=== PATIENT | female | born 1960 | race Caucasian/White ===

== ENCOUNTER 2022-12-30 09:14 | Outpatient (OUT) | payer OTHER, SELFPAY ==
--- NOTE | 2022-12-30 | MM_ITS ---
Patient: ELENI WATKINS Exam Date: 12/30/2022 : 1960 Gender:F Ordering : DR Trevor Forrest . Admission #: [id number] Family : Order #: [id number] CLICK HERE TO VIEW EXAM RADIOLOGY REPORT PROCEDURE: MM TOMOSYNTHESIS SCREENING BI COMPARISON: MG MAMM SCREEN 3D MAI CAD, 12/24/2020. MG MAMM SCREEN 3D MAI CAD, 12/27/2021. INDICATIONS: Screening Calculator Name NCI Breast Cancer Risk Assessment Tool 5 Year Breast Cancer Risk 0.80% Lifetime Breast Cancer Risk 3.80% Personal Breast Cancer No Personal Ovarian Cancer No Treatments None Family Cancers None LOCATION: [facility] BREAST COMPOSITION: Heterogeneously dense,which may obscure small masses. FINDINGS: DIAGNOSTIC CATEGORY 1--NEGATIVE. NO CHANGE FROM COMPARISON ASSESSMENT. Scattered benign-appearing nodules are present. Scattered benign-appearing calcifications are present. Scattered benign-appearing lymph nodes are present. RIGHT BREAST: No significant suspicious finding. LEFT BREAST: No significant suspicious finding. RECOMMENDATIONS: ROUTINE MAMMOGRAM AND CLINICAL EVALUATION IN 12 MONTHS. PLEASE NOTE: A NORMAL MAMMOGRAM DOES NOT EXCLUDE THE POSSIBILITY OF BREAST CANCER. A CLINICALLY SUSPICIOUS PALPABLE LUMP SHOULD BE BIOPSIED. Dictated by: Yaw Denton MD on 12/30/2022 at 10:48 Approved by: Yaw Denton MD on 12/30/2022 at 10:50
== END 2022-12-30 09:15 | disposition home or self-care (01) ==
LOC: MAMMO 09:18
PROVIDERS: PCP Family Medicine; Visit Provider Family Medicine
DX: Z12.31 Encounter for screening mammogram for malignant neoplasm of breast (principal)
CPT/HCPCS: 77063; 77067

== ENCOUNTER 2023-07-14 09:50 | Outpatient (OUT) | payer OTHER, SELFPAY ==
--- OUTSIDE RECORDS SUMMARY | 2023-07-14 10:16 | XMS_ITS | CCD ---
Author Organization [facility] Care Team Providers Care Crozer Operator Name Role Phone UNKNOWN, PROVIDER Unavailable Unavailable UNKNOWN, PROVIDER Unavailable Unavailable ALFA MEREDITH Unavailable Unavailable NADERER, TREVOR Unavailable Unavailable NADEREIan, TREVOR Primary Care Physician [phone] RODRIGO, DR TREVOR Valle Consulting Unavailable NADERER, DR TREVOR Valle Attending Unavailable NADERER, DR TREVOR Valle Admitting Unavailable NADERER, DR TREVOR Valle Primary Care Unavailable GARDNER ., DR BIRCH Consulting Unavailable GARDNER ., DR BIRCH Attending Unavailable GARDNER ., DR BIRCH Admitting Unavailable NADERER, DR TREVOR Valle Primary Care Unavailable AICHHOLZ, ABHAY ZHOU Admitting Unavailable AICHHOLZ, ABHAY SHOREA Consulting Unavailable NADERER, DR TREVOR Valle Primary Care Unavailable AICHHOLZ, ABHAY SHOREA Attending Unavailable NADERER, DR TREVOR Valle Attending Unavailable NADERER, DR TREVOR Valle Admitting Unavailable NADERER, DR TREVOR Valle Primary Care Unavailable NADERER, DR TREVOR Valle Consulting Unavailable NADERER, DR TREVOR Valle Attending Unavailable NADERER, DR TREVOR Valle Admitting Unavailable ZIEBER, DR ESAU Sosa Consulting Unavailable NADERER, DR TREVOR Valle Primary Care Unavailable NADERER, DR TREVOR Valle Consulting Unavailable Shiraz GARDNER Attending Unavailable JILLIAN GILLESPIE Attending Unavailable NADERER, TREVOR Referring Unavailable Shiraz GARDNER Attending Unavailable Shiraz GARDNER Attending Unavailable DAUGHERTY, SHARMILA Min Attending Unavailable DAUGHERTY, SHARMILA Min Attending Unavailable Allergies Allergy Classification Reported Allergen(s) Allergy Type Date of Onset Reaction(s) Facility (1 source) No Known Medication Allergies; Translations: [No Known Medication Allergies] Propensity to adverse reactions (disorder) [facility] Repository Medications Current Medications Medication Drug Class(es) Dates Sig (Normalized) Sig (Original) citalopram 40 mg oral tablet (3 sources) Serotonin Reuptake Inhibitor Start: 10-10-2022 take 1 mg by mouth once daily citalopram 40 mg Tab mg tab(s), Oral, Daily, Refills(s) 0 Start Date: 12/20/21 Status: Ordered lisinopril 10 mg oral tablet (3 sources) Angiotensin Converting Enzyme Inhibitor Start: 12-20-2021 take 1 mg by mouth once daily lisinopril 10 mg Tab mg tab(s), Oral, Daily, Refills(s) 0 Start Date: 12/20/21 Status: Ordered metFORMIN hydrochloride 500 mg oral tablet (3 sources) Biguanide Start: 12-20-2021 take 1 mg by mouth once daily metformin 500 mg ER Tab mg tab(s), Oral, Daily, Refills(s) 0 Start Date: 12/20/21 Status: Ordered 24 hr mirabegron 50 mg extended release oral tablet (2 sources) beta3-Adrenergic Agonist Start: 12-20-2021 take 1 tablet by mouth once daily Myrbetriq 50 mg oral tablet, extended release 50 mg = 1 tab(s), Oral, Daily, # 30 tab(s), Refills(s) 11, Pharmacy: [facility] #[id number], 152, cm, 12/20/21 10:43:00 EDT, Height/Length Dosing, 86, kg, 12/20/21 10:43:00 EDT, Weight Dosing Start Date: 12/20/21 Status: Ordered Start: 12-20-2021 take 1 mg by mouth once daily Myrbetriq 25 mg oral tablet, extended release mg tab(s), Oral, Daily, Refills(s) 0 Start Date: 12/20/21 Status: Ordered mirtazapine 45 mg oral tablet (3 sources) Start: 12-20-2021 take 1 mg by mouth once daily at bedtime mirtazapine 45 mg oral tablet mg tab(s), Oral, Once a day (at bedtime), Refills(s) 0 Start Date: 12/20/21 Status: Ordered Multivitamin preparation (3 sources) Start: 12-20-2021 multivitamin Daily, Refill(s) 0 Start Date: 12/20/21 Status: Ordered omeprazole 20 mg delayed release oral capsule (3 sources) Proton Pump Inhibitor Start: 12-20-2021 take 1 mg by mouth once daily omeprazole 20 mg Cap-DR mg cap(s), Oral, Daily, Refills(s) 0 Start Date: 12/20/21 Status: Ordered 24 hr oxybutynin chloride 15 mg extended release oral tablet (1 source) Cholinergic Muscarinic Antagonist Start: 04-04-2022 End: 03-30-2023 take 1 tablet by mouth once daily oxybutynin 15 mg ER Tab 15 mg = 1 tab(s), Oral, Daily, X 30 day(s), # 30 tab(s), Refills(s) 11, Pharmacy: [facility] #[id number], 152, cm, 04/04/22 11:08:00 EST, Height/Length Dosing, 89, kg, 04/04/22 11:08:00 EST, Weight Dosing Start Date: 04/04/22 Stop Date: 03/30/23 Status: Ordered pioglitazone 30 mg oral tablet (3 sources) Peroxisome Proliferator Receptor alpha Agonist, Peroxisome Proliferator Receptor gamma Agonist, Thiazolidinedione Start: 12-20-2021 take 1 mg by mouth once daily pioglitazone 30 mg Tab mg tab(s), Oral, Daily, Refills(s) 0 Start Date: 12/20/21 Status: Ordered potassium chloride 20 meq oral tablet (3 sources) Start: 12-20-2021 Potassium Chloride (Eqv-K-Tab) 20 mEq oral tablet, extended release mEq tab(s), Oral, BID, Refills(s) 0 Start Date: 12/20/21 Status: Ordered Completed/Discontinued Medications Medication Drug Class(es) Dates Sig (Normalized) Sig (Original) ciprofloxacin 500 mg oral tablet (1 source) Quinolone Antimicrobial Start: 04-04-2022 Cipro 500 mg Tab 500 mg = 1 tab(s), Oral, As Directed, Patient to take 1 tab the day before procedure and the 2nd tab the day of procedure once completed, # 2 tab(s), Refills(s) 0, Pharmacy: [facility] #[id number], 152, cm, 04/04/22 11:08:00 EST, Height/Length Do... Start Date: 04/04/22 Status: Ordered Problems Active Problems Problem Classification Problem Date Documented Da te Episodic/Chronic Abdominal hernia (1 source) Incisional hernia with obstruction, without gangrene; Translations: [INCISIONAL HERNIA WITH OBSTRUCTION, WITHOUT GANGRENE] Onset: 07-04-2017 Episodic Diabetes mellitus with complications (5 sources) Type 2 diabetes mellitus with hyperglycemia; Translations: [TYPE 2 DM W/HYPERGLYCEMIA] Onset: 07-16-2021 Chronic Diabetes mellitus without complication (5 sources) Type 2 diabetes mellitus without complications; Translations: [Latent autoimmune diabetes mellitus in adult] Onset: 07-04-2017 12-20-2021 Chronic Essential hypertension (5 sources) Essential (primary) hypertension; Translations: [Hypertensive disorder] Onset: 07-04-2017 12-20-2021 Chronic Genitourinary symptoms and ill-defined conditions (7 sources) Mixed incontinence; Translations: [Incontinence] Onset: 12-20-2021 Chronic Genitourinary symptoms and ill-defined conditions (16 sources) Increased frequency of urination; Translations: [Frequency of micturition] Onset: 12-20-2021 Episodic Mood disorders (3 sources) Depressive disorder 12-20-2021 Chronic Osteoarthritis (3 sources) Arthritis 12-20-2021 Chronic Other aftercare (1 source) 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; Translations: [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 CONSULTANT USE ORAL HYPOGLYCEMIC DX] Onset: 06-16-2022 Episodic Other diseases of bladder and urethra (1 source) Other specified disorders of bladder; Translations: [OTHER SPECIFIED DISORDERS BLADDER] Onset: 06-16-2022 Chronic Other diseases of bladder and urethra (1 source) Detrusor overactivity; Translations: [Overactive bladder] Onset: 08-24-2022 Chronic Other diseases of bladder and urethra (1 source) Overactive bladder 08-24-2022 Chronic Other diseases of bladder and urethra (1 source) Other urethral stricture, female; Translations: [OTHER URETHRAL STRICTURE FEMALE] Onset: 06-16-2022 Episodic Residual codes; unclassified (1 source) Acquired absence of other specified parts of digestive tract; Translations: [ACQ ABSENCE OTH PART DIGESTV TRACT] Onset: 06-16-2022 Episodic Residual codes; unclassified (1 source) Acquired absence of both cervix and uterus; Translations: [ACQUIRED ABSENCE BOTH CERVIX AND UTERUS] Onset: 06-16-2022 Episodic Unclassified (2 sources) Unknown / UNK(Unknown) Onset: 07-04-2017 Unclassified (2 sources) Unspecified intestinal obstruction, unspecified as to partial versus complete obstruction; Translations: [UNSP INTESTNL OBST, UNSP TO PARTIAL VERSUS COMPLETE OBST] Onset: 07-04-2017 Unclassified (2 sources) CONTACT W/AND (SUSP) EXPOS COVID-19; Translations: [CONTACT W/AND (SUSP) EXPOS COVID-19] Onset: 05-19-2022 Viral infection (1 source) COVID-19; Translations: [COVID-19] Onset: 05-19-2022 Past or Other Problems Problem Classification Problem Date Documented Da te Episodic/Chronic Other screening for suspected conditions (not mental disorders or infectious disease) (4 sources) Encounter for screening mammogram for malignant neoplasm of breast; Translations: [ENC SCR MAMMO MALIG NEOPLASM BREAST] Onset: 12-27-2021 Episodic Unclassified (1 source) CONTACT W/AND (SUSP) EXPOS COVID-19; Translations: [CONTACT W/AND (SUSP) EXPOS COVID-19] Onset: 05-18-2022 Results Test Name Value Interpretation Reference Range Facility Patient Education 08-25-19 Patient Education Urology Botulinum Toxin Bladder Injection A botulinum toxin bladder injection is a procedure to treat an overactive bladder. During the procedure, a drug called botulinum toxin is injected into the bladder through a long, thin needle. This drug relaxes the bladder muscles and reduces overactivity. You may need this procedure if your medicines are not working or you cannot take them. The procedure may be repeated as needed. The treatment is done once and it usually lasts for 6 months. Your health care provider will monitor you to see how well you respond. Tell a health care provider about: ? Any allergies you have. ? All medicines you are taking, including vitamins, herbs, eye drops, creams, and xsaf-lhp-xxtdvtt medicines. ? Any problems you or family members have had with anesthetic medicines. ? Any bleeding problems you have. ? Any surgeries you have had. ? Any medical conditions you have. ? Any previous reactions to a botulinum toxin injection. ? Any symptoms of urinary tract infection. These include chills, fever, a burning feeling when passing urine, and needing to pass urine often. ? Whether you are or may be . What are the risks? Generally this is a safe procedure. However, problems may occur, including: ? Not being able to pass urine. If this happens, you may need to have your bladder emptied with a thin tube (urinary catheter). ? Bleeding. ? Urinary tract infection. ? Allergic reaction to the botulinum toxin. ? Pain or burning when passing urine. ? Damage to nearby structures or organs. What happens before the procedure? When to stop eating and drinking Follow instructions from your health care provider about what you may eat and drink before your procedure. These may include: ? 8 hours before the procedure ? Stop eating most foods. Do not eat meat, fried foods, or fatty foods. ? Eat only light foods, such as toast or crackers. ? All liquids are okay except energy drinks and alcohol. ? 6 hours before the procedure ? Stop eating. ? Drink only clear liquids, such as water, clear fruit juice, black coffee, plain tea, and sports drinks. ? Do not drink energy drinks or alcohol. ? 2 hours before the procedure ? Stop drinking all liquids. ? You may be allowed to take medicines with small sips of water. If you do not follow your health care provider's instructions, your procedure may be delayed or canceled. Medicines Ask your health care provider about: ? Changing or stopping your regular medicines. This is especially important if you are taking diabetes medicines or blood thinners. ? Taking medicines such as aspirin and ibuprofen. These medicines can thin your blood. Do not take these medicines unless your health care provider tells you to take them. ? Taking ahlb-lde-bdtarjm medicines, vitamins, herbs, and supplements. General instructions ? Ask your health care provider what steps will be taken to help prevent infection. These steps may include: ? Removing hair at the procedure site. ? Washing skin with a germ-killing soap. ? Taking antibiotic medicine. ? If you will be going home right after the procedure, plan to have a responsible adult: ? Take you home from the hospital or clinic. You will not be allowed to drive. ? Care for you for the time you are told. What happens during the procedure? ? You will be asked to empty your bladder. ? An IV will be inserted into one of your veins. ? You will be given one or more of the following: ? A medicine to help you relax (sedative). ? A medicine to numb the area (local anesthetic). ? A medicine to make you fall asleep (general anesthetic). ? A long, thin scope called a cystoscope will be passed into your bladder through the part of the body that carries urine from your bladder (urethra). ? The cystoscope will be used to fill your bladder with water. ? A long needle will be passed through the cystoscope and into the bladder. ? The botulinum toxin will be injected into your bladder. It may be injected into multiple areas of your bladder. ? The cystoscope will be removed and your bladder will be emptied with a urinary catheter. The procedure may vary among health care providers and hospitals. What can I expect after the procedure? After your procedure, it is common to have: ? Blood-tinged urine. ? Burning or soreness when you pass urine. Follow these instructions at home: Medicines ? Take omul-bwl-ulvbngc and prescription medicines only as told by your health care provider. ? If you were prescribed an antibiotic medicine, take it as told by your health care provider. Do not stop using the antibiotic even if you start to feel better. General instructions ? If you were given a sedative during the procedure, it can affect you for several hours. Do not drive or operate machinery until your health ca (more content not included)... Normal [facility] Urology Office/Clinic Noteon 08-24-2022 Urology Office/Clinic Note Chief Complaint Pt is here to discuss botox denial HPI Staff Tayla is a 61 y.o. female PRW pt here today to discuss Botox denial. Last seen by PRW 04/04/22 due to Frequency, Urgency & Incontinence. Pt was switched from Myrbetriq 50mg to Oxybutynin 15mg ER QD therapy. (Has also tried VESIcare in the past with no improvement). S/P Cysto/UD done 06/13/22. Dysuria: denies Incomplete bladder emptying: denies Hematuria: denies Frequency: yes every half hour Urgency: yes Nocturia: denies Stream: steady stream Leaking: yes Post void dripping: denies Wearing pads/ Depends: yes wears pads Urge incontinence: yes Stress incontinence: yes Incontinence without Sensory Awareness: denies Abdominal pain: denies Flank pain: denies Sexual complaints: _ History of Present Illness staff HPI reviewed and agree. Tests Reviewed: Reviewed op note. Review of Systems PHQ Score Initial Depression Screen Score: 0 no fever, chills, malaise, myalgia. no rash/lesions. no chest pain, palpitations, or SOB. no abdominal pain, nausea, vomiting. no unilateral calf swelling, redness, pain Physical Exam Vitals & Measurements HR: 71(Peripheral) BP: 135/86 HT: 60 in HT: 152 cm WT: 89 kg WT: 195.8 lb BMI: 38.52 General: nontoxic, NAD Mouth: moist mucosa Lungs: normal respiratory effort Cardio: regular rate, good distal perfusion Abdomen: nondistended, no suprapubic distention or tenderness, no CVA tenderness Neurologic: Grossly normal Skin: No rashes or suspicious lesions Assessment/Plan PRW pt. 1. Mixed incontinence (N39.46: Mixed incontinence) Tried Vesicare 10 mg (one month only) - failed due lack of efficacy. Tried Myrbetriq 25 mg (increased dose after one month) - failed due to lack of efficacy. Tried Myrbetriq 50 mg filled 90 day script on 12/20/21 and took till completion - Failed due to lack of efficacy. Tried Oxybutynin 15mg ER from 04/04/22-06/13/22 - was advised to not complete 90 days due to intolerable side effects of dry mouth. Cysto/UD by PRW 06/13/22 - No DANITZA with valsalva. No prolapse. No A.V. Dilated 22-30 Fr. Botox denied 07/01/22 - Botox policy requires that you have tried and failed at least two oral agents for at least 90 days and that your have tried non-pharmacological measures such as bladder training. Pt has Discussed bladder training with pt at length. Gave pt educational resources from [facility] and [facility] for bladder training. Pt will attempt this for 90 days and then contact office w results. If symptoms are satisfactory then will schedule f/u in 6-12 mos. If satisfactory improvement not achieved w bladder training then we will schedule Botox as she will now have met the requirements for insurance. 2. OAB (overactive bladder) (N32.81: Overactive bladder) See #1. 3. Urinary frequency (R35.0: Frequency of micturition) See #1. 4. Urinary urgency (R39.15: Urgency of urination) See #1. Total time spent reviewing previous notes/results/external documents, preparing the chart, conducting the encounter with the patient and family, ordering tests/medications, and documenting the encounter was 30 minutes. Follow-up With When Contact Information JILLIAN GILLESPIE PA-C, URL [address] [place] [address] Additional Instructions: 3 mos after bladder training to discuss botox Patient Education Botulinum Toxin Bladder Injection Documentation recorded by the scribosmin Crow accurately reflects the services(s) I performed and decisions made by me. Authenticated by Jillian Gillespie PA-C on 08/24/2022 14:57:33. I, Tanya Crow, personally scribed for MAURICE Ochoa on 08/24/2022 14:46:28. . Problem List/Past Medical History Ongoing Arthritis Depression Diabetes 1.5, managed as type 2 HTN (hypertension) Mixed incontinence OAB (overactive bladder) Urinary frequency Urinary urgency Historical No qualifying data Procedure/Surgical History Cystoscopy (06/13/2022), Colonoscopy, flexible; diagnostic, including collection of specimen(s) by brushing or washing, when performed (separate procedure) (06/21/2016), Appendectomy, Cholecystectomy, Hernia, Hysterectomy. Medications citalopram 40 mg Tab, Oral, Daily lisinopril 10 mg Tab, Oral, Daily metformin 500 mg ER Tab, Oral, Daily mirtazapine 45 mg oral tablet, Oral, Once a day (at bedtime) multivitamin, Daily omeprazole 20 mg Cap-DR, Oral, Daily pioglitazone 30 mg Tab, Oral, Daily Potassium Chloride (Eqv-K-Tab) 20 mEq oral tablet, extended release, Oral, BID Allergies No Known Medication Allergies Social History Tobacco - Denies Tobacco Use, 12/20/2021 Never (less than 100 in lifetime) Tobacco Use:. Never Smokeless Tobacco Use:., 08/24/2022 Family History High blood pressure: Father. Kidney disease: Father. Lung cancer: Father. Immunizations Vaccine Date Status influenza virus vaccine, inactivated (more content not included)... Normal [facility] Comment on above: Result Comment: Elec tronically Signed By: JILLIAN GILLESPIE PA-C\.br\Date and Time Signed: 08/24/22 14:58 EDT\.br\Electronically Co-Signed By: Tanya Crow.br\Date and Time Co-Signed: 08/24/22 14:46 EDT Provider Letteron 07-07-2022 Provider Letter July 07, 2022 [place] [address] Dear Tayla Rojo , We have been trying to reach you with no success. It is important that you return our call regarding your Botox treatment denial upon receiving this letter. Also, at the time of your call, please provide us with your current updated phone number. Thank you for your prompt attention to this matter. Sincerely, [facility] option #3 Normal [facility] Pre-Certification Formon Pre-Certification Form [id number]. 00CD:127 [facility] Operative Reporton 3 Operative Report [id number] 0CD:127 Normal [facility] Operative Reporton 3 Operative Report [id number] 0CD:127 [facility] Covid-19 PCR (CVDTB)on SARS-CoV-2 (COVID-19) RNA DESEAN+probe Ql (Unsp spec) Detected Abnormal NOT DETECTED [facility] Comment on above: Result Comment: This test is not yet approved or cleared by the [place] FDA. When there are no FDA-approved or cleared tests available, and other criteria are met, FDA can make tests available under an emergency access mechanism called an Emergency Use Authorization (EUA). The EUA for this test is supported by the [place] of Health and Human Service's declaration that circumstances exist to justify the emergency use of in vitro diagnostics for the detection and/or diagnosis of the virus that causes COVID-19. This EUA will remain in effect for the duration of the COVID-19 declaration justifying emergency of IVDs, unless it is terminated or revoked by the FDA (after which the test may no longer be used). Performed By: #### C VDTBH ####[facility] [id number] [place], [place] [address]UeDr. Shyam Farfan INFLUENZA A AND B AGon 05-18 [facility] SEE BELOW Normal [facility] Comment on above: Result Comment: Nega tive for Flu A protein angiten. Infection due to Flu A cannot be ruled out. Flu A angiten in the sample may be below the detection limit of the test. Performed By: #### I NFLUAB #### [facility] [address] [address] [address] [facility] Normal [facility] Comment on above: Result Comment: Nega tive for Flu B protein antigen. Infection due to Flu B cannot be ruled out. Flu B antigen in the sample may be below the detection limit of the test. Performed By: #### I NFLUAB #### [facility] [address] [address] [address] Shyam Farfan INFLUENZA A AG Negative Normal NEGATIVE SEE COMMENT [facility] Comment on above: Performed By: #### I NFLUAB #### [facility] [address] [address] [address] Shyam Farfan INFLUENZA B AG Negative Normal NEGATIVE SEE COMMENT [facility] Comment on above: Performed By: #### I NFLUAB #### [facility] [address] [address] [address] Shyam Farfan Consent for Procedure/Surger yon 04-05-2022 Consent for Procedure/Surgery [id number] 0CD:127 Normal [facility] Ambulatory Visit Summaryon 0 04-04-2022 Ambulatory Visit Summary TAYLA ROJO :1960 Visit Date:04/04/2022 Ambulatory Visit Instructions Your Diagnosis Urinary frequency Urinary urgency Mixed incontinence Tests Performed Urnls Dip Stick Auto w/o Microscopy POC [id number] Your Care Team Attending Physician - NARCISO FERRARI, Shiraz Sosa Primary Care Physician - TREVOR WALLACE MD This Is Your Medications List mirabegron (Myrbetriq 50 mg oral tablet, extended release) Contact prescribing physician if questions or concerns citalopram (citalopram 40 mg Tab) lisinopril (lisinopril 10 mg Tab) metformin (metformin 500 mg ER Tab) mirtazapine (mirtazapine 45 mg oral tablet) multivitamin omeprazole (omeprazole 20 mg Cap-DR) pioglitazone (pioglitazone 30 mg Tab) potassium chloride (Potassium Chloride (Eqv-K-Tab) 20 mEq oral tablet, extended release) Procedures Performed Colonoscopy, flexible; diagnostic, including collection of specimen(s) by brushing or washing, when performed (separate procedure) (06/21/2016), Appendectomy, Cholecystectomy, Hernia, Hysterectomy. Discharge Vitals Heart Rate (Peripheral) 70 Respiratory Rate 16 Blood Pressure 127/82 Height 152 cm Height 60 in Weight 89 kg Weight 195.8 lb BMI 38.52 What to do next You Need to Schedule the Following Appointments Follow Up with NARCISO FERRARI, JOSEFINA Nguyen When: Where: [facility] [address], [place] [address]- Medications What How Much When Instructions Unchanged mirabegron (Myrbetriq 50 mg oral tablet, extended release) 1 Tablets By Mouth Every day Unchanged citalopram (citalopram 40 mg Tab) By Mouth Every day Contact prescribing physician if questions or concerns Unchanged lisinopril (lisinopril 10 mg Tab) By Mouth Every day Contact prescribing physician if questions or concerns Unchanged metformin (metformin 500 mg ER Tab) By Mouth Every day Contact prescribing physician if questions or concerns Unchanged mirtazapine (mirtazapine 45 mg oral tablet) By Mouth Once a day (at bedtime) Contact prescribing physician if questions or concerns Unchanged multivitamin Every day Contact prescribing physician if questions or concerns Unchanged omeprazole (omeprazole 20 mg Cap-DR) By Mouth Every day Contact prescribing physician if questions or concerns Unchanged pioglitazone (pioglitazone 30 mg Tab) By Mouth Every day Contact prescribing physician if questions or concerns Unchanged potassium chloride (Potassium Chloride (Eqv-K-Tab) 20 mEq oral tablet, extended release) By Mouth 2 times a day Contact prescribing physician if questions or concerns Test Results Urnls Dip Stick Auto w/o Microscopy POC 56619 (04/04/2022) Bilirubin Urine Dipstick - Negative Blood Urine Dipstick - Negative Glucose Urine Dipstick - Negative Ketones Urine Dipstick - Negative Leukocytes Urine Dipstick - 1+ Small Nitrite Urine Dipstick - Negative Protein Urine Dipstick - Negative Specific [place] Urine Dipstick - >=1.030 Urine Appearance Urine Dipstick - Clear Urine Color Urine Dipstick - Yellow Urobilinogen Urine Dipstick - Normal 0.2-1 EU/dl pH Urine Dipstick - 5.5 Allergies No Known Medication Allergies Problems Ongoing - Any problem that you are currently receiving treatment for. Arthritis Depression Diabetes 1.5, managed as type 2 HTN (hypertension) Mixed incontinence Urinary frequency Urinary urgency Education Materials Urodynamic Testing What is urodynamic testing? Urodynamic tests are done to determine how well your lower urinary tract is working. The lower urinary tract includes your bladder and the part of your body that drains urine from the bladder (urethra). When your kidneys filter your blood, urine is stored in your bladder until you feel the urge to urinate. Urination requires coordination between the nerves and muscles of your bladder and urethra. When your lower urinary tract is working well, you should be able to: ? Start urinating when your bladder is full. ? Empty your bladder completely. ? Control the flow of your urine. Why do I need urodynamic testing? You may need urodynamic testing to help find the cause of any of these problems: ? Leaking urine (incontinence). ? Problems starting or stopping your urine flow. ? Frequent or painful urination. ? Frequent urinary tract infections. ? Being unable to empty your bladder completely. ? Having strong urges to pass urine (urgency). ? Having a weak flow of urine. How do I prepare for the tests? ? Ask your health care provider about changing or stopping your regular medicines. This is especially important if you are taking diabetes medicines or blood thinners. ? You may be asked to avoid urinating before coming to the test so that you arrive with a full bladder. ? Tell a health care provider about: ? Any allergies you have. ? All medicines you are taking, including vitamins, herbs, eye (more content not included)... Normal [facility] Patient Educationon 04-04-19 Patient Education Urology Urodynamic Testing What is urodynamic testing? Urodynamic tests are done to determine how well your lower urinary tract is working. The lower urinary tract includes your bladder and the part of your body that drains urine from the bladder (urethra). When your kidneys filter your blood, urine is stored in your bladder until you feel the urge to urinate. Urination requires coordination between the nerves and muscles of your bladder and urethra. When your lower urinary tract is working well, you should be able to: ? Start urinating when your bladder is full. ? Empty your bladder completely. ? Control the flow of your urine. Why do I need urodynamic testing? You may need urodynamic testing to help find the cause of any of these problems: ? Leaking urine (incontinence). ? Problems starting or stopping your urine flow. ? Frequent or painful urination. ? Frequent urinary tract infections. ? Being unable to empty your bladder completely. ? Having strong urges to pass urine (urgency). ? Having a weak flow of urine. How do I prepare for the tests? ? Ask your health care provider about changing or stopping your regular medicines. This is especially important if you are taking diabetes medicines or blood thinners. ? You may be asked to avoid urinating before coming to the test so that you arrive with a full bladder. ? Tell a health care provider about: ? Any allergies you have. ? All medicines you are taking, including vitamins, herbs, eye drops, creams, and [id number]-[id number] medicines. ? Whether you are or may be . What are the risks of this testing? Generally, these tests are safe. However, some of the tests have risks, including: ? Discomfort. ? Frequent urge to urinate. ? Bleeding. ? Infection. ? Allergic reactions to medicines or dyes (contrast material). How is urodynamic testing done? You may have various urodynamic tests. The tests may be done separately or may all be done during one testing visit. You may be given an antibiotic medicine before or after testing to help prevent infection. The types of tests that may be done include: Uroflowmetry This test measures how much urine you pass and how long it takes to pass. ? You will urinate into a certain type of toilet or device (flowmeter). ? The device will measure the volume and the time of your urine flow. ? These measurements will be sent to a computer that creates a graph of your urine flow. Postvoid residual measurement This test measures how much urine is left in your bladder after you urinate. ? The test may be done with ultrasound. In this method, sound waves and a computer will be used to create an image of your bladder. ? The test can also be done by inserting a thin, flexible tube (catheter) into your bladder after you urinate. The remaining urine will be removed through the catheter so it can be measured. ? Remaining urine will be measured in milliliters (mL). If you have more than 100 mL left in your bladder after you urinate, your bladder is not emptying as it should. Cystometric testing This test uses a type of bladder catheter that can measure pressure. ? You may be given a medicine to numb the area (local anesthetic). ? The area around the opening of your urethra will be cleaned. ? A urinary catheter will be passed through your urethra into your bladder and used to empty your bladder completely. ? Then a measuring catheter will be placed, and your bladder will be filled with warm, germ-free (sterile) water. ? Pressure measurements will be taken: ? As your bladder fills. ? When you feel the need to urinate. ? As your bladder is emptied. ? You may be asked to cough or bear down to check for leakage. ? In some cases, your bladder may be filled with a material that shows up on X-rays (contrast material) so that X-ray pictures can be taken during the test. Electromyogram This test measures the electrical activity of the nerves and muscles of your bladder and the opening of your urethra. ? Sticky patches (electrodes) will be placed near your rectum and urethra to measure electrical activity. ? The measurements will show how well your nerves are communicating with your muscles. What happens after the testing? ? You should be able to go home right away and do your usual activities. ? You may be told to drink a glass of water every 30 minutes for the first 2 hours after testing. ? Taking a warm bath or using warm, wet cloths (warm compresses) may relieve any discomfort near your urethra. ? Contact your health care provider if you have: ? Pain. ? Blood in your urine. ? Chills. ? Fever. What do the results mean? Talk with your health care provider about what your results mean. Some common causes for abnormal results from urodynamic tests include: ? Enlarged prostate in men. ? Overactive bladder. ? Urinary tract infection. ? Nervous system diseases. (more content not included)... Normal [facility] Urology Office/Clinic Noteon 04-04-2022 Urology Office/Clinic Note Chief Complaint 3 month f/u HPI Staff Pt is here for 3 month f/u. Previous dx of urinary frequency, urinary urgency and mixed incontinence. Pt dose of Myretriq was increased to 50mg at last OV. She states that she did not notice that it was making a difference for her so she stopped taking it when she ran out. She has been out of it for a couple of weeks now. Dysuria: no Incomplete bladder emptying: no Hematuria: no Frequency: pt is voiding every half hour to hour Urgency: sometimes Nocturia: pt states she is not getting up Stream: good stream no straining Leaking: yes Post void dripping: no Wearing pads/ Depends: pads sometimes Urge incontinence: sometimes but states she is able to stop it. Stress incontinence: yes Incontinence without Sensory Awareness: no Abdominal pain: no Flank pain: no Sexual complaints: no History of Present Illness Tests reviewed: reviewed UA. I have reviewed the previous health record information and history for this patient from Dr. Gardner. I have reviewed and verified the staff HPI to be accurate for this encounter. There have been no associated fever, chills, flank pain, or blood in the urine. Denies any urinary infections since last encounter. Review of Systems PHQ Score Initial Depression Screen Score: 0 ROS - Provider Constitutional: denies weight loss, denies hot flashes. Eyes: denies eye problems. Gastrointestinal: denies nausea, denies vomiting. Cardiovascular: denies chest pain or angina. Integumentary: no dryness Musculoskeletal: denies musculoskeletal symptoms. ENMT: denies otolaryngeal symptoms. Respiratory: no shortness of breath. Heme/Lymph: denies easy bleeding tendency, denies easy bruising tendency. Psychiatric: no confusion, no anxiety. Genitourinary: See HPI. Physical Exam Vitals & Measurements HR: 70(Peripheral) RR: 16 BP: 127/82 HT: 60 in HT: 152 cm WT: 89 kg WT: 195.8 lb BMI: 38.52 General Appearance: alert , no acute distress, well nourished, well developed female. Genitourinary: bladder nonpalpable, no flank pain. Assessment/Plan 1. Urinary frequency (R35.0: Frequency of micturition) Myrbetriq was increased to 50mg at prior OV. Pt felt it was not making a difference in her sxs so she stopped taking it a couple weeks ago after she ran out. Pt has tried Vesicare in the past without improvement. Pt has tried other medications but is unaware of the names. Denies any infections since last encounter. Pt does not wake up to void. Pt voids every half hour to hour regardless of fluid intake. Has a good flow. Offered the option for the pt to try a different bladder medication in the meantime before cysto. If cysto is inconclusive and oral medication management remains ineffective, may proceed with Botox as a last resort. Pt does not think she has tried Oxybutynin in the past. Pt to start Oxybutynin 15 mg ER QD. SEs discussed. Rx sent to [facility] (pt confirmed). Must take med for 2 full mos for full effect. Will schedule cysto after at least 2 mos trial of Oxybutynin. The risks and benefits for cystoscopy have been discussed. The risks include bleeding, infection, and irritation of the bladder and urinary channel, among others. The patient, after being informed of procedural details and after questions have been answered, wishes to proceed. Full informed consent has been obtained. Will order Local anesthesia. Prophylactic abx sent to pharmacy. 2. Urinary urgency (R39.15: Urgency of urination) Moderate. Rarely has accidents, happens when she has severe urge. 3. Mixed incontinence (N39.46: Mixed incontinence) Stress > Urge. Uses a pad sometimes. Occasional urge but pt states she is able to stop it. Follow-up With When Contact Information NARCISO FERRARI, Shiraz Sosa, [facility] [address], [place] [address]- Additional Instructions: schedule cysto Patient Education Urodynamic Testing Tanya Matias, personally scribed for Dr. Gardner on 04/04/2022 11:49:16. . Documentation recorded by the scribe, Tanya Crow, accurately reflects the services(s) I performed and decisions made by me. Authenticated by Dr. Gardner on 04/04/2022 11:52:41. Problem List/Past Medical History Ongoing Arthritis Depression Diabetes 1.5, managed as type 2 HTN (hypertension) Mixed incontinence Urinary frequency Urinary urgency Historical No qualifying data Procedure/Surgical History Colonoscopy, flexible; diagnostic, including collection of specimen(s) by brushing or washing, when performed (separate procedure) (06/21/2016), Appendectomy, Cholecystectomy, Hernia, Hysterectomy. Medications citalopram 40 mg Tab, Oral, Daily lisinopril 10 mg Tab, Oral, Daily metformin 500 mg ER Tab, Oral, Daily mirtazapine 45 mg oral tablet, Oral, Once a day (at bedtime) multivitamin, Daily Myrbetriq 50 mg oral tablet, extended release, 50 mg= 1 tab(s), Oral, Daily, (more content not included)... Normal [facility] Comment on above: Result Comment: Elec tronically Signed By: Shiraz GARDNER MD\.br\Date and Time Signed: 04/04/22 11:52 EST\.br\Electronically Co-Signed By: Tanya Crow\.br\Date and Time Co-Signed: 04/04/22 11:49 EST GLYCOHEMOGLOBIN A1Con 2021 ADA RECOMMENDATION SEE BELOW Normal [facility] Comment on above: Result Comment: ADA RECOMMENDED LIMIT 4.0 - 6.0 ADA THERAPEUTIC TARGET < 7.0 ACTION SUGGESTED > 7.0 Performed By: #### A 1C #### [facility] [address] [address] [address] Shyam Farfan Glucose [Mass/Vol] 169 mg/dL Normal [facility] Comment on above: Performed By: #### A 1C #### [facility] [address] [address] [address] Shyam Farfan HbA1c (Bld) [Mass fraction] 7.5 % Critically high 4.5-6.2 [facility] Comment on above: Performed By: #### A 1C #### [facility] [address] [address] [address] Shyam Farfan MG MAMM SCREEN 3D MAI CADon 12-27-2021 MG MAMM SCREEN 3D MAI CAD Patient: TAYLA ROJO Exam Date: 12/27/2021 : 1960 Gender:F Ordering : DR TREVOR WALLACE . Admission #: [id number] Family : Order #: [id number] CLICK HERE TO VIEW EXAM RADIOLOGY REPORT PROCEDURE: MAMMOGRAM SCREENING 3D BILATERAL CAD COMPARISON: MG MAMM SCREEN 3D MAI CAD, 12/24/2020. MG MAMM SCREEN MAI W CAD, 08/29/2019. INDICATIONS: Screening mammography Calculator Name NCI Breast Cancer Risk Assessment Tool 5 Year Breast Cancer Risk 0.80% Lifetime Breast Cancer Risk 3.90% Personal Breast Cancer No Personal Ovarian Cancer No Treatments None Family Cancers None LOCATION: [facility] BREAST COMPOSITION: Heterogeneously dense,which may obscure small masses. FINDINGS: DIAGNOSTIC CATEGORY 2--BENIGN FINDING: RIGHT BREAST: No significant suspicious finding. No significant change has occurred. LEFT BREAST: No significant suspicious finding. Scattered benign-appearing calcifications are present. No significant change has occurred. RECOMMENDATIONS: ROUTINE MAMMOGRAM AND CLINICAL EVALUATION IN 12 MONTHS. PLEASE NOTE: A NORMAL MAMMOGRAM DOES NOT EXCLUDE THE POSSIBILITY OF BREAST CANCER. A CLINICALLY SUSPICIOUS PALPABLE LUMP SHOULD BE BIOPSIED. Dictated by: Esau Tavera M.D. on 12/27/2021 at 12:07 Approved by: Esau Tavera M.D. on 12/27/2021 at 12:09 Normal [facility] Formson 12-21-2021 Forms [id number] 0CD:127 Normal [facility] Physician Referralon 022 Physician Referral [id number]:127 Normal [facility] Ambulatory Visit Summaryon 1 Ambulatory Visit Summary TAYLA ROJO :1960 Visit Date:12/20/2021 Ambulatory Visit Instructions Your Diagnosis Urinary frequency Urinary urgency Mixed incontinence Tests Performed Urnls Dip Stick Auto w/o Microscopy POC 98405 Your Care Team Attending Physician - NARCISO FERRARI, Shiraz Sosa Primary Care Physician - RODRIGO FERRARI, TREVOR Referring Physician - TREVOR WALLACE MD This Is Your Medications List mirabegron (Myrbetriq 50 mg oral tablet, extended release) Contact prescribing physician if questions or concerns citalopram (citalopram 40 mg Tab) lisinopril (lisinopril 10 mg Tab) metformin (metformin 500 mg ER Tab) mirabegron (Myrbetriq 25 mg oral tablet, extended release) mirtazapine (mirtazapine 45 mg oral tablet) multivitamin omeprazole (omeprazole 20 mg Cap-DR) pioglitazone (pioglitazone 30 mg Tab) potassium chloride (Potassium Chloride (Eqv-K-Tab) 20 mEq oral tablet, extended release) Procedures Performed Colonoscopy, flexible; diagnostic, including collection of specimen(s) by brushing or washing, when performed (separate procedure) (06/21/2016), Appendectomy, Cholecystectomy, Hernia, Hysterectomy. Discharge Vitals Heart Rate (Peripheral) 77 Respiratory Rate 16 Blood Pressure 139/78 Height 152 cm Height 60 in Weight 86 kg Weight 189.2 lb BMI 37.22 What to do next Scheduled Follow-Up Appointments Monday 10:45 AM EST With: NARCISO FERRARI, Shiraz Sosa Where: [facility] Patient Educationon 12-21-19 Patient Education Obstetrics and Gynecology Overactive Bladder, Adult Overactive bladder refers to a condition in which a person has a sudden need to pass urine. The person may leak urine if he or she cannot get to the bathroom fast enough (urinary incontinence). A person with this condition may also wake up several times in the night to go to the bathroom. Overactive bladder is associated with poor nerve signals between your bladder and your brain. Your bladder may get the signal to empty before it is full. You may also have very sensitive muscles that make your bladder squeeze too soon. These symptoms might interfere with daily work or social activities. What are the causes? This condition may be associated with or caused by: ? Urinary tract infection. ? Infection of nearby tissues, such as the prostate. ? Prostate enlargement. ? Surgery on the uterus or urethra. ? Bladder stones, inflammation, or tumors. ? Drinking too much caffeine or alcohol. ? Certain medicines, especially medicines that get rid of extra fluid in the body (diuretics). ? Muscle or nerve weakness, especially from: ? A spinal cord injury. ? Stroke. ? Multiple sclerosis. ? Parkinson's disease. ? Diabetes. ? Constipation. What increases the risk? You may be at greater risk for overactive bladder if you: ? Are an older adult. ? Smoke. ? Are going through menopause. ? Have prostate problems. ? Have a neurological disease, such as stroke, dementia, Parkinson's disease, or multiple sclerosis (MS). ? Eat or drink things that irritate the bladder. These include alcohol, spicy food, and caffeine. ? Are overweight or obese. What are the signs or symptoms? Symptoms of this condition include: ? Sudden, strong urge to urinate. ? Leaking urine. ? Urinating 8 or more times a day. ? Waking up to urinate 2 or more times a night. How is this diagnosed? Your health care provider may suspect overactive bladder based on your symptoms. He or she will diagnose this condition by: ? A physical exam and medical history. ? Blood or urine tests. You might need bladder or urine tests to help determine what is causing your overactive bladder. You might also need to see a health care provider who specializes in urinary tract problems (urologist). How is this treated? Treatment for overactive bladder depends on the cause of your condition and whether it is mild or severe. You can also make lifestyle changes at home. Options include: ? Bladder training. This may include: ? Learning to control the urge to urinate by following a schedule that directs you to urinate at regular intervals (timed voiding). ? Doing Kegel exercises to strengthen your pelvic floor muscles, which support your bladder. Toning these muscles can help you control urination, even if your bladder muscles are overactive. ? Special devices. This may include: ? Biofeedback, which uses sensors to help you become aware of your body's signals. ? Electrical stimulation, which uses electrodes placed inside the body (implanted) or outside the body. These electrodes send gentle pulses of electricity to strengthen the nerves or muscles that control the bladder. ? Women may use a plastic device that fits into the vagina and supports the bladder (pessary). ? Medicines. ? Antibiotics to treat bladder infection. ? Antispasmodics to stop the bladder from releasing urine at the wrong time. ? Tricyclic antidepressants to relax bladder muscles. ? Injections of botulinum toxin type A directly into the bladder tissue to relax bladder muscles. ? Lifestyle changes. This may include: ? Weight loss. Talk to your health care provider about weight loss methods that would work best for you. ? Diet changes. This may include reducing how much alcohol and caffeine you consume, or drinking fluids at different times of the day. ? Not smoking. Do not use any products that contain nicotine or tobacco, such as cigarettes and e-cigarettes. If you need help quitting, ask your health care provider. ? Surgery. ? A device may be implanted to help manage the nerve signals that control urination. ? An electrode may be implanted to stimulate electrical signals in the bladder. ? A procedure may be done to change the shape of the bladder. This is done only in very severe cases. Follow these instructions at home: Lifestyle ? Make any diet or lifestyle changes that are recommended by your health care provider. These may include: ? Drinking less fluid or drinking fluids at different times of the day. ? Cutting down on caffeine or alcohol. ? Doing Kegel exercises. ? Losing weight if needed. ? Eating a healthy and balanced diet to prevent constipation. This may include: ? Eating foods that are high in fiber, such as fresh fruits and vegetables, whole grains, and beans. ? Limiting foods that are high in fat and processed sugars, such as fried and sweet foods. General instructions ? Take ove (more content not included)... Normal [facility] Urology Office/Clinic Noteon 12-20-2021 Urology Office/Clinic Note Chief Complaint Referred for OAB HPI Staff Tayla is here today as a new patient referred for OAB. Pt is currently taking Myrbetriq 25mg. Pt did take VESIcare in the past but did not help, pt states they have tried her on other medication but is unaware of the names. PVR was 24ml. Dysuria: _Denies Incomplete bladder emptying: _Denies Hematuria: _Denies Frequency: _every 30 minutes Urgency: _yes Nocturia: _0x Stream: _steady Leaking: _Denies Post void dripping: _sometimes Wearing pads/ Depends: _occ Urge incontinence: _rare Stress incontinence: _yes with a sneeze or cough Incontinence without Sensory Awareness: _Denies Abdominal pain: _Denies Flank pain: _Denies Sexual complaints: _ History of Present Illness I have reviewed and verified the staff HPI to be accurate for this encounter. Review of Systems PHQ Score Initial Depression Screen Score: 0 ROS - Provider Constitutional: denies weight loss, denies hot flashes. Eyes: denies eye problems. Gastrointestinal: denies nausea, denies vomiting. Cardiovascular: denies chest pain or angina. Integumentary: no dryness Musculoskeletal: denies musculoskeletal symptoms. ENMT: denies otolaryngeal symptoms. Respiratory: no shortness of breath. Heme/Lymph: denies easy bleeding tendency, denies easy bruising tendency. Psychiatric: no confusion, no anxiety. Genitourinary: denies vaginal discharge, denies incontinence, denies dysuria, denies hematuria, denies urinary frequency, denies amenorrhea, denies menorrhagia, denies abnormal bleeding, denies pelvic pain, denies genital sores, and denies decreased libido. Physical Exam Vitals & Measurements HR: 77(Peripheral) RR: 16 BP: 139/78 HT: 60 in HT: 152 cm WT: 86 kg WT: 189.2 lb BMI: 37.22 General Appearance: alert , no acute distress, well nourished, well developed female. Head: normocephalic . Eyes: normal orbit and globe. ENMT: normal examination of external ears. Chest: Lungs CTA, respirations non labored . Cardiovascular: regular rate and rhythm. Abdomen: soft, non distended, no tenderness, no mass or organomegaly, no hernia. Genitourinary: bladder nonpalpable, no flank tenderness. Lymph Nodes: unremarkable palpation of the cervical area. Skin: warm, dry, no bruising. Psychiatric: cooperative, affect appropriate for age, normal judgement, euthymic mood. Assessment/Plan 1. Urinary frequency (R35.0: Frequency of micturition) Pt is currently taking Myrbetriq 25mg. Pt did take VESIcare in the past but did not help, pt states they have tried her on other medication but is unaware of the names. Overall pt states that she voids roughly every 30 minutes, does not strain to void, does not wake at night and denies any recent UTIs. Pt states that since she has been on Myrbetriq she has not noticed any changes. Discussed raising pt's Myrbetriq to 50mg qd to see if it helps her sxs. Pt agrees to this plan. Will send script to pt's pharmacy today. Pt will f/u in 3 months. If pt has any concerns she can contact our office. Pt understands and acknowledges. 2. Urinary urgency (R39.15: Urgency of urination) Moderate. 3. Mixed incontinence (N39.46: Mixed incontinence) Stress > Urge. uses a pad sometimes. it is usually only damp. Pt wears pads for protection but not daily. Pt states that she usually does not leak when she has the urge to go to the bathroom, but mostly with cough, laugh, sneeze. Educated pt on the difference between Urge and Stress incontinence and their different managements. Follow-up With When Contact Information NARCISO FERRARI, Shiraz Sosa, [place] In 3 months 03/22/2022 [facility] [address], [place] [address]- [phone] Additional Instructions: Patient Education Overactive Bladder, Adult I, Muna Rush, personally scribed for Dr. Gardner on 12/20/2021 10:58:06. . Documentation recorded by the scribe, Muna Rush, accurately reflects the services(s) I performed and decisions made by me. Problem List/Past Medical History Ongoing Arthritis Depression Diabetes 1.5, managed as type 2 HTN (hypertension) Mixed incontinence Urinary frequency Urinary urgency Historical No qualifying data Procedure/Surgical History Colonoscopy, flexible; diagnostic, including collection of specimen(s) by brushing or washing, when performed (separate procedure) (06/21/2016), Appendectomy, Cholecystectomy, Hernia, Hysterectomy. Medications citalopram 40 mg Tab, Oral, Daily lisinopril 10 mg Tab, Oral, Daily metformin 500 mg ER Tab, Oral, Daily mirtazapine 45 mg oral tablet, Oral, Once a day (at bedtime) multivitamin, Daily Myrbetriq 25 mg oral tablet, extended release, Oral, Daily omeprazole 20 mg Cap-DR, Oral, Daily pioglitazone 30 mg Tab, Oral, Daily Potassium Chloride (Eqv-K-Tab) 20 mEq oral tablet, extended release, Oral, BID Allergies No Known Medication Allergies Social History (more content not included)... Normal [facility] Comment on above: Result Comment: Elec tronically Signed By: Shiraz GARDNER MD\.br\Date and Time Signed: 12/20/21 11:01 EDT\.br\Electronically Co-Signed By: Rife MA, Muna N\.br\Date and Time Co-Signed: 12/20/21 10:58 EDT CBC AUTO DIFFon 07-15-2021 BASO # 0.0 103/ul Normal 0.0-0.1 [facility] Comment on above: Performed By: #### C BC #### [facility] [address] [place] [address] Dr. Shyam Farfan Basophils/100 WBC (Bld) 0.6 % Normal 0.2-2.0 [facility] Comment on above: Performed By: #### C BC #### [facility] [address] [place] [address] Dr. Shyam Farfan EO # 0.1 103/ul Normal 0.0-0.7 [facility] Comment on above: Performed By: #### C BC #### [facility] [address] [place] [address] Dr. Shyam Farfan Eosinophils/100 WBC (Bld) 1.7 % Normal 0.9-7.0 [facility] Comment on above: Performed By: #### C BC #### [facility] [address] [place] [address] Dr. Shyam Farfan Erythrocyte distribution width (RBC) [Ratio] 17.1 % Critically high 11.0-15.0 [facility] Comment on above: Performed By: #### C BC #### [facility] [address] [place] [address] Dr. Shyam Farfan Hematocrit (Bld) [Volume fraction] 44.4 % Normal 36.0-48.0 [facility] Comment on above: Performed By: #### C BC #### [facility] [address] [place] [address] Dr. Shyam Farfan Hemoglobin (Bld) [Mass/Vol] 13.5 g/dL Normal 12.0-16.0 [facility] Comment on above: Performed By: #### C BC #### [facility] [address] [place] [address] Dr. Shyam Farfan IG # 0.03 10e3/ul Normal 0.00-0.03 [facility] Comment on above: Performed By: #### C BC #### [facility] [address] [place] [address] Dr. Shyam Farfan IG % 0.5 % Normal 0.0-0.5 [facility] Comment on above: Performed By: #### C BC #### [facility] [address] [place] [address] Dr. Shyam Farfan LYMPH # 1.5 103/ul Normal 1.2-3.8 [facility] Comment on above: Performed By: #### C BC #### [facility] [address] [place] [address] Dr. Shyam Farfan Lymphocytes/100 WBC (Bld) 23.4 % Normal 20.5-60.0 [facility] Comment on above: Performed By: #### C BC #### [facility] [address] [place] [address] Dr. Shyam Farfan MANUAL DIFF REQ NO Normal [facility] Comment on above: Performed By: #### C BC #### [facility] [address] [place] [address] Dr. Shyam Farfan MCH (RBC) [Entitic mass] 26.5 pg Critically low 26.7-34.0 [facility] Comment on above: Performed By: #### C BC #### [facility] [address] [place] [address] Dr. Shyam Farfan MCHC (RBC) [Mass/Vol] 30.4 g/dL Normal 29.9-35.2 [facility] Comment on above: Performed By: #### C BC #### [facility] [address] [place] [address] Dr. Shyam Farfan MCV (RBC) [Entitic vol] 87.2 fL Normal 81.0-99.0 [facility] Comment on above: Performed By: #### C BC #### [facility] [address] [place] [address] Dr. Shyam Farfan MONO # 0.4 103/ul Normal 0.3-0.8 [facility] Comment on above: Performed By: #### C BC #### [facility] [address] [place] [address] Dr. Shyam Farfan Monocytes/100 WBC (Bld) 6.5 % Normal 1.7-12.0 [facility] Comment on above: Performed By: #### C BC #### [facility] [address] [place] [address] Dr. Shyam Farfan NEUT # 4.4 103/ul Normal 1.4-6.5 [facility] Comment on above: Performed By: #### C BC #### [facility] [address] [place] [address] Dr. Shyam Farfan Neutrophils/100 WBC (Bld) 67.3 % Normal 43.0-75.0 [facility] Comment on above: Performed By: #### C BC #### [facility] [address] [place] [address] Dr. Shyam Farfan Platelet mean volume (Bld) [Entitic vol] 10.1 fL Normal 9.5-13.5 [facility] Comment on above: Performed By: #### C BC #### [facility] [address] [place] [address] Dr. Shyam Farfan PLT 238 103/ul Normal 150-450 [facility] Comment on above: Performed By: #### C BC #### [facility] [address] [place] [address] Dr. Shyam Farfan RBC 5.09 106/ul Normal 4.20-5.40 [facility] Comment on above: Performed By: #### C BC #### [facility] [address] [place] [address] Dr. Shyam Farfan WBC 6.6 103/ul Normal 4.0-11.0 [facility] Comment on above: Performed By: #### C BC #### [facility] [address] [place] [address] Dr. Shyam Farfan GLYCOHEMOGLOBIN A1Con 2021 ADA RECOMMENDATION SEE BELOW Normal [facility] Comment on above: Result Comment: ADA RECOMMENDED LIMIT 4.0 - 6.0 ADA THERAPEUTIC TARGET < 7.0 ACTION SUGGESTED > 7.0 Performed By: #### A 1C #### [facility] [address] [address] [address] Shyam Farfan Glucose [Mass/Vol] 200 mg/dL Normal [facility] Comment on above: Performed By: #### A 1C #### [facility] [address] [address] [address] Shyam Farfan HbA1c (Bld) [Mass fraction] 8.6 % Critically high 4.5-6.2 [facility] Comment on above: Performed By: #### A 1C #### [facility] [address] [place] [address] Dr. Shyam Farfan LIPID PROFILEon 07-15-2021 CHOL-HDL RATIO NORM SEE BELOW Normal [facility] Comment on above: Result Comment: 3.3 - 4.4 LOW RISK 4.4 - 7.1 AVERAGE RISK 7.1 - 11.0 MODERATE RISK >11.0 HIGH RISK Performed By: #### B MP, LIPID, LIVER, TSH #### [facility] [address] [place] [address] Dr. Shyam Farfan Cholesterol [Mass/Vol] 176 mg/dL Normal <=200 [facility] Comment on above: Performed By: #### B MP, LIPID, LIVER, TSH #### [facility] [address] [place] [address] Dr. Shyam Farfan Cholesterol in HDL [Mass/Vol] 53 mg/dL Normal 40-60 [facility] Comment on above: Performed By: #### B MP, LIPID, LIVER, TSH #### [facility] [address] [place] [address] Dr. Shyam Farfan Cholesterol in LDL [Mass/Vol] 100.0 mg/dL Normal [facility] Comment on above: Performed By: #### B MP, LIPID, LIVER, TSH #### [facility] [address] [place] [address] Dr. Shyam Farfan Cholesterol.total/Ch olesterol in HDL [Mass ratio] 3.3 {ratio} Normal [facility] Comment on above: Performed By: #### B MP, LIPID, LIVER, TSH #### [facility] [address] [place] [address] Dr. Shyam Farfan HDL NORMAL > or = 60 mg/dl - LO W CARDIOVASCULAR RISK <40 mg/dl - HIGH CARDIOVASCULAR RISK Normal [facility] Comment on above: Performed By: #### B MP, LIPID, LIVER, TSH #### [facility] [address] [address] [address] Shyam Farfan LDL CALC NORMAL SEE BELOW Normal [facility] Comment on above: Result Comment: <100 mg/dl OPTIMAL 100 - 129 mg/dl NEAR OR ABOVE OPTIMAL 130 - 159 mg/dl BORDERLINE HIGH 160 - 189 mg/dl HIGH >190 mg/dl VERY HIGH Performed By: #### B MP, LIPID, LIVER, TSH #### [facility] [address] [address] [address] Shyam Farfan Triglyceride [Mass/Vol] 115 mg/dL Normal <=150 [facility] Comment on above: Performed By: #### B MP, LIPID, LIVER, TSH #### [facility] [address] [address] [address] Shyam Farfan VLDL CALC 23.0 mg/dL Normal [facility] Comment on above: Performed By: #### B MP, LIPID, LIVER, TSH #### [facility] [address] [address] [address] Shyam Farfan LIVER PROFILEon 07-15-2021 Albumin [Mass/Vol] 3.8 g/dL Normal 3.4-5.0 [facility] Comment on above: Performed By: #### B MP, LIPID, LIVER, TSH #### [facility] [address] [address] [address] Shyam Farfan Albumin/Globulin [Mass ratio] 1.0 {ratio} Normal [facility] Comment on above: Performed By: #### B MP, LIPID, LIVER, TSH #### [facility] [address] [address] [address] Shyam Farfan ALP [Catalytic activity/Vol] 114 U/L Normal 46-116 [facility] Comment on above: Performed By: #### B MP, LIPID, LIVER, TSH #### [facility] [address] [address] [address] Shyam Farfan ALT [Catalytic activity/Vol] 96 U/L Critically high 14-59 [facility] Comment on above: Performed By: #### B MP, LIPID, LIVER, TSH #### [facility] [address] [address] [address] Shyam Farfan AST [Catalytic activity/Vol] 49 U/L Critically high 15-37 [facility] Comment on above: Performed By: #### B MP, LIPID, LIVER, TSH #### [facility] [address] [address] [address] Shyam Farfan BILI, CONJUGATED 0.1 mg/dL Normal 0.0-0.2 [facility] Comment on above: Performed By: #### B MP, LIPID, LIVER, TSH #### [facility] [address] [place] [address] Dr. Shyam Farfan Bilirubin [Mass/Vol] 0.5 mg/dL Normal 0.2-1.0 [facility] Comment on above: Performed By: #### B MP, LIPID, LIVER, TSH #### [facility] [address] [place] [address] Dr. Shyam Farfan Globulin (S) [Mass/Vol] 3.7 g/dL Normal [facility] Comment on above: Performed By: #### B MP, LIPID, LIVER, TSH #### [facility] [address] [address] [address] Shyam Farfan Protein [Mass/Vol] 7.5 g/dL Normal 6.4-8.2 [facility] Comment on above: Performed By: #### B MP, LIPID, LIVER, TSH #### [facility] [address] [place] [address] Dr. Shyam Farfan MICROALBUMIN, RAND URon mALB 2.4 mg/L Normal <=30.0 [facility] Comment on above: Performed By: #### M ALBR #### [facility] [address] [place] [address] Dr. Shyam Farfan PROF CHEM 8 (BAS METB)on Anion gap [Moles/Vol] 6.5 mmol/L Normal [facility] Comment on above: Performed By: #### B MP, LIPID, LIVER, TSH #### [facility] [address] [address] [address] Shyam Farfan Calcium [Mass/Vol] 9.3 mg/dL Normal 8.5-10.1 [facility] Comment on above: Performed By: #### B MP, LIPID, LIVER, TSH #### [facility] [address] [place] [address] Dr. Shyam Farfan Chloride [Moles/Vol] 102 mmol/L Normal 98-107 [facility] Comment on above: Performed By: #### B MP, LIPID, LIVER, TSH #### [facility] [address] [place] [address] Dr. Shyam Farfan CO2 [Moles/Vol] 31.5 mmol/L Normal 21.0-32.0 [facility] Comment on above: Performed By: #### B MP, LIPID, LIVER, TSH #### [facility] [address] [place] [address] Dr. Shyam Farfan Creatinine [Mass/Vol] 0.61 mg/dL Normal 0.55-1.02 [facility] Comment on above: Performed By: #### B MP, LIPID, LIVER, TSH #### [facility] [address] [place] [address] Dr. Shyam Farfan EGFR-AF ENGLISH >60 Normal >=60 [facility] Comment on above: Performed By: #### B MP, LIPID, LIVER, TSH #### [facility] [address] [place] [address] Dr. Shyam Farfan EGFR-NON AF ENGLISH >60 Normal >=60 [facility] Comment on above: Performed By: #### B MP, LIPID, LIVER, TSH #### [facility] [address] [place] [address] Dr. Shyam Farfan Glucose [Mass/Vol] 177 mg/dL Critically high 74-106 [facility] Comment on above: Performed By: #### B MP, LIPID, LIVER, TSH #### [facility] [address] [place] [address] Dr. Shyam Farfan Potassium [Moles/Vol] 4.0 mmol/L Normal 3.5-5.1 [facility] Comment on above: Performed By: #### B MP, LIPID, LIVER, TSH #### [facility] [address] [address] [address] Shyam Farfan Sodium [Moles/Vol] 136 mmol/L Normal 136-145 [facility] Comment on above: Performed By: #### B MP, LIPID, LIVER, TSH #### [facility] [address] [address] [address] Shyam Farfan Urea nitrogen [Mass/Vol] 11.0 mg/dL Normal 7.0-18.0 [facility] Comment on above: Performed By: #### B MP, LIPID, LIVER, TSH #### [facility] [address] [address] [address] Shyam Farfan Urea nitrogen/Creatinine [Mass ratio] 18.0 mg/mg Normal [facility] Comment on above: Performed By: #### B MP, LIPID, LIVER, TSH #### [facility] [address] [address] [address] Shyam Farfan TSHon 07-15-2021 TSH 0.792 uIU/mL Normal 0.358-3.740 [facility] Comment on above: Performed By: #### B MP, LIPID, LIVER, TSH #### [facility] [address] [address] [address] Shyam Farfan TSH RANGE SEE BELOW Normal [facility] Comment on above: Result Comment: <0.3 4 UIU/ml HYPERTHYROID 0.34-5.60 UIU/ml EUTHYROID >5.60 UIU/ml HYPOTHYROID Performed By: #### B MP, LIPID, LIVER, TSH #### [facility] [address] [address] [address] Shyam Farfan Discharge Summaryon 07-13-19 Discharge Summary MR#: [id number] Name[facility] Tayla Rojo Admitted: 07/03/2017 Discharged: 07/08/2017 Date of : 1960 Physician: Chiqui Jules MD DISCHARGE SUMMARYADMISSION DIAGNOSIS: Partial small bowel obstruction with 2 ventralincisional hernias.DISCHARGE DIAGNOSIS: Partial small bowel obstruction with 2 ventralincisional hernias.INTERVENTIONS: None.CONSULTATIONS: None.HOSPITAL COURSE: Ms Farooq is a 56-year-old female with a previous surgicalhistory of hysterectomy, cholecystectomy, and appendectomy as well as 3previous hernia repair surgeries who presented with signs and symptoms of apartial small bowel obstruction. This was related to the lower of her 2ventral hernias. The patient began passing gas very soon after admissionand so was started on a clear liquid diet, which she tolerated. Her dietwas advanced to a soft low residue diet and she was started on stoolsofteners as well. She tolerated this and was ready for discharge.However, she developed recurrent abdominal pain as well as nausea and soher discharge was delayed. She remained in the hospital for an additional2 days. Her abdominal pain did resolve after a small bowel follow-throughwhich was stimulating and cathartic in nature. She had multiple bowelmovements and was passing gas. Her abdominal pain was resolved. Her dietwas advanced to a low residue diet. She was discharged with stoolsofteners in 2 weeks. Low residue diet. Followup as needed in clinic withDr. Garcia.DISCHARGE CONDITION: Good.DISCHARGE DISPOSITION: Home.DISCHARGE MED RECONCILIATION: Continue atenolol, lisinopril, loratadine,metformin, mirtazapine, multivitamin, potassium chloride, sucralfate,docusate and senna.Electronically Signed by:Chiqui Jules MD 07/20/2017 02:07 P Chiqui uJles MD I have reviewed this discharge summary and confirmed the resident'sdocumentatio n. Please note that there may be additional documentation fromme. Date Dict: 07/12/2017/04:38 A/Chey Thao Trans: 07/12/2017 06:47 A/Anthony_JN:[id number]: Trevor Wallace M.D. [address] [place] [address] Normal [facility] BASIC METABOLIC PANELon 04-2 Calcium 8.9 mg/dL Normal 8.6-10.3 [facility] Comment on above: Order Comment: No: D o not add to previous draw Performed By: #### 1 0054 ####[facility] [place] [address], [facility] Chloride 107 mmol/L Normal 98-107 [facility] Comment on above: Order Comment: No: D o not add to previous draw Performed By: #### 1 0054 ####[facility] [facility] [place] [address], [facility] CO2 25 mmol/L Normal 21-31 [facility] Comment on above: Order Comment: No: D o not add to previous draw Performed By: #### 1 0054 ####[facility] [facility] [place] [address], [facility] Creatinine 0.57 mg/dL Low 0.60-1.20 [facility] Comment on above: Order Comment: No: D o not add to previous draw Performed By: #### 1 0054 ####[facility] [facility] [place] [address], [facility] eGFR (black) mL/min/{1.73_m2} Normal >60 [facility] Comment on above: Order Comment: No: D o not add to previous draw Performed By: #### 1 0054 ####[facility] [facility] [place] [address], [facility] eGFR (non-black) mL/min/{1.73_m2} Normal >60 [facility] Comment on above: Order Comment: No: D o not add to previous draw Performed By: #### 1 0054 ####[place] [address] [place] [address], [facility] Glucose mass conc 174 mg/dL High 70-100 [facility] Comment on above: Order Comment: No: D o not add to previous draw Performed By: #### 1 0054 ####[facility] [place] [address], [facility] Potassium molar conc 3.6 mmol/L Normal 3.5-5.1 [facility] Comment on above: Order Comment: No: D o not add to previous draw Performed By: #### 1 0054 ####[facility] Sodium 140 mmol/L Normal 136-145 [facility] Comment on above: Order Comment: No: D o not add to previous draw Performed By: #### 1 0054 ####[facility] [place] [address], [facility] Urea nitrogen 6 mg/dL Low 7-25 [facility] Comment on above: Order Comment: No: D o not add to previous draw Performed By: #### 1 0054 ####[facility] [facility].[address] CBC COMPLETE BLOOD COUNTon 0 - Erythrocyte distribution width Auto Ratio (RBC) 13.7 % Normal 11.5-15.0 [facility] Comment on above: Order Comment: No: D o not add to previous draw Performed By: #### 1 0054 ####[facility] [place] [address], [facility] Erythrocytes (RBC) 4.14 10*6/uL Normal 3.80-5.00 [facility] Comment on above: Order Comment: No: D o not add to previous draw Performed By: #### 1 0054 ####[facility] [place] [address], [facility] Erythrocytes (RBC) 0 % Normal 0-0 [facility] Comment on above: Order Comment: No: D o not add to previous draw Performed By: #### 1 0054 ####[facility] Hematocrit (HCT) 36.0 % Normal 36.0-45.0 [facility] Comment on above: Order Comment: No: D o not add to previous draw Performed By: #### 1 0054 ####[facility] Hemoglobin mass conc (Bld) 12.0 g/dL Normal 12.0-15.0 [facility] Comment on above: Order Comment: No: D o not add to previous draw Performed By: #### 1 0054 ####[address] MCH 29.0 pg Normal 27.0-33.0 [facility] Comment on above: Order Comment: No: D o not add to previous draw Performed By: #### 1 0054 ####[facility] MCHC mass conc (RBC) 33.3 g/dL Normal 32.0-35.0 [facility] Comment on above: Order Comment: No: D o not add to previous draw Performed By: #### 1 0054 ####[facility] [facility].[address] MCV 87.0 fL Normal 82.0-98.0 [facility] Comment on above: Order Comment: No: D o not add to previous draw Performed By: #### 1 0054 ####[facility] [place] [address], [facility] PLAT CNT 230 10*3/uL Normal 150-400 [facility] Comment on above: Order Comment: No: D o not add to previous draw Performed By: #### 1 0054 ####[facility] [address] WBC (Leukocytes) 6.9 10*3/uL Normal 4.0-10.6 [facility] Comment on above: Order Comment: No: D o not add to previous draw Performed By: #### 1 0054 ####[facility] [facility].[address] POC GLUCOSE LABon 07-08-2017 Glucose mass conc 106 mg/dL High 70-100 [facility] Comment on above: Performed By: #### 1 0054 ####[place] [address] [facility].[address] Glucose mass conc 135 mg/dL High 70-100 [facility] Comment on above: Performed By: #### 1 0054 ####[address] Glucose mass conc 122 mg/dL High 70-100 [facility] Comment on above: Performed By: #### 1 0054 ####[place] [address] POTASSIUM BLOODon 07-08-2017 Potassium molar conc 3.3 mmol/L Low 3.5-5.1 [facility] Comment on above: Order Comment: No: D o not add to previous draw Performed By: #### 1 0054 ####[facility] [place] [address] BASIC METABOLIC PANELon 06-12 Calcium 9.3 mg/dL Normal 8.6-10.3 [facility] Comment on above: Order Comment: Yes: Add to Previous draw if able Performed By: #### 5 6101 ####[place] [address], [facility] Chloride 108 mmol/L High 98-107 [facility] Comment on above: Order Comment: Yes: Add to Previous draw if able Performed By: #### 5 6101 ####[facility] [place] [address], [facility] CO2 26 mmol/L Normal 21-31 [facility] Comment on above: Order Comment: Yes: Add to Previous draw if able Performed By: #### 5 6101 ####[facility] [place] [address], [facility] Creatinine 0.54 mg/dL Low 0.60-1.20 [facility] Comment on above: Order Comment: Yes: Add to Previous draw if able Performed By: #### 5 6101 ####[facility] [place] [address], [facility] eGFR (black) mL/min/{1.73_m2} Normal >60 [facility] Comment on above: Order Comment: Yes: Add to Previous draw if able Performed By: #### 5 6101 ####[facility] [place] [address], [facility] eGFR (non-black) mL/min/{1.73_m2} Normal >60 Th e [facility] Comment on above: Order Comment: Yes: Add to Previous draw if able Performed By: #### 5 6101 ####[facility] [place] [address], [facility] Glucose mass conc 133 mg/dL High 70-100 [facility] Comment on above: Order Comment: Yes: Add to Previous draw if able Performed By: #### 5 6101 ####[facility] [place] [address], [facility] Potassium molar conc 2.9 mmol/L Low 3.5-5.1 [facility] Comment on above: Order Comment: Yes: Add to Previous draw if able Performed By: #### 5 6101 ####[facility] Sodium 140 mmol/L Normal 136-145 [facility] Comment on above: Order Comment: Yes: Add to Previous draw if able Performed By: #### 5 6101 ####[facility] [facility] [place] [address], [facility] Urea nitrogen 13 mg/dL Normal 7-25 [facility] Comment on above: Order Comment: Yes: Add to Previous draw if able Performed By: #### 5 6101 ####[facility].[address] CBC COMPLETE BLOOD COUNTon 0 - Erythrocyte distribution width Auto Ratio (RBC) 13.4 % Normal 11.5-15.0 [facility] Comment on above: Order Comment: Yes: Add to Previous draw if able Performed By: #### 5 6101 ####[facility].[address] Erythrocytes (RBC) 4.30 10*6/uL Normal 3.80-5.00 [facility] Comment on above: Order Comment: Yes: Add to Previous draw if able Performed By: #### 5 6101 ####[facility] [facility].[address] Erythrocytes (RBC) 0 % Normal 0-0 [facility] Comment on above: Order Comment: Yes: Add to Previous draw if able Performed By: #### 5 6101 ####[facility] [facility].[address] Hematocrit (HCT) 37.1 % Normal 36.0-45.0 [facility] Comment on above: Order Comment: Yes: Add to Previous draw if able Performed By: #### 5 6101 ####[facility] Hemoglobin mass conc (Bld) 12.4 g/dL Normal 12.0-15.0 [facility] Comment on above: Order Comment: Yes: Add to Previous draw if able Performed By: #### 5 6101 ####[facility] MCH 28.8 pg Normal 27.0-33.0 [facility] Comment on above: Order Comment: Yes: Add to Previous draw if able Performed By: #### 5 6101 ####[facility] MCHC mass conc (RBC) 33.4 g/dL Normal 32.0-35.0 [facility] Comment on above: Order Comment: Yes: Add to Previous draw if able Performed By: #### 5 6101 ####[place] [address] [facility].[address] MCV 86.3 fL Normal 82.0-98.0 [facility] Comment on above: Order Comment: Yes: Add to Previous draw if able Performed By: #### 5 6101 ####[facility] [facility].[address] PLAT CNT 259 10*3/uL Normal 150-400 [facility] Comment on above: Order Comment: Yes: Add to Previous draw if able Performed By: #### 5 6101 ####[facility] [facility].[address] WBC (Leukocytes) 15.3 10*3/uL High 4.0-10.6 [facility] Comment on above: Order Comment: Yes: Add to Previous draw if able Performed By: #### 5 6101 ####[facility] POC GLUCOSE LABon 07-07-2017 Glucose mass conc 133 mg/dL High 70-100 [facility] Comment on above: Performed By: #### 1 0054 ####[facility] [facility] [place] [address], [facility] Glucose mass conc 117 mg/dL High 70-100 [facility] Comment on above: Performed By: #### 5 6101 ####[facility] [facility] [address], [facility] Glucose mass conc 103 mg/dL High 70-100 [facility] Comment on above: Performed By: #### 5 6101 ####[facility] [facility] [address], [facility] Glucose mass conc 195 mg/dL High 70-100 [facility] Comment on above: Performed By: #### 5 6101 ####[facility] [facility] [address], [facility] SMALL BOWELon 07-07-2017 SMALL BOWEL [facility] [address] [place] [id number] ========Patient Name: TAYLA ROJO : 1960ex: FAge: Race: OtherMRN: [id number]. Location: [id number] Status: IVisit #: [id number] Date: 07/07/2017 8:30:00 AMCompleted Date: 07/07/2017 12:31 PMRequesting Provider: CARMELO MCDANIEL Attending Provider: CHIQUI JULES A Report Copy To: Signs & Symptoms: Abdomen Pain GeneralizedHistory: Patient history not availableComments: R/O Obstruction, please put contrast through NGT and use water-soluble contrastExam: SMALL BOWELAccession #: [id number] SMALL BOWEL 07/07/2017 12:57 PM EDT SIGNS AND SYMPTOMS: Abdomen Pain Generalized TECHNOLOGIST COMMENTS: patient states severe cramping vomiting loose stools surgery x2 for hernia last surgery 200ml of Omni 350 QUESTION FOR THE RADIOLOGIST: R/O Obstruction, please put contrast through NGT and use water-soluble contrast CONTRAST: Contrast: OMNIPAQUE 350 (LOCM), 200 milliliter, Nasogastric COMPARISON: none FINDINGS: Grain Cleaner images through the patient's abdomen show gas and fecal material in the colon. The patient's NG was advanced from the esophagus into the stomach and 250 mL's of water-soluble contrast were injected. No abnormality was noted in the stomach.The contrast column transited the small bowel into the ascending colon in one hour and 30 minutes. Small bowel mucosal folds had normal caliber and mucosal folds. IMPRESSION: Unremarkable small bowel follow-through. Electronically signed by:Ethan Nuñez. Transcribed by: [email or web address], User Resident: Electronically Signed by: ETHAN NUÑEZ @ 07/07/2017 01:38 PM Normal [facility] Comment on above: Order Comment: No: D o not add to previous draw POC GLUCOSE LABon 07-06-2017 Glucose mass conc 198 mg/dL High 70-100 [facility] Comment on above: Performed By: #### 5 6101 ####[facility] [facility] [place] [address], [facility] Glucose mass conc 208 mg/dL High 70-100 [facility] Comment on above: Performed By: #### 5 6101 ####[facility] [facility] [place] [address], [facility] Glucose mass conc 152 mg/dL High 70-100 [facility] Comment on above: Performed By: #### 5 6101 ####[facility] [facility] [place] [address], [facility] Glucose mass conc 145 mg/dL High 70-100 [facility] Comment on above: Performed By: #### 5 6101 ####[facility] [place] [address], [facility] Glucose mass conc 141 mg/dL High 70-100 [facility] Comment on above: Performed By: #### 5 6101 ####[facility] [place] [address], [facility] BASIC METABOLIC PANELon -2 Calcium 9.5 mg/dL Normal 8.6-10.3 [facility] Comment on above: Order Comment: No: D o not add to previous draw Performed By: #### 5 0103 ####[facility] [place] [address], [facility] Chloride 106 mmol/L Normal 98-107 [facility] Comment on above: Order Comment: No: D o not add to previous draw Performed By: #### 5 0103 ####[facility] [place] [address], [facility] CO2 27 mmol/L Normal 21-31 [facility] Comment on above: Order Comment: No: D o not add to previous draw Performed By: #### 5 0103 ####[facility] [place] [address], [facility] Creatinine 0.57 mg/dL Low 0.60-1.20 [facility] Comment on above: Order Comment: No: D o not add to previous draw Performed By: #### 5 0103 ####[facility] [place] [address], [facility] eGFR (black) mL/min/{1.73_m2} Normal >60 [facility] Comment on above: Order Comment: No: D o not add to previous draw Performed By: #### 5 0103 ####[facility] eGFR (non-black) mL/min/{1.73_m2} Normal >60 Th e [facility] Comment on above: Order Comment: No: D o not add to previous draw Performed By: #### 5 0103 ####[facility] [place] [address], [facility] Glucose mass conc 119 mg/dL High 70-100 [facility] Comment on above: Order Comment: No: D o not add to previous draw Performed By: #### 5 0103 ####[facility] [place] [address], [facility] Potassium molar conc 3.6 mmol/L Normal 3.5-5.1 [facility] Comment on above: Order Comment: No: D o not add to previous draw Performed By: #### 5 0103 ####[facility] Sodium 138 mmol/L Normal 136-145 [facility] Comment on above: Order Comment: No: D o not add to previous draw Performed By: #### 5 0103 ####[facility] [facility] [place] [address], [facility] Urea nitrogen 8 mg/dL Normal 7-25 [facility] Comment on above: Order Comment: No: D o not add to previous draw Performed By: #### 5 0103 ####[facility] CBC COMPLETE BLOOD COUNTon 0 07-05-2017 Erythrocyte distribution width Auto Ratio (RBC) 13.7 % Normal 11.5-15.0 [facility] Comment on above: Order Comment: No: D o not add to previous draw Performed By: #### 5 3 ####[facility] [place] [address], [facility] Erythrocytes (RBC) 0 % Normal 0-0 [facility] Comment on above: Order Comment: No: D o not add to previous draw Performed By: #### 5 0103 ####[facility] [place] [address], [facility] Erythrocytes (RBC) 4.48 10*6/uL Normal 3.80-5.00 [facility] Comment on above: Order Comment: No: D o not add to previous draw Performed By: #### 5 0103 ####[facility] [place] [address], [facility] Hematocrit (HCT) 38.9 % Normal 36.0-45.0 [facility] Comment on above: Order Comment: No: D o not add to previous draw Performed By: #### 5 0103 ####[facility].[address] Hemoglobin mass conc (Bld) 12.9 g/dL Normal 12.0-15.0 [facility] Comment on above: Order Comment: No: D o not add to previous draw Performed By: #### 5 0103 ####[facility] [place] [address], [facility] MCH 28.8 pg Normal 27.0-33.0 [facility] Comment on above: Order Comment: No: D o not add to previous draw Performed By: #### 5 0103 ####[facility] MCHC mass conc (RBC) 33.2 g/dL Normal 32.0-35.0 [facility] Comment on above: Order Comment: No: D o not add to previous draw Performed By: #### 5 0103 ####[facility] [place] [address], [facility] MCV 86.8 fL Normal 82.0-98.0 [facility] Comment on above: Order Comment: No: D o not add to previous draw Performed By: #### 5 0103 ####[facility] [place] [address], [facility] PLAT CNT 224 10*3/uL Normal 150-400 [facility] Comment on above: Order Comment: No: D o not add to previous draw Performed By: #### 5 0103 ####[facility] [facility] [place] [address], [facility] WBC (Leukocytes) 7.2 10*3/uL Normal 4.0-10.6 [facility] Comment on above: Order Comment: No: D o not add to previous draw Performed By: #### 5 0103 ####[facility] [place] [address], [facility] POC GLUCOSE LABon 07-05-2017 Glucose mass conc 122 mg/dL High 70-100 [facility] Comment on above: Performed By: #### 5 0103 ####[facility] [place] [address], [facility] Glucose mass conc 93 mg/dL Normal 70-100 [facility] Comment on above: Performed By: #### 5 0103 ####[facility] [facility] [place] [address], [facility] Glucose mass conc 116 mg/dL High 70-100 [facility] Comment on above: Performed By: #### 5 0103 ####[facility] [place] [address], [facility] Glucose mass conc 115 mg/dL High 70-100 [facility] Comment on above: Performed By: #### 5 0103 ####[facility] [place] [address], [facility] BASIC METABOLIC PANELon 06-12 Calcium 9.3 mg/dL Normal 8.6-10.3 [facility] Comment on above: Order Comment: No: D o not add to previous draw Performed By: #### 0 0071, [id number] ####[facility] [place] [address], [facility] Chloride 106 mmol/L Normal 98-107 [facility] Comment on above: Order Comment: No: D o not add to previous draw Performed By: #### 0 0071, 86575 ####[facility] [place] [address], [facility] CO2 26 mmol/L Normal 21-31 [facility] Comment on above: Order Comment: No: D o not add to previous draw Performed By: #### 0 0071, [address] ####[place] [address] [facility] [place] [address], [facility] Creatinine 0.53 mg/dL Low 0.60-1.20 [facility] Comment on above: Order Comment: No: D o not add to previous draw Performed By: #### 0 0071, 23078 ####[facility] [facility] [place] [address], [facility] eGFR (black) mL/min/{1.73_m2} Normal >60 [facility] Comment on above: Order Comment: No: D o not add to previous draw Performed By: #### 0 0071, 75765 ####[facility] [facility] [place] [address], [facility] eGFR (non-black) mL/min/{1.73_m2} Normal >60 Th e [facility] Comment on above: Order Comment: No: D o not add to previous draw Performed By: #### 0 0071, 78482 ####[place] [address] [facility] [place] [address], [facility] Glucose mass conc 167 mg/dL High 70-100 [facility] Comment on above: Order Comment: No: D o not add to previous draw Performed By: #### 0 0071, 82258 ####[facility] [place] [address], [facility] Potassium molar conc 3.4 mmol/L Low 3.5-5.1 [facility] Comment on above: Order Comment: No: D o not add to previous draw Performed By: #### 0 0071, 44233 ####[facility] [place] [address], [facility] Sodium 137 mmol/L Normal 136-145 [facility] Comment on above: Order Comment: No: D o not add to previous draw Performed By: #### 0 0071, 20832 ####[facility] [place] [address], [facility] Urea nitrogen 12 mg/dL Normal 7-25 [facility] Comment on above: Order Comment: No: D o not add to previous draw Performed By: #### 0 0071, 99986 ####[facility] [place] [address], [facility] Calcium 9.9 mg/dL Normal 8.6-10.3 [facility] Comment on above: Order Comment: No: D o not add to previous draw Performed By: #### 0 0071 ####[facility] [place] [address], [place] Chloride 103 mmol/L Normal 98-107 [facility] Comment on above: Order Comment: No: D o not add to previous draw Performed By: #### 0 0071 ####[facility] [place] [address], [place] CO2 25 mmol/L Normal 21-31 [facility] Comment on above: Order Comment: No: D o not add to previous draw Performed By: #### 0 0071 ####[facility] [place] [address], [place] Creatinine 0.56 mg/dL Low 0.60-1.20 [facility] Comment on above: Order Comment: No: D o not add to previous draw Performed By: #### 0 0071 ####[facility] [place] [address], [facility] eGFR (black) mL/min/{1.73_m2} Normal >60 [facility] Comment on above: Order Comment: No: D o not add to previous draw Performed By: #### 0 0071 ####[facility] [place] [address], [facility] eGFR (non-black) mL/min/{1.73_m2} Normal >60 Th e [facility] Comment on above: Order Comment: No: D o not add to previous draw Performed By: #### 0 0071 ####[facility] [place] [address], [facility] Glucose mass conc 179 mg/dL High 70-100 [facility] Comment on above: Order Comment: No: D o not add to previous draw Performed By: #### 0 0071 ####[facility] [facility] [place] [address], [facility] Potassium molar conc 3.4 mmol/L Low 3.5-5.1 [facility] Comment on above: Order Comment: No: D o not add to previous draw Performed By: #### 0 0071 ####[facility] [place] [address], [facility] Sodium 136 mmol/L Normal 136-145 [facility] Comment on above: Order Comment: No: D o not add to previous draw Performed By: #### 0 0071 ####[facility] [place] [address], [facility] Urea nitrogen 12 mg/dL Normal 7-25 [facility] Comment on above: Order Comment: No: D o not add to previous draw Performed By: #### 0 0071 ####[facility] CBC COMPLETE BLOOD COUNTon 0 - Erythrocyte distribution width Auto Ratio (RBC) 13.8 % Normal 11.5-15.0 [facility] Comment on above: Order Comment: No: D o not add to previous draw Performed By: #### 5 0608 ####[facility] Erythrocytes (RBC) 0 % Normal 0-0 [facility] Comment on above: Order Comment: No: D o not add to previous draw Performed By: #### 5 0608 ####[facility] Erythrocytes (RBC) 4.58 10*6/uL Normal 3.80-5.00 [facility] Comment on above: Order Comment: No: D o not add to previous draw Performed By: #### 5 0608 ####[facility] [facility].[address] Hematocrit (HCT) 39.7 % Normal 36.0-45.0 [facility] Comment on above: Order Comment: No: D o not add to previous draw Performed By: #### 5 0608 ####[facility] [facility].[address] Hemoglobin mass conc (Bld) 13.1 g/dL Normal 12.0-15.0 [facility] Comment on above: Order Comment: No: D o not add to previous draw Performed By: #### 5 0608 ####[facility] [facility].[address] MCH 28.6 pg Normal 27.0-33.0 [facility] Comment on above: Order Comment: No: D o not add to previous draw Performed By: #### 5 0608 ####[facility] MCHC mass conc (RBC) 33.0 g/dL Normal 32.0-35.0 [facility] Comment on above: Order Comment: No: D o not add to previous draw Performed By: #### 5 0608 ####[facility] MCV 86.7 fL Normal 82.0-98.0 [facility] Comment on above: Order Comment: No: D o not add to previous draw Performed By: #### 5 0608 ####[facility] PLAT CNT 264 10*3/uL Normal 150-400 [facility] Comment on above: Order Comment: No: D o not add to previous draw Performed By: #### 5 0608 ####[facility] WBC (Leukocytes) 11.2 10*3/uL High 4.0-10.6 [facility] Comment on above: Order Comment: No: D o not add to previous draw Performed By: #### 5 0608 ####[address] CBC W/DIFFon 07-04-2017 ABS BASOPHILS 0.0 10*3/uL Normal 0.0-0.2 [facility] Comment on above: Performed By: #### 5 0103 ####[facility] ABS IMM GRANS 0.1 10*3/uL Normal 0.0-0.2 [facility] Comment on above: Performed By: #### 5 0103 ####[address] Basophils Auto #/vol (Bld) 0.3 % Normal 0.0-1.0 [facility] Comment on above: Performed By: #### 5 0103 ####[facility] [place] [address], [facility] Eosinophils 0.0 10*3/uL Normal 0.0-0.5 [facility] Comment on above: Performed By: #### 5 0103 ####[facility] Eosinophils/100 leukocytes 0.2 % Normal 0.0-6.0 [facility] Comment on above: Performed By: #### 5 0103 ####[place] [address] Erythrocyte distribution width Auto Ratio (RBC) 13.8 % Normal 11.5-15.0 [facility] Comment on above: Performed By: #### 5 0103 ####[facility] Erythrocytes (RBC) 0 % Normal 0-0 [facility] Comment on above: Performed By: #### 5 0103 ####[facility] Erythrocytes (RBC) 4.67 10*6/uL Normal 3.80-5.00 [facility] Comment on above: Performed By: #### 5 0103 ####[facility] Hematocrit (HCT) 40.3 % Normal 36.0-45.0 [facility] Comment on above: Performed By: #### 5 0103 ####[facility] [address] Hemoglobin mass conc (Bld) 13.5 g/dL Normal 12.0-15.0 [facility] Comment on above: Performed By: #### 5 0103 ####[facility] [facility].[address] IMMATURE GRANS 0.5 % Normal 0.0-1.0 [facility] Comment on above: Performed By: #### 5 0103 ####[facility] [facility].[address] Lymphocytes 1.6 10*3/uL Normal 1.2-4.0 [facility] Comment on above: Performed By: #### 5 0103 ####[facility] [facility].[address] Lymphocytes/100 leukocytes 10.9 % Low 20.0-45.0 [facility] Comment on above: Performed By: #### 5 0103 ####[facility] [facility].[address] MCH 28.9 pg Normal 27.0-33.0 [facility] Comment on above: Performed By: #### 5 0103 ####[facility] [address] MCHC mass conc (RBC) 33.5 g/dL Normal 32.0-35.0 [facility] Comment on above: Performed By: #### 5 0103 ####[facility] [facility].[address] MCV 86.3 fL Normal 82.0-98.0 [facility] Comment on above: Performed By: #### 5 0103 ####[facility] [facility].[address] Monocytes 0.9 10*3/uL Normal 0.1-1.0 [facility] Comment on above: Performed By: #### 5 0103 ####[facility] [facility].[address] MONOS 6.5 % Normal 5.0-12.0 [facility] Comment on above: Performed By: #### 5 0103 ####[facility] [facility].[address] Neutrophils 11.8 10*3/uL High 1.6-7.6 [facility] Comment on above: Performed By: #### 5 0103 ####[facility] [facility].[address] Neutrophils/100 leukocytes 81.6 % High 40.0-72.0 [facility] Comment on above: Performed By: #### 5 0103 ####[facility] [facility] [place] [address], [facility] PLAT CNT 277 10*3/uL Normal 150-400 [facility] Comment on above: Performed By: #### 5 0103 ####[facility] WBC (Leukocytes) 14.4 10*3/uL High 4.0-10.6 [facility] Comment on above: Performed By: #### 5 0103 ####[facility] History and Physicalon 07-04 History and Physical [id number] Admitted: 07/03/2017 Date of : 1960 Attending Physician: Chiqui Jules MD Room #: 4CD [id number] Discharge Date: HISTORY AND PHYSICALHISTORY OF PRESENT ILLNESS: Ms. Rojo is a 56-year-old female, whopresents with signs of small bowel obstructions starting on July 03 aton. She states she had intense abdominal pain, nausea, and vomiting. Ofnote, she recently received a CT scan for abdominal pain roughly a monthago, which demonstrated 2 ventral hernias. She has a previous surgicalhistory of multiple hernia repairs in the past 2 years. Her 1st being inDecember of 2015 for a periumbilical hernia, which was repaired with mesh.However, she developed a wound infection and this was complicated by anenterocutaneous fistula. This required 2 subsequent surgeries in June as well and this also required a partial colon resection at that timedue to the enterocutaneous fistula. She notes that she does not believethe mesh was removed at that time. Surgeries were performed at [facility] and records are unavailable. On arrival to [facility], patient's painis noted to have greatly improved. She complains of mild tenderness anddistention, however. Otherwise her abdomen is soft. She notes that hervomiting has improved since placement of the NG tube, which she received atan outside hospital before transfer.PAST MEDICAL HISTORY: Significant for diabetes and hypertension as well asobesity.PAST SURGICAL HISTORY: Significant for cholecystectomy, appendectomy,hysterect carmelo, and her 3 previous hernia repair surgeries with partial colonresection.SOCIAL HISTORY: She denies smoking, drinking, or illicit drug use.FAMILY HISTORY: Noncontributory.REVIEW OF SYSTEMS: A 14 point review of systems was performed and negativeexcept for as mentioned above.OBJECTIVE: VITAL SIGNS: Temperature 97.7 degrees, heart rate 79,respiratory rate 18, blood pressure 134/63, oxygen saturation 94% on roomair.GENERAL: The patient is awake, alert, and oriented. She is in no acutedistress. HEENT: The patient's pupils are round and reactive to lightbilaterally. She has no tracheal deviation.CARDIAC: She is in regular rate and rhythm, S1, S2 intact and present.Possible S3 murmur noted.PULMONARY: Clear to auscultation bilaterally.ABDOMEN: Patient's abdomen is soft and moderately distended. She is notedto be obese. She has a thick surgical scar in her midline superior abdomenas well as scars from retention sutures. She notes that her pain islocated around her surgical scar area. Her exam is limited by her obesity.SKIN: Her skin is negative for any rashes, lesions, or abrasions.EXTREMITIES: She has pulses bilaterally +2 in upper and lower extremities.She has no swelling or edema of her lower extremities.NEUROLOGIC AL: She is grossly normal.LAB WORK: From the outside hospital was largely negative for anysignificant findings other than a white count of 12.7. CT from outsidehospital does demonstrate loops of bowel within her periumbilical herniawith signs of obstruction.ASSESSMENT AND PLAN: This is a 56-year-old female with history of multipleabdominal surgeries including hernia repair with partial colon resectiondue to infection and enterocutaneous fistula. She has initially beenworked up for these hernias and was [facility]. However, this was not scheduled until August withpossible surgery for repair in September. She presents with a small bowelobstruction likely secondary to her periumbilical hernia. She had NG tubeplacement at an outside facility. At this time, we will likely managed thepatient conservatively, given her extensive history of her surgeries andthe fact that her overall clinical exam is relatively benign at this time.PLAN:1. The patient will continue to have NG tube on low intermittent suction. She will be kept n.p.o. and receive IV fluids.2. The patient will receive IV morphine for pain and IV Zofran for nausea.3. We will continue with conservative management at this time and discussed possible surgical intervention if the patient's symptoms do not improve.4. We will repeat blood work as well as upload her CT scan from the outside facility for consultation and re-reads.Electronicall y Signed by:Chiqui Jules MD 07/04/2017 08:30 A Chiqui Jules MD I was not present but assume all responsibility for the exam. NOTBILLABLEDate Dict: 07/04/2017/12:24 A/Chey Navarrete Trans: 07/04/2017 05:33 A/mmoDN_JN:[id number] Normal [facility] LACTATE BLOODon 07-04-2017 Lactate 0.6 mmol/L Normal .5-2.2 [facility] Comment on above: Order Comment: No: D o not add to previous draw Performed By: #### 1 0054 ####[facility], [place] [address] MAGNESIUM BLOODon 07-04-2017 Magnesium 2.1 mg/dL Normal 1.9-2.7 [facility] Comment on above: Order Comment: No: D o not add to previous draw Performed By: #### 0 0071, [id number] ####[facility] OUTSIDE CONSULT GIGUon 07-04 OUTS[facility] GIGU [facility] [address] [place] [address] ========Patient Name: TAYLA ROJO : 1960ex: FAge: Race: OtherMRN: [id number]. Location: [id number] Status: IVisit #: [id number] Date: 07/04/2017 7:10:00 AMCompleted Date: 07/04/2017 07:20 AMRequesting Provider: NADER SALCEDO Attending Provider: CHIQUI JULES Report Copy To: TREVOR WALLACE Signs & Symptoms: outside consultHistory: CT abd/pelvis [facility] 07/03/[address] Nader EllisiComments: Exam: OUTSIDE CONSULT GIGUAccession #: [id number] OUTSIDE CONSULT GIG 07/04/2017 7:20 AM EDT OUTSIDE STUDY: CT TECHNIQUE: Outside CT images of the abdomen and pelvis obtained from [facility] dated July 03, 2017.. Image review with formal consultation was requested by . Comparison May 30, 2017 FINDINGS : The lung bases appear unremarkable. The right hemidiaphragm appears elevated.The liver, spleen, adrenals and pancreas appear unremarkable.The gallbladder has been resected.The kidneys concentrate contrast satisfactorily with an apparent cyst present on the left.There is a complex midline anterior abdominal wall hernia. The upper portion of the hernia contains the anterior wall of the stomach and a portion of the mid transverse colon containing an anastomosis as well as a loop of small bowel.The second more inferior portion of the hernia contains small bowel. The diameter of the colon exiting the hernia appears significantly distended compared to the small bowel proximally.The colon appears relatively decompressed.No free intraperitoneal air or free fluid is identified.The bladder appears unremarkable and the uterus is absent.The aorta and retroperitoneum appear unremarkable.The study viewed at bone window shows what appears to be a hemangioma in the body of L3. Disc space degeneration is noted at L4-5 and L5 1. IMPRESSION: * Complex midline anterior abdominal wall hernia containing stomach, transverse colon and small bowel superiorly with what appears to be obstructed small bowel in the more inferior portion.* Status post cholecystectomy and hysterectomy.* Lesion in the body of L3 consistent with hemangioma. Please note: Our interpretation of studies performed at an outside institution is limited by factors, which may include the absence of technical specifics of the image, undisclosed clinical information and the unavailability of the original interpretation. Specialist at the institution that performed the study may have access to information not available to us that could make a difference in this interpretation. Electronically signed by:Ethan Nuñez. Transcribed by: [email or web address], User Resident: Electronically Signed by: ETHAN NUÑEZ @ 07/04/2017 10:22 AM Normal [facility] POC GLUCOSE LABon 07-04-2017 Glucose mass conc 123 mg/dL High 70-100 [facility] Comment on above: Performed By: #### 5 0103 ####[facility] [facility] [place] [address], [facility] Glucose mass conc 134 mg/dL High 70-100 [facility] Comment on above: Performed By: #### 5 0103 ####[facility] [facility].[address] Glucose mass conc 193 mg/dL High 70-100 [facility] Comment on above: Order Comment: NOTE: Result Checked Performed By: #### 8 5499 ####[facility] [facility] [place] [address], [facility] Glucose mass conc 147 mg/dL High 70-100 [facility] Comment on above: Performed By: #### 8 5499 ####[facility] [facility].[address] PROTHROMBIN TIMEon 8 INR Coag RelTime (PPP) 1.20 {INR} High 0.91-1.16 [facility] Comment on above: Order Comment: Yes: Add to Previous draw if able Result Comment: ACCC P RECOMMENDED INR FOR WARFARIN THERAPY CONDITION INRPROPHYLAXIS OF VENOUS THROMBOSIS 2-3(HIGH-RISK SURGERY)TREATMENT OF VENOUS THROMBOSIS 2-3TREATMENT OF PULMONARY EMBOLISM 2-3PREVENTION OF SYSTEMIC EMBOLISM: 2-3 ACUTE MYOCARDIAL INFARCTION TISSUE HEART VALVES VALVULAR HEART DISEASE ATRIAL FIBRILLATION RECURRENT SYSTEMIC EMBOLISMMECHANICAL HEART VALVE 2.5-3.5 FROM: ORAL ANTICOAGULANTS. MECHANISM OF ACTION, CLINICALEFFECTIVENESS, AND OPTIMAL THERAPEUTIC RANGE. [id number];108:[id number]-246S. Performed By: #### 5 6101 ####[facility] Prothrombin time (PT) Coag time (PPP) 15.3 s High 12.3-14.8 [facility] Comment on above: Order Comment: Yes: Add to Previous draw if able Result Comment: ALL RESULTS MUST BE INTERPRETED WITH RESPECT TO BLOOD DRAWING ARTIFACTOR DILUTION ERROR OF ANTICOAGULANT AT THE TIME OF SAMPLING. Performed By: #### 5 6101 ####[facility] [facility] [address], [facility] TYPE AND SCREENon 07-04-2017 ABO INTERPRETATION O Normal [facility] Comment on above: Performed By: #### 6 2586 ####[facility] [facility] [place] [place] [address], [facility] ANTIBODY SCREEN Negative Normal [facility] Comment on above: Performed By: #### 6 2586 ####[facility] [facility] [place] [address], [facility] RH INTERPRETATION Positive Normal [facility] Comment on above: Performed By: #### 6 2586 ####[facility] [facility] [place] [address], [facility] Vital Signs Date Time Vital Sign Value Performing Clinician Reagan samano 08-24-2022 14:25-0400 Blood Pressure Location JILLIAN GILLESPIE [facility] 08-24-2022 14:25-0400 Diastolic blood pressure 86 mm[Hg] JILLIAN GILLESPIE [facility] 08-24-2022 14:25-0400 Heart rate 71 /min JILLIAN GILLESPIE [facility] 08-24-2022 14:25-0400 Systolic blood pressure 135 mm[Hg] JILLIAN GILLESPIE [facility] 04-04-2022 10:39-0500 Blood Pressure Location Shiraz GARDNER [facility] 04-04-2022 10:39-0500 Diastolic blood pressure 82 mm[Hg] Shiraz GARDNER [facility] 04-04-2022 10:39-0500 Heart rate 70 /min Shiraz GARDNER [facility] 04-04-2022 10:39-0500 Respiratory rate 16 /min Shiraz GARDNER [facility] 04-04-2022 10:39-0500 Systolic blood pressure 127 mm[Hg] Shiraz GARDNER [facility] 12-20-2021 10:26-0400 Blood Pressure Location Shiraz GARDNER [facility] 12-20-2021 10:26-0400 Diastolic blood pressure 78 mm[Hg] Shiraz GARDNER [facility] 12-20-2021 10:26-0400 Heart rate 77 /min Shiraz GARDNRE [facility] 12-20-2021 10:26-0400 Respiratory rate 16 /min Shiraz GARDNER [facility] 12-20-2021 10:26-0400 Systolic blood pressure 139 mm[Hg] Shiraz GARDNER [facility] Encounters Encounter Date Encounter Type Care Provider Facility Start: 07-04-2023 End: 07-04-2023 ambulatory SHARMILA DAUGHERTY Not Available Start: 02-28-2023 End: 02-28-2023 ambulatory SHARMILA DAUGHERTY Not Available Start: 08-24-2022 End: 08-25-2022 ambulatory JILLIAN GILLESPIE Facility:[facility] Start: 08-24-2022 End: 08-24-2022 Patient encounter procedure JILLIAN GILLESPIE [facility] Start: 06-13-2022 End: 06-13-[address] SHIRAZ GARDNER . Facility:[facility] Start: 05-18-2022 End: 05-18-2022 ambulatory ABHAY MAHARAJ Facility:[facility] Start: 05-16-2022 ambulatory Shiraz GARDNER Facili ty:[id number] Start: 04-04-2022 End: 04-05-2022 ambulatory Shiraz GARDNER Facility:[facility] Start: 04-04-2022 End: 04-04-2022 Patient encounter procedure Shiraz GARDNER [facility] Start: 01-26-2022 End: 01-27-[address] TREVOR WALLACE Facility:[facility] Start: 12-27-2021 End: 12-28-[address] TREVOR WALLACE Facility:[facility] Start: 12-20-2021 End: 12-21-2021 ambulatory TRVEOR WALLACE Facility:[facility] Start: 12-20-2021 End: 12-20-2021 Patient encounter procedure Shiraz GARDNER [facility] Start: 11-29-2021 ambulatory Shiraz GARDNER Facility :[facility] Start: 07-16-2021 Encounter for genera l adult medical examination without abnormal findings DR TREVOR WALLACE [facility] Start: 07-15-2021 End: 07-16-[address] TREVOR WALLACE Facility:[facility] Start: 07-15-2021 End: 07-16-2021 Encounter for general adult medical examination without abnormal findings DR TREVOR WALLACE Facility:[facility] Start: 07-04-2017 End: 07-08-2017 Evaluation and management of inpatient PROVIDER UNKNOWN Facility:[facility] Procedures Date Procedure Procedure Detail Performing Clinician Start: 06-13-2022 Cystoscopy JILLIAN OLIVARES Start: 06-21-2016 Colonoscopy flx dx w /collj spec when pfrmd Shiraz GARDNER Appendectomy Shirazpetrona GARDNER Cholecystectomy Shiraz SUE Hernia of abdominal cavity (disorder) Shirazpetrona GARDNER Hysterectomy Shirazpetrona GARDNER Immunizations Immunization Date Immunization Notes Care Provider [facility] 12-29-2021 influenza virus vaccine, unspecified formulation JILLIAN VERNA [facility] 12-29-2021 SARS-CoV-2 (COVID-19 ) mRNA-1273 vaccine JILLIANNANCI GILLESPIE [facility] 03-08-2021 SARS-CoV-2 (COVID-19 ) mRNA-1273 vaccine Shirazpetrona GARDNER [facility] 07-03-2020 SARS-CoV-2 (COVID-19 ) mRNA-1273 vaccine Shiraz GARDNER [facility] 06-05-2020 SARS-CoV-2 (COVID-19 ) mRNA-1273 vaccine Shirazpetrona GARDNER [facility] 12-17-2019 influenza virus vaccine, unspecified formulation Shirazpetrona GARDNER [facility] 12-20-2018 influenza virus vaccine, unspecified formulation Shirazpetrona GARDNER [facility] 01-12-2017 influenza virus vaccine, unspecified formulation Shiraz NARCISO [facility] Payers Date Payer Category Payer Unknown [id number] 1960 Unknown [id number] 2.16.84 [id number] 1960 Unknown [id number] 2.16.84 [id number] 1960 Unknown [id number] 2.16.84 [id number] 1960 Unknown [id number] 2.16.84 [id number] 1960 Unknown [id number] 2.16.84 [id number] 1960 Unknown [id number] 2.16.8 [id number] 1960 Unknown [id number] 2.16.8 [id number] 1960 Unknown [id number] 2.16.8 [id number] 1960 Unknown [id number] 2.16.84 [id number] 1960 Unknown [id number] 2.16.840 .[id number] 1960 Unknown [id number] 1960 Unknown [id number] Social History Date Type Detail Facility Tobacco smoking status No Smokin g Status Entered [facility] Sex Assigned At Female [facility] Start: 08-24-2022 Tobacco smoking status Never s moked tobacco (finding) [facility] Tobacco smoking status Never [facility] Functional Status Date Assessment Result Facility 08-24-2022 Functional Status N/A [facility] 04-04-2022 Functional Status N/A [facility] 12-20-2021 Functional Status N/A [facility] Hospital Discharge instructions 08-24-2022 Note Date & Type Note Facility 08-24-2022 Hospital Discharg e instructions Patient Education 08/24/2022 14:46:15 Botulinum Toxin Bladder Injection Botulinum Toxin Bladder Injection A botulinum toxin bladder injection is a procedure to treat an overactive bladder. During the procedure, a drug called botulinum toxin is injected into the bladder through a long, thin needle. This drug relaxes the bladder muscles and reduces overactivity. You may need this procedure if your medicines are not working or you cannot take them. The procedure may be repeated as needed. The treatment is done once and it usually lasts for 6 months. Your health care provider will monitor you to see how well you respond. Tell a health care provider about: Any allergies you have. All medicines you are taking, including vitamins, herbs, eye drops, creams, and ogmb-bzg-dlqmxgq medicines. Any problems you or family members have had with anesthetic medicines. Any bleeding problems you have. Any surgeries you have had. Any medical conditions you have. Any previous reactions to a botulinum toxin injection. Any symptoms of urinary tract infection. These include chills, fever, a burning feeling when passing urine, and needing to pass urine often. Whether you are or may be . What are the risks? Generally this is a safe procedure. However, problems may occur, including: Not being able to pass urine. If this happens, you may need to have your bladder emptied with a thin tube (urinary catheter). Bleeding. Urinary tract infection. Allergic reaction to the botulinum toxin. Pain or burning when passing urine. Damage to nearby structures or organs. What happens before the procedure? When to stop eating and drinking Follow instructions from your health care provider about what you may eat and drink before your procedure. These may include: 8 hours before the procedure ?Stop eating most foods. Do not eat meat, fried foods, or fatty foods. ?Eat only light foods, such as toast or crackers. ?All liquids are okay except energy drinks and alcohol. 6 hours before the procedure ?Stop eating. ?Drink only clear liquids, such as water, clear fruit juice, black coffee, plain tea, and sports drinks. ?Do not drink energy drinks or alcohol. 2 hours before the procedure ?Stop drinking all liquids. ?You may be allowed to take medicines with small sips of water. If you do not follow your health care provider's instructions, your procedure may be delayed or canceled. Medicines Ask your health care provider about: Changing or stopping your regular medicines. This is especially important if you are taking diabetes medicines or blood thinners. Taking medicines such as aspirin and ibuprofen. These medicines can thin your blood. Do not take these medicines unless your health care provider tells you to take them. Taking ijga-utf-ktfjgie medicines, vitamins, herbs, and supplements. General instructions Ask your health care provider what steps will be taken to help prevent infection. These steps may include: ?Removing hair at the procedure site. ?Washing skin with a germ-killing soap. ?Taking antibiotic medicine. If you will be going home right after the procedure, plan to have a responsible adult: ?Take you home from the hospital or clinic. You will not be allowed to drive. ?Care for you for the time you are told. What happens during the procedure? You will be asked to empty your bladder. An IV will be inserted into one of your veins. You will be given one or more of the following: ?A medicine to help you relax (sedative). ?A medicine to numb the area (local anesthetic). ?A medicine to make you fall asleep (general anesthetic). A long, thin scope called a cystoscope will be passed into your bladder through the part of the body that carries urine from your bladder (urethra). The cystoscope will be used to fill your bladder with water. A long needle will be passed through the cystoscope and into the bladder. The botulinum toxin will be injected into your bladder. It may be injected into multiple areas of your bladder. The cystoscope will be removed and your bladder will be emptied with a urinary catheter. The procedure may vary among health care providers and hospitals. What can I expect after the procedure? After your procedure, it is common to have: Blood-tinged urine. Burning or soreness when you pass urine. Follow these instructions at home: Medicines Take bukp-scl-savpweq and prescription medicines only as told by your health care provider. If you were prescribed an antibiotic medicine, take it as told by your health care provider. Do not stop using the antibiotic even if you start to feel better. General instructions If you were given a sedative during the procedure, it can affect you for several hours. Do not drive or operate machinery until your health care provider says that it is safe. Drink enough fluid to keep your urine pale yellow. Return to your normal activities as told by your health care provider. Ask your health care provider what activities are safe for you. Keep all follow-up visits. Contact a health care provider if you have: A fever or chills. Blood-tinged urine for more than one day after your procedure. Worsening pain or burning when you pass urine. Pain or burning when passing urine for more than two days after your procedure. Trouble emptying your bladder. Get help right away if you: Have bright red blood in your urine. Are unable to pass urine. Summary A botulinum toxin bladder injection is a procedure to treat an overactive bladder. This is generally a safe procedure. However, problems may occur, including not being able to pass urine, bleeding, infection, pain, and an allergic reaction to the botulinum toxin. You will be told when to stop eating and drinking, and what medicines to change or stop. Follow instructions carefully. After the procedure, it is common to have blood in your urine and to have soreness or burning when passing urine. Contact a health care provider if you have a fever, blood in your urine for more than a few days, or trouble passing urine. Get help right away if you have bright red blood in your urine, or if you are unable to pass urine. This information is not intended to replace advice given to you by your health care provider. Make sure you discuss any questions you have with your health care provider. Document Revised: 09/03/2021 Document Reviewed: 09/03/2021 [email or web address] Patient Education 2022 [email or web address]. Follow Up Care 07/13/2022 09:23:16 With:JILLIAN GILLESPIE PA-C, URL Address: [address] [place] [address] When: Unknown [facility] Discharge instructions 04-04-2022 Note Date & Type Note Facility 04-04-2022 Hospital Discharg e instructions Patient Education 04/04/2022 08:23:00 Urodynamic Testing Urodynamic Testing What is urodynamic testing? Urodynamic tests are done to determine how well your lower urinary tract is working. The lower urinary tract includes your bladder and the part of your body that drains urine from the bladder (urethra). When your kidneys filter your blood, urine is stored in your bladder until you feel the urge to urinate. Urination requires coordination between the nerves and muscles of your bladder and urethra. When your lower urinary tract is working well, you should be able to: Start urinating when your bladder is full. Empty your bladder completely. Control the flow of your urine. Why do I need urodynamic testing? You may need urodynamic testing to help find the cause of any of these problems: Leaking urine (incontinence). Problems starting or stopping your urine flow. Frequent or painful urination. Frequent urinary tract infections. Being unable to empty your bladder completely. Having strong urges to pass urine (urgency). Having a weak flow of urine. How do I prepare for the tests? Ask your health care provider about changing or stopping your regular medicines. This is especially important if you are taking diabetes medicines or blood thinners. You may be asked to avoid urinating before coming to the test so that you arrive with a full bladder. Tell a health care provider about: ?Any allergies you have. ?All medicines you are taking, including vitamins, herbs, eye drops, creams, and cqwa-put-clwujym medicines. ?Whether you are or may be . What are the risks of this testing? Generally, these tests are safe. However, some of the tests have risks, including: Discomfort. Frequent urge to urinate. Bleeding. Infection. Allergic reactions to medicines or dyes (contrast material). How is urodynamic testing done? You may have various urodynamic tests. The tests may be done separately or may all be done during one testing visit. You may be given an antibiotic medicine before or after testing to help prevent infection. The types of tests that may be done include: Uroflowmetry This test measures how much urine you pass and how long it takes to pass. You will urinate into a certain type of toilet or device (flowmeter). The device will measure the volume and the time of your urine flow. These measurements will be sent to a computer that creates a graph of your urine flow. Postvoid residual measurement This test measures how much urine is left in your bladder after you urinate. The test may be done with ultrasound. In this method, sound waves and a computer will be used to create an image of your bladder. The test can also be done by inserting a thin, flexible tube (catheter) into your bladder after you urinate. The remaining urine will be removed through the catheter so it can be measured. Remaining urine will be measured in milliliters (mL). If you have more than 100 mL left in your bladder after you urinate, your bladder is not emptying as it should. Cystometric testing This test uses a type of bladder catheter that can measure pressure. You may be given a medicine to numb the area (local anesthetic). The area around the opening of your urethra will be cleaned. A urinary catheter will be passed through your urethra into your bladder and used to empty your bladder completely. Then a measuring catheter will be placed, and your bladder will be filled with warm, germ-free (sterile) water. Pressure measurements will be taken: ?As your bladder fills. ?When you feel the need to urinate. ?As your bladder is emptied. You may be asked to cough or bear down to check for leakage. In some cases, your bladder may be filled with a material that shows up on X-rays (contrast material) so that X-ray pictures can be taken during the test. Electromyogram This test measures the electrical activity of the nerves and muscles of your bladder and the opening of your urethra. Sticky patches (electrodes) will be placed near your rectum and urethra to measure electrical activity. The measurements will show how well your nerves are communicating with your muscles. What happens after the testing? You should be able to go home right away and do your usual activities. You may be told to drink a glass of water every 30 minutes for the first 2 hours after testing. Taking a warm bath or using warm, wet cloths (warm compresses) may relieve any discomfort near your urethra. Contact your health care provider if you have: ?Pain. ?Blood in your urine. ?Chills. ?Fever. What do the results mean? Talk with your health care provider about what your results mean. Some common causes for abnormal results from urodynamic tests include: Enlarged prostate in men. Overactive bladder. Urinary tract infection. Nervous system diseases. Spinal cord damage. Questions to ask your health care provider Ask your health care provider, or the department that is doing the test: When will my results be ready? How will I get my results? What are my treatment options? What other tests do I need? What are my next steps? Summary Urodynamic tests are done to determine how well your lower urinary tract is working. The lower urinary tract includes your bladder and urethra. You may need urodynamic testing to help find the cause of various problems with urination, such as leaking urine (incontinence) or problems starting or stopping your urine flow. You may have various urodynamic tests. The tests may be done separately or may all be done during one testing visit. Talk with your health care provider about what your results mean. Contact your health care provider if you have pain, chills, a fever, or blood in your urine. This information is not intended to replace advice given to you by your health care provider. Make sure you discuss any questions you have with your health care provider. Document Released: 12/25/2007 Document Revised: 06/18/2019 Document Reviewed: 01/01/2018 [email or web address] Patient Education 2019 [email or web address]. Follow Up Care 12/20/2021 11:03:34 With:NARCISO FERRARI, Shiraz Sosa, URL Address: [facility] [address] , [place] [address]- When: Unknown [facility] Discharge instructions 12-20-2021 Note Date & Type Note Facility 12-20-2021 Hospital Discharg e instructions Patient Education 12/20/2021 10:46:48 Overactive Bladder, Adult Overactive Bladder, Adult Overactive bladder refers to a condition in which a person has a sudden need to pass urine. The person may leak urine if he or she cannot get to the bathroom fast enough (urinary incontinence). A person with this condition may also wake up several times in the night to go to the bathroom. Overactive bladder is associated with poor nerve signals between your bladder and your brain. Your bladder may get the signal to empty before it is full. You may also have very sensitive muscles that make your bladder squeeze too soon. These symptoms might interfere with daily work or social activities. What are the causes? This condition may be associated with or caused by: Urinary tract infection. Infection of nearby tissues, such as the prostate. Prostate enlargement. Surgery on the uterus or urethra. Bladder stones, inflammation, or tumors. Drinking too much caffeine or alcohol. Certain medicines, especially medicines that get rid of extra fluid in the body (diuretics). Muscle or nerve weakness, especially from: ?A spinal cord injury. ?Stroke. ?Multiple sclerosis. ?Parkinson's disease. Diabetes. Constipation. What increases the risk? You may be at greater risk for overactive bladder if you: Are an older adult. Smoke. Are going through menopause. Have prostate problems. Have a neurological disease, such as stroke, dementia, Parkinson's disease, or multiple sclerosis (MS). Eat or drink things that irritate the bladder. These include alcohol, spicy food, and caffeine. Are overweight or obese. What are the signs or symptoms? Symptoms of this condition include: Sudden, strong urge to urinate. Leaking urine. Urinating 8 or more times a day. Waking up to urinate 2 or more times a night. How is this diagnosed? Your health care provider may suspect overactive bladder based on your symptoms. He or she will diagnose this condition by: A physical exam and medical history. Blood or urine tests. You might need bladder or urine tests to help determine what is causing your overactive bladder. You might also need to see a health care provider who specializes in urinary tract problems (urologist). How is this treated? Treatment for overactive bladder depends on the cause of your condition and whether it is mild or severe. You can also make lifestyle changes at home. Options include: Bladder training. This may include: ?Learning to control the urge to urinate by following a schedule that directs you to urinate at regular intervals (timed voiding). ?Doing Kegel exercises to strengthen your pelvic floor muscles, which support your bladder. Toning these muscles can help you control urination, even if your bladder muscles are overactive. Special devices. This may include: ?Biofeedback, which uses sensors to help you become aware of your body's signals. ?Electrical stimulation, which uses electrodes placed inside the body (implanted) or outside the body. These electrodes send gentle pulses of electricity to strengthen the nerves or muscles that control the bladder. ?Women may use a plastic device that fits into the vagina and supports the bladder (pessary). Medicines. ?Antibiotics to treat bladder infection. ?Antispasmodics to stop the bladder from releasing urine at the wrong time. ?Tricyclic antidepressants to relax bladder muscles. ?Injections of botulinum toxin type A directly into the bladder tissue to relax bladder muscles. Lifestyle changes. This may include: ?Weight loss. Talk to your health care provider about weight loss methods that would work best for you. ?Diet changes. This may include reducing how much alcohol and caffeine you consume, or drinking fluids at different times of the day. ?Not smoking. Do not use any products that contain nicotine or tobacco, such as cigarettes and e-cigarettes. If you need help quitting, ask your health care provider. Surgery. ?A device may be implanted to help manage the nerve signals that control urination. ?An electrode may be implanted to stimulate electrical signals in the bladder. ?A procedure may be done to change the shape of the bladder. This is done only in very severe cases. Follow these instructions at home: Lifestyle Make any diet or lifestyle changes that are recommended by your health care provider. These may include: ?Drinking less fluid or drinking fluids at different times of the day. ?Cutting down on caffeine or alcohol. ?Doing Kegel exercises. ?Losing weight if needed. ?Eating a healthy and balanced diet to prevent constipation. This may include: ?Eating foods that are high in fiber, such as fresh fruits and vegetables, whole grains, and beans. ?Limiting foods that are high in fat and processed sugars, such as fried and sweet foods. General instructions Take xwcj-ayb-stzavvk and prescription medicines only as told by your health care provider. If you were prescribed an antibiotic medicine, take it as told by your health care provider. Do not stop taking the antibiotic even if you start to feel better. Use any implants or pessary as told by your health care provider. If needed, wear pads to absorb urine leakage. Keep a journal or log to track how much and when you drink and when you feel the need to urinate. This will help your health care provider monitor your condition. Keep all follow-up visits as told by your health care provider. This is important. Contact a health care provider if: You have a fever. Your symptoms do not get better with treatment. Your pain and discomfort get worse. You have more frequent urges to urinate. Get help right away if: You are not able to control your bladder. Summary Overactive bladder refers to a condition in which a person has a sudden need to pass urine. Several conditions may lead to an overactive bladder. Treatment for overactive bladder depends on the cause and severity of your condition. Follow your health care provider's instructions about lifestyle changes, doing Kegel exercises, keeping a journal, and taking medicines. This information is not intended to replace advice given to you by your health care provider. Make sure you discuss any questions you have with your health care provider. Document Released: 12/24/2009 Document Revised: 06/20/2019 Document Reviewed: 03/15/2018 [email or web address] Patient Education 2020 [employer]. Follow Up Care 11/29/2021 15:38:28 With:NARCISO FERRARI, Shiraz Sosa, URL Address: [facility] [address], [place] [id number] When:03/22/2022 [facility] Evaluation + Plan note Note Date & Type Note Facility Evaluation + Plan note Future Appointments Appointment Date:04/04/2022 10:45:00 AM Scheduled Provider:Shiraz GARDNER MD Location:[facility] Appointment Type:URO Office Visit [facility] Hospital course Narrative Note Date & Type Note Facility Hospital course Narrative No data available for this section [facility] Progress note Note Date & Type Note Facility Progress note No data available for this section [facility] Summary Purpose Family History No Family History Records FoundNo Family History Records FoundNo Family History Records FoundNo Family History Records Found Advance Directives No Advanced Directives Records FoundNo Advanced Directives Records FoundNo Advanced Directives Records FoundNo Advanced Directives Records Found Additional Source Comments INFORMATION SOURCE (unrecogn ized section and content) DATE CREATED AUTHOR 09/14/2017 [facility] DATE CREATED AUTHOR AUTHOR'S ORGANIZ ATION 06/18/2022 [facility] DATE CREATED AUTHOR AUTHOR'S ORGANIZ ATION 08/25/2022 [facility] DATE CREATED AUTHOR AUTHOR'S ORGANIZ ATION 07/05/2023 [facility] EPIC Patient Care team informatio n (unrecognized section and content) Personnel Name: TREVOR WALLACE MD Address: Address: [address] [place], [place] [address] [address] Personnel Name: TREVOR WALLACE MD Address: Address: [address] [place], [place] [address] Personnel Name: TREVOR WALLACE MD Address: Address: [address] [place] [address] FOR RECORDS PERTAINING TO PATIENTS WHO ARE OR HAVE BEEN ENROLLED IN A CHEMICAL DEPENDENCY/SUBSTANCEABUSE PROGRAM, SOME INFORMATION MAY BE OMITTED. This clinical summary was aggregated from multiple sources. Caution should be exercised in using it in the provision of clinical care. This summary normalizes information from multiple sources, and as a consequence, information in this document may materially change the coding, format and clinical context of patient data. In addition, data may be omitted in some cases. CLINICAL DECISIONS SHOULD BE BASED ON THE PRIMARY CLINICAL RECORDS. [facility] [employer] [facility]. provides no warranty or guarantee of the accuracy or completeness of information in this document.
[2023-07-14 10:42] LABS: Estimated Average Glucose 163 mg/dL; Glycohemoglobin A1C 7.3 % (4.5-6.2)
[2023-07-14 10:43] LABS: Basophils Absolute Auto 0.1 10^3/uL (0.0-0.1); Basophils Percent Auto 0.9 % (0.2-2.0); Eosinophils Absolute Auto 0.1 10^3/uL (0.0-0.7); Eosinophils Percent Auto 2.5 % (0.9-7.0); Hemoglobin 11.6 g/dL (12.0-16.0); Immature Granulocytes Abs Auto 0.03 10^3/uL (0.00-0.03); Immature Granulocytes Pct Auto 0.5 % (0.0-0.5); Lymphocytes Absolute Auto 1.5 10^3/uL (1.2-3.8); Lymphocytes Percent Auto 27.9 % (20.5-60.0); Mean Corpuscular HGB Conc 30.5 g/dL (29.9-35.2); Mean Corpuscular Hemoglobin 28.2 pg (26.7-34.0); Mean Corpuscular Volume 92.5 fL (81.0-99.0); Mean Platelet Volume 10.2 fL (9.5-13.5); Monocytes Absolute Auto 0.4 10^3/uL (0.3-0.8); Monocytes Percent Auto 7.2 % (1.7-12.0); Neutrophils Absolute Auto 3.4 10^3/uL (1.4-6.5); Platelet Count 259 10^3/uL (150-450); Red Blood Count 4.11 10^6/uL (4.20-5.40); Red Cell Distribution Width 14.3 % (11.0-15.0); White Blood Count 5.5 10^3/uL (4.0-11.0)
[2023-07-14 10:46] LABS: Microalbumin Urine Random 2.6 mg/dL (<=30.0)
[2023-07-14 10:49] LABS: Alanine Aminotransferase 30 U/L (14-59); Albumin Globulin Ratio 0.9; Albumin Level 3.4 g/dL (3.4-5.0); Alkaline Phosphatase 95 U/L (46-116); Anion Gap 11.6; Aspartate Amino Transferase 21 U/L (15-37); Bilirubin Direct 0.1 mg/dL (0.0-0.2); Bilirubin Total 0.3 mg/dL (0.2-1.0); Carbon Dioxide 29.9 mmol/L (21.0-32.0); Chloride 105 mmol/L (98-107); Chol HDL Ratio 3.3; Cholesterol 197 mg/dL (<=200); Estimated GFR (African America >60 (>=60); Estimated GFR (Non-African Ame >60 (>=60); Globulin 3.9 g/dL; Glucose 133 mg/dL (74-106); HDL Cholesterol 60 mg/dL (40-60); LDL Cholesterol Calculated 123.4 mg/dL; Potassium 4.5 mmol/L (3.5-5.1); Sodium 142 mmol/L (136-145); Thyroid Stimulating Hormone 1.043 uIU/mL (0.358-3.740); Total Protein 7.3 g/dL (6.4-8.2); Triglycerides 68 mg/dL (<=150); VLDL CHOLESTEROL 13.6 mg/dL
== END 2023-07-14 09:51 | disposition home or self-care (01) ==
LOC: LAB 09:51
PROVIDERS: PCP Family Medicine; Visit Provider Family Medicine
DX: Z00.00 Encounter for general adult medical examination without abnormal findings (principal); E11.65 Type 2 diabetes mellitus with hyperglycemia
CPT/HCPCS: 36415; 80048; 80061; 80076; 82043; 83036; 84443; 85025

== ENCOUNTER 2024-02-14 12:55 | Outpatient (OUT) | payer OTHER, SELFPAY ==
--- NOTE | 2024-02-14 12:57 | MM_ITS ---
Patient Name: ELENI WATKINS MR#: [id number] : 1960 Exam Date: 02/14/2024 Ordering Doctor: DR Trevor Forrest . RADIOLOGY REPORT PROCEDURE: MM TOMOSYNTHESIS SCREENING BI COMPARISON: MG MAMM SCREEN 3D MAI CAD, 12/27/2021. MM TOMOSYNTHESIS SCREENING BI, 12/30/2022. INDICATIONS: Screening Calculator Name NCI Breast Cancer Risk Assessment Tool 5 Year Breast Cancer Risk 0.90% Lifetime Breast Cancer Risk 3.70% Personal Breast Cancer No Personal Ovarian Cancer No Treatments None Family Cancers None LOCATION: [facility] BREAST COMPOSITION: The breasts are heterogeneously dense,which may obscure small masses. FINDINGS: DIAGNOSTIC CATEGORY 1--NEGATIVE. NO CHANGE FROM COMPARISON ASSESSMENT. Scattered benign-appearing calcifications are present. Scattered benign-appearing lymph nodes are present. RIGHT BREAST: No significant suspicious finding. LEFT BREAST: No significant suspicious finding. RECOMMENDATIONS: ROUTINE MAMMOGRAM AND CLINICAL EVALUATION IN 12 MONTHS. PLEASE NOTE: A NORMAL MAMMOGRAM DOES NOT EXCLUDE THE POSSIBILITY OF BREAST CANCER. A CLINICALLY SUSPICIOUS PALPABLE LUMP SHOULD BE BIOPSIED. Dictated by: Yaw Denton MD on 02/14/2024 at 14:05 Approved by: Yaw Denton MD on 02/14/2024 at 14:06
== END 2024-02-14 12:56 | disposition home or self-care (01) ==
LOC: MAMMO 12:55
PROVIDERS: PCP Family Medicine; Visit Provider Family Medicine
DX: Z12.31 Encounter for screening mammogram for malignant neoplasm of breast (principal)
CPT/HCPCS: 77063; 77067

== ENCOUNTER 2024-04-13 10:22 | Inpatient (IN) | payer BC, SELFPAY ==
[2024-04-13] VITALS (35 sets, daily range): BP systolic 126–170; BP diastolic 66–88; PULSE 68–104; TEMP 36.7–36.8; O2SAT 68–96; BMI 33.6; BMI 38.2
--- OUTSIDE RECORDS SUMMARY | 2024-04-13 10:28 | XMS_ITS | CCD ---
Author Organization [facility] Care Team Providers Care [employer] Power [employer] Engineer Name Role Phone UNKNOWN, PROVIDER Unavailable Unavailable UNKNOWN, PROVIDER Unavailable Unavailable ALFA MEREDITH Unavailable Unavailable NADERER, TREVOR Unavailable Unavailable NADEREIan, TREVOR Primary Care Physician RODRIGO, DR TREVOR Valle Consulting Unavailable NADEREIan, DR TREVOR Valle Attending Unavailable NADERER, DR TREVOR Valle Admitting Unavailable NADERER, DR TREVOR Valle Primary Care Unavailable GARDNER ., DR BIRCH Consulting Unavailable GARDNER ., DR BIRCH Attending Unavailable GARDNER ., DR BIRCH Admitting Unavailable NADERER, DR TREVOR Valle Primary Care Unavailable AICHHOLZ, ABHAY ZHOU Admitting Unavailable AICHHOLZ, ABHAY SHOREA Consulting Unavailable NADERER, DR TREVOR Valle Primary Care Unavailable AICHHOLZ, ABHAY ABELARDO Attending Unavailable NADERER, DR TREVOR Valle Attending [...] GARDNER Attending Unavailable JILLIAN GILLESPIE Attending Unavailable NADERERTREVOR Referring Unavailable Shiraz GARDNER Attending Unavailable Shiraz GARDNER Attending Unavailable Naderer Trevor FERRARI Primary Care Provider MELISA CLARKE Attending Unavailable SHARMILA DAUGHERTY Attending Unavailable NADERER, TREVOR Attending Unavailable KEVIN CRUZ Attending Unavailable SHARMILA DAUGHERTY Attending Unavailable NADEREIan, TREVOR Attending Unavailable SHARMILA DAUGHERTY Attending Unavailable Allergies Allergy Classification Reported Allergen(s) Allergy Type Date of Onset Reaction(s) Facility (1 source) No Known Medication Allergies; Translations: [No Known Medication Allergies] Propensity to adverse reactions (disorder) [facility] Repository Medications Current Medications Medication Drug Class(es) Dates Sig (Normalized) Sig (Original) [id number] 200 actuat albuterol 0.09 mg/actuat metered dose inhaler (5 sources) beta2-Adrenergic Agonist Start: 01-15-2024 End: 01-14-2025 take 2 puff(s) by inhalation every four hours for wheezing albuterol HFA 90 mcg/act inhaler Indications: SOB (shortness of breath) Inhale 2 puffs every 4 (four) hours if needed for wheezing 18 g 2 01/15/2024 01/14/2025 Active citalopram 40 mg oral tablet (12 sources) Serotonin Reuptake Inhibitor Start: 03-04-2024 End: 03-04-2025 take 1 tablet by mouth once daily citalopram (CeleXA) 40 MG tablet Indications: Major depressive disorder, recurrent episode, mild (HCC) (CMS/HCC) Take 1 tablet (40 mg) by mouth Daily 90 tablet 3 03/04/2024 03/04/2025 Active Start: 11-20-2023 End: 01-15-2024 take 1 tablet by mouth once daily citalopram (CeleXA) 40 MG tablet Indications: Major depressive disorder, recurrent episode, mild (HCC) (CMS/HCC) Take 1 tablet (40 mg) by mouth Daily 01/15/2024 Active Start: 12-20-2021 take 1 mg by mouth once daily citalopram 40 mg Tab mg tab(s), Oral, Daily, Refills(s) 0 Start Date: 12/20/21 Status: Ordered lisinopril 10 mg oral tablet (12 sources) Angiotensin Converting Enzyme Inhibitor Start: 11-20-2023 take 1 tablet by mouth once daily lisinopril 10 MG tablet Indications: Essential hypertension, benign (CMS/HCC) TAKE 1 TABLET BY MOUTH DAILY 192 tablet 2 11/20/2023 Active Start: 05-15-2023 take 1 tablet by ailyn th once daily lisinopril 10 MG tablet Indications: Essential hypertension, benign (CMS/HCC) TAKE 1 TABLET BY MOUTH DAILY 192 tablet 05/15/2023 Active Start: 12-20-2021 take 1 mg by mouth once daily lisinopril 10 mg Tab mg tab(s), Oral, Daily, Refills(s) 0 Start Date: 12/20/21 Status: Ordered meloxicam 15 mg oral tablet (8 sources) Nonsteroidal Anti-inflammatory Drug Start: 12-12-2023 End: 01-15-2024 take 1 tablet by mouth once daily meloxicam (Mobic) 15 MG tablet Indications: Primary osteoarthritis of both knees Take 1 tablet (15 mg) by mouth Daily 90 tablet 3 01/15/2024 Active 24 hr metFORMIN hydrochloride 500 mg extended release oral tablet (12 sources) Biguanide Start: 05-15-2023 take 1 tablet by mouth once daily metFORMIN XR (Glucophage-XR) 500 MG 24 hr tablet Indications: Type 2 diabetes mellitus with hyperglycemia, without long-term current use of insulin (CMS/HCC) TAKE 1 TABLET BY MOUTH DAILY 372 tablet 05/15/2023 Active Start: 12-20-2021 take 1 mg by mouth once daily metformin 500 mg ER Tab mg tab(s), Oral, Daily, Refills(s) 0 Start Date: 12/20/21 Status: Ordered 24 hr metoprolol succinate 25 mg extended release oral tablet (9 sources) beta-Adrenergic Beryl Start: 11-20-2023 take 1 tablet by mouth once daily metoprolol succinate XL (Toprol-XL) 25 MG 24 hr tablet Indications: Essential hypertension, benign (CMS/HCC) TAKE 1 TABLET BY MOUTH DAILY 192 tablet 2 11/20/2023 Active Start: 05-15-2023 take 1 tablet by ailyn th once daily metoprolol succinate XL (Toprol-XL) 25 MG 24 hr tablet Indications: Essential hypertension, benign (CMS/HCC) TAKE 1 TABLET BY MOUTH DAILY 192 tablet 05/15/2023 Active 24 hr mirabegron 50 mg extended release oral tablet (2 sources) beta3-Adrenergic Agonist Start: 12-20-2021 take 1 tablet by mouth once daily Myrbetriq 50 mg oral tablet, extended release 50 mg = 1 tab(s), Oral, Daily, # 30 tab(s), Refills(s) 11, Pharmacy: [id number], 152, cm, 12/20/21 10:43:00 EDT, Height/Length Dosing, 86, kg, 12/20/21 10:43:00 EDT, Weight Dosing Start Date: 12/20/21 Status: Ordered Start: 12-20-2021 take 1 mg by mouth once daily Myrbetriq 25 mg oral tablet, extended release mg tab(s), Oral, Daily, Refills(s) 0 Start Date: 12/20/21 Status: Ordered mirtazapine 45 mg oral tablet (12 sources) Start: 11-20-2023 take 1 tablet by mouth at bedtime mirtazapine (Remeron) 45 MG tablet Indications: Major depressive disorder, recurrent, mild (HCC) (CMS/HCC) TAKE 1 TABLET BY MOUTH AT BEDTIME 360 tablet 3 11/20/2023 Active Start: 12-20-2021 take 1 mg by mouth o nce daily at bedtime mirtazapine 45 mg oral tablet mg tab(s), Oral, Once a day (at bedtime), Refills(s) 0 Start Date: 12/20/21 Status: Ordered Multiple Vitamin (multivitamin) tablet (9 sources) take 1 tablet by mouth in the morning Multiple Vitamin (multivitamin) tablet Take 1 tablet by mouth in the morning. Active Multivitamin preparation (3 sources) Start: 12-21-19 multivitamin Daily, Refill(s) 0 Start Date: 12/20/21 Status: Ordered nystatin 100 unt/mg topical powder (5 sources) Polyene Antifungal Start: 01-15-20 nystatin (Mycostatin) 523040 UNIT/GM powder Indications: Skin candidiasis Apply topically 2 (two) times a day 60 g 3 01/15/2024 Active omeprazole 20 mg delayed release oral capsule (12 sources) Proton Pump Inhibitor Start: 12-21-19 take 1 mg by mouth once daily omeprazole 20 mg Cap-DR mg cap(s), Oral, Daily, Refills(s) 0 Start Date: 12/20/21 Status: Ordered take 1 tablet by mouth before me altime omeprazole OTC (PriLOSEC OTC) 20 MG EC tablet Take 20 mg by mouth in the morning. Take before meals. Do not crush, chew, or split. . Active 24 hr oxybutynin chloride 15 mg extended release oral tablet (1 source) Cholinergic Muscarinic Antagonist Start: 04-04-2022 End: 03-30-2023 take 1 tablet by mouth once daily oxybutynin 15 mg ER Tab 15 mg = 1 tab(s), Oral, Daily, X 30 day(s), # 30 tab(s), Refills(s) 11, Pharmacy: [facility] #[id number], 152, cm, 04/04/22 11:08:00 EST, Height/Length Dosing, 89, kg, 04/04/22 11:08:00 EST, Weight Dosing Start Date: 04/04/22 Stop Date: 03/30/23 Status: Ordered pioglitazone 30 mg oral tablet (10 sources) Peroxisome Proliferator Receptor alpha Agonist, Peroxisome Proliferator Receptor gamma Agonist, Thiazolidinedione Start: 11-20-2023 take 1 tablet by mouth once daily pioglitazone (Actos) 30 MG tablet Indications: Type 2 diabetes mellitus with hyperglycemia, without long-term current use of insulin ([facility]) TAKE 1 TABLET BY MOUTH DAILY 100 tablet 2 11/20/2023 Active Start: 12-20-2021 take 1 mg by mouth once daily pioglitazone 30 mg Tab mg tab(s), Oral, Daily, Refills(s) 0 Start Date: 12/20/21 Status: Ordered microencapsulated potassium chloride 20 meq extended release oral tablet (13 sources) Start: 02-12-2024 End: 02-12-2024 take 1 tablet by mouth once daily potassium chloride CR (Klor-Con M20) 20 MEQ ER tablet Indications: Hypokalemia Take 1 tablet (20 mEq) by mouth Daily Do not crush or chew. 90 tablet 3 02/12/2024 Active Start: 12-20-2021 Potassium Chlo ride (Eqv-K-Tab) 20 mEq oral tablet, extended release mEq tab(s), Oral, BID, Refills(s) 0 Start Date: 12/20/21 Status: Ordered potassium chlori de CR (Klor-Con M20) 20 MEQ ER tablet Take 20 mEq by mouth in the morning. Do not crush or chew. . Active Completed/Discontinued Medications Medication Drug Class(es) Dates Sig (Normalized) Sig (Original) ciprofloxacin 500 mg oral tablet (1 source) Quinolone Antimicrobial Start: 04-04-2022 Cipro 500 mg Tab 500 mg = 1 tab(s), Oral, As Directed, Patient to take 1 tab the day before procedure and the 2nd tab the day of procedure once completed, # 2 tab(s), Refills(s) 0, Pharmacy: [email or web address] #[id number], 152, cm, 04/04/22 11:08:00 EST, Height/Length Do... Start Date: 04/04/22 Status: Ordered Problems Active Problems Problem Classification Problem Date Documented Date Episodic/Chronic Abdominal hernia (1 source) Incisional hernia with obstruction, without gangrene; Translations: [INCISIONAL HERNIA WITH OBSTRUCTION, WITHOUT GANGRENE] Onset: 07-04-2017 Episodic Anxiety disorders (11 sources) Generalized anxiety disorder; Translations: [Generalized anxiety disorder] Onset: 07-14-2023 07-14-2023 Chronic Deficiency and other anemia (9 sources) Iron deficiency anemia due to blood loss; Translations: [Iron deficiency anemia secondary to blood loss (chronic)] Onset: 07-14-2023 07-14-2023 Chronic Diabetes mellitus with complications (20 sources) Type 2 diabetes mellitus with hyperglycemia; Translations: [Hyperglycemia due to type 2 diabetes mellitus] Onset: 07-16-2021 Chronic Diabetes mellitus without complication (7 sources) Type 2 diabetes mellitus without complications; Translations: [Latent autoimmune diabetes mellitus in adult] Onset: 07-04-2017 12-20-2021 Chronic Esophageal disorders (11 sources) Gastroesophageal reflux disease; Translations: [Gastro-esophageal reflux disease without esophagitis] Onset: 07-14-2023 07-14-2023 Chronic Essential hypertension (16 sources) Essential (primary) hypertension; Translations: [Hypertensive disorder] Onset: 07-04-2017 12-20-2021 Chronic Fluid and electrolyte disorders (1 source) Hypokalemia; Translations: [Hypokalemia] 02-12-2024 Episodic Genitourinary symptoms and ill-defined conditions (7 sources) Mixed incontinence; Translations: [Incontinence] Onset: 12-20-2021 Chronic Genitourinary symptoms and ill-defined conditions (16 sources) Increased frequency of urination; Translations: [Frequency of micturition] Onset: 12-20-2021 Episodic Mood disorders (14 sources) Depressive disorder; Translations: [Recurrent major depressive episodes, mild ] Onset: 07-14-2023 12-20-2021 Chronic Mycoses (4 sources) Candidiasis of skin; Translations: [Candidiasis of skin and nail] 01-15-2024 Episodic Osteoarthritis (14 sources) Arthritis; Translations: [Primary gonarthrosis, bilateral] Onset: 07-14-2023 12-20-2021 Chronic Other aftercare (1 source) 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 drugs; Translations: [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 [employer]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 USE ORAL HYPOGLYCEMIC DX] Onset: 06-16-2022 Episodic Other connective tissue disease (2 sources) Pain of toes of bilateral feet; Translations: [Pain in right toe(s)] 11-07-2023 Episodic Other diseases of bladder and urethra (1 source) Other specified disorders of bladder; Translations: [OTHER SPECIFIED DISORDERS BLADDER] Onset: 06-16-2022 Chronic Other diseases of bladder and urethra (1 source) Detrusor overactivity; Translations: [Overactive bladder] Onset: 08-24-2022 Chronic Other diseases of bladder and urethra (10 sources) Overactive bladder; Translations: [Overactive bladder] Onset: 07-14-2023 08-24-2022 Chronic Other diseases of bladder and urethra (1 source) Other urethral stricture, female; Translations: [OTHER URETHRAL STRICTURE FEMALE] Onset: 06-16-2022 Episodic Other liver diseases (9 sources) Fatty (change of) liver, not elsewhere classified; Translations: [Other chronic nonalcoholic liver disease] Onset: 07-14-2023 07-14-2023 Chronic Other lower respiratory disease (2 sources) Dyspnea; Translations: [Shortness of breath] 01-15-2024 Episodic Other non-traumatic joint disorders (1 source) Pain of joint of right foot; Translations: [Pain in right ankle and joints of right foot] 12-12-2023 Episodic Other nutritional; endocrine; and metabolic disorders (7 sources) Severe obesity; Translations: [Class 2 severe obesity due to excess calories with serious comorbidity and body mass index (BMI) of 37.0 to 37.9 in adult ([facility])] Onset: 01-15-2024 01-15-2024 Chronic Other screening for suspected conditions (not mental disorders or infectious disease) (6 sources) Encounter for screening mammogram for malignant neoplasm of breast; Translations: [Patient encounter status] Onset: 12-27-2021 Episodic Other upper respiratory disease (9 sources) Allergic rhinitis due to pollen; Translations: [Allergic rhinitis due to pollen] Onset: 07-14-2023 07-14-2023 Chronic Residual codes; unclassified (9 sources) Obstructive sleep apnea syndrome; Translations: [Obstructive sleep apnea (adult) (pediatric)] Onset: 07-14-2023 07-14-2023 Chronic Residual codes; unclassified (1 source) Acquired absence [...] Classification Problem Date Documented Da te Episodic/Chronic Unclassified (1 source) CONTACT W/AND (SUSP) EXPOS [...] including vitamins, herbs, eye drops, creams, and ozqo-wyz-watljaa medicines. ? Any problems you or family [...] tells you to take them. ? Taking mtzc-pet-udqiusd medicines, vitamins, herbs, and supplements. General instructions [...] these instructions at home: Medicines ? Take nzmb-sgo-jgddegg and prescription medicines only as told by [...] health ca (more content not included)... Normal [facility] Urology Office/Clinic Noteon 08-24-2022 Urology Office/Clinic Note [...] at length. Gave pt educational resources from [facility] and [facility] for bladder training. Pt will attempt this [...] 30 minutes. Follow-up With When Contact Information VERNA HARO, JILLIAN Rene, URL [address] [place] [address] Additional Instructions: 3 mos after bladder training [...] Vaccine Date Status influenza virus vaccine, inactivated 12/29/ (more content not included)... [facility] Comment on above: Result Comment: Elec tronically Signed By: JILLIAN GILLESPIE PA-C\.br\Date and Time Signed: 08/24/22 14:58 EDT\.br\Electronically Co-Signed By: Tanya Crow\.br\Date and Time Co-Signed: 08/24/22 14:46 EDT Provider Letteron 07-07-2022 Provider Letter July 07, 2022 [place] [address] Dear Tayla Rojo , We have been trying to reach you with no success. It is important that you return our call regarding your Botox treatment denial upon receiving this letter. Also, at the time of your call, please provide us with your current updated phone number. Thank you for your prompt attention to this matter. Sincerely, [facility]3 [facility] Pre-Certification Formon Pre-Certification Form [id number]. 00CD:127 [facility] Operative Reporton 3 Operative Report [id number] 0CD:127 [facility] Operative Reporton 3 Operative Report [id number] 0CD:127 [facility] SARS-CoV-2 (COVID-19) RNA DESEAN+probe Ql (Unsp spec) Detected Abnormal NOT DETECTED [facility] Comment on above: Result Comment: This test is not yet approved or cleared by the [place] FDA. When there are no FDA-approved or cleared tests available, and other criteria are met, FDA can make tests available under an emergency access mechanism called an Emergency Use Authorization (EUA). The EUA for this test is supported by the [place] [employer] of Health and Human Service's declaration that [...] longer be used). Performed By: #### C VDTB ####[facility] [address] [address]Dr. Shyam Farfan INFLUENZA A AND B [facility] Normal [facility] Comment on above: Result Comment: Nega tive for Flu A protein angiten. Infection due to Flu A cannot be ruled out. Flu A angiten in the sample may be below the detection limit of the test. Performed By: #### I NFLUAB #### [facility] [address] [place] [address] Dr. Shyam Far[facility] Normal [facility] Comment on above: Result Comment: Nega tive for Flu B protein antigen. Infection due to Flu B cannot be ruled out. Flu B antigen in the sample may be below the detection limit of the test. Performed By: #### I NFLUAB #### [facility] [address] [place] [address] Dr. Shyam Farfan INFLUENZA A AG Negative Normal NEGATIVE SEE COMMENT [facility] Comment on above: Performed By: #### I NFLUAB #### [facility] [address] [place] [address] Dr. Shyam Farfan INFLUENZA B AG Negative Normal NEGATIVE SEE COMMENT [facility] Comment on above: Performed By: #### I NFLUAB #### [facility] [address] [place] [address] Dr. Shyam Farfan Consent for Procedure/Surger yon 04-05-2022 Consent for Procedure/Surgery [id number] 0CD:127 Normal [facility] Ambulatory Visit Summaryon 0 04-04-2022 Ambulatory Visit Summary TAYLA ROJO :1960 Visit Date:04/04/2022 Ambulatory Visit Instructions Your Diagnosis Urinary frequency Urinary urgency Mixed incontinence Tests Performed Urnls Dip Stick Auto w/o Microscopy POC 01566 Your Care Team Attending Physician - NARCISO [...] Following Appointments Follow Up with NARCISO FERRARI, Shiraz Sosa, JOSEFINA When: Where: [facility] [address], [place] [address]- Medications What How Much When Instructions Unchanged [...] Urnls Dip Stick Auto w/o Microscopy POC 05305 (04/04/2022) Bilirubin Urine Dipstick - Negative Blood Urine Dipstick - Negative Glucose Urine Dipstick - Negative Ketones Urine Dipstick - Negative Leukocytes Urine Dipstick - 1+ Small Nitrite Urine Dipstick - Negative Protein Urine Dipstick - Negative Specific [place] Urine Dipstick - >=1.030 Urine Appearance Urine [...] herbs, eye (more content not included)... Normal [facility] Patient Educationon 04-04-19 Patient Education Urology Urodynamic [...] including vitamins, herbs, eye drops, creams, and nnmq-tjr-qmwkluz medicines. ? Whether you are or may [...] system diseases. (more content not included)... Normal [facility] Urology Office/Clinic Noteon 04-04-2022 Urology Office/Clinic [...] URL [facility] [address], [place] [address]- Additional Instructions: schedule cysto Patient Education Urodynamic Testing I, Tanya Crow, personally scribed for Dr. Gardner on 04/04/2022 [...] Oral, Daily, (more content not included)... [facility] Comment on above: Result Comment: Elec tronically Signed By: Shiraz GARDNER MD\.br\Date and Time Signed: 04/04/22 11:52 EST\.br\Electronically Co-Signed By: Tanya Crow\.br\Date and Time Co-Signed: 04/04/22 11:49 EST GLYCOHEMOGLOBIN A1Con 2021 ADA RECOMMENDATION SEE BELOW Normal [facility] Comment on above: Result Comment: ADA RECOMMENDED LIMIT 4.0 - 6.0 ADA THERAPEUTIC TARGET < 7.0 ACTION SUGGESTED > 7.0 Performed By: #### A 1C #### [facility] [address] [address] [address] Shyam Farfan Glucose [Mass/Vol] 169 mg/dL Normal [facility] Comment on above: Performed By: #### A 1C #### [facility] [address] [address] [address] Shyam Farfan HbA1c (Bld) [Mass fraction] 7.5 % Critically high 4.5-6.2 [facility] Comment on above: Performed By: #### A 1C #### [facility] [address] [address] [address] Shyam Farfan MG MAMM SCREEN 3D MAI CADon 12-27-2021 MG MAMM SCREEN 3D MAI CAD Patient: TAYLA ROJO Exam Date: 12/27/2021 : 1960 Gender:F Ordering : DR TREVOR WALLACE . Admission #: [id number] Family : Order #: [id number] CLICK HERE TO VIEW EXAM RADIOLOGY REPORT [...] No Treatments None Family Cancers None LOCATION: [facility] BREAST COMPOSITION: Heterogeneously dense,which may [...] Tavera M.D. on 12/27/2021 at 12:09 Normal [facility] Formson 12-21-2021 Forms [id number]:127 Normal [facility] Physician Referralon 022 Physician Referral [id number]. [id number]:127 Normal [facility] Ambulatory Visit Summaryon 1 Ambulatory Visit Summary TAYLA ROJO :1960 Visit Date:12/20/2021 Ambulatory Visit Instructions Your Diagnosis Urinary frequency Urinary urgency Mixed incontinence Tests Performed Urnls Dip Stick Auto w/o Microscopy POC 62103 Your Care Team Attending Physician - NARCISO FERRARI, Shiraz Sosa Primary Care Physician - TREVOR WALLACE MD Referring Physician - TREVOR WALLACE MD This [...] FERRARI, Shiraz Sosa Where: [facility] Patient Educationon 12-21-19 Patient Education Obstetrics and [...] Take ove (more content not included)... Normal [facility] Urology Office/Clinic Noteon 12-20-2021 Urology Office/Clinic Note [...] Follow-up With When Contact Information NARCISO FERRARI, JOSEFINA Nguyen In 3 months 03/22/2022 [facility] [address], [place] [address]- [phone] Additional Instructions: Patient Education Overactive Bladder, Adult [...] Social History (more content not included)... Normal [facility] Comment on above: Result Comment: Elec tronically Signed By: Shiraz GARDNER MD\.br\Date and Time Signed: 12/20/21 11:01 EDT\.br\Electronically Co-Signed By: Muna Rush MA\.br\Date and Time Co-Signed: 12/20/21 10:58 EDT CBC AUTO DIFFon 07-15-2021 BASO # 0.0 103/ul Normal 0.0-0.1 [facility] Comment on above: Performed By: #### C BC #### [facility] [address] [place] [address] Dr. Shyam Farfan Basophils/100 WBC (Bld) 0.6 % Normal 0.2-2.0 [facility] Comment on above: Performed By: #### C BC #### [facility] [address] [place] [address] Dr. Shyam Farfan EO # 0.1 103/ul Normal 0.0-0.7 [facility] Comment on above: Performed By: #### C BC #### [facility] [address] [place] [address] Dr. Shyam Farfan Eosinophils/100 WBC (Bld) 1.7 % Normal 0.9-7.0 [facility] Comment on above: Performed By: #### C BC #### [facility] [address] [place] [address] Dr. Shyam Farfan Erythrocyte distribution width (RBC) [Ratio] 17.1 % Critically high 11.0-15.0 [facility] Comment on above: Performed By: #### C BC #### [facility] [address] [place] [address] Dr. Shyam Farfan Hematocrit (Bld) [Volume fraction] 44.4 % Normal 36.0-48.0 [facility] Comment on above: Performed By: #### C BC #### [facility] [address] [place] [address] Dr. Shyam Farfan Hemoglobin (Bld) [Mass/Vol] 13.5 g/dL Normal 12.0-16.0 [facility] Comment on above: Performed By: #### C BC #### [facility] [address] [place] [address] Dr. Shyam Farfan IG # 0.03 10e3/ul Normal 0.00-0.03 [facility] Comment on above: Performed By: #### C BC #### [facility] [address] [place] [address] Dr. Shyam Farfan IG % 0.5 % Normal 0.0-0.5 [facility] [facility] Comment on above: Performed By: #### C BC #### [facility] [address] [place] [address] Dr. Shyam Farfan LYMPH # 1.5 103/ul Normal 1.2-3.8 [facility] Comment on above: Performed By: #### C BC #### [facility] [address] [place] [address] Dr. Shyam Farfan Lymphocytes/100 WBC (Bld) 23.4 % Normal 20.5-60.0 [facility] Comment on above: Performed By: #### C BC #### [facility] [address] [place] [address] Dr. Shyam Farfan MANUAL DIFF REQ NO Normal [facility] Comment on above: Performed By: #### C BC #### [facility] [address] [place] [address] Dr. Shyam Farfan MCH (RBC) [Entitic mass] 26.5 pg Critically low 26.7-34.0 [facility] Comment on above: Performed By: #### C BC #### [facility] [address] [place] [address] Dr. Shyam Farfan MCHC (RBC) [Mass/Vol] 30.4 g/dL Normal 29.9-35.2 [facility] Comment on above: Performed By: #### C BC #### [facility] [address] [place] [address] Dr. Shyam Farfan MCV (RBC) [Entitic vol] 87.2 fL Normal 81.0-99.0 [facility] Comment on above: Performed By: #### C BC #### [facility] [address] [place] [address] Dr. Shyam Farfan MONO # 0.4 103/ul Normal 0.3-0.8 [facility] Comment on above: Performed By: #### C BC #### [facility] [address] [place] [address] Dr. Shyam Farfan Monocytes/100 WBC (Bld) 6.5 % Normal 1.7-12.0 [facility] Comment on above: Performed By: #### C BC #### [facility] [address] [place] [address] Dr. Shyam Farfan NEUT # 4.4 103/ul Normal 1.4-6.5 [facility] Comment on above: Performed By: #### C BC #### [facility] [address] [place] [address] Dr. Shyam Farfan Neutrophils/100 WBC (Bld) 67.3 % Normal 43.0-75.0 [facility] Comment on above: Performed By: #### C BC #### [facility] [address] [place] [address] Dr. Shyam Farfan Platelet mean volume (Bld) [Entitic vol] 10.1 fL Normal 9.5-13.5 [facility] Comment on above: Performed By: #### C BC #### [facility] [address] [place] [address] Dr. Shyam Farfan PLT 238 103/ul Normal 150-450 [facility] Comment on above: Performed By: #### C BC #### [facility] [address] [place] [address] Dr. Shyam Farfan RBC 5.09 106/ul Normal 4.20-5.40 [facility] Comment on above: Performed By: #### C BC #### [facility] [address] [place] [address] Dr. Shyam Farfan WBC 6.6 103/ul Normal 4.0-11.0 [facility] Comment on above: Performed By: #### C BC #### [facility] [address] [address] [address] Shyam Farfan GLYCOHEMOGLOBIN A1Con 2021 ADA RECOMMENDATION SEE BELOW Normal [facility] Comment on above: Result Comment: ADA RECOMMENDED LIMIT 4.0 - 6.0 ADA THERAPEUTIC TARGET < 7.0 ACTION SUGGESTED > 7.0 Performed By: #### A 1C #### [facility] [address] [address] [address] Shyam Farfan Glucose [Mass/Vol] 200 mg/dL Normal [facility] Comment on above: Performed By: #### A 1C #### [facility] [address] [address] [address] Shyam Farfan HbA1c (Bld) [Mass fraction] 8.6 % Critically high 4.5-6.2 [facility] Comment on above: Performed By: #### A 1C #### [facility] [address] [address] [address] Shyam Farfan LIPID PROFILEon 07-15-2021 CHOL-HDL RATIO NORM SEE BELOW Normal [facility] Comment on above: Result Comment: 3.3 - 4.4 LOW RISK 4.4 - 7.1 AVERAGE RISK 7.1 - 11.0 MODERATE RISK >11.0 HIGH RISK Performed By: #### B MP, LIPID, LIVER, TSH #### [facility] [address] [address] [address] Shyam Farfan Cholesterol [Mass/Vol] 176 mg/dL Normal <=200 [facility] Comment on above: Performed By: #### B MP, LIPID, LIVER, TSH #### [facility] [address] [address] [address] Shyam Farfan Cholesterol in HDL [Mass/Vol] 53 mg/dL Normal 40-60 [facility] Comment on above: Performed By: #### B MP, LIPID, LIVER, TSH #### [facility] [address] [address] [address] Shyam Farfan Cholesterol in LDL [Mass/Vol] 100.0 mg/dL Normal [facility] Comment on above: Performed By: #### B MP, LIPID, LIVER, TSH #### [facility] [address] [address] [address] Shyam Farfan Cholesterol.total/Ch olesterol in HDL [Mass ratio] 3.3 {ratio} Normal [facility] Comment on above: Performed By: #### B MP, LIPID, LIVER, TSH #### [facility] [address] [address] [address] Shyam Farfan HDL NORMAL > or = 60 mg/dl - LO W CARDIOVASCULAR RISK <40 mg/dl - HIGH CARDIOVASCULAR RISK Normal [facility] Comment on above: Performed By: #### B MP, LIPID, LIVER, TSH #### [facility] [address] [address] [address] Shyam Farfan LDL CALC NORMAL SEE BELOW Normal [facility] Comment on above: Result Comment: <100 mg/dl OPTIMAL 100 - 129 mg/dl NEAR OR ABOVE OPTIMAL 130 - 159 mg/dl BORDERLINE HIGH 160 - 189 mg/dl HIGH >190 mg/dl VERY HIGH Performed By: #### B MP, LIPID, LIVER, TSH #### [facility] [address] [address] [address] Shyam Farfan Triglyceride [Mass/Vol] 115 mg/dL Normal <=150 [facility] Comment on above: Performed By: #### B MP, LIPID, LIVER, TSH #### [facility] [address] [address] [address] Shyam Farfan VLDL CALC 23.0 mg/dL Normal [facility] Comment on above: Performed By: #### B MP, LIPID, LIVER, TSH #### [facility] [address] [address] [address] Shyam Farfan LIVER PROFILEon 07-15-2021 Albumin [Mass/Vol] 3.8 g/dL Normal 3.4-5.0 [facility] Comment on above: Performed By: #### B MP, LIPID, LIVER, TSH #### [facility] [address] [address] [address] Shyam Farfan Albumin/Globulin [Mass ratio] 1.0 {ratio} Normal [facility] Comment on above: Performed By: #### B MP, LIPID, LIVER, TSH #### [facility] [address] [address] [address] Shyam Farfan ALP [Catalytic activity/Vol] 114 U/L Normal 46-116 [facility] Comment on above: Performed By: #### B MP, LIPID, LIVER, TSH #### [facility] [address] [address] [address] Shyam Farfan ALT [Catalytic activity/Vol] 96 U/L Critically high 14-59 [facility] Comment on above: Performed By: #### B MP, LIPID, LIVER, TSH #### [facility] [address] [address] [address] Shyam Farfan AST [Catalytic activity/Vol] 49 U/L Critically high 15-37 [facility] Comment on above: Performed By: #### B MP, LIPID, LIVER, TSH #### [facility] [address] [place] [address] Dr. Shyam Farfan BILI, CONJUGATED 0.1 mg/dL Normal 0.0-0.2 [facility] Comment on above: Performed By: #### B MP, LIPID, LIVER, TSH #### [facility] [address] [place] [address] Dr. Shyam Farfan Bilirubin [Mass/Vol] 0.5 mg/dL Normal 0.2-1.0 [facility] Comment on above: Performed By: #### B MP, LIPID, LIVER, TSH #### [facility] [address] [place] [address] Dr. Shyam Farfan Globulin (S) [Mass/Vol] 3.7 g/dL Normal [facility] Comment on above: Performed By: #### B MP, LIPID, LIVER, TSH #### [facility] [address] [place] [address] Dr. Shyam Farfan Protein [Mass/Vol] 7.5 g/dL Normal 6.4-8.2 [facility] Comment on above: Performed By: #### B MP, LIPID, LIVER, TSH #### [facility] [address] [address] [address] Shyam Farfan MICROALBUMIN, RAND URon 05-0 mALB 2.4 mg/L Normal <=30.0 [facility] Comment on above: Performed By: #### M ALBR #### [facility] [address] [place] [address] Dr. Shyam Farfan PROF CHEM 8 (BAS METB)on Anion gap [Moles/Vol] 6.5 mmol/L Normal [facility] Comment on above: Performed By: #### B MP, LIPID, LIVER, TSH #### [facility] [address] [place] [address] Dr. Shyam Farfan Calcium [Mass/Vol] 9.3 mg/dL Normal 8.5-10.1 [facility] Comment on above: Performed By: #### B MP, LIPID, LIVER, TSH #### [facility] [address] [place] [address] Dr. Shyam Farfan Chloride [Moles/Vol] 102 mmol/L Normal 98-107 [facility] Comment on above: Performed By: #### B MP, LIPID, LIVER, TSH #### [facility] [address] [place] [address] Dr. Shyam Farfan CO2 [Moles/Vol] 31.5 mmol/L Normal 21.0-32.0 [facility] Comment on above: Performed By: #### B MP, LIPID, LIVER, TSH #### [facility] [address] [place] [address] Dr. Shyam Farfan Creatinine [Mass/Vol] 0.61 mg/dL Normal 0.55-1.02 [facility] Comment on above: Performed By: #### B MP, LIPID, LIVER, TSH #### [facility] [address] [place] [address] Dr. Shyam Farfan EGFR-AF SAMOAN >60 Normal >=60 [facility] Comment on above: Performed By: #### B MP, LIPID, LIVER, TSH #### [facility] [address] [place] [address] Dr. Shyam Farfan EGFR-NON AF SAMOAN >60 Normal >=60 [facility] Comment on above: Performed By: #### B MP, LIPID, LIVER, TSH #### [facility] [address] [place] [address] Dr. Shyam Farfan Glucose [Mass/Vol] 177 mg/dL Critically high 74-106 [facility] Comment on above: Performed By: #### B MP, LIPID, LIVER, TSH #### [facility] [address] [place] [address] Dr. Shyam Farfan Potassium [Moles/Vol] 4.0 mmol/L Normal 3.5-5.1 [facility] Comment on above: Performed By: #### B MP, LIPID, LIVER, TSH #### [facility] [address] [place] [address] Dr. Shyam Farfan Sodium [Moles/Vol] 136 mmol/L Normal 136-145 [facility] Comment on above: Performed By: #### B MP, LIPID, LIVER, TSH #### [facility] [address] [place] [address] Dr. Shyam Farfan Urea nitrogen [Mass/Vol] 11.0 mg/dL Normal 7.0-18.0 [facility] Comment on above: Performed By: #### B MP, LIPID, LIVER, TSH #### [facility] [address] [place] [address] Dr. Shyam Farfan Urea nitrogen/Creatinine [Mass ratio] 18.0 mg/mg Normal [facility] Comment on above: Performed By: #### B MP, LIPID, LIVER, TSH #### [facility] [address] [place] [address] Dr. Shyam Farfan TSHon 07-15-2021 TSH 0.792 uIU/mL Normal 0.358-3.740 [facility] Comment on above: Performed By: #### B MP, LIPID, LIVER, TSH #### [facility] [address] [place] [address] Dr. Shyam Farfan TSH RANGE SEE BELOW Normal [facility] Comment on above: Result Comment: <0.3 4 UIU/ml HYPERTHYROID 0.34-5.60 UIU/ml EUTHYROID >5.60 UIU/ml HYPOTHYROID Performed By: #### B MP, LIPID, LIVER, TSH #### [facility] [address] [address] [address] Shyam Farfan Discharge Summaryon 07-13-19 Discharge Summary [id number] Admitted: [...] by:Chiqui Jules MD 07/20/2017 02:07 P Chiqui Jules MD I have reviewed this discharge summary and confirmed the resident'sdocumentatio n. Please note that there may be additional documentation fromme. Date Dict: 07/12/2017/04:38 A/MALU Thaoate Trans: 07/12/2017 06:47 [id number]: Trevor Wallace M.D. [address] [facility] [address] Normal [facility] BASIC METABOLIC PANELon 04-2 Calcium 8.9 mg/dL Normal 8.6-10.3 [facility] Comment on above: Order Comment: No: D o not add to previous draw Performed By: #### 1 0054 ####[facility] [facility] [address], [facility] Chloride 107 mmol/L Normal 98-107 [facility] Comment on above: Order Comment: No: D o not add to previous draw Performed By: #### 1 0054 ####[facility] [place] [address], [facility] CO2 25 mmol/L Normal 21-31 [facility] Comment on above: Order Comment: No: D o not add to previous draw Performed By: #### 1 0054 ####[facility] [facility] [address], [facility] Creatinine 0.57 mg/dL Low 0.60-1.20 [facility] Comment on above: Order Comment: No: D o not add to previous draw Performed By: #### 1 0054 ####[facility] [place] [address], [facility] eGFR (black) mL/min/{1.73_m2} Normal >60 [facility] Comment on above: Order Comment: No: D o not add to previous draw Performed By: #### 1 0054 ####[facility] [place] [address], [facility] eGFR (non-black) mL/min/{1.73_m2} Normal >60 [facility] Comment on above: Order Comment: No: D o not add to previous draw Performed By: #### 1 0054 ####[facility] [place] [address], [facility] Glucose mass conc 174 mg/dL High 70-100 [facility] Comment on above: Order Comment: No: D o not add to previous draw Performed By: #### 1 0054 ####[facility] [place] [address], [facility] Potassium molar conc 3.6 mmol/L Normal 3.5-5.1 [facility] Comment on above: Order Comment: No: D o not add to previous draw Performed By: #### 1 0054 ####[facility] [place] [address], [facility] Sodium 140 mmol/L Normal 136-145 [facility] Comment on above: Order Comment: No: D o not add to previous draw Performed By: #### 1 0054 ####[facility] [place] [address], [facility] Urea nitrogen 6 mg/dL Low 7-25 [facility] Comment on above: Order Comment: No: D o not add to previous draw Performed By: #### 1 0054 ####[facility] [place] [address], [facility] CBC COMPLETE BLOOD COUNTon 0 - Erythrocyte distribution width Auto Ratio (RBC) 13.7 % Normal 11.5-15.0 [facility] Comment on above: Order Comment: No: D o not add to previous draw Performed By: #### 1 0054 ####[facility] [place] [address], [place] Erythrocytes (RBC) 4.14 10*6/uL Normal 3.80-5.00 [facility] Comment on above: Order Comment: No: D o not add to previous draw Performed By: #### 1 0054 ####[facility] [place] [address], [facility] Erythrocytes (RBC) 0 % Normal 0-0 [facility] Comment on above: Order Comment: No: D o not add to previous draw Performed By: #### 1 0054 ####[facility] Hematocrit (HCT) 36.0 % Normal 36.0-45.0 [facility] Comment on above: Order Comment: No: D o not add to previous draw Performed By: #### 1 0054 ####[facility] Hemoglobin mass conc (Bld) 12.0 g/dL Normal 12.0-15.0 [facility] Comment on above: Order Comment: No: D o not add to previous draw Performed By: #### 1 0054 ####[facility] [facility].[address] MCH 29.0 pg Normal 27.0-33.0 [facility] Comment on above: Order Comment: No: D o not add to previous draw Performed By: #### 1 0054 ####[facility] [facility] [address], [facility] MCHC mass conc (RBC) 33.3 g/dL Normal 32.0-35.0 [facility] Comment on above: Order Comment: No: D o not add to previous draw Performed By: #### 1 0054 ####[facility] [place] [address], [facility] MCV 87.0 fL Normal 82.0-98.0 [facility] Comment on above: Order Comment: No: D o not add to previous draw Performed By: #### 1 0054 ####[facility] [facility] [address], [facility] PLAT CNT 230 10*3/uL Normal 150-400 The [facility] Comment on above: Order Comment: No: D o not add to previous draw Performed By: #### 1 0054 ####[facility] [facility] [address], [facility] WBC (Leukocytes) 6.9 10*3/uL Normal 4.0-10.6 [facility] Comment on above: Order Comment: No: D o not add to previous draw Performed By: #### 1 0054 ####[facility] [facility] [place] [address], [facility] POC GLUCOSE LABon 07-08-2017 Glucose mass conc 106 mg/dL High 70-100 [facility] Comment on above: Performed By: #### 1 0054 ####[facility] [facility] [address], [facility] Glucose mass conc 135 mg/dL High 70-100 [facility] Comment on above: Performed By: #### 1 0054 ####[facility] [facility] [address], [facility] Glucose mass conc 122 mg/dL High 70-100 [facility] Comment on above: Performed By: #### 1 0054 ####[facility] [place] [address], [facility] POTASSIUM BLOODon 07-08-2017 Potassium molar conc 3.3 mmol/L Low 3.5-5.1 [facility] Comment on above: Order Comment: No: D o not add to previous draw Performed By: #### 1 0054 ####[facility] [place] [address], [facility] BASIC METABOLIC PANELon 06-12 Calcium 9.3 mg/dL Normal 8.6-10.3 [facility] Comment on above: Order Comment: Yes: Add to Previous draw if able Performed By: #### 5 6101 ####[facility] [id number], [facility] Chloride 108 mmol/L High 98-107 [facility] Comment on above: Order Comment: Yes: Add to Previous draw if able Performed By: #### 5 6101 ####[facility] [place] [address], [place] CO2 26 mmol/L Normal 21-31 [facility] Comment on above: Order Comment: Yes: Add to Previous draw if able Performed By: #### 5 6101 ####[facility] [place] [address], [facility] Creatinine 0.54 mg/dL Low 0.60-1.20 [facility] Comment on above: Order Comment: Yes: Add to Previous draw if able Performed By: #### 5 6101 ####[facility] [place] [address], [facility] eGFR (black) mL/min/{1.73_m2} Normal >60 [facility] Comment on above: Order Comment: Yes: Add to Previous draw if able Performed By: #### 5 6101 ####[facility] [place] [address], [facility] eGFR (non-black) mL/min/{1.73_m2} Normal >60 [facility] Comment on above: Order Comment: Yes: Add to Previous draw if able Performed By: #### 5 6101 ####[facility] [place] [address], [place] Glucose mass conc 133 mg/dL High 70-100 [facility] Comment on above: Order Comment: Yes: Add to Previous draw if able Performed By: #### 5 6101 ####[facility] Potassium molar conc 2.9 mmol/L Low 3.5-5.1 [facility] Comment on above: Order Comment: Yes: Add to Previous draw if able Performed By: #### 5 6101 ####[facility] [place] [address], [facility] Sodium 140 mmol/L Normal 136-145 [facility] Comment on above: Order Comment: Yes: Add to Previous draw if able Performed By: #### 5 6101 ####[facility] Urea nitrogen 13 mg/dL Normal 7-25 [facility] Comment on above: Order Comment: Yes: Add to Previous draw if able Performed By: #### 5 6101 ####[facility] CBC COMPLETE BLOOD COUNTon 0 - Erythrocyte distribution width Auto Ratio (RBC) 13.4 % Normal 11.5-15.0 [facility] Comment on above: Order Comment: Yes: Add to Previous draw if able Performed By: #### 5 6101 ####[facility] Erythrocytes (RBC) 4.30 10*6/uL Normal 3.80-5.00 [facility] Comment on above: Order Comment: Yes: Add to Previous draw if able Performed By: #### 5 6101 ####[facility] Erythrocytes (RBC) 0 % Normal 0-0 [facility] Comment on above: Order Comment: Yes: Add to Previous draw if able Performed By: #### 5 6101 ####[facility] Hematocrit (HCT) 37.1 % Normal 36.0-45.0 [facility] Comment on above: Order Comment: Yes: Add to Previous draw if able Performed By: #### 5 6101 ####[facility] [place] [address], [facility] Hemoglobin mass conc (Bld) 12.4 g/dL Normal 12.0-15.0 [facility] Comment on above: Order Comment: Yes: Add to Previous draw if able Performed By: #### 5 6101 ####[facility] MCH 28.8 pg Normal 27.0-33.0 [facility] Comment on above: Order Comment: Yes: Add to Previous draw if able Performed By: #### 5 6101 ####[facility] MCHC mass conc (RBC) 33.4 g/dL Normal 32.0-35.0 [facility] Comment on above: Order Comment: Yes: Add to Previous draw if able Performed By: #### 5 6101 ####[facility] [facility] [address], [facility] MCV 86.3 fL Normal 82.0-98.0 [facility] Comment on above: Order Comment: Yes: Add to Previous draw if able Performed By: #### 5 6101 ####[facility] [place] [address], [facility] PLAT CNT 259 10*3/uL Normal 150-400 The [facility] Comment on above: Order Comment: Yes: Add to Previous draw if able Performed By: #### 5 6101 ####[facility] [place] [address], [facility] WBC (Leukocytes) 15.3 10*3/uL High 4.0-10.6 [facility] Comment on above: Order Comment: Yes: Add to Previous draw if able Performed By: #### 5 6101 ####[place] [address], [facility] POC GLUCOSE LABon 07-07-2017 Glucose mass conc 133 mg/dL High 70-100 [facility] Comment on above: Performed By: #### 1 0054 ####[place] [address], [facility] Glucose mass conc 117 mg/dL High 70-100 [facility] Comment on above: Performed By: #### 5 6101 ####[place] [address], [facility] Glucose mass conc 103 mg/dL High 70-100 [facility] Comment on above: Performed By: #### 5 6101 ####[place] [address], [facility] Glucose mass conc 195 mg/dL High 70-100 [facility] Comment on above: Performed By: #### 5 6101 ####[address] SMALL BOWELon 07-07-2017 SMALL BOWEL [facility] [address] [place] [id number] ========Patient Name: TAYLA ROJO : 1960ex: FAge: Race: OtherMRN: [id number]. Location: [id number] Status: IVisit #: [id number] Date: 07/07/2017 8:30:00 AMCompleted Date: 07/07/2017 12:31 PMRequesting Provider: CARMELO MCDANIEL Attending Provider: CHIQUI JULES Report Copy To: Signs & Symptoms: Abdomen Pain GeneralizedHistory: Patient history not availableComments: R/O Obstruction, please put contrast through NGT and use water-soluble contrastExam: SMALL BOWELAccession #: [id number] SMALL BOWEL 07/07/2017 12:57 PM EDT SIGNS AND SYMPTOMS: Abdomen Pain Generalized TECHNOLOGIST COMMENTS: patient states severe cramping vomiting loose stools surgery x2 for hernia last surgery 200ml of Omni 350 QUESTION FOR THE RADIOLOGIST: R/O Obstruction, please put contrast through NGT and use water-soluble contrast CONTRAST: Contrast: OMNIPAQUE 350 (LOCM), 200 milliliter, Nasogastric COMPARISON: none FINDINGS: [employer] images through the patient's abdomen show gas [...] follow-through. Electronically signed by:Ethan Nuñez. Transcribed by: [email or web address], User Resident: Electronically Signed by: ETHAN NUÑEZ @ 07/07/2017 01:38 PM Normal [facility] Comment on above: Order Comment: No: D o not add to previous draw POC GLUCOSE LABon 07-06-2017 Glucose mass conc 198 mg/dL High 70-100 [facility] Comment on above: Performed By: #### 5 6101 ####[place] [address] [address] [place] [address], [facility] Glucose mass conc 208 mg/dL High 70-100 [facility] Comment on above: Performed By: #### 5 6101 ####[facility] [place] [address], [facility] Glucose mass conc 152 mg/dL High 70-100 [facility] Comment on above: Performed By: #### 5 6101 ####[facility] [place] [address], [facility] Glucose mass conc 145 mg/dL High 70-100 [facility] Comment on above: Performed By: #### 5 6101 ####[facility] [place] [address], [facility] Glucose mass conc 141 mg/dL High 70-100 [facility] Comment on above: Performed By: #### 5 6101 ####[facility] [place] [address], [facility] BASIC METABOLIC PANELon 04-2 Calcium 9.5 mg/dL Normal 8.6-10.3 [facility] Comment on above: Order Comment: No: D o not add to previous draw Performed By: #### 5 0103 ####[facility] [place] [address], [facility] Chloride 106 mmol/L Normal 98-107 [facility] Comment on above: Order Comment: No: D o not add to previous draw Performed By: #### 5 0103 ####[facility] [place] [address], [facility] CO2 27 mmol/L Normal 21-31 [facility] Comment on above: Order Comment: No: D o not add to previous draw Performed By: #### 5 0103 ####[facility] [place] [address], [facility] Creatinine 0.57 mg/dL Low 0.60-1.20 [facility] Comment on above: Order Comment: No: D o not add to previous draw Performed By: #### 5 0103 ####[facility] [place] [address], [facility] eGFR (black) mL/min/{1.73_m2} Normal >60 [facility] Comment on above: Order Comment: No: D o not add to previous draw Performed By: #### 5 3 ####[facility] [place] [address], [facility] eGFR (non-black) mL/min/{1.73_m2} Normal >60 [facility] Comment on above: Order Comment: No: D o not add to previous draw Performed By: #### 5 3 ####[facility] [place] [address], [facility] Glucose mass conc 119 mg/dL High 70-100 [facility] Comment on above: Order Comment: No: D o not add to previous draw Performed By: #### 5 3 ####[facility] [place] [address], [facility] Potassium molar conc 3.6 mmol/L Normal 3.5-5.1 [facility] Comment on above: Order Comment: No: D o not add to previous draw Performed By: #### 5 3 ####[facility] [place] [address], [facility] Sodium 138 mmol/L Normal 136-145 [facility] Comment on above: Order Comment: No: D o not add to previous draw Performed By: #### 5 3 ####[facility] [place] [address], [facility] Urea nitrogen 8 mg/dL Normal 7-25 [facility] Comment on above: Order Comment: No: D o not add to previous draw Performed By: #### 5 3 ####[facility] CBC COMPLETE BLOOD COUNTon 0 07-05-2017 Erythrocyte distribution width Auto Ratio (RBC) 13.7 % Normal 11.5-15.0 [facility] Comment on above: Order Comment: No: D o not add to previous draw Performed By: #### 5 0103 ####[facility] Erythrocytes (RBC) 0 % Normal 0-0 [facility] Comment on above: Order Comment: No: D o not add to previous draw Performed By: #### 5 0103 ####[facility] Erythrocytes (RBC) 4.48 10*6/uL Normal 3.80-5.00 [facility] Comment on above: Order Comment: No: D o not add to previous draw Performed By: #### 5 0103 ####[facility] Hematocrit (HCT) 38.9 % Normal 36.0-45.0 [facility] Comment on above: Order Comment: No: D o not add to previous draw Performed By: #### 5 0103 ####[facility] Hemoglobin mass conc (Bld) 12.9 g/dL Normal 12.0-15.0 [facility] Comment on above: Order Comment: No: D o not add to previous draw Performed By: #### 5 0103 ####[facility] MCH 28.8 pg Normal 27.0-33.0 [facility] Comment on above: Order Comment: No: D o not add to previous draw Performed By: #### 5 0103 ####[facility] MCHC mass conc (RBC) 33.2 g/dL Normal 32.0-35.0 [facility] Comment on above: Order Comment: No: D o not add to previous draw Performed By: #### 5 0103 ####[facility] [place] [address], [facility] MCV 86.8 fL Normal 82.0-98.0 [facility] Comment on above: Order Comment: No: D o not add to previous draw Performed By: #### 5 0103 ####[facility] [place] [address], [facility] PLAT CNT 224 10*3/uL Normal 150-400 The [facility] Comment on above: Order Comment: No: D o not add to previous draw Performed By: #### 5 0103 ####[facility] [facility] [place] [address], [facility] WBC (Leukocytes) 7.2 10*3/uL Normal 4.0-10.6 [facility] Comment on above: Order Comment: No: D o not add to previous draw Performed By: #### 5 3 ####[facility] [facility].[address] POC GLUCOSE LABon 07-05-2017 Glucose mass conc 122 mg/dL High 70-100 [facility] Comment on above: Performed By: #### 5 3 ####[facility] [facility] [address], [facility] Glucose mass conc 93 mg/dL Normal 70-100 [facility] Comment on above: Performed By: #### 5 3 ####[facility] [facility] [address], [facility] Glucose mass conc 116 mg/dL High 70-100 [facility] Comment on above: Performed By: #### 5 3 ####[facility] [place] [address], [facility] Glucose mass conc 115 mg/dL High 70-100 [facility] Comment on above: Performed By: #### 5 0103 ####[facility] [place] [address], [facility] BASIC METABOLIC PANELon 04-2 Calcium 9.3 mg/dL Normal 8.6-10.3 [facility] Comment on above: Order Comment: No: D o not add to previous draw Performed By: #### 0 0071, 09451 ####[facility] [place] [address], [facility] Chloride 106 mmol/L Normal 98-107 [facility] Comment on above: Order Comment: No: D o not add to previous draw Performed By: #### 0 0071, [id number] ####[facility] [place] [address], [facility] CO2 26 mmol/L Normal 21-31 [facility] Comment on above: Order Comment: No: D o not add to previous draw Performed By: #### 0 0071, 77065 ####[facility] [place] [address], [facility] Creatinine 0.53 mg/dL Low 0.60-1.20 [facility] Comment on above: Order Comment: No: D o not add to previous draw Performed By: #### 0 0071, 80476 ####[facility] [place] [address], [facility] eGFR (black) mL/min/{1.73_m2} Normal >60 [facility] Comment on above: Order Comment: No: D o not add to previous draw Performed By: #### 0 0071, 88635 ####[facility] [place] [address], [facility] eGFR (non-black) mL/min/{1.73_m2} Normal >60 e [facility] Comment on above: Order Comment: No: D o not add to previous draw Performed By: #### 0 0071, 04257 ####[facility] [place] [address], [facility] Glucose mass conc 167 mg/dL High 70-100 [facility] Comment on above: Order Comment: No: D o not add to previous draw Performed By: #### 0 0071, 89738 ####[facility] [place] [address], [facility] Potassium molar conc 3.4 mmol/L Low 3.5-5.1 [facility] Comment on above: Order Comment: No: D o not add to previous draw Performed By: #### 0 0071, 16450 ####[facility] [facility] Sodium 137 mmol/L Normal 136-145 [facility] Comment on above: Order Comment: No: D o not add to previous draw Performed By: #### 0 0071, 31971 ####[facility] [place] [address], [facility] Urea nitrogen 12 mg/dL Normal 7-25 [facility] Comment on above: Order Comment: No: D o not add to previous draw Performed By: #### 0 0071, 75032 ####[facility] [place] [address], [facility] Calcium 9.9 mg/dL Normal 8.6-10.3 [facility] Comment on above: Order Comment: No: D o not add to previous draw Performed By: #### 0 0071 ####[facility] [place] [address], [facility] Chloride 103 mmol/L Normal 98-107 [facility] Comment on above: Order Comment: No: D o not add to previous draw Performed By: #### 0 0071 ####[facility] [place] [address], [facility] CO2 25 mmol/L Normal 21-31 [facility] Comment on above: Order Comment: No: D o not add to previous draw Performed By: #### 0 0071 ####[facility] [place] [address], [facility] Creatinine 0.56 mg/dL Low 0.60-1.20 [facility] Comment on above: Order Comment: No: D o not add to previous draw Performed By: #### 0 0071 ####[facility] [place] [address], [facility] eGFR (black) mL/min/{1.73_m2} Normal >60 [facility] Comment on above: Order Comment: No: D o not add to previous draw Performed By: #### 0 0071 ####[facility] [place] [address], [facility] eGFR (non-black) mL/min/{1.73_m2} Normal >60 Th [facility] Comment on above: Order Comment: No: D o not add to previous draw Performed By: #### 0 0071 ####[facility] [place] [address], [facility] Glucose mass conc 179 mg/dL High 70-100 [facility] Comment on above: Order Comment: No: D o not add to previous draw Performed By: #### 0 0071 ####[facility] [place] [address], [facility] Potassium molar conc 3.4 mmol/L Low 3.5-5.1 [facility] Comment on above: Order Comment: No: D o not add to previous draw Performed By: #### 0 0071 ####[facility] [place] [address], [facility] Sodium 136 mmol/L Normal 136-145 [facility] Comment on above: Order Comment: No: D o not add to previous draw Performed By: #### 0 0071 ####[facility] Urea nitrogen 12 mg/dL Normal 7-[address] [facility] Comment on above: Order Comment: No: D o not add to previous draw Performed By: #### 0 0071 ####[facility] CBC COMPLETE BLOOD COUNTon 0 - Erythrocyte distribution width Auto Ratio (RBC) 13.8 % Normal 11.5-15.0 [facility] Comment on above: Order Comment: No: D o not add to previous draw Performed By: #### 5 0608 ####[facility] Erythrocytes (RBC) 0 % Normal 0-0 [facility] Comment on above: Order Comment: No: D o not add to previous draw Performed By: #### 5 0608 ####[place] [address] Erythrocytes (RBC) 4.58 10*6/uL Normal 3.80-5.00 [facility] Comment on above: Order Comment: No: D o not add to previous draw Performed By: #### 5 0608 ####[facility] Hematocrit (HCT) 39.7 % Normal 36.0-45.0 [facility] Comment on above: Order Comment: No: D o not add to previous draw Performed By: #### 5 0608 ####[place] [address] Hemoglobin mass conc (Bld) 13.1 g/dL Normal 12.0-15.0 [facility] Comment on above: Order Comment: No: D o not add to previous draw Performed By: #### 5 0608 ####[facility] MCH 28.6 pg Normal 27.0-33.0 [facility] Comment on above: Order Comment: No: D o not add to previous draw Performed By: #### 5 0608 ####[facility] [facility].[address] MCHC mass conc (RBC) 33.0 g/dL Normal 32.0-35.0 [facility] Comment on above: Order Comment: No: D o not add to previous draw Performed By: #### 5 0608 ####[address] MCV 86.7 fL Normal 82.0-98.0 [facility] Comment on above: Order Comment: No: D o not add to previous draw Performed By: #### 5 0608 ####[facility] [facility].[address] PLAT CNT 264 10*3/uL Normal 150-400 The [facility] Comment on above: Order Comment: No: D o not add to previous draw Performed By: #### 5 0608 ####[address] WBC (Leukocytes) 11.2 10*3/uL High 4.0-10.6 [facility] Comment on above: Order Comment: No: D o not add to previous draw Performed By: #### 5 0608 ####[facility] [place] [address].[address] CBC W/DIFFon 07-04-2017 ABS BASOPHILS 0.0 10*3/uL Normal 0.0-0.2 The [facility] Comment on above: Performed By: #### 5 0103 ####[facility] [facility].[address] ABS IMM GRANS 0.1 10*3/uL Normal 0.0-0.2 The [facility] Comment on above: Performed By: #### 5 0103 ####[facility] [facility] [address], [facility] Basophils Auto #/vol (Bld) 0.3 % Normal 0.0-1.0 [facility] Comment on above: Performed By: #### 5 0103 ####[facility] [place] [address], [facility] Eosinophils 0.0 10*3/uL Normal 0.0-0.5 [facility] Comment on above: Performed By: #### 5 0103 ####[place] [address] Eosinophils/100 leukocytes 0.2 % Normal 0.0-6.0 [facility] Comment on above: Performed By: #### 5 0103 ####[facility] Erythrocyte distribution width Auto Ratio (RBC) 13.8 % Normal 11.5-15.0 [facility] Comment on above: Performed By: #### 5 0103 ####[facility] Erythrocytes (RBC) 0 % Normal 0-0 [facility] Comment on above: Performed By: #### 5 0103 ####[facility] Erythrocytes (RBC) 4.67 10*6/uL Normal 3.80-5.00 [facility] Comment on above: Performed By: #### 5 0103 ####[facility] Hematocrit (HCT) 40.3 % Normal 36.0-45.0 The [facility] Comment on above: Performed By: #### 5 0103 ####[facility] [facility].[address] Hemoglobin mass conc (Bld) 13.5 g/dL Normal 12.0-15.0 [facility] Comment on above: Performed By: #### 5 0103 ####[facility] [facility].[address] IMMATURE GRANS 0.5 % Normal 0.0-1.0 The [facility] Comment on above: Performed By: #### 5 0103 ####[place] [address] Lymphocytes 1.6 10*3/uL Normal 1.2-4.0 [facility] Comment on above: Performed By: #### 5 0103 ####[facility] Lymphocytes/100 leukocytes 10.9 % Low 20.0-45.0 [facility] Comment on above: Performed By: #### 5 0103 ####[place] [address] MCH 28.9 pg Normal 27.0-33.0 [facility] Comment on above: Performed By: #### 5 0103 ####[facility] [facility].[address] MCHC mass conc (RBC) 33.5 g/dL Normal 32.0-35.0 [facility] Comment on above: Performed By: #### 5 3 ####[facility] MCV 86.3 fL Normal 82.0-98.0 [facility] Comment on above: Performed By: #### 5 0103 ####[facility] [place] [address], [facility] Monocytes 0.9 10*3/uL Normal 0.1-1.0 [facility] Comment on above: Performed By: #### 5 0103 ####[facility] [place] [address], [facility] MONOS 6.5 % Normal 5.0-12.0 [facility] Comment on above: Performed By: #### 5 0103 ####[facility] [place] [address], [facility] Neutrophils 11.8 10*3/uL High 1.6-7.6 The [facility] Comment on above: Performed By: #### 5 0103 ####[facility] [facility].[address] Neutrophils/100 leukocytes 81.6 % High 40.0-72.0 [facility] Comment on above: Performed By: #### 5 0103 ####[facility] [place] [address], [facility] PLAT CNT 277 10*3/uL Normal 150-400 The [facility] Comment on above: Performed By: #### 5 0103 ####[facility] [facility].[address] WBC (Leukocytes) 14.4 10*3/uL High 4.0-10.6 [facility] Comment on above: Performed By: #### 5 0103 ####[facility] [facility].[address] History and Physicalon 07-04 History and Physical [id number]la [facility] Admitted: 07/03/2017 Date of : 1960 Attending Physician: Chiqui Jules MD Room #: [id number] Discharge Date: HISTORY AND PHYSICALHISTORY OF PRESENT ILLNESS: Ms. Rojo is a 56-year-old female, whopresents with signs of small bowel obstructions starting on July 03 at. She states she had intense abdominal pain, [...] at that time. Surgeries were performed at [facility] and records are unavailable. On arrival to [facility], patient's painis noted to have greatly improved. [...] was planning on [facility]. However, this was not scheduled until August [...] Dict: 07/04/2017/12:24 A/Chey Navarrete Trans: 07/04/2017 05:33 [id number] Normal [facility] LACTATE BLOODon 07-04-2017 Lactate 0.6 mmol/L Normal .5-2.2 [facility] Comment on above: Order Comment: No: D o not add to previous draw Performed By: #### 1 0054 ####[facility] MAGNESIUM BLOODon 07-04-2017 Magnesium 2.1 mg/dL Normal 1.9-2.7 [facility] Comment on above: Order Comment: No: D o not add to previous draw Performed By: #### 0 0071, [address]131 ####[address] OUTSIDE CONSULT GIGUon 07-04 OUT[facility] GIGU [facility] Ositxwqcf[address] [place], [place] [address] ========Patient Name: TAYLA ROJO : 1960ex: FAge: Race: OtherMRN: [id number]. Location: [id number] Status: IVisit #: [id number] Date: 07/04/2017 7:10:00 AMCompleted Date: 07/04/2017 07:20 AMRequesting Provider: NADER SALCEDO Attending Provider: CHIQUI JULES Report Copy To: TREVOR WALLACE Signs & Symptoms: outside consultHistory: CT abd/pelvis [facility] 07/03/[address] Nader EllisiComments: Exam: OUTSIDE CONSULT GIGUAccession #: [id number] OUTSIDE CONSULT GIGU 07/04/2017 7:20 AM EDT OUTSIDE STUDY: CT TECHNIQUE: Outside CT images of the abdomen and pelvis obtained from [facility] dated July 03, 2017.. Image review with [...] interpretation. Electronically signed by:Ethan Nuñez. Transcribed by: [email or web address], User Resident: Electronically Signed by: ETHAN NUÑEZ @ 07/04/2017 10:22 AM Normal [facility] POC GLUCOSE LABon 07-04-2017 Glucose mass conc 123 mg/dL High 70-100 [facility] Comment on above: Performed By: #### 5 0103 ####[facility] Glucose mass conc 134 mg/dL High 70-100 [facility] Comment on above: Performed By: #### 5 0103 ####[facility] Glucose mass conc 193 mg/dL High 70-100 [facility] Comment on above: Order Comment: NOTE: Result Checked Performed By: #### 8 5499 ####[facility] [place] [address], [facility] Glucose mass conc 147 mg/dL High 70-100 [facility] Comment on above: Performed By: #### 8 5499 ####[facility] PROTHROMBIN TIMEon 8 INR Coag RelTime (PPP) 1.20 {INR} High 0.91-1.16 [facility] Comment on above: Order Comment: Yes: [...] OF ACTION, CLINICALEFFECTIVENESS, AND OPTIMAL THERAPEUTIC RANGE. [id number]. Performed By: #### 5 6101 ####[facility] [facility].[address] Prothrombin time (PT) Coag time (PPP) 15.3 s High 12.3-14.8 The [facility] Comment on above: Order Comment: Yes: Add to Previous draw if able Result Comment: ALL RESULTS MUST BE INTERPRETED WITH RESPECT TO BLOOD DRAWING ARTIFACTOR DILUTION ERROR OF ANTICOAGULANT AT THE TIME OF SAMPLING. Performed By: #### 5 6101 ####[facility] [facility].[address] TYPE AND SCREENon 07-04-2017 ABO INTERPRETATION O Normal [facility] Comment on above: Performed By: #### 6 2586 ####[facility] [facility].[address] ANTIBODY SCREEN Negative Normal The [facility] Comment on above: Performed By: #### [id number] ####[facility].[address] RH INTERPRETATION Positive Normal [facility] Comment on above: Performed By: #### [id number] ####[facility].[address] Vital Signs Date Time Vital Sign Value Performing Clinician Facility 03-21-2024 10:49-0500 Body height 152.4 cm Sharmila Daugherty DPM Work Phone: [facility] 03-21-2024 10:49-0500 Body mass index (BMI) [Ratio] 37.5 kg/m2 Sharmila HERNANDEZM Work Phone: [facility] 03-21-2024 10:49-0500 Body weight 87.09 kg Sharmila HERNANDEZM Work Phone: [facility] 01-15-2024 09:16-0500 Body height 152.4 cm Trevor Wallace MD Work Phone: [facility] 01-15-2024 09:16-0500 Body mass index (BMI) [Ratio] 37.5 kg/m2 Trevor Wallace MD Work Phone: [facility] 01-15-2024 09:16-0500 Body temperature 97.5 [degF] Trevor Wallace MD Work Phone: [facility] 01-15-2024 09:16-0500 Body weight 87.09 kg Trevor Wallace MD Work Phone: [facility] 01-15-2024 09:16-0500 Diastolic blood pressure 74 mm[Hg] Trevor Wallace MD Work Phone: [facility] 01-15-2024 09:16-0500 Heart rate 87 /min Trevor Wallace MD Work Phone: [facility] 01-15-2024 09:16-0500 Respiratory rate 20 /min Trevor Wallace MD Work Phone: [facility] 01-15-2024 09:16-0500 SaO2% (BldA) [Mass fraction] 97 % Trevor Wallace MD Work Phone: [facility] 01-15-2024 09:16-0500 Systolic blood pressure 130 mm[Hg] Trevor Wallace MD Work Phone: [facility] 11-07-2023 10:38-0400 Body height 152.4 cm Sharmila HENRANDEZM Work Phone: [facility] 11-07-2023 10:38-0400 Body mass index (BMI) [Ratio] 36.33 kg/m2 Sharmila Daugherty DPM Work Phone: [facility] 11-07-2023 10:38-0400 Body weight 84.37 kg Sharmila Daugherty DPM Work Phone: [facility] 08-24-2022 14:25-0400 Blood Pressure Location JILLIAN GILLESPIE [facility] 08-24-2022 14:25-0400 Diastolic blood pressure 86 mm[Hg] JILLIAN GILLESPIE [facility] 08-24-2022 14:25-0400 Heart rate 71 /min JILLIAN GILLESPIE [facility] 08-24-2022 14:25-0400 Systolic blood pressure 135 mm[Hg] JILLIAN GILLESPIE [facility] 04-04-2022 10:39-0500 Blood Pressure Location Shiraz GARDNER [facility] 04-04-2022 10:39-0500 Diastolic blood pressure 82 mm[Hg] Shiraz GARDNER [facility] 04-04-2022 10:39-0500 Heart rate 70 /min Shiraz GARDNER [facility] 04-04-2022 10:39-0500 Respiratory rate 16 /min Shiraz GARDNER [facility] 04-04-2022 10:39-0500 Systolic blood pressure 127 mm[Hg] Shiraz GARDNER [facility] 12-20-2021 10:26-0400 Blood Pressure Location Shiraz GARDNER [facility] 12-20-2021 10:26-0400 Diastolic blood pressure 78 mm[Hg] Shiraz GARDNER [facility] 12-20-2021 10:26-0400 Heart rate 77 /min Shiraz NARCISO [facility] 12-20-2021 10:26-0400 Respiratory rate 16 /min Shiraz NARCISO [facility] 12-20-2021 10:26-0400 Systolic blood pressure 139 mm[Hg] Shirazpetrona GARDNER [facility] Encounters Encounter Date Encounter Type Care Provider Facility Start: 04-09-2024 End: 04-09-2024 ambulatory MELISA CLARKE Not Available Start: 03-21-2024 End: 03-21-2024 Bamboo flowsheet Sharmila Daugherty DPM Work Phone: [facility] Start: 03-21-2024 End: 03-21-2024 Bamboo flowsheet Sharmila Daugherty DPM Work Phone: [facility] Start: 03-21-2024 End: 03-21-2024 Patient encounter procedure Sharmila Daugherty DPM Work Phone: [facility] Comment on above: Diabetes mellitus wi thout complication (CMS/HCC) (Primary Dx); Onychomycosis; Pain in toes of both feet Start: 03-21-2024 End: 03-21-2024 ambulatory SHARMILA DAUGHERTY Not Available Start: 02-12-2024 End: 02-12-2024 Refill Trevor Wallace MD Work Phone: [facility] Comment on above: Hypokalemia (Primary Dx) Start: 01-15-2024 End: 01-15-2024 Bamboo flowsheet Trevor Wallace MD Work Phone: [facility] Start: 01-15-2024 End: 01-15-2024 Bamboo flowsheet Trevor Wallace MD Work Phone: [facility] Start: 01-15-2024 End: 01-15-2024 ambulatory TREVOR WALLACE Not Available Start: 01-15-2024 End: 01-15-2024 Office outpatient visit 25 minutes Trevor Wallace MD Work Phone: [facility] Comment on above: Type 2 diabetes mechelle itus with hyperglycemia, without long-term current use of insulin (CMS/HCC) (Primary Dx); Essential hypertension, benign (CMS/HCC); Major depressive disorder, recurrent episode, mild (HCC) ([facility]); Generalized anxiety disorder (CMS/HCC); Gastroesophageal reflux disease without esophagitis; Primary osteoarthritis of both knees; Breast cancer screening by mammogram; Class 2 severe obesity due to excess calories with serious comorbidity and body mass index (BMI) of 37.0 to 37.9 in adult ([facility]); SOB (shortness of breath); Skin candidiasis Start: 12-11-2023 End: 12-12-2023 Telephone encounter Sharmila Daugherty DPM Work Phone: [facility] Comment on above: Advice Only (Rx Refi ll Request) Start: 11-07-2023 End: 11-07-2023 Bamboo flowsheet Sharmila Daugherty DPM Work Phone: [facility] Start: 11-07-2023 End: 11-07-2023 Bamboo flowsheet Sharmila Daugherty DPM Work Phone: [facility] Start: 11-07-2023 End: 11-07-2023 Patient encounter procedure Sharmila Daugherty DPM Work Phone: [facility] Comment on above: Diabetes mellitus wi thout complication ([facility]) (Primary Dx); Onychomycosis; Pain in toes of both feet Start: 11-07-2023 End: 11-07-2023 ambulatory SHARMILA DAUGHERTY Not Available Start: 08-01-2023 End: 08-01-2023 ambulatory KEVIN CRUZ Not Available Start: 07-14-2023 Patient encounter procedure Sharmila Daugherty DPM Work Phone: [facility] Start: 07-14-2023 End: 07-14-2023 ambulatory TREVOR WALLACE Not Available Start: 07-04-2023 End: 07-04-2023 ambulatory SHARMILA Min DAUGHERTY Not Available Start: 08-24-2022 End: 08-25-2022 ambulatory JILLIAN GILLESPIE Facility:[facility] Start: 08-24-2022 End: 08-24-2022 Patient encounter procedure JILLIAN GILLESPIE [facility] Start: 06-13-2022 End: 06-13-[address] SHIRAZ GARDNER . Facility:[facility] Start: 05-18-2022 End: 05-18-2022 ambulatory ABHAY ABELARDO CAROL ANN Facility:[facility] Start: 05-16-2022 ambulatory Shiraz GARDNER [facility] ty:CD:[id number] Start: 04-04-2022 End: 04-05-2022 ambulatory Shiraz GARDNER Facility:[facility] Start: 04-04-2022 End: 04-04-2022 Patient encounter procedure Shiraz GARDNER [facility] Start: 01-26-2022 End: 01-27-[address] TREVOR WALLACE Facility:[facility] Start: 12-27-2021 End: 12-28-[address] TREVOR WALLACE Facility: Start: 12-20-2021 End: 12-21-2021 ambulatory TREVOR WALLACE Facility:[facility] Start: 12-20-2021 End: 12-20-2021 Patient encounter procedure Shiraz GARDNER [facility] Start: 11-29-2021 ambulatory Shiraz GARDNER Facility :[facility] Start: 07-16-2021 Encounter for genera l adult medical examination without abnormal findings DR TREVOR WALLACE [facility] Start: 07-15-2021 End: 07-16-[address] TREVOR WALLACE Facility:[facility] Start: 07-15-2021 End: 07-16-2021 Encounter for general adult medical examination without abnormal findings DR TREVOR WALLACE Facility: Start: 07-04-2017 End: 07-08-2017 Evaluation and management of inpatient PROVIDER UNKNOWN Facility:[facility] Procedures Date Procedure Procedure Detail Performing Clinician Start: 02-14-2024 Mammography Sharmila Rocky redmondke DPM Work Phone: Start: 12-30-2022 Mammography Sharmila Cl arke DPM Work Phone: Start: 06-13-2022 Cystoscopy JILLIAN Alvares ELISE Start: 06-21-2016 Colonoscopy flx dx w /collj spec when pfrmd Shiraz GARDNER Start: 06-21-2016 Colonoscopy Sharmila Hidalgo arke DPM Work Phone: Appendectomy Shirazpetrona GARDNER Cholecystectomy Shiraz SUE Hernia of abdominal cavity (disorder) Shiraz GARDNER Hysterectomy Shiraz GARDNER Plan of Treatment Date Care Activity Detail Author Start: 06-21-2026 Screening for malign ant neoplasm of colon [facility] Start: 02-19-2026 Glaucoma screening Diabetes: R etinopathy Screening [facility] Start: 06-26-2025 Glaucoma screening Diabetes: R etinopathy Screening [facility] Start: 02-13-2025 Screening for malign ant neoplasm of breast Mammogram [facility] Start: 07-23-2024 End: 07-23-2024 Patient encounter procedure 07/23/2024 10:00 AM EDT Procedure Visit [facility] [address] [place] [address] Sharmila Daugherty DPElena [address] [place], [place] [phone] [facility] Start: 07-15-2024 End: 07-15-2024 Patient encounter procedure 07/15/2024 9:15 AM EDT [facility] [address] [place] [address] Trevor Wallace MD [address] [place] [phone] [facility] Start: 07-13-2024 Urine screening for protein Diabetes: Urine Protein Screening [facility] Start: 03-21-2024 End: 03-21-2024 Patient encounter procedure [facility] Comment on above: Arrived Start: 01-15-2024 End: 01-14-2025 Hemoglobin A1c/Hemoglobin.total in Blood Hemoglobin A1c Lab Routine Type 2 diabetes mellitus with hyperglycemia, without long-term current use of insulin ([facility]) Expected: 01/15/2024 (Approximate), Expires: 01/14/2025 [facility] Work Phone: Comment on above: Expected: 01/15/2024 (Approximate), Expires: 01/14/2025 Start: 01-15-2024 End: 03-16-2025 MG Breast - bilateral Screening Bilateral screening mammogram Imaging Routine Breast cancer screening by mammogram Expected: 01/15/2024, Expires: 03/16/2025 [facility] Comment on above: Expected: 01/15/2024 , Expires: 03/16/2025 Start: 01-15-2024 End: 01-15-2024 Patient encounter procedure 01/15/2024 9:00 AM EST Office Visit [facility] [address] [place] [address] Trevor Wallace MD [address] [place] [phone] [facility] Start: 01-14-2024 Hemoglobin A1c measurement Diabetes: Hemoglobin A1C [facility] Start: 12-31-2023 Screening for malign ant neoplasm of breast Mammogram [facility] Start: 11-12-2023 Influenza vaccination Influenza Vacc ine (#1) [facility] Start: 11-07-2023 End: 11-07-2023 Patient encounter procedure 11/07/2023 10:45 AM EDT Procedure Visit [facility] [address] [place] [phone] Sharmila Daugherty DPM [address] [place] [address] Arrived [facility] Comment on above: Arrived Start: 06-11-2019 Hemoglobin A1c measurement Diabetes: Hemoglobin A1C [facility] Start: 09-20-1989 Screening for malign ant neoplasm of cervix [facility] Start: 09-20-1980 Screening for malign ant neoplasm of cervix Pap Smear [facility] Start: 09-20-1978 Urine screening for protein Diabetes: Urine Protein Screening [facility] Start: 1960 Screening for malign ant neoplasm of colon [facility] Immunizations Immunization Date Immunization Notes Care Provider [facility] 01-10-2024 influenza virus vaccine, unspecified formulation Trevor Wallace MD Work Phone: [facility] 12-10-2022 influenza virus vaccine, unspecified formulation Sharmila Daugherty DPM Work Phone: [facility] 12-29-2021 influenza virus vaccine, unspecified formulation JILLIAN GILLESPIE [facility] 12-29-2021 influenza, injectabl e, quadrivalent, preservative free Sharmila Daugherty DPM Work Phone: [facility] 12-29-2021 SARS-CoV-2 (COVID-19 ) [id number] vaccine JILLIAN GILLESPIE [facility] 03-08-2021 SARS-CoV-2 (COVID-19 ) mRNA-1273 vaccine Shiraz GARDNER [facility] 07-03-2020 SARS-CoV-2 (COVID-19 ) mRNA-1273 vaccine Shiraz GARDNER [facility] 06-05-2020 SARS-CoV-2 (COVID-19 ) [id number] vaccine Shiraz GARDNER [facility] 12-17-2019 influenza virus vaccine, unspecified formulation Shiraz GARDNER [facility] 12-17-2019 Influenza, injectabl e, Madin Galt Canine Kidney, preservative free, quadrivalent Sharmila Daugherty DPM Work Phone: [facility] 12-20-2018 influenza virus vaccine, unspecified formulation Shiraz GARDNER [facility] 12-20-2018 influenza, injectabl e, quadrivalent, preservative free Sharmila Daugherty DPM Work Phone: [facility] 01-12-2017 influenza virus vaccine, unspecified formulation Shiraz GARDNER [facility] 01-12-2017 influenza, injectabl e, quadrivalent, preservative free Sharmila Daugherty DPM Work Phone: [facility] Payers Date Payer Category Payer [facility] er [id number] 2024 Unknown [id number] 2022 Private Health Insurance NICOLE ARECHIGA [id number] 2022 Unknown KRISTEN DUMONT [employer] [id number] 2022-Present [phone] [address] [place] [address] [id number] [id number] 2022 Unknown [id number] 2022 Unknown [id number] 1959 Unknown [id number] 2.16.840.1.672165.3.579. 2.593 1959 Unknown [id number] 2.16.840.1.854416.3.579. 2.593 1959 Unknown [id number] 2.16.840.1.956259.3.579. 2.593 1959 Unknown [id number] 2.16.840.1.426568.3.579. 2.593 1959 Unknown [id number] 2.16.840.1.105115.3.579. 2.593 1959 Unknown [id number] 2.16.840.1.766475.3.579. 2.727 1959 Unknown [id number] 2.16.840.1.468221.3.579. 2.727 1959 Unknown [id number] 2.16.840.1.264064.3.579. 2.727 1959 Unknown [id number] 2.16.840.1.744449.3.579. 2.9 1959 Unknown [id number] 2.16.840.1.173212.3.579. 2.1258 1959 Unknown [id number] 2.16.840.1.915610.3.579. 2.1258 1959 Unknown [id number] 2.16.840.1.002097.3.579. 2.1258 1959 Unknown [id number] 2.16.840.1.155018.3.579. 2.1258 1959 Unknown [id number] 2.16.840.1.765722.3.579. 2.1258 1959 Unknown [id number] 2.16.840.1.497907.3.579. 2.9 1959 Unknown [id number] 1959 Unknown [id number] Social History Date Type Detail Facility Tobacco smoking status [facility] Start: 11-07-2023 End: 01-15-2024 Sex Assigned At Female [facility] Start: 08-24-2022 End: 10-23-2022 Tobacco smoking status Never smoked tobacco (finding) [facility] Tobacco smoking status Never [facility] Start: 11-07-2023 End: 03-21-2024 Alcoholic beverage intake Ex-drinker (finding) [facility] Start: 11-07-2023 End: 01-15-2024 History of Social function [facility] Start: 1960 Sex assigned at Not on file [facility] Medical Equipment Procedure Code Equipment Code Equipment Origin al Text Equipment Identifier Dates USE DIRECTED to test BLOOD SUGAR THREE TIMES DAILY [id number] Start: 04-10-2023 Functional Status Date Assessment Result Facility 08-24-2022 Functional Status N/A [facility] 04-04-2022 Functional Status N/A [facility] 12-20-2021 Functional Status N/A [facility] Clinical Notes 12-20-2021 to 03-21-2024 Sharmila Daugherty, NASIMA - 03/21/2024 11:00 AM Brent Wallace MD - 01/15/2024 10:01 AM Brent Wallace MD - 01/15/2024 10:00 AM Brent Wallace MD - 01/15/2024 10:00 AM EST Note Date & Type Note Facility 03-21-2024 History of Present illness Narrative Images from the original note were not included. Subjective Patient ID: Tayla Rojo is a 63 y.o. female who presents for Nail care (Tayla Rojo is a 63 y.o. female who presents for Nail Care. BS [address] Wallace 01/15/2024. SS 7.). HPI Patient presents complaining of fungal nails. She is requesting nail debridement today. She states the nails are incurvated, thick, difficult to trim. They are painful for her. Review of Systems Medications Current Outpatient Medications: albuterol HFA 90 mcg/act inhaler, Inhale 2 puffs every 4 (four) hours if needed for wheezing, Disp: 18 g, Rfl: 2 citalopram (CeleXA) 40 MG tablet, Take 1 tablet (40 mg) by mouth Daily, Disp: 90 tablet, Rfl: 3 Lancets (OneTouch Delica Plus [id number]) [facility], USE DIRECTED to test BLOOD SUGAR THREE TIMES DAILY, Disp: 90 each, Rfl: 3 lisinopril 10 MG tablet, TAKE 1 TABLET BY MOUTH DAILY, Disp: 192 tablet, Rfl: 2 meloxicam (Mobic) 15 MG tablet, Take 1 tablet (15 mg) by mouth Daily, Disp: 90 tablet, Rfl: 3 metFORMIN XR (Glucophage-XR) 500 MG 24 hr tablet, TAKE 1 TABLET BY MOUTH DAILY, Disp: 372 tablet, Rfl: 0 metoprolol succinate XL (Toprol-XL) 25 MG 24 hr tablet, TAKE 1 TABLET BY MOUTH DAILY, Disp: 192 tablet, Rfl: 2 mirtazapine (Remeron) 45 MG tablet, TAKE 1 TABLET BY MOUTH AT BEDTIME, Disp: 360 tablet, Rfl: 3 Multiple Vitamin (multivitamin) tablet, Take 1 tablet by mouth in the morning., Disp: , Rfl: nystatin (Mycostatin) 089547 UNIT/GM powder, Apply topically 2 (two) times a day, Disp: 60 g, Rfl: 3 omeprazole OTC (PriLOSEC OTC) 20 MG EC tablet, Take 20 mg by mouth in the morning. Take before meals. Do not crush, chew, or split. ., Disp: , Rfl: pioglitazone (Actos) 30 MG tablet, TAKE 1 TABLET BY MOUTH DAILY, Disp: 100 tablet, Rfl: 2 potassium chloride CR (Klor-Con M20) 20 MEQ ER tablet, Take 1 tablet (20 mEq) by mouth Daily Do not crush or chew., Disp: 90 tablet, Rfl: 3 Allergies Patient has no known allergies. Past Surgical History Past Surgical History: Procedure Laterality Date APPENDECTOMY ARTHROPLASTY Left 08/04/2021 [facility] [place] - Dr. Panchal BUNIONECTOMY Left SECTION, LOW TRANSVERSE GALL BLADDER HERNIA REPAIR 09/2017 x4 HYSTERECTOMY TUBAL LIGATION Family History Family History Problem Relation Name Age of Onset Diabetes Mother Diabetes Father Lung cancer Father Cancer Father Diabetes Sister Heart disease Sister Bipolar disorder Sister Hypertension Brother Objective Physical Exam Cardiovascular: Comments: Pedal pulses: DP 2/4 bilateral, PT 1/4 bilateral. Skin temp is warm to warm. Varicosities: absent Hair growth: present Pulmonary: Effort: Pulmonary effort is normal. Musculoskeletal: General: No tenderness. Right lower leg: No edema. Left lower leg: No edema. Comments: JOINT RANGE OF MOTION: ankle joint and subtalar joint ROM are normal and pain free. DEFORMITIES: Hallux abductovalgus, right, mild with dorsal lateral osseous prominence at 1st met head. Mild arthritis R 1st MTPJ. Pes planus foot type. PAIN: b/l hallux nails. Pain at the 2nd tarsometatarsal joint and medial and lateral bases of the 2nd metatarsal has resolved MUSCLE STRENGTH 5/5 for dorsiflexion, plantarflexion, inversion, eversion. Feet: Comments: Date of last diabetic foot exam: 07/04/2023 Skin: General: Skin is warm. Capillary Refill: Capillary refill takes 2 to 3 seconds. Findings: No bruising or erythema. Comments: SKIN FINDINGS: Plantar aspect of proximal phalanx R 3rd digit, possible small ganglionic cyst present, not grossly visible, but palpable. Some tenderness with palpation. No erythema, no ecchymosis. webspaces are clean and dry. HYPERKERATOSIS:plantar medial hallux IPJ b/l. NAIL PATHOLOGY:R hallux nail centrally is yellow and white, 4mm thick, fungal. Nail 2 and 5 R are yellow and orange, crumbly fungal debris, 4mm thick. Nail 1 and 2 L with central orange and yellow mycotic streaking, 3mm thick. Nail 5L is 3mm thick, discolored, brittle, fungal. ULCER: no sign of ulceration or open wound . Neurological: Mental Status: She is alert and oriented to person, place, and time. Comments: Light touch sensation intact VIBRATORY:diminished at IPJ, intact at MTPJ. SEMMES-ALBA 5.07 MONOFILAMENTintact at 10/10 sites. Psychiatric: Mood and Affect: Mood normal. Behavior: Behavior normal. [id number] Assessment/Plan ICD-10-CM 1. Diabetes mellitus without complication ([facility]) E11.9 2. Onychomycosis B35.1 3. Pain in toes of both feet M79.674 M79.675 Patient requests debriding of toenails. As per request all 10 nails are debrided. There reduced in thickness and in length. Margins curetted of debris. Feet inspected. Hygiene discussed. Patient relates significant relief of discomfort. Invited to call if questions or problems arise This note was created with the assistance of a speech recognition program. While intending to generate a timely document that accurately reflects the content of the visit, no guarantee can be provided that every grammatical or spelling mistake has been or will be identified or corrected. Thank you for your understanding. Sharmila Daugherty DPM documented in this encounter [facility] 01-15-2024 History of Present illness Narrative Associated Problem(s): Class 2 severe obesity due to excess calories with serious comorbidity and body mass index (BMI) of 37.0 to 37.9 in adult ([facility]) Weight loss indicated Associated Problem(s): Type 2 diabetes mellitus with hyperglycemia, without long-term current use of insulin (CMS/HCC) Reports BS stable and due for A1C. Stick to ADA diet and limit carbs. Associated Problem(s): Primary osteoarthritis of both knees Pain stable and use mobic PRN. Increase activity and walk regularly. Associated Problem(s): Major depressive disorder, recurrent episode, mild (HCC) (CMS/HCC) Symptoms controlled with medication and continue. Associated Problem(s): Generalized anxiety disorder (CMS/HCC) Symptoms controlled with medication and continue. Associated Problem(s): Gastroesophageal reflux disease Symptoms controlled with omeprazole and continue. Associated Problem(s): Essential hypertension, benign ([facility]) BP controlled and monitor PRN. Images from the original note were not included. Subjective Patient ID: Tayla Rojo is a 63 y.o. female who presents for Follow-up (6 m). Follow up DM, HTN, depression, anxiety, and GERD. Patient stable today. Reports BS controlled 137-223 but average around 170. Tries to eat well and stick to ADA diet. Denies signs of elevated BS such as polyuria, polyphagia or polydipsia. Checking BP PRN and typically controlled. BP normal today. Taking medication daily and tolerating without side effects. Mood controlled with medication. Not down or sad and feels happier. Interacting well with others. Anxiety stable. Not as stressed out or overwhelmed. Not as nervous or worry as much. Not as benson or irritable. GERD controlled with omeprazole. Denies epigastric pain or burning and not waking up with symptoms. Review of Systems Respiratory: Negative for cough, shortness of breath and wheezing. Cardiovascular: Negative for chest pain and palpitations. Gastrointestinal: Negative for abdominal pain, diarrhea, nausea and vomiting. Genitourinary: Negative for dysuria. Objective Physical Exam Constitutional: General: She is not in acute distress. Appearance: Normal appearance. HENT: Head: Normocephalic. Right Ear: Tympanic membrane normal. Left Ear: Tympanic membrane normal. Eyes: Extraocular Movements: Extraocular movements intact. Pupils: Pupils are equal, round, and reactive to light. Cardiovascular: Rate and Rhythm: Normal rate and regular rhythm. Heart sounds: No murmur heard. No friction rub. No gallop. Pulmonary: Effort: Pulmonary effort is normal. Breath sounds: Normal breath sounds. No wheezing, rhonchi or rales. Abdominal: General: Bowel sounds are normal. There is no distension. Palpations: Abdomen is soft. Tenderness: There is no abdominal tenderness. There is no guarding or rebound. Musculoskeletal: Cervical back: Neck supple. Right lower leg: No edema. Left lower leg: No edema. Neurological: Mental Status: She is alert. Assessment/Plan Problem List Items Addressed This Visit Type 2 diabetes mellitus with hyperglycemia, without long-term current use of insulin (CMS/HCC) - Primary Reports BS stable and due for A1C. Stick to ADA diet and limit carbs. Relevant Orders Hemoglobin A1c Essential hypertension, benign (CMS/HCC) BP controlled and monitor PRN. Generalized anxiety disorder (CMS/HCC) Symptoms controlled with medication and continue. Gastroesophageal reflux disease Symptoms controlled with omeprazole and continue. Major depressive disorder, recurrent episode, mild (HCC) (CMS/HCC) Symptoms controlled with medication and continue. Relevant Medications citalopram (CeleXA) 40 MG tablet Primary osteoarthritis of both knees Pain stable and use mobic PRN. Increase activity and walk regularly. Relevant Medications meloxicam (Mobic) 15 MG tablet Class 2 severe obesity due to excess calories with serious comorbidity and body mass index (BMI) of 37.0 to 37.9 in adult ([facility]) Weight loss indicated Other Visit Diagnoses Breast cancer screening by mammogram Relevant Orders Bilateral screening mammogram documented in this encounter [facility] 12-12-2023 Telephone encounter Note I called in Meloxicam to [facility] in [place]. [facility] 12-12-2023 Miscellaneous Notes I called in Meloxicam to [facility] in [place]. Patient called as she needs a refill of the anti-inflammatory that JWC prescribed, however should couldn't remember the name of the medication or when it was last prescribed. Are you able to help find this information for the patient documented in this encounter [facility] 12-11-2023 Telephone encounter Note Patient called as she needs a refill of the anti-inflammatory that JWC prescribed, however should couldn't remember the name of the medication or when it was last prescribed. Are you able to help find this information for the patient [facility] 11-07-2023 History of Present illness Narrative Images from the original note were not included. Subjective Patient ID: Tayla Rojo is a 63 y.o. female who presents for Nail care (Tayla Rojo is a 63 y.o. female who presents for Nail Care. BS [address] Wallace 08/24/2022-Next 07/14/2023/SS 7./ /). HPI Established patient returns requesting nail. She states nails are elongated. She had to trim the nails between her appointments as the nails became too long Review of Systems Medications Current Outpatient Medications: Lancets (OneTouch Delica Plus [id number]) [facility] [place] DIRECTED to test BLOOD SUGAR THREE TIMES DAILY, Disp: 90 each, Rfl: 3 lisinopril 10 MG tablet, TAKE 1 TABLET BY MOUTH DAILY, Disp: 192 tablet, Rfl: 0 metFORMIN XR (Glucophage-XR) 500 MG 24 hr tablet, TAKE 1 TABLET BY MOUTH DAILY, Disp: 372 tablet, Rfl: 0 metoprolol succinate XL (Toprol-XL) 25 MG 24 hr tablet, TAKE 1 TABLET BY MOUTH DAILY, Disp: 192 tablet, Rfl: 0 mirtazapine (Remeron) 45 MG tablet, Take 45 mg by mouth at bedtime., Disp: , Rfl: Multiple Vitamin (multivitamin) tablet, Take 1 tablet by mouth in the morning., Disp: , Rfl: omeprazole OTC (PriLOSEC OTC) 20 MG EC tablet, Take 20 mg by mouth in the morning. Take before meals. Do not crush, chew, or split. ., Disp: , Rfl: potassium chloride CR (Klor-Con M20) 20 MEQ ER tablet, Take 20 mEq by mouth in the morning. Do not crush or chew. ., Disp: , Rfl: Allergies Patient has no known allergies. Past Surgical History Past Surgical History: Procedure Laterality Date APPENDECTOMY ARTHROPLASTY Left 08/04/2021 [facility] [place] Dr. Panchal BUNIONECTOMY Left SECTION, LOW TRANSVERSE GALL BLADDER HERNIA REPAIR 09/2017 x4 HYSTERECTOMY TUBAL LIGATION Family History Family History Problem Relation Name Age of Onset Diabetes Mother Diabetes Father Lung cancer Father Cancer Father Diabetes Sister Heart disease Sister Bipolar disorder Sister Hypertension Brother Objective Physical Exam Cardiovascular: Comments: Pedal pulses: DP 2/4 bilateral, PT 1/4 bilateral. Skin temp is warm to warm. Varicosities: absent Hair growth: present Pulmonary: Effort: Pulmonary effort is normal. Musculoskeletal: General: No tenderness. Right lower leg: No edema. Left lower leg: No edema. Comments: JOINT RANGE OF MOTION: ankle joint and subtalar joint ROM are normal and pain free. DEFORMITIES: Hallux abductovalgus, right, mild with dorsal lateral osseous prominence at 1st met head. Mild arthritis R 1st MTPJ. Pes planus foot type. PAIN: b/l hallux nails. There is some pain With palpation of the 2nd tarsometatarsal joint and medial and lateral bases of the 2nd metatarsal MUSCLE STRENGTH 5/5 for dorsiflexion, plantarflexion, inversion, eversion. Feet: Comments: Date of last diabetic foot exam: 07/04/2023 Skin: General: Skin is warm. Capillary Refill: Capillary refill takes 2 to 3 seconds. Findings: No bruising or erythema. Comments: SKIN FINDINGS: Plantar aspect of proximal phalanx R 3rd digit, possible small ganglionic cyst present, not grossly visible, but palpable. Some tenderness with palpation. No erythema, no ecchymosis. webspaces are clean and dry. HYPERKERATOSIS:plantar medial hallux IPJ b/l. NAIL PATHOLOGY:R hallux nail centrally is yellow and white, 4mm thick, fungal. Nail 2 and 5 R are yellow and orange, crumbly fungal debris, 4mm thick. Nail 1 and 2 L with central orange and yellow mycotic streaking, 3mm thick. Nail 5L is 3mm thick, discolored, brittle, fungal. ULCER: no sign of ulceration or open wound . Neurological: Mental Status: She is alert and oriented to person, place, and time. Comments: Light touch sensation intact VIBRATORY:diminished at IPJ, intact at MTPJ. SEMMES-ALBA 5.07 MONOFILAMENTintact at 10/10 sites. Psychiatric: Mood and Affect: Mood normal. Behavior: Behavior normal. [id number] Assessment/Plan ICD-10-CM 1. Diabetes mellitus without complication (CMS/HCC) E11.9 2. Onychomycosis B35.1 3. Pain in toes of both feet M79.674 M79.675 All 10 nails debrided, reduced in thickness and in length. Instrumentation: large and small nipper, curette, and power bur. With this treatment, relief obtained. Feet inspected, hygiene discussed, shoe gear also inspected. This note was created with the assistance of a speech recognition program. While intending to generate a timely document that accurately reflects the content of the visit, no guarantee can be provided that every grammatical or spelling mistake has been or will be identified or corrected. Thank you for your understanding. Sharmila Daugherty DPM documented in this encounter [facility] 08-24-2022 Hospital Discharge instructions Patient Education 08/24/2022 14:46:15 Botulinum Toxin [...] including vitamins, herbs, eye drops, creams, and rwzv-dgp-pljtqqd medicines. Any problems you or family members [...] provider tells you to take them. Taking zxlk-nhc-nlquxil medicines, vitamins, herbs, and supplements. General instructions [...] Follow these instructions at home: Medicines Take nrkn-mnv-dyyspkt and prescription medicines only as told by [...] provider. Document Revised: 09/03/2021 Document Reviewed: 09/03/2021 [employer] Patient Education 2022 BRIKA. Follow Up Care 07/13/2022 09:23:16 With:JILLIAN GILLESPIE PA-C, URL Address: [address] [place] [address] When: Unknown [facility] Hospital Discharge instructions Patient Education 04/04/2022 08:23:00 Urodynamic Testing [...] including vitamins, herbs, eye drops, creams, and krmv-rex-avqrrpd medicines. ?Whether you are or may be [...] 12/25/2007 Document Revised: 06/18/2019 Document Reviewed: 01/01/2018 [employer] Patient Education 2020 BRIKA. Follow Up Care 12/20/2021 11:03:34 With:NARCISO FERRARI, Shiraz Sosa, URL Address: [facility] [address] [place] [address]- When: Unknown [facility] 12-20-2021 Hospital Discharge instructions Patient Education 12/20/2021 10:46:48 Overactive Bladder, [...] fried and sweet foods. General instructions Take xuoa-wmt-fbyqoko and prescription medicines only as told by [...] 12/24/2009 Document Revised: 06/20/2019 Document Reviewed: 03/15/2018 [employer] Patient Education 2019 BRIKA. Follow Up Care 11/29/2021 15:38:28 With:NARCISO FERRARI, Shiraz Sosa, URL Address: [facility] [address] [place] [id number]- [id number] When:03/22/2022 [facility] Evaluation + Plan note Future Appointments Appointment Date:04/04/2022 10:45:00 AM Scheduled Provider:Shiraz GARDNER MD Location:[facility] Appointment Type:URO Office Visit [facility] Evaluation note Diagnosis Pain in joint of right foot- Primary [facility] Diagnosis Annual physical exam- Primary Routine general medical examination at a health care facility Type 2 diabetes mellitus with hyperglycemia, without long-term current use of insulin ([facility]) Essential hypertension, benign (CMS/HCC) Essential hypertension, benign Pain in joint of right foot Capsulitis of right foot Type 2 diabetes mellitus with polyneuropathy (CMS/HCC) Type II or unspecified type diabetes mellitus with neurological manifestations, not stated as uncontrolled Type 2 diabetes mellitus with hyperglycemia, without long-term current use of insulin (CMS/HCC)- Primary Essential hypertension, benign (CMS/HCC) Essential hypertension, benign Major depressive disorder, recurrent episode, mild (HCC) (CMS/HCC) Major depressive disorder, recurrent episode, mild Generalized anxiety disorder (CMS/HCC) Generalized anxiety disorder Gastroesophageal reflux disease without esophagitis Esophageal reflux Primary osteoarthritis of both knees Breast cancer screening by mammogram Class 2 severe obesity due to excess calories with serious comorbidity and body mass index (BMI) of 37.0 to 37.9 in adult (CMS/HCC) SOB (shortness of breath) Shortness of breath Skin candidiasis Candidiasis of skin and nails [facility] Diagnosis Annual physical exam- Primary Routine general medical examination at a health care facility Type 2 diabetes mellitus with hyperglycemia, without long-term current use of insulin (CMS/HCC) Essential hypertension, benign (CMS/HCC) Essential hypertension, benign Pain in joint of right foot Capsulitis of right foot Type 2 diabetes mellitus with polyneuropathy (CMS/HCC) Type II or unspecified type diabetes mellitus with neurological manifestations, not stated as uncontrolled Type 2 diabetes mellitus with hyperglycemia, without long-term current use of insulin (CMS/HCC)- Primary Essential hypertension, benign (CMS/HCC) Essential hypertension, benign Major depressive disorder, recurrent episode, mild (HCC) (CMS/HCC) Major depressive disorder, recurrent episode, mild Generalized anxiety disorder (CMS/HCC) Generalized anxiety disorder Gastroesophageal reflux disease without esophagitis Esophageal reflux Primary osteoarthritis of both knees Breast cancer screening by mammogram Class 2 severe obesity due to excess calories with serious comorbidity and body mass index (BMI) of 37.0 to 37.9 in adult (CMS/HCC) SOB (shortness of breath) Shortness of breath Skin candidiasis Candidiasis of skin and nails Hypokalemia- Primary Hypopotassemia documented in this encounter [facility]* Diagnosis Diabetes mellitus without complication (CMS/HCC)- Primary Type II or unspecified type diabetes mellitus without mention of complication, not stated as uncontrolled Onychomycosis Dermatophytosis of nail Pain in toes of both feet documented in this encounter [facility]* Diagnosis Annual physical exam- Primary Routine general medical examination at a health care facility Type 2 diabetes mellitus with hyperglycemia, without long-term current use of insulin (CMS/HCC) Essential hypertension, benign (CMS/HCC) Essential hypertension, benign Pain in joint of right foot Capsulitis of right foot Type 2 diabetes mellitus with polyneuropathy (CMS/HCC) Type II or unspecified type diabetes mellitus with neurological manifestations, not stated as uncontrolled Type 2 diabetes mellitus with hyperglycemia, without long-term current use of insulin (CMS/HCC)- Primary Essential hypertension, benign (CMS/HCC) Essential hypertension, benign Major depressive disorder, recurrent episode, mild (HCC) (CMS/HCC) Major depressive disorder, recurrent episode, mild Generalized anxiety disorder (CMS/HCC) Generalized anxiety disorder Gastroesophageal reflux disease without esophagitis Esophageal reflux Primary osteoarthritis of both knees Breast cancer screening by mammogram Class 2 severe obesity due to excess calories with serious comorbidity and body mass index (BMI) of 37.0 to 37.9 in adult (CMS/HCC) SOB (shortness of breath) Shortness of breath Skin candidiasis Candidiasis of skin and nails Diabetes mellitus without complication (CMS/HCC)- Primary Type II or unspecified type diabetes mellitus without mention of complication, not stated as uncontrolled Onychomycosis Dermatophytosis of nail Pain in toes of both feet [facility] Narrative No data available for this section [facility] progress note No data available for this section [facility] Summary Purpose Family History No Family History Records FoundNo Family History Records FoundNo Family History Records FoundNo Family History Records Found Advance Directives No Advanced Directives Records FoundNo Advanced Directives Records FoundNo Advanced Directives Records FoundNo Advanced Directives Records Found Additional Source Comments INFORMATION SOURCE (unrecogn ized section and content) DATE CREATED AUTHOR 09/14/2017 [facility] DATE CREATED AUTHOR AUTHOR'S ORGANIZ ATION 06/18/2022 [facility] DATE CREATED AUTHOR AUTHOR'S ORGANIZ ATION 08/25/2022 [facility] DATE CREATED AUTHOR AUTHOR'S ORGANIZ ATION 04/10/2024 [facility] EPIC Patient Care team informatio n (unrecognized section and content) [employer] Engineer Relationship Specialty Start Date End Date Trevor Wallace MD [address] [place] [phone] PCP - General Cardiology 07/22/22 [employer] Engineer Relationship Specialty Start Date End Date Trevor Wallace MD [address] [place] [address] PCP - General Cardiology 07/22/22 [employer] Engineer Relationship Specialty Start Date End Date Trevor Wallace MD [address] [place] [address] PCP - General Cardiology 07/22/22 [employer] Engineer Relationship Specialty Start Date End Date Trevor Wallace MD [address] [place] [phone] PCP - General Cardiology 07/22/22 [employer] Engineer Relationship Specialty Start Date End Date Trevor Wallace MD [address] [place] [phone] PCP - General Cardiology 07/22/22 [employer] Engineer Relationship Specialty Start Date End Date Trevor Wallace MD [address] [place] [phone] PCP - General Cardiology 07/22/22 [employer] Engineer Relationship Specialty Start Date End Date Trevor Wallace MD [address] [place] [phone] PCP - General Cardiology 07/22/22 [employer] Engineer Relationship Specialty Start Date End Date Trevor Wallace MD [address] [place] [phone] PCP - General Cardiology 07/22/22 Reason for Visit (unrecogniz ed section and content) Reason Onset Date Comments Advice Only 12/11/2023 Rx Refill Reques t Reason Comments Follow-up 6 m Reason Onset Date Comments Med Refill 02/12/2024 Reason Comments Nail care Tayla Rojo is a 63 y.o. female who presents for Nail Care. BS [address] Wallace 08/24/2022-Next 07/14/2023/SS 7. Reason Comments Nail care Tayla Rojo is a 63 y.o. female who presents for Nail Care. BS [address] Wallace 01/15/2024. SS 7. FOR RECORDS PERTAINING TO PATIENTS WHO ARE [...] BE BASED ON THE PRIMARY CLINICAL RECORDS. [facility]. provides no warranty or guarantee of the accuracy or completeness of information in this document.
--- NOTE | 2024-04-13 10:35 | ED_ITS ---
HPI HPI - General Adult General Chief complaint: Shortness of Breath/Dyspnea Stated complaint: Shortness of Breath Time Seen by Provider: 04/13/24 10:35 Source: patient Mode of arrival: walk-in Limitations: no limitations History of Present Illness HPI narrative: The patient is coming to us with almost 6 days history of cough and shortness of breath that has been getting worse, she denies any chest pain she denies any nausea vomiting or any other concerns, she also denies any decrease in p.o. intake. The patient has not been feeling better since she was started on azithromycin and prednisone by urgent care visit few days ago, patient denies any history of any smoking or asthma although it was noted that she used inhaler in her medication list The patient presenting to us she is a barely speaking in full sentences upon arrival after walking to the room the patient pulse ox was 68% at room air The patient has been having cough that is productive of yellow sputum Related Data Home Medications ?Medication ?Instructions ?Recorded ?Confirmed azithromycin 250 mg tablet 250 mg PO Q12H 04/13/24 04/13/24 benzonatate 100 mg capsule 100 mg PO Q6H 04/13/24 04/13/24 citalopram 40 mg tablet 40 mg PO DAILY 04/13/24 04/13/24 lisinopril 10 mg tablet 10 mg PO DAILY 04/13/24 04/13/24 meloxicam 15 mg tablet 15 mg PO DAILY 04/13/24 04/13/24 metformin 500 mg tablet,extended 500 mg PO DAILY 04/13/24 04/13/24 release 24 hr metoprolol succinate 25 mg 25 mg PO DAILY 04/13/24 04/13/24 tablet,extended release 24 hr mirtazapine 45 mg tablet 45 mg PO DAILY 04/13/24 04/13/24 pioglitazone 30 mg tablet 30 mg PO DAILY 04/13/24 04/13/24 potassium chloride 20 mEq 20 meq PO DAILY 04/13/24 04/13/24 tablet,extended release Allergies Allergy/AdvReac Type Severity Reaction Status Date / Time No Known Drug Allergies Allergy Verified 04/13/24 10:34 Opioid HPI Opioid Management Most Recent Opioid Data: No Data to Display Review of Systems ROS Status of ROS 10 or more systems reviewed and unremark able except as noted in history and below PFSH PFSH Social History Little interest or pleasure in doing things: not at all Feeling down, depressed, or hopeless: not at all Exam Narrative Exam Narrative: Nurses notes and vital signs reviewed and patient is not hypoxic. General: Well-appearing and in no apparent distress. Skin: Warm, dry, no pallor noted. No rash. Head: Normocephalic, atraumatic. Neck: Supple, non-tender. Eye: Pupils are equal, round and EOMI. No scleral icterus. Ears, Nose, Mouth, and Throat: TM are clear, no nasal mucosal hypertrophy. Oral mucosa is moist, no posterior oropharynx erythema, uvula is mid-line Cardiovascular: Regular Rate and Rhythm without murmur, gallop or rub. Respiratory: The patient presented to us with respiratory distress she is leaning forward and speak in one-word sentences initially, the patient also had audible rhonchi in both lung shah, Back: No midline thoracic or lumbar vertebral tenderness. No CVA tenderness Musculoskeletal: normal ROM, no calf or popliteal tenderness, no lower extremity edema/swelling GI: Abdomen is soft, non-distended. Normal bowel sounds. No masses appreciated. No tenderness to palpation. No rebound, guarding, or rigidity noted. Neurological: A&O x4. No cranial nerve dysfunction observed. No truncal ataxia. Moves all extremities. Sensation intact. Psychiatric: Cooperative and interactive. Normal mood and affect. Constitutional Vital Signs, click to edit/add: Last Vital Signs Temp 98.0 F 04/13/24 10:30 Pulse 97 H 04/13/24 11:10 Resp 23 H 04/13/24 11:10 BP 155/71 H 04/13/24 11:01 Pulse Ox 89 L 04/13/24 11:10 O2 Del Method Room Air 04/13/24 11:01 Course Vital Signs Vital signs: Vital Signs Pulse Oximetry 81 L 04/13/24 10:29 Temperature 98.0 F 04/13/24 10:30 Pulse Rate 97 H 04/13/24 11:10 Respiratory Rate 23 H 04/13/24 11:10 Blood Pressure 155/71 H 04/13/24 11:01 Pulse Oximetry 89 L 04/13/24 11:10 Oxygen Delivery Method Room Air 04/13/24 11:01 Medical Decision Making MDM Narrative Medical decision making narrative: Upon arrival it was noted that the patient EKG showing sinus rhythm with a heart rate of [address] elevation or depression CBC and chemistry showed no acute pathology with the D-dimer was elevated Troponin was negative CT angio of the chest showed that the patient have multifocal pneumonia The patient was started on levofloxacin IV She also was provided with a breathing treatment and Solu-Medrol The patient is becoming hypoxemic and the minimal exertion, but on 2 L nasal cannula she is saturating 92% COVID and flu test are negative Patient case was discussed with and he agreed to admit the patient for further evaluation Lab Data Labs: Lab Results 04/13/24 Range/Units 10:35 WBC 6.7 (4.0-11.0) 10^3/uL RBC 4.62 (4.20-5.40) 10^6/uL Hgb 14.2 (12.0-16.0) g/dL Hct 43.4 (36.0-48.0) % MCV 93.9 (81.0-99.0) fL MCH 30.7 (26.7-34.0) pg MCHC 32.7 (29.9-35.2) g/dL RDW 13.3 (11.0-15.0) % Plt Count 167 (150-450) 10^3/uL MPV 10.1 (9.5-13.5) fL Neut % (Auto) 87.7 H (43.0-75.0) % Lymph % (Auto) 7.2 L (20.5-60.0) % Freestone % (Auto) 3.6 (1.7-12.0) % Eos % (Auto) 0.0 L (0.9-7.0) % Baso % (Auto) 0.3 (0.2-2.0) % Neut # (Auto) 5.8 (1.4-6.5) 10^3/uL Lymph # (Auto) 0.5 L (1.2-3.8) 10^3/uL Freestone # (Auto) 0.2 L (0.3-0.8) 10^3/uL Eos # (Auto) 0.0 (0.0-0.7) 10^3/uL Baso # (Auto) 0.0 (0.0-0.1) 10^3/uL Abs Immat Gran (auto) 0.08 H (0.00-0.03) 10^3/uL Imm/Tot Granulo (auto) 1.2 H (0.0-0.5) % PT 10.9 (9.0-11.6) sec INR 1.03 D-Dimer 0.86 H* (<=0.59) mg/L FEU Sodium 139 (136-145) mmol/L Potassium 4.5 (3.5-5.1) mmol/L Chloride 101 (98-107) mmol/L Carbon Dioxide 28.6 (21.0-32.0) mmol/L Anion Gap 13.9 BUN 15.0 (7.0-18.0) mg/dL Creatinine 0.71 (0.55-1.02) mg/dL Est GFR ( Amer) >60 (>=60 mL/min/1.73m^2) Est GFR (Non-Af Amer) >60 (>=60 mL/min/1.73m^2) BUN/Creatinine Ratio 21.1 Glucose 244 H (74-106) mg/dL Lactate 1.6 (0.4-2.0) mmol/L Calcium 9.6 (8.5-10.1) mg/dL Magnesium 1.7 L (1.8-2.4) mg/dL Total Bilirubin 0.4 (0.2-1.0) mg/dL AST 21 (15-37) U/L ALT 32 (14-59) U/L Alkaline Phosphatase 81 (46-116) U/L Troponin I High Sens 11.6 (4.0-51.3) pg/mL NT-Pro-B Natriuret Pep 307.0 (<=900.0) pg/mL Total Protein 7.3 (6.4-8.2) g/dL Albumin 3.5 (3.4-5.0) g/dL Globulin 3.8 g/dL Albumin/Globulin Ratio 0.9 Influenza Type A Ag Negative Influenza Type B Ag Negative RSV Antigen Not detected (NOT DETECTE) SARS-CoV-2 Ag (CV2AG) Negative (NEGATIVE) Discharge Plan Discharge Chief Complaint: Shortness of Breath/Dyspnea Clinical Impression: Pneumonia, Hypoxemia Prescriptions / Home Meds: No Action azithromycin 250 mg tablet 250 mg PO Q12H benzonatate 100 mg capsule 100 mg PO Q6H citalopram 40 mg tablet 40 mg PO DAILY lisinopril 10 mg tablet 10 mg PO DAILY meloxicam 15 mg tablet 15 mg PO DAILY metformin 500 mg tablet extended release 24 hr 500 mg PO DAILY metoprolol succinate 25 mg tablet extended release 24 hr 25 mg PO DAILY pioglitazone 30 mg tablet 30 mg PO DAILY potassium chloride 20 mEq tablet extended release 20 meq PO DAILY mirtazapine 45 mg tablet 45 mg PO DAILY Print Language: Tristanian Referrals: Trevor Forrest MD [Primary Care Provider] - 1 week
--- NOTE | 2024-04-13 10:35 | ECG_ITS ---
[facility] Test Date: 2024-04-13 Pat Name: ELENI WATKINS Department: Room: - Gender: Female Zone Manager: : 1960 Requested By: KAM WALLACE Order Number: [id number] Reading MD: LESLY BLUNT Measurements Intervals [place] Rate: 94 P: 40 W[place]: 158 QRS: 52 QRSD: 76 T: 34 QT: 306 QTc: 358 Interpretive Statements 1100 Sinus rhythm 8102 Low QRS voltage in chest leads 8305 Short QTc interval 9150 abnormal ECG No previous ECG available for comparison Electronically Signed On 04-14-2024 7:37:57 EST by LESLY BLUNT
--- NOTE | 2024-04-13 10:36 | XR_ITS ---
[facility] [place] [id number] Patient Name: ELENI WATKINS MRN: [id number] date: 1960 Sex: F Assigned Patient Location: ED.MAIN Current Patient Location: ER Accession/Order Number: [id number] Exam Date: 04/13/2024 11:25 Report Date: 04/13/2024 14:21 At the request of: PAULA SOL Procedure: XR chest 1V EXAM: XR chest 1V HISTORY: sob COMPARISON: None. TECHNIQUE: Chest X-ray AP, 1 view FINDINGS: Support devices: None. Lungs/pleura: No effusion, or pneumothorax. Left upper lobe and bilateral lower lobes airspace opacities, representing multifocal pneumonia. Heart and mediastinum: Normal contours. Bones: No acute abnormality identified. XR/XR chest 1V Impression: Left upper lobe and bilateral lower lobes airspace opacities, representing multifocal pneumonia. Electronically authenticated by: SLAVA REAL Date: 04/13/2024 14:21
[2024-04-13] MEDS: IPRATROPIUM/ALBUTEROL SULFATE 3 ML AMPUL.NEB IH ×3 (10:52→23:16)
[2024-04-13 10:55] LABS: Basophils Percent Auto 0.3 % (0.2-2.0); Hematocrit 43.4 % (36.0-48.0); Hemoglobin 14.2 g/dL (12.0-16.0); Immature Granulocytes Abs Auto 0.08 10^3/uL (0.00-0.03); Immature Granulocytes Pct Auto 1.2 % (0.0-0.5); Lymphocytes Absolute Auto 0.5 10^3/uL (1.2-3.8); Lymphocytes Percent Auto 7.2 % (20.5-60.0); Mean Corpuscular HGB Conc 32.7 g/dL (29.9-35.2); Mean Corpuscular Hemoglobin 30.7 pg (26.7-34.0); Mean Corpuscular Volume 93.9 fL (81.0-99.0); Mean Platelet Volume 10.1 fL (9.5-13.5); Monocytes Absolute Auto 0.2 10^3/uL (0.3-0.8); Monocytes Percent Auto 3.6 % (1.7-12.0); Neutrophils Absolute Auto 5.8 10^3/uL (1.4-6.5); Neutrophils Percent Auto 87.7 % (43.0-75.0); Platelet Count 167 10^3/uL (150-450); Red Blood Count 4.62 10^6/uL (4.20-5.40); Red Cell Distribution Width 13.3 % (11.0-15.0); White Blood Count 6.7 10^3/uL (4.0-11.0)
[2024-04-13] MEDS: METHYLPREDNISOLONE SOD SUCC PF 40 MG/ML VIAL 60 MG IVP (10:56)
--- NOTE | 2024-04-13 11:02 | PC.NURSE ---
pt sent from urgent care for low SPO2. pt 68% on RN on arrival. pt placed on 2L of O2 pt up to 91%. Dr. Inman notified
[2024-04-13 11:08] LABS: Influenza Virus A Antigen Negative; Influenza Virus B Antigen Negative; Internal Control Within Normal Limits; Respiratory Syncytial Virus Not Detected (NOT DETECTE); SARS-CoV-2 Ag NEGATIVE (NEGATIVE)
--- NOTE | 2024-04-13 11:13 | RESP.RT ---
done per nursing
[2024-04-13 11:15] LABS: Alanine Aminotransferase 32 U/L (14-59); Albumin Globulin Ratio 0.9; Albumin Level 3.5 g/dL (3.4-5.0); Alkaline Phosphatase 81 U/L (46-116); Anion Gap 13.9; Aspartate Amino Transferase 21 U/L (15-37); BUN Creatinine Ratio 21.1; Bilirubin Total 0.4 mg/dL (0.2-1.0); Calcium 9.6 mg/dL (8.5-10.1); Carbon Dioxide 28.6 mmol/L (21.0-32.0); Chloride 101 mmol/L (98-107); Estimated GFR (African America >60 (>=60 mL/min/1.73m^2); Estimated GFR (Non-African Ame >60 (>=60 mL/min/1.73m^2); Globulin 3.8 g/dL; Glucose 244 mg/dL (74-106); Potassium 4.5 mmol/L (3.5-5.1); Sodium 139 mmol/L (136-145); Total Protein 7.3 g/dL (6.4-8.2)
[2024-04-13 11:17] LABS: Lactate/Lactic Acid 1.6 mmol/L (0.4-2.0)
[2024-04-13 11:18] LABS: INR 1.03; Prothrombin Time 10.9 sec (9.0-11.6)
[2024-04-13 11:26] LABS: Magnesium 1.7 mg/dL (1.8-2.4); Troponin I High Sensitivity 11.6 pg/mL (4.0-51.3)
[2024-04-13 11:46] LABS: D Dimer 0.86 mg/L FEU (<=0.59)
--- NOTE | 2024-04-13 11:47 | CT_ITS ---
[address] [address] Patient Name: ELENI WATKINS MRN: [id number] date: 1960 Sex: F Assigned Patient Location: ER Current Patient Location: ED.[facility] Accession/Order Number: [id number] Exam Date: 04/13/2024 12:05 Report Date: 04/13/2024 14:20 At the request of: PAULA SOL Procedure: CT angio chest EXAM: CT angio chest HISTORY: shortness of breath elevated dimer hypoxemia COMPARISON: None. TECHNIQUE: CT chest with intravenous contrast was performed with timing for the evaluation for pulmonary arteries. Multiplanar reformats were performed. MIP (maximum intensity projection) images or 3D post processing was performed. Dose reduction techniques were achieved by using automated exposure control and/or adjustment of mA and/or kV according to patient size and/or use of iterative reconstruction technique. FINDINGS: Lungs: No pneumothorax or effusion.left greater than right lungs patchy consolidations and nodular opacities, representing multifocal pneumonia. Airways: Normal. Mediastinum: No adenopathy. Aorta: No aneurysm. Cardiac: Normal size. No pericardial effusion. Pulmonary vasculature: Diagnostic opacification of pulmonary arteries without evidence of pulmonary embolus. Normal morphology. Bones: No acute bony abnormality. Axilla: No adenopathy. Thyroid gland: No abnormality demonstrated on provided imaging. Soft tissues: Unremarkable. Upper abdomen: Unremarkable. Additional findings: None. CT/CT angio chest IMPRESSION: No evidence of pulmonary embolus. Left greater than right lungs patchy consolidations and nodular opacities, representing multifocal pneumonia. Electronically authenticated by: SLAVA REAL Date: 04/13/2024 14:20
[2024-04-13] MEDS: MAGNESIUM SULFATE IN WATER 2 GM/50 ML PREMIX IV (12:16)
[2024-04-13] MEDS: LEVOFLOXACIN IN DEXTROSE 5 % 750 MG/150 ML PREMIX 100 MG IV (12:51)
--- OUTSIDE RECORDS SUMMARY | 2024-04-13 15:17 | XMS_ITS | CCD ---
Author Organization [facility] Care Team Providers Care Clinical Specialist Name Role Phone UNKNOWN, PROVIDER Unavailable Unavailable [...] Medication Allergies] Propensity to adverse reactions (disorder) [facility] Repository Medications Current Medications Medication Drug Class(es) Dates Sig (Normalized) Sig (Original) [id number] 200 actuat albuterol 0.09 mg/actuat metered dose [...] Daily, # 30 tab(s), Refills(s) 11, Pharmacy: [facility] #[id number], 152, cm, 12/20/21 10:43:00 EDT, Height/Length Dosing, [...] sources) Polyene Antifungal Start: 01-15-20 nystatin (Mycostatin) [id number] UNIT/GM powder Indications: Skin candidiasis Apply topically [...] day(s), # 30 tab(s), Refills(s) 11, Pharmacy: [facility] #[id number], 152, cm, 04/04/22 11:08:00 EST, Height/Length Dosing, [...] hyperglycemia, without long-term current use of insulin ([facility]) TAKE 1 TABLET BY MOUTH DAILY 100 [...] completed, # 2 tab(s), Refills(s) 0, Pharmacy: [facility] #[id number], 152, cm, 04/04/22 11:08:00 EST, Height/Length Do... 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 ? Any problems you or family [...] tells you to take them. ? Taking pfqh-bwa-khrgufe medicines, vitamins, herbs, and supplements. General instructions [...] these instructions at home: Medicines ? Take qanv-frj-xyvdnpm and prescription medicines only as told by [...] health ca (more content not included)... Normal [facility] Urology Office/Clinic Noteon 08-24-2022 Urology Office/Clinic [...] at length. Gave pt educational resources from [facility] and [facility] for bladder training. Pt will attempt this [...] Contact Information VERNA HARO, JILLIAN Rene, URL [address] [place] [address] Additional Instructions: 3 mos after bladder training [...] vaccine, inactivated 12/29/ (more content not included)... [facility] Comment on above: Result Comment: Elec tronically Signed By: JILLIAN GILLESPIE PA-C\.br\Date and Time Signed: 08/24/22 14:58 EDT\.br\Electronically Co-Signed By: Tanya Crow\.br\Date and Time Co-Signed: 08/24/22 14:46 EDT Provider Letteron 07-07-2022 Provider Letter July 07, 2022 [place] [address] Dear Tayla Rojo , We have been trying to reach you with no success. It is important that you return our call regarding your Botox treatment denial upon receiving this letter. Also, at the time of your call, please provide us with your current updated phone number. Thank you for your prompt attention to this matter. Sincerely, [facility] #3 [facility] Pre-Certification Formon Pre-Certification Form [id number]#1. 00CD:127 [facility] Operative Reporton 3 Operative Report [id number] 0CD:127 [facility] Operative Reporton 3 Operative Report [id number]#1.0 0CD:127 [facility]on SARS-CoV-2 (COVID-19) RNA DESEAN+probe Ql (Unsp spec) [...] for this test is supported by the Senior Director Of [employer] of Health and Human Service's declaration that [...] be used). Performed By: #### C VDTB ####[facility] [id number] [address]Dr. Shyam Farfan INFLUENZA A AND B [facility] 05-[address] [facility] SEE BELOW Normal [facility] Comment on above: Result Comment: Nega tive for Flu A protein angiten. Infection due to Flu A cannot be ruled out. Flu A angiten in the sample may be below the detection limit of the test. Performed By: #### I NFLUAB #### [facility] [address] [place] [address] Dr. Shy[facility] Normal [facility] Comment on above: Result Comment: Nega tive for Flu B protein antigen. Infection due to Flu B cannot be ruled out. Flu B antigen in the sample may be below the detection limit of the test. Performed By: #### I NFLUAB #### [facility] [address] [place] [address] Dr. Shyam Farfan INFLUENZA A AG Negative Normal NEGATIVE SEE COMMENT [facility] Comment on above: Performed By: #### I NFLUAB #### [facility] [address] [place] [address] Dr. Shyam Farfan INFLUENZA B AG Negative Normal NEGATIVE SEE COMMENT [facility] Comment on above: Performed By: #### I NFLUAB #### [facility] [address] [place] [address] Dr. Shyam Farfan Consent for Procedure/Surger yon 04-05-2022 Consent for Procedure/Surgery [id number] 0CD:[address] [facility] Ambulatory Visit Summaryon 0 04-04-2022 Ambulatory Visit Summary TAYLA ROJO :1960 Visit Date:04/04/2022 Ambulatory Visit Instructions Your Diagnosis Urinary frequency Urinary urgency Mixed incontinence Tests Performed Urnls Dip Stick Auto w/o Microscopy POC 93328 Your Care Team Attending Physician - NARCISO [...] [facility] [address], [place] [address]- Medications What How Much When Instructions Unchanged [...] Urnls Dip Stick Auto w/o Microscopy POC 55116 (04/04/2022) Bilirubin Urine Dipstick - Negative Blood Urine Dipstick - Negative Glucose Urine Dipstick - Negative Ketones Urine Dipstick - Negative Leukocytes Urine Dipstick - 1+ Small Nitrite Urine Dipstick - Negative Protein Urine Dipstick - Negative Specific Troy Urine Dipstick - >=1.030 Urine Appearance Urine [...] herbs, eye (more content not included)... Normal [facility] Patient Educationon 04-04-19 Patient Education Urology [...] including vitamins, herbs, eye drops, creams, and wzbt-cqk-xbdadmv medicines. ? Whether you are or may [...] system diseases. (more content not included)... Normal [facility] Urology Office/Clinic Noteon 04-04-2022 Urology Office/Clinic [...] [facility] [address], [place] [address]- Additional Instructions: schedule cysto Patient Education Urodynamic [...] Oral, Daily, (more content not included)... Normal [facility] Comment on above: Result Comment: Elec tronically Signed By: Shiraz GARDNER MD\.br\Date and Time Signed: 04/04/22 11:52 EST\.br\Electronically Co-Signed By: Tanya Crow\.br\Date and Time Co-Signed: 04/04/22 11:49 EST GLYCOHEMOGLOBIN A1Con 2021 ADA RECOMMENDATION SEE BELOW Normal [facility] Comment on above: Result Comment: ADA RECOMMENDED LIMIT 4.0 - 6.0 ADA THERAPEUTIC TARGET < 7.0 ACTION SUGGESTED > 7.0 Performed By: #### A 1C #### [facility] [address] [address] [address] Shyam Farfan Glucose [Mass/Vol] 169 mg/dL Normal [facility] Comment on above: Performed By: #### A 1C #### [facility] [address] [address] [address] Shyam Farfan HbA1c (Bld) [Mass fraction] 7.5 % Critically high 4.5-6.2 [facility] Comment on above: Performed By: #### A 1C #### [facility] [address] [address] [address] Shyam Farfan MG MAMM SCREEN 3D MAI CADon 12-27-2021 MG MAMM SCREEN 3D MAI CAD Patient: TAYLA ROJO Exam Date: 12/27/2021 : 1960 Gender:F Ordering : DR TREVOR WALLACE . Admission #: [id number] Family : Order #: [id number] CLICK HERE TO VIEW EXAM RADIOLOGY REPORT [...] Treatments None Family Cancers None LOCATION: [facility] BREAST COMPOSITION: Heterogeneously dense,which may obscure small [...] Tavera M.D. on 12/27/2021 at 12:09 Normal [facility] Formson 12-21-2021 Forms [id number] 0CD:[address] [facility] Physician Referralon 022 Physician Referral [id number]. 00CD:[address] [facility] Ambulatory Visit Summaryon 1 Ambulatory Visit Summary TAYLA ROJO :1960 Visit Date:12/20/2021 Ambulatory Visit Instructions Your Diagnosis Urinary frequency Urinary urgency Mixed incontinence Tests Performed Urnls Dip Stick Auto w/o Microscopy POC 21668 Your Care Team Attending Physician - NARCISO FERRARI, Shiraz Sosa Primary Care Physician - TREVOR WALLACE MD Referring Physician - RTEVOR WALLACE MD This Is Your Medications List [...] FERRARI, Shiraz Sosa Where: [facility] Patient Educationon 12-21-19 Patient Education Obstetrics and [...] Take ove (more content not included)... Normal [facility] Urology Office/Clinic Noteon 12-20-2021 Urology Office/Clinic [...] FERRARI, JOSEFINA Nguyen In 3 months 03/22/2022 [facility] [address], [place] [address] [phone] Additional Instructions: Patient Education Overactive Bladder, Adult [...] Social History (more content not included)... Normal [facility] Comment on above: Result Comment: Elec tronically Signed By: Shiraz GARDNER MD\.br\Date and Time Signed: 12/20/21 11:01 EDT\.br\Electronically Co-Signed By: Muna Rush MA\.br\Date and Time Co-Signed: 12/20/21 10:58 EDT CBC AUTO DIFFon 07-15-2021 BASO # 0.0 103/ul Normal 0.0-0.1 [facility] Comment on above: Performed By: #### C BC #### [facility] [address] [place] [address] Dr. Shyam Farfan Basophils/100 WBC (Bld) 0.6 % Normal 0.2-2.0 [facility] Comment on above: Performed By: #### C BC #### [facility] [address] [place] [address] Dr. Shyam Farfan EO # 0.1 103/ul Normal 0.0-0.7 [facility] Comment on above: Performed By: #### C BC #### [facility] [address] [place] [address] Dr. Shyam Farfan Eosinophils/100 WBC (Bld) 1.7 % Normal 0.9-7.0 [facility] Comment on above: Performed By: #### C BC #### [facility] [address] [place] [address] Dr. Shyam Farfan Erythrocyte distribution width (RBC) [Ratio] 17.1 % Critically high 11.0-15.0 [facility] Comment on above: Performed By: #### C BC #### [facility] [address] [place] [address] Dr. Shyam Farfan Hematocrit (Bld) [Volume fraction] 44.4 % Normal 36.0-48.0 [facility] Comment on above: Performed By: #### C BC #### [facility] [address] [place] [address] Dr. Shyam Farfan Hemoglobin (Bld) [Mass/Vol] 13.5 g/dL Normal 12.0-16.0 [facility] Comment on above: Performed By: #### C BC #### [facility] [address] [place] [address] Dr. Shyam Farfan IG # 0.03 10e3/ul Normal 0.00-0.03 [facility] Comment on above: Performed By: #### C BC #### [facility] [address] [place] [address] Dr. Shyam Farfan IG % 0.5 % Normal 0.0-0.5 [facility] Comment on above: Performed By: #### C BC #### [facility] [address] [place] [address] Dr. Shyam Farfan LYMPH # 1.5 103/ul Normal 1.2-3.8 [facility] Comment on above: Performed By: #### C BC #### [facility] [address] [place] [address] Dr. Shyam Farfan Lymphocytes/100 WBC (Bld) 23.4 % Normal 20.5-60.0 [facility] Comment on above: Performed By: #### C BC #### [facility] [address] [place] [address] Dr. Shyam Farfan MANUAL DIFF REQ NO Normal [facility] Comment on above: Performed By: #### C BC #### [facility] [address] [place] [address] Dr. Shyam Farfan MCH (RBC) [Entitic mass] 26.5 pg Critically low 26.7-34.0 [facility] Comment on above: Performed By: #### C BC #### [facility] [address] [place] [address] Dr. Shyam Farfan MCHC (RBC) [Mass/Vol] 30.4 g/dL Normal 29.9-35.2 [facility] Comment on above: Performed By: #### C BC #### [facility] [address] [place] [address] Dr. Shyam Farfan MCV (RBC) [Entitic vol] 87.2 fL Normal 81.0-99.0 [facility] Comment on above: Performed By: #### C BC #### [facility] [address] [place] [address] Dr. Shyam Farfan MONO # 0.4 103/ul Normal 0.3-0.8 [facility] Comment on above: Performed By: #### C BC #### [facility] [address] [place] [address] Dr. Shyam Farfan Monocytes/100 WBC (Bld) 6.5 % Normal 1.7-12.0 [facility] Comment on above: Performed By: #### C BC #### [facility] [address] [place] [address] Dr. Shyam Farfan NEUT # 4.4 103/ul Normal 1.4-6.5 [facility] Comment on above: Performed By: #### C BC #### [facility] [address] [place] [address] Dr. Shyam Farfan Neutrophils/100 WBC (Bld) 67.3 % Normal 43.0-75.0 [facility] Comment on above: Performed By: #### C BC #### [facility] [address] [place] [address] Dr. Shyam Farfan Platelet mean volume (Bld) [Entitic vol] 10.1 fL Normal 9.5-13.5 [facility] Comment on above: Performed By: #### C BC #### [facility] [address] [place] [address] Dr. Shyam Farfan PLT 238 103/ul Normal 150-450 [facility] Comment on above: Performed By: #### C BC #### [facility] [address] [place] [address] Dr. Shyam Farfan RBC 5.09 106/ul Normal 4.20-5.40 [facility] Comment on above: Performed By: #### C BC #### [facility] [address] [place] [address] Dr. Shyam Farfan WBC 6.6 103/ul Normal 4.0-11.0 [facility] Comment on above: Performed By: #### C BC #### [facility] [address] [address] [address] Shyam Farfan GLYCOHEMOGLOBIN A1Con 2021 ADA RECOMMENDATION SEE BELOW Normal [facility] Comment on above: Result Comment: ADA RECOMMENDED LIMIT 4.0 - 6.0 ADA THERAPEUTIC TARGET < 7.0 ACTION SUGGESTED > 7.0 Performed By: #### A 1C #### [facility] [address] [address] [address] Shyam Farfan Glucose [Mass/Vol] 200 mg/dL Normal [facility] Comment on above: Performed By: #### A 1C #### [facility] [address] [address] [address] Shyam Farfan HbA1c (Bld) [Mass fraction] 8.6 % Critically high 4.5-6.2 [facility] Comment on above: Performed By: #### A 1C #### [facility] [address] [address] [address] Shyam Farfan LIPID PROFILEon 07-15-2021 CHOL-HDL RATIO NORM SEE BELOW Normal [facility] Comment on above: Result Comment: 3.3 - 4.4 LOW RISK 4.4 - 7.1 AVERAGE RISK 7.1 - 11.0 MODERATE RISK >11.0 HIGH RISK Performed By: #### B MP, LIPID, LIVER, TSH #### [facility] [address] [address] [address] Shyam Farfan Cholesterol [Mass/Vol] 176 mg/dL Normal <=200 [facility] Comment on above: Performed By: #### B MP, LIPID, LIVER, TSH #### [facility] [address] [address] [address] Shyam Farfan Cholesterol in HDL [Mass/Vol] 53 mg/dL Normal 40-60 [facility] Comment on above: Performed By: #### B MP, LIPID, LIVER, TSH #### [facility] [address] [address] [address] Shyam Farfan Cholesterol in LDL [Mass/Vol] 100.0 mg/dL Normal [facility] Comment on above: Performed By: #### B MP, LIPID, LIVER, TSH #### [facility] [address] [address] [address] Shyam Farfan Cholesterol.total/Ch olesterol in HDL [Mass ratio] 3.3 {ratio} Normal [facility] Comment on above: Performed By: #### B MP, LIPID, LIVER, TSH #### [facility] [address] [address] [address] Shyam Farfan HDL NORMAL > or = 60 mg/dl - LO W CARDIOVASCULAR RISK <40 mg/dl - HIGH CARDIOVASCULAR RISK Normal [facility] Comment on above: Performed By: #### B MP, LIPID, LIVER, TSH #### [facility] [address] [address] [address] Shyam Farfan LDL CALC NORMAL SEE BELOW Normal [facility] Comment on above: Result Comment: <100 mg/dl OPTIMAL 100 - 129 mg/dl NEAR OR ABOVE OPTIMAL 130 - 159 mg/dl BORDERLINE HIGH 160 - 189 mg/dl HIGH >190 mg/dl VERY HIGH Performed By: #### B MP, LIPID, LIVER, TSH #### [facility] [address] [address] [address] Shyam Farfan Triglyceride [Mass/Vol] 115 mg/dL Normal <=150 [facility] Comment on above: Performed By: #### B MP, LIPID, LIVER, TSH #### [facility] [address] [address] [address] Shyam Farfan VLDL CALC 23.0 mg/dL Normal [facility] Comment on above: Performed By: #### B MP, LIPID, LIVER, TSH #### [facility] [address] [address] [address] Shyam Farfan LIVER PROFILEon 07-15-2021 Albumin [Mass/Vol] 3.8 g/dL Normal 3.4-5.0 [facility] Comment on above: Performed By: #### B MP, LIPID, LIVER, TSH #### [facility] [address] [address] [address] Shyam Farfan Albumin/Globulin [Mass ratio] 1.0 {ratio} Normal [facility] Comment on above: Performed By: #### B MP, LIPID, LIVER, TSH #### [facility] [address] [address] [address] Shyam Farfan ALP [Catalytic activity/Vol] 114 U/L Normal 46-116 [facility] Comment on above: Performed By: #### B MP, LIPID, LIVER, TSH #### [facility] [address] [address] [address] Shyam Farfan ALT [Catalytic activity/Vol] 96 U/L Critically high 14-59 [facility] Comment on above: Performed By: #### B MP, LIPID, LIVER, TSH #### [facility] [address] [address] [address] Shyam Farfan AST [Catalytic activity/Vol] 49 U/L Critically high 15-37 [facility] Comment on above: Performed By: #### B MP, LIPID, LIVER, TSH #### [facility] [address] [place] [address] Dr. Shyam Farfan BILI, CONJUGATED 0.1 mg/dL Normal 0.0-0.2 [facility] Comment on above: Performed By: #### B MP, LIPID, LIVER, TSH #### [facility] [address] [place] [address] Dr. Shyam Farfan Bilirubin [Mass/Vol] 0.5 mg/dL Normal 0.2-1.0 [facility] Comment on above: Performed By: #### B MP, LIPID, LIVER, TSH #### [facility] [address] [place] [address] Dr. Shyam Farfan Globulin (S) [Mass/Vol] 3.7 g/dL Normal [facility] Comment on above: Performed By: #### B MP, LIPID, LIVER, TSH #### [facility] [address] [place] [address] Dr. Shyam Farfan Protein [Mass/Vol] 7.5 g/dL Normal 6.4-8.2 [facility] Comment on above: Performed By: #### B MP, LIPID, LIVER, TSH #### [facility] [address] [address] [address] Shyam Farfan MICROALBUMIN, RAND URon 05-0 mALB 2.4 mg/L Normal <=30.0 [facility] Comment on above: Performed By: #### M ALBR #### [facility] [address] [place] [address] Dr. Shyam Farfan PROF CHEM 8 (BAS METB)on Anion gap [Moles/Vol] 6.5 mmol/L Normal [facility] Comment on above: Performed By: #### B MP, LIPID, LIVER, TSH #### [facility] [address] [place] [address] Dr. Shyam Farfan Calcium [Mass/Vol] 9.3 mg/dL Normal 8.5-10.1 [facility] Comment on above: Performed By: #### B MP, LIPID, LIVER, TSH #### [facility] [address] [place] [address] Dr. Shyam Farfan Chloride [Moles/Vol] 102 mmol/L Normal 98-107 [facility] Comment on above: Performed By: #### B MP, LIPID, LIVER, TSH #### [facility] [address] [place] [address] Dr. Shyam Farfan CO2 [Moles/Vol] 31.5 mmol/L Normal 21.0-32.0 [facility] Comment on above: Performed By: #### B MP, LIPID, LIVER, TSH #### [facility] [address] [place] [address] Dr. Shyam Farfan Creatinine [Mass/Vol] 0.61 mg/dL Normal 0.55-1.02 [facility] Comment on above: Performed By: #### B MP, LIPID, LIVER, TSH #### [facility] [address] [place] [address] Dr. Shyam Farfan EGFR-AF IRISH >60 Normal >=60 [facility] Comment on above: Performed By: #### B MP, LIPID, LIVER, TSH #### [facility] [address] [place] [address] Dr. Shyam Farfan EGFR-NON AF IRISH >60 Normal >=60 [facility] Comment on above: Performed By: #### B MP, LIPID, LIVER, TSH #### [facility] [address] [place] [address] Dr. Shyam Farfan Glucose [Mass/Vol] 177 mg/dL Critically high 74-106 [facility] Comment on above: Performed By: #### B MP, LIPID, LIVER, TSH #### [facility] [address] [place] [address] Dr. Shyam Farfan Potassium [Moles/Vol] 4.0 mmol/L Normal 3.5-5.1 [facility] Comment on above: Performed By: #### B MP, LIPID, LIVER, TSH #### [facility] [address] [place] [address] Dr. Shyam Farfan Sodium [Moles/Vol] 136 mmol/L Normal 136-145 [facility] Comment on above: Performed By: #### B MP, LIPID, LIVER, TSH #### [facility] [address] [place] [address] Dr. Shyam Farfan Urea nitrogen [Mass/Vol] 11.0 mg/dL Normal 7.0-18.0 [facility] Comment on above: Performed By: #### B MP, LIPID, LIVER, TSH #### [facility] [address] [place] [address] Dr. Shyam Farfan Urea nitrogen/Creatinine [Mass ratio] 18.0 mg/mg Normal [facility] Comment on above: Performed By: #### B MP, LIPID, LIVER, TSH #### [facility] [address] [place] [address] Dr. Shyam Farfan TSHon 07-15-2021 TSH 0.792 uIU/mL Normal 0.358-3.740 [facility] Comment on above: Performed By: #### B MP, LIPID, LIVER, TSH #### [facility] [address] [place] [address] Dr. Shyam Farfan TSH RANGE SEE BELOW Normal [facility] Comment on above: Result Comment: <0.3 4 UIU/ml HYPERTHYROID 0.34-5.60 UIU/ml EUTHYROID >5.60 UIU/ml HYPOTHYROID Performed By: #### B MP, LIPID, LIVER, TSH #### [facility] [address] [address] [address] Shyam Farfan Discharge Summaryon 07-13-19 Discharge Summary MR[id number] Admitted: 07/03/2017 [...] Dict: 07/12/2017/04:38 A/MALU Thao[employer] Trans: 07/12/2017 06:47 A/[id number] 282cc: Trevor Wallace M.D. [address] [facility] [address] Normal The [facility] BASIC METABOLIC PANELon 04-2 Calcium 8.9 mg/dL Normal 8.6-10.3 The [facility] Comment on above: Order Comment: No: D o not add to previous draw Performed By: #### 1 0054 ####[facility] [facility] [place] [address], [facility] Chloride 107 mmol/L Normal 98-107 The [facility] Comment on above: Order Comment: No: D o not add to previous draw Performed By: #### 1 0054 ####[facility] [place] [address], [facility] CO2 25 mmol/L Normal 21-31 The [facility] Comment on above: Order Comment: No: D o not add to previous draw Performed By: #### 1 0054 ####[facility] [facility] [place] [address], [facility] Creatinine 0.57 mg/dL Low 0.60-1.20 The [facility] Comment on above: Order Comment: No: D o not add to previous draw Performed By: #### 1 0054 ####[facility] [place] [address], [facility] eGFR (black) mL/min/{1.73_m2} Normal >60 The [facility] Comment on above: Order Comment: No: D o not add to previous draw Performed By: #### 1 0054 ####[facility] [place] [address], [facility] eGFR (non-black) mL/min/{1.73_m2} Normal >60 Th e [facility] Comment on above: Order Comment: No: D o not add to previous draw Performed By: #### 1 0054 ####[facility] [place] [address], [facility] Glucose mass conc 174 mg/dL High 70-100 The [facility] Comment on above: Order Comment: No: D o not add to previous draw Performed By: #### 1 0054 ####[facility] [place] [address], [facility] Potassium molar conc 3.6 mmol/L Normal 3.5-5.1 The [facility] Comment on above: Order Comment: No: D o not add to previous draw Performed By: #### 1 0054 ####[facility] [place] [address], [facility] Sodium 140 mmol/L Normal 136-145 The [facility] Comment on above: Order Comment: No: D o not add to previous draw Performed By: #### 1 0054 ####[facility] [place] [address], [facility] Urea nitrogen 6 mg/dL Low 7-[address] [facility] Comment on above: Order Comment: No: D o not add to previous draw Performed By: #### 1 0054 ####[facility] [place] [address], [facility] CBC COMPLETE BLOOD COUNTon 0 - Erythrocyte distribution width Auto Ratio (RBC) 13.7 % Normal 11.5-15.0 [facility] Comment on above: Order Comment: No: D o not add to previous draw Performed By: #### 1 0054 ####[facility] [place] [address], [place] Erythrocytes (RBC) 4.14 10*6/uL Normal 3.80-5.00 [facility] Comment on above: Order Comment: No: D o not add to previous draw Performed By: #### 1 0054 ####[facility] [place] [address], [facility] Erythrocytes (RBC) 0 % Normal 0-0 [facility] Comment on above: Order Comment: No: D o not add to previous draw Performed By: #### 1 0054 ####[facility] Hematocrit (HCT) 36.0 % Normal 36.0-45.0 [facility] Comment on above: Order Comment: No: D o not add to previous draw Performed By: #### 1 0054 ####[facility] Hemoglobin mass conc (Bld) 12.0 g/dL Normal 12.0-15.0 [facility] Comment on above: Order Comment: No: D o not add to previous draw Performed By: #### 1 0054 ####[facility] [facility].[address] MCH 29.0 pg Normal 27.0-33.0 [facility] Comment on above: Order Comment: No: D o not add to previous draw Performed By: #### 1 0054 ####[facility] [facility] [place] [address], [facility] MCHC mass conc (RBC) 33.3 g/dL Normal 32.0-35.0 [facility] Comment on above: Order Comment: No: D o not add to previous draw Performed By: #### 1 0054 ####[facility] [place] [address], [facility] MCV 87.0 fL Normal 82.0-98.0 [facility] Comment on above: Order Comment: No: D o not add to previous draw Performed By: #### 1 0054 ####[facility] [facility] [place] [address], [facility] PLAT CNT 230 10*3/uL Normal 150-400 The [facility] Comment on above: Order Comment: No: D o not add to previous draw Performed By: #### 1 0054 ####[facility] [facility] [place] [address], [facility] WBC (Leukocytes) 6.9 10*3/uL Normal 4.0-10.6 The [facility] Comment on above: Order Comment: No: D o not add to previous draw Performed By: #### 1 0054 ####[facility] [facility] [place] [address], [facility] POC GLUCOSE LABon 07-08-2017 Glucose mass conc 106 mg/dL High 70-100 The [facility] Comment on above: Performed By: #### 1 0054 ####[facility] [facility] [place] [address], [facility] Glucose mass conc 135 mg/dL High 70-100 The [facility] Comment on above: Performed By: #### 1 0054 ####[facility] [facility] [place] [address], [facility] Glucose mass conc 122 mg/dL High 70-100 The [facility] Comment on above: Performed By: #### 1 0054 ####[facility] [place] [address], [facility] POTASSIUM BLOODon 07-08-2017 Potassium molar conc 3.3 mmol/L Low 3.5-5.1 The [facility] Comment on above: Order Comment: No: D o not add to previous draw Performed By: #### 1 0054 ####[facility] [place] [address], [facility] BASIC METABOLIC PANELon 06-12 Calcium 9.3 mg/dL Normal 8.6-10.3 The [facility] Comment on above: Order Comment: Yes: Add to Previous draw if able Performed By: #### 5 6101 ####[facility] [id number], [facility] Chloride 108 mmol/L High 98-107 The [facility] Comment on above: Order Comment: Yes: Add to Previous draw if able Performed By: #### 5 6101 ####[facility] [place] [address], [place] CO2 26 mmol/L Normal 21-31 The [facility] Comment on above: Order Comment: Yes: Add to Previous draw if able Performed By: #### 5 6101 ####[facility] [place] [address], [facility] Creatinine 0.54 mg/dL Low 0.60-1.20 The [facility] Comment on above: Order Comment: Yes: Add to Previous draw if able Performed By: #### 5 6101 ####[facility] [place] [address], [facility] eGFR (black) mL/min/{1.73_m2} Normal >60 The [facility] Comment on above: Order Comment: Yes: Add to Previous draw if able Performed By: #### 5 6101 ####[facility] [place] [address], [facility] eGFR (non-black) mL/min/{1.73_m2} Normal >60 Th e [facility] Comment on above: Order Comment: Yes: Add to Previous draw if able Performed By: #### 5 6101 ####[facility] [place] [address], [place] Glucose mass conc 133 mg/dL High 70-100 The [facility] Comment on above: Order Comment: Yes: Add to Previous draw if able Performed By: #### 5 6101 ####[facility] Potassium molar conc 2.9 mmol/L Low 3.5-5.1 [facility] Comment on above: Order Comment: Yes: Add to Previous draw if able Performed By: #### 5 6101 ####[facility] [place] [address], [facility] Sodium 140 mmol/L Normal 136-145 The [facility] Comment on above: Order Comment: Yes: Add to Previous draw if able Performed By: #### 5 6101 ####[facility] Urea nitrogen 13 mg/dL Normal 7-[address] [facility] Comment on above: Order Comment: Yes: Add to Previous draw if able Performed By: #### 5 6101 ####[facility] CBC COMPLETE BLOOD COUNTon 0 - Erythrocyte distribution width Auto Ratio (RBC) 13.4 % Normal 11.5-15.0 [facility] Comment on above: Order Comment: Yes: Add to Previous draw if able Performed By: #### 5 6101 ####[facility] Erythrocytes (RBC) 4.30 10*6/uL Normal 3.80-5.00 The [facility] Comment on above: Order Comment: Yes: Add to Previous draw if able Performed By: #### 5 6101 ####[facility] Erythrocytes (RBC) 0 % Normal 0-0 [facility] Comment on above: Order Comment: Yes: Add to Previous draw if able Performed By: #### 5 6101 ####[facility] Hematocrit (HCT) 37.1 % Normal 36.0-45.0 The [facility] Comment on above: Order Comment: Yes: Add to Previous draw if able Performed By: #### 5 6101 ####[facility] [place] [address], [facility] Hemoglobin mass conc (Bld) 12.4 g/dL Normal 12.0-15.0 The [facility] Comment on above: Order Comment: Yes: Add to Previous draw if able Performed By: #### 5 6101 ####[facility] MCH 28.8 pg Normal 27.0-33.0 [facility] Comment on above: Order Comment: Yes: Add to Previous draw if able Performed By: #### 5 6101 ####[facility] MCHC mass conc (RBC) 33.4 g/dL Normal 32.0-35.0 [facility] Comment on above: Order Comment: Yes: Add to Previous draw if able Performed By: #### 5 6101 ####[facility] [facility] [place] [address], [facility] MCV 86.3 fL Normal 82.0-98.0 [facility] Comment on above: Order Comment: Yes: Add to Previous draw if able Performed By: #### 5 6101 ####[facility] [place] [address], [facility] PLAT CNT 259 10*3/uL Normal 150-400 The [facility] Comment on above: Order Comment: Yes: Add to Previous draw if able Performed By: #### 5 6101 ####[facility] [place] [address], [facility] WBC (Leukocytes) 15.3 10*3/uL High 4.0-10.6 The [facility] Comment on above: Order Comment: Yes: Add to Previous draw if able Performed By: #### 5 6101 ####[place] [address], [facility] POC GLUCOSE LABon 07-07-2017 Glucose mass conc 133 mg/dL High 70-100 The [facility] Comment on above: Performed By: #### 1 0054 ####[place] [address], [facility] Glucose mass conc 117 mg/dL High 70-100 The [facility] Comment on above: Performed By: #### 5 6101 ####[place] [address], [facility] Glucose mass conc 103 mg/dL High 70-100 The [facility] Comment on above: Performed By: #### 5 6101 ####[place] [address], [facility] Glucose mass conc 195 mg/dL High 70-100 The [facility] Comment on above: Performed By: #### 5 6101 ####[address] SMALL BOWELon 07-07-2017 SMALL BOWEL [facility]mn[facility]itz[facility] [place] [id number] ========Patient Name: TAYLA ROJO : 1960ex: FAge: Race: OtherMRN: [id number]. Location: [id number] Status: IVisit #: [id number] Date: 07/07/2017 8:30:00 AMCompleted Date: 07/07/2017 12:31 PMRequesting Provider: CARMELO MCDANIEL Attending Provider: CHIQUI JULES Report Copy To: Signs & Symptoms: Abdomen Pain GeneralizedHistory: Patient history not availableComments: R/O Obstruction, please put contrast through NGT and use water-soluble contrastExam: SMALL BOWELAccession #: [id number] SMALL BOWEL 07/07/2017 12:57 PM EDT SIGNS AND SYMPTOMS: Abdomen Pain Generalized TECHNOLOGIST COMMENTS: patient states severe cramping vomiting loose stools surgery x2 for hernia last surgery 200ml of Omni 350 QUESTION FOR THE RADIOLOGIST: R/O Obstruction, please put contrast through NGT and use water-soluble contrast CONTRAST: Contrast: OMNIPAQUE 350 (LOCM), 200 milliliter, Nasogastric COMPARISON: none FINDINGS: Mental Hygienist images through the patient's abdomen show gas [...] follow-through. Electronically signed by:Ethan Nuñez. Transcribed by: [email or web address], User Resident: Electronically Signed by: ETHAN NUÑEZ @ 07/07/2017 01:38 PM Normal The [facility] Comment on above: Order Comment: No: D o not add to previous draw POC GLUCOSE LABon 07-06-2017 Glucose mass conc 198 mg/dL High 70-100 The [facility] Comment on above: Performed By: #### 5 6101 ####[place] [address] [place] [address], [facility] Glucose mass conc 208 mg/dL High 70-100 The [facility] Comment on above: Performed By: #### 5 6101 ####[facility] [place] [address], [facility] Glucose mass conc 152 mg/dL High 70-100 The [facility] Comment on above: Performed By: #### 5 6101 ####[facility] [place] [address], [facility] Glucose mass conc 145 mg/dL High 70-100 The [facility] Comment on above: Performed By: #### 5 6101 ####[facility] [place] [address], [facility] Glucose mass conc 141 mg/dL High 70-100 The [facility] Comment on above: Performed By: #### 5 6101 ####[facility] [place] [address], [facility] BASIC METABOLIC PANELon 04-2 Calcium 9.5 mg/dL Normal 8.6-10.3 The [facility] Comment on above: Order Comment: No: D o not add to previous draw Performed By: #### 5 0103 ####[facility] [facility] [address], [facility] Chloride 106 mmol/L Normal 98-107 The [facility] Comment on above: Order Comment: No: D o not add to previous draw Performed By: #### 5 0103 ####[facility] [place] [address], [facility] CO2 27 mmol/L Normal 21-31 The [facility] Comment on above: Order Comment: No: D o not add to previous draw Performed By: #### 5 0103 ####[facility] [place] [address], [facility] Creatinine 0.57 mg/dL Low 0.60-1.20 The [facility] Comment on above: Order Comment: No: D o not add to previous draw Performed By: #### 5 0103 ####[facility] [place] [address], [facility] eGFR (black) mL/min/{1.73_m2} Normal >60 The [facility] Comment on above: Order Comment: No: D o not add to previous draw Performed By: #### 5 3 ####[facility] [place] [address], [facility] eGFR (non-black) mL/min/{1.73_m2} Normal >60 Th e [facility] Comment on above: Order Comment: No: D o not add to previous draw Performed By: #### 5 3 ####[facility] [place] [address], [facility] Glucose mass conc 119 mg/dL High 70-100 [facility] Comment on above: Order Comment: No: D o not add to previous draw Performed By: #### 5 3 ####[facility] [place] [address], [facility] Potassium molar conc 3.6 mmol/L Normal 3.5-5.1 [facility] Comment on above: Order Comment: No: D o not add to previous draw Performed By: #### 5 3 ####[facility] [place] [address], [facility] Sodium 138 mmol/L Normal 136-145 The [facility] Comment on above: Order Comment: No: D o not add to previous draw Performed By: #### 5 3 ####[facility] [place] [address], [facility] Urea nitrogen 8 mg/dL Normal 7-[address] [facility] Comment on above: Order Comment: No: D o not add to previous draw Performed By: #### 5 3 ####[facility] CBC COMPLETE BLOOD COUNTon 0 07-05-2017 Erythrocyte distribution width Auto Ratio (RBC) 13.7 % Normal 11.5-15.0 [facility] Comment on above: Order Comment: No: D o not add to previous draw Performed By: #### 5 0103 ####[facility] Erythrocytes (RBC) 0 % Normal 0-0 The [facility] Comment on above: Order Comment: No: D o not add to previous draw Performed By: #### 5 0103 ####[facility] Erythrocytes (RBC) 4.48 10*6/uL Normal 3.80-5.00 The [facility] Comment on above: Order Comment: No: D o not add to previous draw Performed By: #### 5 0103 ####[facility] Hematocrit (HCT) 38.9 % Normal 36.0-45.0 [facility] Comment on above: Order Comment: No: D o not add to previous draw Performed By: #### 5 0103 ####[facility] Hemoglobin mass conc (Bld) 12.9 g/dL Normal 12.0-15.0 The [facility] Comment on above: Order Comment: No: D o not add to previous draw Performed By: #### 5 0103 ####[facility] MCH 28.8 pg Normal 27.0-33.0 The [facility] Comment on above: Order Comment: No: D o not add to previous draw Performed By: #### 5 0103 ####[facility] MCHC mass conc (RBC) 33.2 g/dL Normal 32.0-35.0 The [facility] Comment on above: Order Comment: No: D o not add to previous draw Performed By: #### 5 0103 ####[facility] [facility] [place] [address], [facility] MCV 86.8 fL Normal 82.0-98.0 The [facility] Comment on above: Order Comment: No: D o not add to previous draw Performed By: #### 5 0103 ####[facility] [facility] [place] [address], [facility] PLAT CNT 224 10*3/uL Normal 150-400 The [facility] Comment on above: Order Comment: No: D o not add to previous draw Performed By: #### 5 0103 ####[facility] [facility] [place] [address], [facility] WBC (Leukocytes) 7.2 10*3/uL Normal 4.0-10.6 The [facility] Comment on above: Order Comment: No: D o not add to previous draw Performed By: #### 5 3 ####[facility] [facility].[address] POC GLUCOSE LABon 07-05-2017 Glucose mass conc 122 mg/dL High 70-100 The [facility] Comment on above: Performed By: #### 5 3 ####[facility] [facility] [place] [address], [facility] Glucose mass conc 93 mg/dL Normal 70-100 The [facility] Comment on above: Performed By: #### 5 3 ####[facility] [facility] [place] [address], [facility] Glucose mass conc 116 mg/dL High 70-100 The [facility] Comment on above: Performed By: #### 5 3 ####[facility] [facility] [place] [address], [facility] Glucose mass conc 115 mg/dL High 70-100 The [facility] Comment on above: Performed By: #### 5 0103 ####[facility] [place] [address], [facility] BASIC METABOLIC PANELon 04-2 Calcium 9.3 mg/dL Normal 8.6-10.3 The [facility] Comment on above: Order Comment: No: D o not add to previous draw Performed By: #### 0 0071, [id number] ####[facility] [place] [address], [facility] Chloride 106 mmol/L Normal 98-107 The [facility] Comment on above: Order Comment: No: D o not add to previous draw Performed By: #### 0 0071, [id number] ####[facility] [place] [address], [facility] CO2 26 mmol/L Normal 21-31 The [facility] Comment on above: Order Comment: No: D o not add to previous draw Performed By: #### 0 0071, [id number] ####[facility] [place] [address], [facility] Creatinine 0.53 mg/dL Low 0.60-1.20 The [facility] Comment on above: Order Comment: No: D o not add to previous draw Performed By: #### 0 0071, [id number] ####[facility] [place] [address], [facility] eGFR (black) mL/min/{1.73_m2} Normal >60 The [facility] Comment on above: Order Comment: No: D o not add to previous draw Performed By: #### 0 0071, [id number] ####[facility] [place] [address], [facility] eGFR (non-black) mL/min/{1.73_m2} Normal >60 e [facility] Comment on above: Order Comment: No: D o not add to previous draw Performed By: #### 0 0071, [id number] ####[facility] [place] [address], [facility] Glucose mass conc 167 mg/dL High 70-100 [facility] Comment on above: Order Comment: No: D o not add to previous draw Performed By: #### 0 0071, [id number] ####[facility] [place] [address], [facility] Potassium molar conc 3.4 mmol/L Low 3.5-5.1 The [facility] Comment on above: Order Comment: No: D o not add to previous draw Performed By: #### 0 0071, [id number] ####[facility] [facility] Sodium 137 mmol/L Normal 136-145 The [facility] Comment on above: Order Comment: No: D o not add to previous draw Performed By: #### 0 0071, [id number] ####[facility] [facility] [place] [address], [facility] Urea nitrogen 12 mg/dL Normal 7-[address] [facility] Comment on above: Order Comment: No: D o not add to previous draw Performed By: #### 0 0071, [id number] ####[facility] [facility] [place] [address], [facility] Calcium 9.9 mg/dL Normal 8.6-10.3 The [facility] Comment on above: Order Comment: No: D o not add to previous draw Performed By: #### 0 0071 ####[facility] [facility] [address], [facility] Chloride 103 mmol/L Normal 98-107 The [facility] Comment on above: Order Comment: No: D o not add to previous draw Performed By: #### 0 0071 ####[facility] [place] [address], [facility] CO2 25 mmol/L Normal 21-31 The [facility] Comment on above: Order Comment: No: D o not add to previous draw Performed By: #### 0 0071 ####[facility] [place] [address], [facility] Creatinine 0.56 mg/dL Low 0.60-1.20 The [facility] Comment on above: Order Comment: No: D o not add to previous draw Performed By: #### 0 0071 ####[facility] [place] [address], [facility] eGFR (black) mL/min/{1.73_m2} Normal >60 The [facility] Comment on above: Order Comment: No: D o not add to previous draw Performed By: #### 0 0071 ####[facility] [address], [facility] eGFR (non-black) mL/min/{1.73_m2} Normal >60 Th e [facility] Comment on above: Order Comment: No: D o not add to previous draw Performed By: #### 0 0071 ####[facility] [address], [facility] Glucose mass conc 179 mg/dL High 70-100 The [facility] Comment on above: Order Comment: No: D o not add to previous draw Performed By: #### 0 0071 ####[facility] [address], [facility] Potassium molar conc 3.4 mmol/L Low 3.5-5.1 The [facility] Comment on above: Order Comment: No: D o not add to previous draw Performed By: #### 0 0071 ####[facility] [place] [address], [facility] Sodium 136 mmol/L Normal 136-145 The [facility] Comment on above: Order Comment: No: D o not add to previous draw Performed By: #### 0 0071 ####[facility] Urea nitrogen 12 mg/dL Normal 7-25 [facility] Comment on above: Order Comment: No: D o not add to previous draw Performed By: #### 0 0071 ####[facility] CBC COMPLETE BLOOD COUNTon 0 - Erythrocyte distribution width Auto Ratio (RBC) 13.8 % Normal 11.5-15.0 The [facility] Comment on above: Order Comment: No: D o not add to previous draw Performed By: #### 5 0608 ####[facility] Erythrocytes (RBC) 0 % Normal 0-0 [facility] Comment on above: Order Comment: No: D o not add to previous draw Performed By: #### 5 0608 ####[place] [address] [address] Erythrocytes (RBC) 4.58 10*6/uL Normal 3.80-5.00 The [facility] Comment on above: Order Comment: No: D o not add to previous draw Performed By: #### 5 0608 ####[facility] Hematocrit (HCT) 39.7 % Normal 36.0-45.0 [facility] Comment on above: Order Comment: No: D o not add to previous draw Performed By: #### 5 0608 ####[place] [address] Hemoglobin mass conc (Bld) 13.1 g/dL Normal 12.0-15.0 The [facility] Comment on above: Order Comment: No: D o not add to previous draw Performed By: #### 5 0608 ####[facility] MCH 28.6 pg Normal 27.0-33.0 The [facility] Comment on above: Order Comment: No: D o not add to previous draw Performed By: #### 5 0608 ####[facility] [facility].[address] MCHC mass conc (RBC) 33.0 g/dL Normal 32.0-35.0 The [facility] Comment on above: Order Comment: No: D o not add to previous draw Performed By: #### 5 0608 ####[address] MCV 86.7 fL Normal 82.0-98.0 The [facility] Comment on above: Order Comment: No: D o not add to previous draw Performed By: #### 5 0608 ####[facility] [facility].[address] PLAT CNT 264 10*3/uL Normal 150-400 The [facility] Comment on above: Order Comment: No: D o not add to previous draw Performed By: #### 5 0608 ####[address] WBC (Leukocytes) 11.2 10*3/uL High 4.0-10.6 [facility] Comment on above: Order Comment: No: D o not add to previous draw Performed By: #### 5 0608 ####[facility] [place] [address].[address] CBC W/DIFFon 07-04-2017 ABS BASOPHILS 0.0 10*3/uL Normal 0.0-0.2 The [facility] Comment on above: Performed By: #### 5 0103 ####[facility] [facility].[address] ABS IMM GRANS 0.1 10*3/uL Normal 0.0-0.2 The [facility] Comment on above: Performed By: #### 5 0103 ####[facility] [facility] [place] [address], [facility] Basophils Auto #/vol (Bld) 0.3 % Normal 0.0-1.0 [facility] Comment on above: Performed By: #### 5 0103 ####[facility] [place] [address], [facility] Eosinophils 0.0 10*3/uL Normal 0.0-0.5 The [facility] Comment on above: Performed By: #### 5 0103 ####[place] [address] Eosinophils/100 leukocytes 0.2 % Normal 0.0-6.0 [facility] Comment on above: Performed By: #### 5 0103 ####[facility] Erythrocyte distribution width Auto Ratio (RBC) 13.8 % Normal 11.5-15.0 [facility] Comment on above: Performed By: #### 5 0103 ####[facility] Erythrocytes (RBC) 0 % Normal 0-0 [facility] Comment on above: Performed By: #### 5 0103 ####[facility] Erythrocytes (RBC) 4.67 10*6/uL Normal 3.80-5.00 The [facility] Comment on above: Performed By: #### 5 0103 ####[facility] Hematocrit (HCT) 40.3 % Normal 36.0-45.0 The [facility] Comment on above: Performed By: #### 5 0103 ####[facility] [facility].[address] Hemoglobin mass conc (Bld) 13.5 g/dL Normal 12.0-15.0 The [facility] Comment on above: Performed By: #### 5 0103 ####[facility] [facility].[address] IMMATURE GRANS 0.5 % Normal 0.0-1.0 The [facility] Comment on above: Performed By: #### 5 0103 ####[place] [address] Lymphocytes 1.6 10*3/uL Normal 1.2-4.0 The [facility] Comment on above: Performed By: #### 5 0103 ####[facility] Lymphocytes/100 leukocytes 10.9 % Low 20.0-45.0 The [facility] Comment on above: Performed By: #### 5 0103 ####[place] [address] MCH 28.9 pg Normal 27.0-33.0 The [facility] Comment on above: Performed By: #### 5 0103 ####[facility] [facility].[address] MCHC mass conc (RBC) 33.5 g/dL Normal 32.0-35.0 The [facility] Comment on above: Performed By: #### 5 3 ####[facility] MCV 86.3 fL Normal 82.0-98.0 The [facility] Comment on above: Performed By: #### 5 0103 ####[facility] [place] [address], [facility] Monocytes 0.9 10*3/uL Normal 0.1-1.0 [facility] Comment on above: Performed By: #### 5 0103 ####[facility] [place] [address], [facility] MONOS 6.5 % Normal 5.0-12.0 [facility] Comment on above: Performed By: #### 5 0103 ####[facility] [place] [address], [facility] Neutrophils 11.8 10*3/uL High 1.6-7.[address] [facility] Comment on above: Performed By: #### 5 0103 ####[facility] [facility] Neutrophils/100 leukocytes 81.6 % High 40.0-72.0 [facility] Comment on above: Performed By: #### 5 0103 ####[facility] [facility] [place] [address], [facility] PLAT CNT 277 10*3/uL Normal 150-400 The [facility] Comment on above: Performed By: #### 5 0103 ####[facility] [facility] WBC (Leukocytes) 14.4 10*3/uL High 4.0-10.6 [facility] Comment on above: Performed By: #### 5 0103 ####[facility] [facility].[address] History and Physicalon 07-04 History and Physical [id number] Admitted: 07/03/2017 Date of : 1960 Attending Physician: Chiqui Jules MD Room #: [id number] Discharge Date: HISTORY AND PHYSICALHISTORY OF PRESENT [...] at that time. Surgeries were performed at [facility] and records are unavailable. On arrival to [facility], patient's painis noted to have greatly improved. [...] [facility]. However, this was not scheduled until August [...] Dict: 07/04/2017/12:24 A/Chey Navarrete Trans: 07/04/2017 05:33 A/[id number] Normal The [facility] LACTATE BLOODon 07-04-2017 Lactate 0.6 mmol/L Normal .5-2.2 The [facility] Comment on above: Order Comment: No: D o not add to previous draw Performed By: #### 1 0054 ####[facility] MAGNESIUM BLOODon 07-04-2017 Magnesium 2.1 mg/dL Normal 1.9-2.7 The [facility] Comment on above: Order Comment: No: D o not add to previous draw Performed By: #### 0 0071, [id number] ####[address] OUTSIDE CONSULT GIGUon 07-04 [facility] GIGU [facility] [address] [place], [place] [address] ========Patient Name: TAYLA ROJO : 1960ex: FAge: Race: OtherMRN: [id number]. Location: [id number] Status: IVisit #: [id number] Date: 07/04/2017 7:10:00 AMCompleted Date: 07/04/2017 07:20 AMRequesting Provider: NADER SALCEDO Attending Provider: CHIQUI JULES Report Copy To: TREVOR WALLACE Signs & Symptoms: outside consultHistory: CT abd/pelvis [facility] 07/03/[address] Nader EllisiComments: Exam: OUTSIDE CONSULT GIGUAccession #: [id number] OUTSIDE CONSULT GIGU 07/04/2017 7:20 AM EDT [...] interpretation. Electronically signed by:Ethan Nuñez. Transcribed by: [email or web address], User Resident: Electronically Signed by: ETHAN NUÑEZ @ 07/04/2017 10:22 AM Normal The [facility] POC GLUCOSE LABon 07-04-2017 Glucose mass conc 123 mg/dL High 70-100 The [facility] Comment on above: Performed By: #### 5 0103 ####[facility] Glucose mass conc 134 mg/dL High 70-100 [facility] Comment on above: Performed By: #### 5 0103 ####[facility] Glucose mass conc 193 mg/dL High 70-100 [facility] Comment on above: Order Comment: NOTE: Result Checked Performed By: #### 8 5499 ####[facility] [place] [address], [facility] Glucose mass conc 147 mg/dL High 70-100 The [facility] Comment on above: Performed By: #### 8 5499 ####[facility] PROTHROMBIN TIMEon 8 INR Coag RelTime (PPP) 1.20 {INR} High 0.91-1.16 The [facility] Comment on above: Order Comment: Yes: Add [...] OF ACTION, CLINICALEFFECTIVENESS, AND OPTIMAL THERAPEUTIC RANGE. [id number]. Performed By: #### 5 6101 ####[facility] [facility].[address] Prothrombin time (PT) Coag time (PPP) 15.3 s High 12.3-14.[address] [facility] Comment on above: Order Comment: Yes: Add to Previous draw if able Result Comment: ALL RESULTS MUST BE INTERPRETED WITH RESPECT TO BLOOD DRAWING ARTIFACTOR DILUTION ERROR OF ANTICOAGULANT AT THE TIME OF SAMPLING. Performed By: #### 5 6101 ####[facility]3000 [facility].[address] TYPE AND SCREENon 07-04-2017 ABO INTERPRETATION O Normal The [facility] Comment on above: Performed By: #### 6 2586 ####[facility] [facility].[address] ANTIBODY SCREEN Negative Normal The [facility] Comment on above: Performed By: #### 6 2586 ####[facility] [facility].[address] RH INTERPRETATION Positive Normal The [facility] Comment on above: Performed By: #### 6 2586 ####[facility]3000 [facility].[address] Vital Signs Date Time Vital Sign Value Performing Clinician Facility 03-21-2024 10:49-0500 Body height 152.4 cm Sharmila Daugherty DPM Work Phone: [facility] 03-21-2024 10:49-0500 Body mass index (BMI) [Ratio] 37.5 kg/m2 Sharmila HERNANDEZM Work Phone: [facility] 03-21-2024 10:49-0500 Body weight 87.09 kg Sharmila HERNANDEZM Work Phone: [facility] 01-15-2024 09:16-0500 Body height 152.4 cm Trevor Wallace MD Work Phone: [facility] 01-15-2024 09:16-0500 Body mass index (BMI) [Ratio] 37.5 kg/m2 Trevor Wallace MD Work Phone: [facility] 01-15-2024 09:16-0500 Body temperature 97.5 [degF] Trevor Wallace MD Work Phone: [facility] 01-15-2024 09:16-0500 Body weight 87.09 kg Trevor Wallace MD Work Phone: [facility] 01-15-2024 09:16-0500 Diastolic blood pressure 74 mm[Hg] Trevor Wallace MD Work Phone: [facility] 01-15-2024 09:16-0500 Heart rate 87 /min Trevor Wallace MD Work Phone: [facility] 01-15-2024 09:16-0500 Respiratory rate 20 /min Trevor Wallace MD Work Phone: [facility] 01-15-2024 09:16-0500 SaO2% (BldA) [Mass fraction] 97 % Trevor Wallace MD Work Phone: [facility] 01-15-2024 09:16-0500 Systolic blood pressure 130 mm[Hg] Trevor Wallace MD Work Phone: [facility] 11-07-2023 10:38-0400 Body height 152.4 cm Sharmila HERNANDEZM Work Phone: [facility] 11-07-2023 10:38-0400 Body mass index (BMI) [Ratio] 36.33 kg/m2 Sharmila Daugherty DPM Work Phone: [facility] 11-07-2023 10:38-0400 Body weight 84.37 kg Sharmila Daugherty DPM Work Phone: [facility] 08-24-2022 14:25-0400 Blood Pressure Location JILLIAN GILLESPIE [facility] 08-24-2022 14:25-0400 Diastolic blood pressure 86 mm[Hg] JILLIAN GILLESPIE [facility] 08-24-2022 14:25-0400 Heart rate 71 /min JILLIAN GILLESPIE [facility] 08-24-2022 14:25-0400 Systolic blood pressure 135 mm[Hg] JILLIAN GILLESPIE [facility] 04-04-2022 10:39-0500 Blood Pressure Location Shiraz GARDNER [facility] 04-04-2022 10:39-0500 Diastolic blood pressure 82 mm[Hg] Shiraz GARDNER [facility] 04-04-2022 10:39-0500 Heart rate 70 /min Shiraz GARDNER [facility] 04-04-2022 10:39-0500 Respiratory rate 16 /min Shiraz GARDNER [facility] 04-04-2022 10:39-0500 Systolic blood pressure 127 mm[Hg] Shiraz GARDNER [facility] 12-20-2021 10:26-0400 Blood Pressure Location Shiraz GARDNER [facility] 12-20-2021 10:26-0400 Diastolic blood pressure 78 mm[Hg] Shiraz GARDNER [facility] 12-20-2021 10:26-0400 Heart rate 77 /min Shiraz NARCISO [facility] 12-20-2021 10:26-0400 Respiratory rate 16 /min Shiraz NARCISO [facility] 12-20-2021 10:26-0400 Systolic blood pressure 139 mm[Hg] Shirazpetrona GARDNER [facility] Encounters Encounter Date Encounter Type Care Provider Facility Start: 04-09-2024 End: 04-09-2024 ambulatory MELISA CLARKE Not Available Start: 03-21-2024 End: 03-21-2024 Bamboo flowsheet Sharmila Daugherty DPM Work Phone: [facility] Start: 03-21-2024 End: 03-21-2024 Bamboo flowsheet Sharmila Daugherty DPM Work Phone: [facility] Start: 03-21-2024 End: 03-21-2024 Patient encounter procedure Sharmila Daugherty DPM Work Phone: [facility] Comment on above: Diabetes mellitus [...] 25 minutes Trevor Wallace MD Work Phone: [facility] Comment on above: Type 2 diabetes mechelle itus with hyperglycemia, without long-term current use of insulin (CMS/HCC) (Primary Dx); Essential hypertension, benign (CMS/HCC); Major depressive disorder, recurrent episode, mild (HCC) ([facility]); Generalized anxiety disorder (CMS/HCC); Gastroesophageal reflux disease without esophagitis; Primary osteoarthritis of both knees; Breast cancer screening by mammogram; Class 2 severe obesity due to excess calories with serious comorbidity and body mass index (BMI) of 37.0 to 37.9 in adult ([facility]); SOB (shortness of breath); Skin candidiasis Start: 12-11-2023 End: 12-12-2023 Telephone encounter Sharmila Daugherty DPM Work Phone: [facility] Comment on above: Advice Only (Rx Refi ll Request) Start: 11-07-2023 End: 11-07-2023 Bamboo flowsheet Sharmila Daugherty DPM Work Phone: [facility] Start: 11-07-2023 End: 11-07-2023 Bamboo flowsheet Sharmila Daugherty DPM Work Phone: [facility] Start: 11-07-2023 End: 11-07-2023 Patient encounter procedure Sharmila Daugherty DPM Work Phone: [facility] Comment on above: Diabetes mellitus wi thout complication ([facility]) (Primary Dx); Onychomycosis; Pain in toes of both feet Start: 11-07-2023 End: 11-07-2023 ambulatory SHARMILA DAUGHERTY Not Available Start: 08-01-2023 End: 08-01-2023 ambulatory KEVIN CRUZ Not Available Start: 07-14-2023 Patient encounter procedure Sharmila Daugherty DPM Work Phone: [facility] Start: 07-14-2023 End: 07-14-2023 ambulatory TREVOR WALLACE Not Available Start: 07-04-2023 End: 07-04-2023 ambulatory SHARMILA Min DAUGHERTY Not Available Start: 08-24-2022 End: 08-25-2022 ambulatory JILLIAN GILLESPIE Facility:[facility] Start: 08-24-2022 End: 08-24-2022 Patient encounter procedure JILLIAN GILLESPIE [facility] Start: 06-13-2022 End: 06-13-[address] SHIRAZ GARDNER . Facility:[facility] Start: 05-18-2022 End: 05-18-2022 ambulatory ABHAY ABELARDO CAROL ANN Facility:[facility] Start: 05-16-2022 ambulatory Shiraz GARDNER [facility] ty:[id number] Start: 04-04-2022 End: 04-05-2022 ambulatory Shiraz GARDNER Facility:[facility] Start: 04-04-2022 End: 04-04-2022 Patient encounter procedure Shiraz GARDNER [facility] Start: 01-26-2022 End: 01-27-[address] TREVOR WALLACE Facility:[facility] Start: 12-27-2021 End: 12-28-[address] TREVOR WALLACE Facility: Start: 12-20-2021 End: 12-21-2021 ambulatory TREVOR WALLACE Facility:[facility] Start: 12-20-2021 End: 12-20-2021 Patient encounter procedure Shiraz GARDNER [facility] Start: 11-29-2021 ambulatory Shiraz GARDNER Facility :[facility] Start: 07-16-2021 Encounter for genera l adult medical examination without abnormal findings DR TREVOR WALLACE [facility] Start: 07-15-2021 End: 07-16-[address] TREVOR WALLACE Facility:[facility] Start: 07-15-2021 End: 07-16-2021 Encounter for general adult medical examination without abnormal findings DR TREVOR WALLACE Facility: Start: 07-04-2017 End: 07-08-2017 Evaluation and management of inpatient PROVIDER UNKNOWN Facility:[facility] Procedures Date Procedure Procedure Detail Performing Clinician [...] Screening for malign ant neoplasm of colon [facility] Start: 02-19-2026 Glaucoma screening Diabetes: R etinopathy Screening [facility] Start: 06-26-2025 Glaucoma screening Diabetes: R etinopathy Screening [facility] Start: 02-13-2025 Screening for malign ant neoplasm of breast Mammogram [facility] Start: 07-23-2024 End: 07-23-2024 Patient encounter procedure 07/23/2024 10:00 AM EDT Procedure Visit [facility] [address] [place] [address] Sharmila Daugherty DPElena [address] [place], [place] [id number] [facility] Start: 07-15-2024 End: 07-15-2024 Patient encounter procedure 07/15/2024 9:15 AM EDT [facility] [address] [place] [address] Trevor Wallace MD [address] [place] [phone] [facility] Start: 07-13-2024 Urine screening for protein Diabetes: Urine Protein Screening [facility] Start: 03-21-2024 End: 03-21-2024 Patient encounter procedure [facility] Comment on above: Arrived Start: 01-15-2024 End: 01-14-2025 Hemoglobin A1c/Hemoglobin.total in Blood Hemoglobin A1c Lab Routine Type 2 diabetes mellitus with hyperglycemia, without long-term current use of insulin ([facility]) Expected: 01/15/2024 (Approximate), Expires: 01/14/[address] [facility] Work Phone: Comment on above: Expected: 01/15/2024 (Approximate), Expires: 01/14/2025 Start: 01-15-2024 End: 03-16-2025 MG Breast - bilateral Screening Bilateral screening mammogram Imaging Routine Breast cancer screening by mammogram Expected: 01/15/2024, Expires: 03/16/[address] [facility] Comment on above: Expected: 01/15/2024 , Expires: 03/16/2025 Start: 01-15-2024 End: 01-15-2024 Patient encounter procedure 01/15/2024 9:00 AM EST Office Visit [facility] [address] [place] [address] Trevor Wallace MD [address] [place] [phone] [facility] Start: 01-14-2024 Hemoglobin A1c measurement Diabetes: Hemoglobin A1C [facility] Start: 12-31-2023 Screening for malign ant neoplasm of breast Mammogram [facility] Start: 11-12-2023 Influenza vaccination Influenza Vacc ine (#1) [facility] Start: 11-07-2023 End: 11-07-2023 Patient encounter procedure 11/07/2023 10:45 AM EDT Procedure Visit [facility] [address] [facility] [place] [phone] Sharmila Daugherty DPM [address] [place] [address] Arrived [facility] Comment on above: Arrived Start: 06-11-2019 Hemoglobin A1c measurement Diabetes: Hemoglobin A1C [facility] Start: 09-20-1989 Screening for malign ant neoplasm of cervix [facility] Start: 09-20-1980 Screening for malign ant neoplasm of cervix Pap Smear [facility] Start: 09-20-1978 Urine screening for protein Diabetes: Urine Protein Screening [facility] Start: 1960 Screening for malign ant neoplasm of colon [facility] Immunizations Immunization Date Immunization Notes Care Provider [facility] 01-10-2024 influenza virus vaccine, unspecified formulation Trevor Wallace MD Work Phone: [facility] 12-10-2022 influenza virus vaccine, unspecified formulation Sharmila Daugherty DPM Work Phone: [facility] 12-29-2021 influenza virus vaccine, unspecified formulation JILLIAN GILLESPIE [facility] 12-29-2021 influenza, injectabl e, quadrivalent, preservative free Sharmila Daugherty DPM Work Phone: [facility] 12-29-2021 SARS-CoV-2 (COVID-19 ) mRNA-1273 vaccine JILLIAN GILLESPIE [facility] 03-08-2021 SARS-CoV-2 (COVID-19 ) mRNA-1273 vaccine Shiraz GARDNER [facility] 07-03-2020 SARS-CoV-2 (COVID-19 ) mRNA-1273 vaccine Shiraz GARDNER [facility] 06-05-2020 SARS-CoV-2 (COVID-19 ) [id number] vaccine Shiraz GARDNER [facility] 12-17-2019 influenza virus vaccine, unspecified formulation Shiraz GARDNER [facility] 12-17-2019 Influenza, injectabl e, [place] Canine Kidney, preservative free, quadrivalent Sharmila Daugherty DPM Work Phone: [facility] 12-20-2018 influenza virus vaccine, unspecified formulation Shiraz GARDNER [facility] 12-20-2018 influenza, injectabl e, quadrivalent, preservative free Sharmila Daugherty DPM Work Phone: [facility] 01-12-2017 influenza virus vaccine, unspecified formulation Shiraz GARDNER [facility] 01-12-2017 influenza, injectabl e, quadrivalent, preservative free Sharmila Daugherty DPM Work Phone: [facility] Payers Date Payer Category Payer [facility] er [id number] 2024 Unknown [id number] 2022 Private Health Insurance NICOLE ARECHIGA [id number] 2022 Unknown KRISTEN DUMONT Your Image by [employer] [id number] 2022-Present [phone] [address] [place] [address] [id number] 2022 Unknown [id number] 2022 Unknown [id number] 1960 Unknown [id number] 2.16.840.1.528083.3.579. 2.593 1959 Unknown [id number] 2.16.840.1.251393.3.579. 2.593 1959 Unknown [id number] 2.16.840.1.600613.3.579. 2.593 1959 Unknown [id number] 2.16.840.1.680386.3.579. 2.593 1959 Unknown [id number] 2.16.840.1.686509.3.579. 2.593 1959 Unknown [id number] 2.16.840.1.092214.3.579. 2.727 1959 Unknown [id number] 2.16.840.1.574773.3.579. 2.727 1959 Unknown [id number] 2.16.840.1.097817.3.579. 2.727 1959 Unknown [id number] 2.16.840.1.783313.3.579. 2.9 1959 Unknown [id number] 2.16.840.1.022026.3.579. 2.1258 1959 Unknown [id number] 2.16.840.1.940472.3.579. 2.1258 1959 Unknown [id number] 2.16.840.1.370755.3.579. 2.1258 1959 Unknown [id number] 2.16.840.1.094244.3.579. 2.1258 1959 Unknown [id number] 2.16.840.1.053073.3.579. 2.1258 1959 Unknown [id number] 2.16.840.1.113168.3.579. 2.9 1959 Unknown [id number] 1960 Unknown [id number] Social History Date Type Detail Facility Tobacco smoking status [facility] Start: 11-07-2023 End: 01-15-2024 Sex Assigned At Female [facility] Start: 08-24-2022 End: 10-23-2022 Tobacco smoking status Never smoked tobacco (finding) [facility] Tobacco smoking status Never [facility] Start: 11-07-2023 End: 03-21-2024 Alcoholic beverage intake Ex-drinker (finding) [facility] Start: 11-07-2023 End: 01-15-2024 History of Social function [facility] Start: 1960 Sex assigned at Not on file [facility] Medical Equipment Procedure Code Equipment Code Equipment Origin al Text Equipment Identifier Dates USE DIRECTED to test BLOOD SUGAR THREE TIMES DAILY [id number] Start: 04-10-2023 Functional Status Date Assessment Result Facility 08-24-2022 Functional Status N/A [facility] 04-04-2022 Functional Status N/A [facility] 12-20-2021 Functional Status N/A [facility] Clinical Notes 12-20-2021 to 03-21-2024 Sharmila Daugherty, [...] tablet, Rfl: 3 Lancets (OneTouch Delica Plus [id number]) [facility] [place], USE DIRECTED to test BLOOD SUGAR THREE [...] the morning., Disp: , Rfl: nystatin (Mycostatin) [id number] UNIT/GM powder, Apply topically 2 (two) times [...] Procedure Laterality Date APPENDECTOMY ARTHROPLASTY [place]/04[place]20[place] [facility] [place] Dr. Panchal BUNIONECTOMY Left SECTION, [...] and Affect: Mood normal. Behavior: Behavior normal. [id number] Assessment/Plan ICD-10-CM 1. Diabetes mellitus without complication ([facility]) E11.9 2. Onychomycosis B35.1 3. Pain in [...] Sharmila Daugherty DPM documented in this encounter [facility] 01-15-2024 History of Present illness Narrative Associated Problem(s): Class 2 severe obesity due to excess calories with serious comorbidity and body mass index (BMI) of 37.0 to 37.9 in adult ([facility]) Weight loss indicated Associated Problem(s): Type 2 [...] and continue. Associated Problem(s): Essential hypertension, benign ([facility]/HCC) BP controlled and monitor PRN. Images from [...] (BMI) of 37.0 to 37.9 in adult ([facility]) Weight loss indicated Other Visit Diagnoses Breast cancer screening by mammogram Relevant Orders Bilateral screening mammogram documented in this encounter [facility] 12-12-2023 Telephone encounter Note I called in Meloxicam to [facility] in [place]. [facility] 12-12-2023 Miscellaneous Notes I called in Meloxicam to [facility] in [place]. Patient called as she needs a refill of the anti-inflammatory that JWC prescribed, however should couldn't remember the name of the medication or when it was last prescribed. Are you able to help find this information for the patient documented in this encounter [facility] 12-11-2023 Telephone encounter Note Patient called as she needs a refill of the anti-inflammatory that JWC prescribed, however should couldn't remember the name of the medication or when it was last prescribed. Are you able to help find this information for the patient [facility] 11-07-2023 History of Present illness Narrative Images [...] Current Outpatient Medications: Lancets (OneTouch Delica Plus [id number]) [facility] [place], USE DIRECTED to test BLOOD SUGAR THREE [...] Procedure Laterality Date APPENDECTOMY ARTHROPLASTY Left [place]/04/20[place] [facility] [place] Dr. Panchal BUNIONECTOMY Left SECTION, [...] and Affect: Mood normal. Behavior: Behavior normal. [id number] Assessment/Plan ICD-10-CM 1. Diabetes mellitus without complication [...] Sharmila Daugherty DPM documented in this encounter [facility] 08-24-2022 Hospital Discharge instructions Patient Education 08/24/2022 [...] including vitamins, herbs, eye drops, creams, and hays-rbh-zcopnsq medicines. Any problems you or family members [...] provider tells you to take them. Taking xjuj-iji-tzbwmvt medicines, vitamins, herbs, and supplements. General instructions [...] Follow these instructions at home: Medicines Take vlvs-oxx-hllwkby and prescription medicines only as told by [...] provider. Document Revised: 09/03/2021 Document Reviewed: 09/03/2021 [employer] Patient Education 2022 [facility]. Follow Up Care 07/13/2022 09:23:16 With:JILLIAN GILLESPIE PA-C, URL Address: [address] [place] [address] When: Unknown [facility] Hospital Discharge instructions Patient Education 04/04/2022 [...] including vitamins, herbs, eye drops, creams, and pyyn-ujt-cveoutd medicines. ?Whether you are or may be [...] 12/25/2007 Document Revised: 06/18/2019 Document Reviewed: 01/01/2018 [employer] Patient Education 2020 [employer]. Follow Up Care 12/20/2021 11:03:34 With:NARCISO FERRARI, Shiraz Sosa, URL Address: [facility] [address] [place] [address]- When: Unknown [facility] 12-20-2021 Hospital Discharge instructions Patient Education 12/20/2021 [...] fried and sweet foods. General instructions Take namn-pzp-ghsbxor and prescription medicines only as told by [...] 12/24/2009 Document Revised: 06/20/2019 Document Reviewed: 03/15/2018 [employer] Patient Education 2019 [employer]. Follow Up Care 11/29/2021 15:38:28 With:NARCISO FERRARI, Shiraz Sosa, URL Address: [facility] [address] [place] [address]- [phone] When:03/22/2022 [facility] Evaluation + Plan note Future Appointments Appointment Date:04/04/2022 10:45:00 AM Scheduled Provider:Shiraz GARDNER MD Location:[facility] Appointment Type:URO Office Visit [facility] Evaluation note Diagnosis Pain in joint of right foot- Primary documented in this encounter [facility]* Diagnosis Annual physical exam- Primary Routine general medical examination at a health care facility Type 2 diabetes mellitus with hyperglycemia, without long-term current use of insulin (CMS/[facility]) Essential hypertension, benign (CMS/HCC) Essential hypertension, benign [...] Hypokalemia- Primary Hypopotassemia documented in this encounter [facility]* Diagnosis Diabetes mellitus without complication (CMS/HCC)- Primary Type II or unspecified type diabetes mellitus without mention of complication, not stated as uncontrolled Onychomycosis Dermatophytosis of nail Pain in toes of both feet documented in this encounter [facility] note* Diagnosis Annual physical exam- Primary [...] available for this section [facility] progress note No data available for this section [facility] Summary Purpose Family History No Family History Records FoundNo Family History Records FoundNo Family History Records FoundNo Family History Records Found Advance Directives No Advanced Directives Records FoundNo Advanced Directives Records FoundNo Advanced Directives Records FoundNo Advanced Directives Records Found Additional Source Comments INFORMATION SOURCE (unrecogn ized section and content) DATE CREATED AUTHOR 09/14/2017 [facility] DATE CREATED AUTHOR AUTHOR'S ORGANIZ ATION 06/18/2022 [facility] DATE CREATED AUTHOR AUTHOR'S ORGANIZ ATION 08/25/2022 [facility] DATE CREATED AUTHOR AUTHOR'S ORGANIZ ATION 04/10/2024 [facility] EPIC Patient Care team informatio n (unrecognized section and content) Clinical Specialist Relationship Specialty Start Date End Date Trevor Wallace MD [address] [place] [phone] PCP - General Cardiology 07/22/22 Clinical Specialist Relationship Specialty Start Date End Date Trevor Wallace MD [address] [place] [address] PCP - General Cardiology 07/22/22 Clinical Specialist Relationship Specialty Start Date End Date Trevor Wallace MD [address] [place] [address] PCP - General Cardiology 07/22/22 Clinical Specialist Relationship Specialty Start Date End Date Trevor Wallace MD [address] [place] [phone] PCP - General Cardiology 07/22/22 Clinical Specialist Relationship Specialty Start Date End Date Trevor Wallace MD [address] [place] [address] PCP - General Cardiology 07/22/22 Clinical Specialist Relationship Specialty Start Date End Date rTevor Wallace MD [address] [place] [address] PCP - General Cardiology 07/22/22 Clinical Specialist Relationship Specialty Start Date End Date Trevor Wallace MD [address] [place] [address] PCP - General Cardiology 07/22/22 Clinical Specialist Relationship Specialty Start Date End Date Trevor Wallace MD [address] [place] [address] PCP - General Cardiology 07/22/22 Reason for [...] BE BASED ON THE PRIMARY CLINICAL RECORDS. [facility]. provides no warranty or guarantee of the accuracy or completeness of information in this document.
[2024-04-13 15:50] LABS: Glucometer 256 mg/dL (74-106)
[2024-04-13] MEDS: CEFTRIAXONE 1,000 MG in 0.9 % SODIUM CHLORIDE 50 ML 100 MG IV (16:41)
[2024-04-13] MEDS: METHYLPREDNISOLONE SOD SUCC PF 125 MG/2 ML VIAL 60 MG IVP ×2 (16:41→23:21)
[2024-04-13] MEDS: ACETAMINOPHEN 500 MG TABLET 1000 MG PO (16:41)
[2024-04-13] MEDS: BENZONATATE 100 MG CAPSULE PO ×2 (16:41→21:18)
[2024-04-13] MEDS: INSULIN ASPART 300 UNIT/3 ML PEN SUBQ ×2 (16:42→21:19)
[2024-04-13] MEDS: ENOXAPARIN SODIUM 40 MG/0.4 ML SYRINGE SUBQ (16:45)
[2024-04-13 19:22] LABS: Glucometer 272 mg/dL (74-106)
[2024-04-13] MEDS: MIRTAZAPINE 15 MG TABLET 45 MG PO (21:18)
[2024-04-14] VITALS (13 sets, daily range): BP systolic 127–163; BP diastolic 72–81; PULSE 68–89; TEMP 36.3–36.8; O2SAT 90–94
[2024-04-14] MEDS: IPRATROPIUM/ALBUTEROL SULFATE 3 ML AMPUL.NEB IH ×6 (03:51→23:35)
[2024-04-14] MEDS: METHYLPREDNISOLONE SOD SUCC PF 125 MG/2 ML VIAL 60 MG IVP ×4 (05:42→22:25)
[2024-04-14] MEDS: BENZONATATE 100 MG CAPSULE PO ×4 (05:42→22:25)
[2024-04-14 06:21] LABS: Hematocrit 45.3 % (36.0-48.0); Hemoglobin 14.2 g/dL (12.0-16.0); Mean Corpuscular HGB Conc 31.3 g/dL (29.9-35.2); Mean Corpuscular Hemoglobin 30.5 pg (26.7-34.0); Mean Corpuscular Volume 97.2 fL (81.0-99.0); Mean Platelet Volume 10.4 fL (9.5-13.5); Platelet Count 178 10^3/uL (150-450); Red Blood Count 4.66 10^6/uL (4.20-5.40); Red Cell Distribution Width 13.2 % (11.0-15.0); White Blood Count 6.9 10^3/uL (4.0-11.0)
[2024-04-14 06:37] LABS: Band Neutrophils Absolute 0.1 10^3/uL (0.0-0.3); Lymphocytes Absolute Manual 0.48 10^3/uL (1.20-3.80); Monocytes Absolute Manual 0.13 10^3/uL (0.30-0.80); Segmented Neut Absolute Manual 6.21 10^3/uL (1.4-6.5)
[2024-04-14 06:38] LABS: Anion Gap 9.6; BUN Creatinine Ratio 21.2; Calcium 10.2 mg/dL (8.5-10.1); Chloride 101 mmol/L (98-107); Estimated GFR (African America >60 (>=60 mL/min/1.73m^2); Estimated GFR (Non-African Ame >60 (>=60 mL/min/1.73m^2); Glucose 251 mg/dL (74-106); Potassium 4.6 mmol/L (3.5-5.1); Sodium 141 mmol/L (136-145)
[2024-04-14] MEDS: CITALOPRAM HYDROBROMIDE 20 MG TABLET 40 MG PO (08:54)
[2024-04-14] MEDS: MELOXICAM 7.5 MG TABLET 15 MG PO (08:54)
[2024-04-14] MEDS: METOPROLOL SUCCINATE 25 MG TAB.ER.24H PO (08:54)
[2024-04-14] MEDS: LISINOPRIL 10 MG TABLET PO (08:54)
[2024-04-14] MEDS: POTASSIUM CHLORIDE 10 MEQ ER TABLET 20 MEQ PO (08:54)
[2024-04-14] MEDS: PIOGLITAZONE 15 MG TABLET 30 MG PO (08:54)
[2024-04-14] MEDS: INSULIN ASPART 300 UNIT/3 ML PEN SUBQ ×4 (08:54→22:25)
[2024-04-14] MEDS: ACETAMINOPHEN 500 MG TABLET 1000 MG PO (08:54)
--- NOTE | 2024-04-14 11:13 | PM.HP ---
HPI H&P: HPI History of Present Illness Chief complaint: Shortness of Breath HYPOXEMIA PNEUMONIA Narrative: 63 y/o female to ER with cough and SOB for several days. Frequent cough and sputum. SOB with mild exertion. To urgent care 04/09 and given zithromax and prednisone. Symptoms continued to worsen. Increased SOB and fatigue with minimal exertion. [place] like not able to catch breath. Returned to urgent care but SpO2 in mid 80s on room air and directed to ER. SpO2 68% on room air on arrival and patient with increased work of breathing. Placed on oxygen and improved. Chest x-ray showed pneumonia. CTA negative for PE but again showed infiltrates. RSV, Influenza, and covid negative. Admitted for treatment. Started levaquin and rocephin for pneumonia. Decreased BS and wheezing and started solu-medrol and duoneb. Not much improvement overnight. Continues to have wheezing throught and remains on oxygen. Afebrile. Opioid HPI Opioid Management Most Recent Pain and Opioid Data: Last Pain Scale 8 04/14/24 08:54 04/14/24 Last Pain Assessment 04/14/24 10:29 Last MAR Pain Assessment 04/14/24 09:34 Last ORT Total Score 1 04/13/24 15:20 04/13/24 Last ORT Risk Category Low Risk 04/13/24 15:20 04/13/24 Review of Systems ROS Constitutional Reports: fatigue; Denies: fever or chills Cardiovascular Denies: chest pain, palpitations or edema Respiratory Reports: shortness of breath, cough and wheezing Gastrointestinal Denies: abdominal pain, nausea, vomiting or diarrhea Genitourinary Denies: painful urination PFSH PFSH Medical History (Updated 04/14/24 @ 11:18 by Trevor Forrest MD) Hypoxemia ?R09.02 - Hypoxemia (ICD-10) Surgical History (Updated 04/13/24 @ 14:32 by Gina Reilly) H/O hernia repair ?Z98.890 - Other specified postprocedural states (ICD-10) ?Z87.19 - Personal history of other diseases of the digestive system (ICD-10) Family History (Updated 04/13/24 @ 16:06 by Yocasta Vargas) Sister Family history of diabetes mellitus Family history of hypertension Father Family history of diabetes mellitus Family history of cancer Mother Family history of diabetes mellitus Family history of hypertension Social History (Updated 04/13/24 @ 16:07 by Yocasta Vargas) Within the past year, how often did you have a drink containing alcohol: never Within the past year, how often did you have six or more drinks on one occasion: never Score interpretation: A score less than 3 is consistent with normal alcohol consumption. 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 Known occupational exposures/hazards: No Highest level of school completed/degree received: high school graduate Do you want help with school or training: No Are you now , , , , never or living with a partner: In a typical week, how many times do you talk on the telephone with family, friends, or neighbors: 3 or more times per week How often do you get together with friends or relatives: 3 or more times per week How often do you attend religion or moravian services: 4 or more times per year Do you belong to any clubs or organizations such as religion groups unions, [employer] or athletic groups, or school groups: no Total score: 3 Score interpretation: A score of greater than or equal to 2 indicates the lowest level of social isolation. Little interest or pleasure in doing things: not at all Feeling down, depressed, or hopeless: not at all Feel stressed/tense/nervous/anxious/difficulty sleeping: not at all Due to disability, difficulty making decisions: No Do you think of yourself as: straight/heterosexual Gender Identity: female Meds Home Medications and Allergies Home Medications ?Medication ?Instructions ?Recorded ?Confirmed ?Type azithromycin 250 mg tablet 250 mg PO Q12H 04/13/24 04/13/24 History benzonatate 100 mg capsule 100 mg PO Q6H 04/13/24 04/13/24 History citalopram 40 mg tablet 40 mg PO DAILY 04/13/24 04/13/24 History lisinopril 10 mg tablet 10 mg PO DAILY 04/13/24 04/13/24 History meloxicam 15 mg tablet 15 mg PO DAILY 04/13/24 04/13/24 History metformin 500 mg tablet,extended 500 mg PO DAILY 04/13/24 04/13/24 History release 24 hr metoprolol succinate 25 mg 25 mg PO DAILY 04/13/24 04/13/24 History tablet,extended release 24 hr mirtazapine 45 mg tablet 45 mg PO DAILY 04/13/24 04/13/24 History pioglitazone 30 mg tablet 30 mg PO DAILY 04/13/24 04/13/24 History potassium chloride 20 mEq 20 meq PO DAILY 04/13/24 04/13/24 History tablet,extended release Allergies Allergy/AdvReac Type Severity Reaction Status Date / Time No Known Drug Allergies Allergy Verified 04/13/24 10:34 Exam Constitutional Vital Signs, click to edit/add: Last Vital Signs Temp 97.8 F 04/14/24 10:31 Pulse 85 04/14/24 10:31 Resp 18 04/14/24 10:31 BP 128/73 04/14/24 10:31 Pulse Ox 91 L 04/14/24 10:31 O2 Del Method Nasal Cannula 04/14/24 10:31 O2 Flow Rate 3 04/14/24 10:31 Documenting provider has reviewed patient's vital signs: yes Common normals: no apparent distress, oriented x3 and alert HENMT Common normals: normocephalic Eye Common normals: PERRL and EOMs intact bilaterally Respiratory Auscultation: wheezes expiratory wheezes and scattered wheezes Cardio Common normals: regular rate, regular rhythm, no gallops, no murmurs and no rub GI Common normals: Normal to inspection, nondistended, normoactive bowel sounds present and non-tender Extremity Common normals: no pedal edema Results Labs Labs: Short CBC 04/14/24 Range/Units 05:58 WBC 6.9 (4.0-11.0) 10^3/uL Hgb 14.2 (12.0-16.0) g/dL Hct 45.3 (36.0-48.0) % Plt Count 178 (150-450) 10^3/uL BMP 04/13/24 04/14/24 10:35 05:58 Sodium 139 141 Potassium 4.5 4.6 Chloride 101 101 Carbon Dioxide 28.6 35.0 H BUN 15.0 18.0 Creatinine 0.71 0.85 Glucose 244 H 251 H Calcium 9.6 10.2 H Liver Function 04/13/24 Range/Units 10:35 Total Bilirubin 0.4 (0.2-1.0) mg/dL AST 21 (15-37) U/L ALT 32 (14-59) U/L Alkaline Phosphatase 81 (46-116) U/L Albumin 3.5 (3.4-5.0) g/dL Imaging CT scan - chest: Attestation: I have reviewed the pertinent imaging results. Assessment and Plan Assessment and Plan (1) Pneumonia: Qualifiers: Pneumonia type: due to unspecified organism Laterality: bilateral Lung location: unspecified part of lung Qualified Code(s): J18.9 - Pneumonia, unspecified organism (2) Acute hypoxic respiratory failure: (3) Diabetes: Qualifiers: Diabetes mellitus type: type 2 Diabetes mellitus inspector technician insulin use: without shelter use Diabetes mellitus complication status: with hyperglycemia Qualified Code(s): E11.65 - Type 2 diabetes mellitus with hyperglycemia (4) Hypertension: Qualifiers: Hypertension type: primary hypertension Qualified Code(s): I10 - Essential (primary) hypertension (5) Obesity, class 2: Plan Continued SOB and wheezing. Continue antibiotics, steroids, and breathing treatments. Wean Oxygen as tolerated. Resumed home medication and monitor BS while on steroids. Increase ambulation. Plan for at least a 2 midnight stay for inpatient medically necessary services.
[2024-04-14 11:34] LABS: Glucometer 377 mg/dL (74-106)
[2024-04-14 15:48] LABS: Glucometer 377 mg/dL (74-106)
[2024-04-14] MEDS: ENOXAPARIN SODIUM 40 MG/0.4 ML SYRINGE SUBQ (16:27)
[2024-04-14] MEDS: CEFTRIAXONE 1,000 MG in 0.9 % SODIUM CHLORIDE 50 ML 100 MG IV (16:27)
[2024-04-14 20:25] LABS: Glucometer 268 mg/dL (74-106)
[2024-04-14] MEDS: MIRTAZAPINE 15 MG TABLET 45 MG PO (22:25)
[2024-04-15] VITALS (13 sets, daily range): BP systolic 135–151; BP diastolic 71–77; PULSE 66–104; TEMP 36.3–36.6; O2SAT 89–92
[2024-04-15] MEDS: IPRATROPIUM/ALBUTEROL SULFATE 3 ML AMPUL.NEB IH ×6 (04:00→23:22)
[2024-04-15] MEDS: BENZONATATE 100 MG CAPSULE PO ×4 (04:13→21:46)
[2024-04-15] MEDS: METHYLPREDNISOLONE SOD SUCC PF 125 MG/2 ML VIAL 60 MG IVP ×4 (04:13→22:08)
[2024-04-15] MEDS: ACETAMINOPHEN 500 MG TABLET 1000 MG PO ×2 (04:19→19:57)
--- NOTE | 2024-04-15 05:00 | XR_ITS ---
The [address] [address] Patient Name: ELENI WATKINS MRN: [id number] date: 1960 Sex: F Assigned Patient Location: [place] Current Patient Location: [place] Accession/Order Number: [id number] Exam Date: 04/15/2024 06:00 Report Date: 04/15/2024 08:30 At the request of: KAM WALLACE Procedure: XR chest 2V EXAMINATION: XR chest 2V HISTORY: Pneumonia COMPARISON: XR chest 04/13/2024 FINDINGS: LUNGS: Elevated right hemidiaphragm with mild medial basilar opacities and new mild lateral basilar opacities. Persistent dense infiltrates within left upper and lower lung regions. VASCULATURE: No increased pulmonary vasculature. PLEURA: No pneumothorax, effusion, or pleural thickening. CARDIAC: No cardiomegaly or cardiac silhouette abnormality. MEDIASTINUM: No visible mass or adenopathy. BONES: No fracture or visible bone lesion. OTHER: Negative. XR/XR chest 2V IMPRESSION: 1. Bilateral pneumonia; mild to moderate on the right but increased compared to prior study. Marked on left and grossly stable. Electronically authenticated by: FRANCINE JACKSON Date: 04/15/2024 08:30
[2024-04-15 05:07] LABS: Basophils Percent Auto 0.1 % (0.2-2.0); Hematocrit 41.7 % (36.0-48.0); Hemoglobin 13.5 g/dL (12.0-16.0); Immature Granulocytes Abs Auto 0.06 10^3/uL (0.00-0.03); Immature Granulocytes Pct Auto 0.8 % (0.0-0.5); Lymphocytes Absolute Auto 0.6 10^3/uL (1.2-3.8); Lymphocytes Percent Auto 7.1 % (20.5-60.0); Mean Corpuscular HGB Conc 32.4 g/dL (29.9-35.2); Mean Corpuscular Hemoglobin 30.7 pg (26.7-34.0); Mean Corpuscular Volume 94.8 fL (81.0-99.0); Mean Platelet Volume 10.2 fL (9.5-13.5); Monocytes Absolute Auto 0.2 10^3/uL (0.3-0.8); Monocytes Percent Auto 2.5 % (1.7-12.0); Neutrophils Absolute Auto 6.9 10^3/uL (1.4-6.5); Neutrophils Percent Auto 89.5 % (43.0-75.0); Platelet Count 179 10^3/uL (150-450); Red Cell Distribution Width 13.2 % (11.0-15.0); White Blood Count 7.7 10^3/uL (4.0-11.0)
[2024-04-15 05:19] LABS: Anion Gap 10.6; BUN Creatinine Ratio 30.6; Calcium 10.2 mg/dL (8.5-10.1); Carbon Dioxide 31.2 mmol/L (21.0-32.0); Chloride 100 mmol/L (98-107); Estimated GFR (African America >60 (>=60 mL/min/1.73m^2); Estimated GFR (Non-African Ame >60 (>=60 mL/min/1.73m^2); Glucose 251 mg/dL (74-106); Potassium 4.8 mmol/L (3.5-5.1); Sodium 137 mmol/L (136-145)
[2024-04-15] MEDS: INSULIN ASPART 300 UNIT/3 ML PEN SUBQ ×4 (08:46→21:46)
[2024-04-15] MEDS: METOPROLOL SUCCINATE 25 MG TAB.ER.24H PO (08:47)
[2024-04-15] MEDS: CITALOPRAM HYDROBROMIDE 20 MG TABLET 40 MG PO (08:47)
[2024-04-15] MEDS: MELOXICAM 7.5 MG TABLET 15 MG PO (08:47)
[2024-04-15] MEDS: POTASSIUM CHLORIDE 10 MEQ ER TABLET 20 MEQ PO (08:48)
[2024-04-15] MEDS: LISINOPRIL 10 MG TABLET PO (08:48)
[2024-04-15] MEDS: PIOGLITAZONE 15 MG TABLET 30 MG PO (08:48)
--- NOTE | 2024-04-15 09:07 | P.PN_ITS ---
Progress Note: Subjective Subjective Interval history: Patient is walking back from the restroom is still is very short of breath, is able to recover while resting. She is still requiring 3L NC oxygen. She does not use oxygen at home. She has used an inhaler, albuterol in the past for possibly some asthma symptoms but has never been diagnosed with any lung or heart issues. She feels she is improving but slowly. She denies fevers or chills. No n/v/d. Exam Narrative Exam Narrative: General: Patient is alert, and oriented to person, place and time with normal affect, proper hygiene, conversational dyspnea Skin: no visible rashes, or ulcers Head: atraumatic, acephalic Eyes: PERRLA, no nystagmus present, conjunctiva clear, no scleral icterus Ears: normal gross auditory acuity Neck: no masses palpated, normal thyroid, no JVD or audible carotid bruits Heart: Normal rate and rhythm, no murmurs/rubs/gallops Lungs: audible wheezes, no crackles Abdomen: Normal audible bowel sounds, no distension, No palpable masses, no organomegaly, no rebound/guarding/ or rigidity Musculoskeletal: swelling bilateral lower extremities Neuro: CN II-X grossly intact Constitutional Vital Signs, click to edit/add: Last Vital Signs Temp 97.7 F 04/15/24 06:24 Pulse 80 04/15/24 07:32 Resp 18 04/15/24 06:24 BP 139/76 04/15/24 06:24 Pulse Ox 91 L 04/15/24 07:32 O2 Del Method Nasal Cannula 04/15/24 07:32 O2 Flow Rate 3 04/15/24 07:32 Progress Note: Objective Labs Labs: Short CBC 04/15/24 Range/Units 04:51 WBC 7.7 (4.0-11.0) 10^3/uL Hgb 13.5 (12.0-16.0) g/dL Hct 41.7 (36.0-48.0) % Plt Count 179 (150-450) 10^3/uL BMP 04/15/24 04:51 Sodium 137 Potassium 4.8 Chloride 100 Carbon Dioxide 31.2 BUN 22.0 H Creatinine 0.72 Glucose 251 H Calcium 10.2 H Progress Note: A&P Assessment and Plan (1) Pneumonia: Assessment and Plan: Chest X-ray showed bilateral pneumonia right > left. Viral testing was negative. continue rocephin and levaquin, Solumedrol 60mg IV. I will add pulmicort inh BID today. Continue opep, duonebs. Qualifiers: Laterality: bilateral Lung location: unspecified part of lung Pneumonia type: due to unspecified organism Qualified Code(s): J18.9 - Pneumonia, unspecified organism (2) Acute hypoxic respiratory failure: Assessment and Plan: secondary to #1, still requiring 3L NC to maintain sats >90% (3) Diabetes: Assessment and Plan: Continue SSI as needed. Monitor closely while on steroids Qualifiers: Diabetes mellitus complication status: with hyperglycemia Diabetes mellitus penitentiary insulin use: without penitentiary use Diabetes mellitus type: type 2 Qualified Code(s): E11.65 - Type 2 diabetes mellitus with hyperglycemia (4) Hypertension: Assessment and Plan: continue metoprolol, lisinopril Qualifiers: Hypertension type: primary hypertension Qualified Code(s): I10 - Essential (primary) hypertension (5) Obesity, class 2: Assessment and Plan: would benefit from weight loss reduction. Plan Patient is a full code Continue Lovenox for DVT prophylaxis Patient will require 2-3 more days of hospital necessary care to treat her Pneumonia.
[2024-04-15 11:11] LABS: Glucometer 361 mg/dL (74-106)
--- NOTE | 2024-04-15 11:55 | CM.NOTE ---
Rounds made with Dr. Barnes, pt up ad sy in room. Pt continues to require oxygen @3L NC. RN will wean as tolerated.
[2024-04-15] MEDS: LEVOFLOXACIN IN DEXTROSE 5 % 750 MG/150 ML PREMIX 100 MG IV (12:07)
[2024-04-15] MEDS: 0.9 % SODIUM CHLORIDE 250 ML 10 ML IV (12:11)
[2024-04-15] MEDS: CEFTRIAXONE 1,000 MG in 0.9 % SODIUM CHLORIDE 50 ML 100 MG IV (14:05)
[2024-04-15] MEDS: ENOXAPARIN SODIUM 40 MG/0.4 ML SYRINGE SUBQ (16:09)
[2024-04-15 16:10] LABS: Glucometer 236 mg/dL (74-106)
[2024-04-15 21:10] LABS: Glucometer 346 mg/dL (74-106)
[2024-04-15] MEDS: MIRTAZAPINE 15 MG TABLET 45 MG PO (21:46)
[2024-04-15] MEDS: BUDESONIDE 0.5 MG/2 ML AMPULE NEB IH (23:22)
[2024-04-16] VITALS (12 sets, daily range): BP systolic 121–151; BP diastolic 71–77; PULSE 71–93; TEMP 36.3–36.8; O2SAT 79–93
[2024-04-16] MEDS: IPRATROPIUM/ALBUTEROL SULFATE 3 ML AMPUL.NEB IH ×6 (03:38→23:18)
[2024-04-16] MEDS: METHYLPREDNISOLONE SOD SUCC PF 125 MG/2 ML VIAL 60 MG IVP ×4 (04:01→23:20)
[2024-04-16] MEDS: BENZONATATE 100 MG CAPSULE PO ×4 (04:01→21:10)
[2024-04-16 05:55] LABS: Hematocrit 41.2 % (36.0-48.0); Hemoglobin 13.1 g/dL (12.0-16.0); Mean Corpuscular HGB Conc 31.8 g/dL (29.9-35.2); Mean Corpuscular Volume 94.5 fL (81.0-99.0); Mean Platelet Volume 10.5 fL (9.5-13.5); Platelet Count 199 10^3/uL (150-450); Red Blood Count 4.36 10^6/uL (4.20-5.40); Red Cell Distribution Width 13.2 % (11.0-15.0); White Blood Count 7.7 10^3/uL (4.0-11.0)
[2024-04-16 06:11] LABS: Anion Gap 10.8; BUN Creatinine Ratio 39.3; Carbon Dioxide 31.8 mmol/L (21.0-32.0); Chloride 100 mmol/L (98-107); Estimated GFR (African America >60 (>=60 mL/min/1.73m^2); Estimated GFR (Non-African Ame >60 (>=60 mL/min/1.73m^2); Glucose 302 mg/dL (74-106); Potassium 4.6 mmol/L (3.5-5.1); Sodium 138 mmol/L (136-145)
[2024-04-16 06:12] LABS: Atypical Lymphocytes Abs Man 0.15; Lymphocytes Absolute Manual 0.23 10^3/uL (1.20-3.80); Segmented Neut Absolute Manual 7.31 10^3/uL (1.4-6.5)
[2024-04-16] MEDS: INSULIN ASPART 300 UNIT/3 ML PEN SUBQ ×4 (08:42→21:12)
[2024-04-16] MEDS: PIOGLITAZONE 15 MG TABLET 30 MG PO (08:43)
[2024-04-16] MEDS: ACETAMINOPHEN 500 MG TABLET 1000 MG PO (08:43)
[2024-04-16] MEDS: LISINOPRIL 10 MG TABLET PO (08:43)
[2024-04-16] MEDS: CITALOPRAM HYDROBROMIDE 20 MG TABLET 40 MG PO (08:43)
[2024-04-16] MEDS: POTASSIUM CHLORIDE 10 MEQ ER TABLET 20 MEQ PO (08:43)
[2024-04-16] MEDS: MELOXICAM 7.5 MG TABLET 15 MG PO (08:44)
[2024-04-16] MEDS: METOPROLOL SUCCINATE 25 MG TAB.ER.24H PO (08:44)
--- NOTE | 2024-04-16 08:44 | PM.PN ---
Progress Note: Subjective Subjective Interval history: Patient says her shortness of breath is improving. She feels she is improving but slowly. She denies fevers or chills. No n/v/d. She was able to bath today and feels better. No other concerns or issues. Exam Narrative Exam Narrative: General: Patient is alert, and oriented to person, place and time with normal affect, proper hygiene, conversational dyspnea Skin: no visible rashes, or ulcers Head: atraumatic, acephalic Eyes: PERRLA, no nystagmus present, conjunctiva clear, no scleral icterus Ears: normal gross auditory acuity Neck: no masses palpated, normal thyroid, no JVD or audible carotid bruits Heart: Normal rate and rhythm, no murmurs/rubs/gallops Lungs: audible wheezes, no crackles improved lung sounds from yesterday Abdomen: Normal audible bowel sounds, no distension, No palpable masses, no organomegaly, no rebound/guarding/ or rigidity Musculoskeletal: swelling bilateral lower extremities Neuro: CN II-X grossly intact Constitutional Vital Signs, click to edit/add: Last Vital Signs Temp 98.2 F 04/16/24 07:47 Pulse 88 04/16/24 07:47 Resp 18 04/16/24 07:47 BP 148/76 H 04/16/24 07:47 Pulse Ox 92 L 04/16/24 07:47 O2 Del Method Nasal Cannula 04/16/24 07:47 O2 Flow Rate 3 04/16/24 07:47 Progress Note: Objective Labs Labs: Short CBC 04/16/24 Range/Units 05:13 WBC 7.7 (4.0-11.0) 10^3/uL Hgb 13.1 (12.0-16.0) g/dL Hct 41.2 (36.0-48.0) % Plt Count 199 (150-450) 10^3/uL BMP 04/16/24 05:13 Sodium 138 Potassium 4.6 Chloride 100 Carbon Dioxide 31.8 BUN 24.0 H Creatinine 0.61 Glucose 302 H Calcium 10.0 Progress Note: A&P Assessment and Plan (1) Pneumonia: Assessment and Plan: continue rocephin and levaquin, Solumedrol 60mg IV. Continue opep, duonebs, pulmicort Qualifiers: Laterality: bilateral Lung location: unspecified part of lung Pneumonia type: due to unspecified organism Qualified Code(s): J18.9 - Pneumonia, unspecified organism (2) Acute hypoxic respiratory failure: Assessment and Plan: secondary to #1, still requiring 3L NC to maintain sats >90% (3) Diabetes: Assessment and Plan: Continue SSI as needed. 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
[2024-04-16] MEDS: BUDESONIDE 0.5 MG/2 ML AMPULE NEB IH ×2 (10:46→23:18)
[2024-04-16 11:17] LABS: Glucometer 396 mg/dL (74-106)
[2024-04-16] MEDS: METFORMIN HCL 500 MG TAB.ER.24H PO (12:12)
--- NOTE | 2024-04-16 13:18 | CM.NOTE ---
Rounds made with Dr. Barnes, pt continues to require 3L NC oxygen. No discharge today. Pt was able to take shower today unassisted and felt her breathing was less labored. Continue breathing tx, antibiotics, and steroids.
[2024-04-16] MEDS: CEFTRIAXONE 1,000 MG in 0.9 % SODIUM CHLORIDE 50 ML 100 MG IV (13:34)
[2024-04-16 16:51] LABS: Glucometer 243 mg/dL (74-106)
[2024-04-16] MEDS: ENOXAPARIN SODIUM 40 MG/0.4 ML SYRINGE SUBQ (16:52)
[2024-04-16] MEDS: MIRTAZAPINE 15 MG TABLET 45 MG PO (21:10)
[2024-04-16 21:14] LABS: Glucometer 304 mg/dL (74-106)
[2024-04-17] VITALS (12 sets, daily range): BP systolic 123–158; BP diastolic 62–81; PULSE 71–94; TEMP 36.3–36.9; O2SAT 84–95
[2024-04-17] MEDS: IPRATROPIUM/ALBUTEROL SULFATE 3 ML AMPUL.NEB IH ×6 (03:53→23:04)
[2024-04-17] MEDS: BENZONATATE 100 MG CAPSULE PO ×2 (04:50→08:37)
[2024-04-17] MEDS: METHYLPREDNISOLONE SOD SUCC PF 125 MG/2 ML VIAL 60 MG IVP ×4 (04:50→22:21)
[2024-04-17 06:05] LABS: Basophils Percent Auto 0.1 % (0.2-2.0); Hematocrit 39.5 % (36.0-48.0); Hemoglobin 12.7 g/dL (12.0-16.0); Immature Granulocytes Abs Auto 0.13 10^3/uL (0.00-0.03); Immature Granulocytes Pct Auto 1.7 % (0.0-0.5); Lymphocytes Absolute Auto 0.5 10^3/uL (1.2-3.8); Lymphocytes Percent Auto 6.3 % (20.5-60.0); Mean Corpuscular HGB Conc 32.2 g/dL (29.9-35.2); Mean Corpuscular Hemoglobin 30.3 pg (26.7-34.0); Mean Corpuscular Volume 94.3 fL (81.0-99.0); Monocytes Absolute Auto 0.3 10^3/uL (0.3-0.8); Monocytes Percent Auto 3.3 % (1.7-12.0); Neutrophils Absolute Auto 6.6 10^3/uL (1.4-6.5); Neutrophils Percent Auto 88.6 % (43.0-75.0); Platelet Count 207 10^3/uL (150-450); Red Blood Count 4.19 10^6/uL (4.20-5.40); Red Cell Distribution Width 13.2 % (11.0-15.0); White Blood Count 7.5 10^3/uL (4.0-11.0)
[2024-04-17 06:10] LABS: Anion Gap 10.1; BUN Creatinine Ratio 28.2; Calcium 9.7 mg/dL (8.5-10.1); Carbon Dioxide 33.4 mmol/L (21.0-32.0); Chloride 100 mmol/L (98-107); Estimated GFR (African America >60 (>=60 mL/min/1.73m^2); Estimated GFR (Non-African Ame >60 (>=60 mL/min/1.73m^2); Glucose 279 mg/dL (74-106); Potassium 4.5 mmol/L (3.5-5.1); Sodium 139 mmol/L (136-145)
--- NOTE | 2024-04-17 08:25 | PM.PN ---
Progress Note: Subjective Subjective Interval history: Patient says her shortness of breath is about the same as yesterday. She denies fevers or chills. No n/v/d. Still requiring 3L NC oxygen. Cough with little production. Exam Narrative Exam Narrative: General: Patient is alert, and oriented to person, place and time with normal affect, proper hygiene, conversational dyspnea Skin: no visible rashes, or ulcers Head: atraumatic, acephalic Eyes: PERRLA, no nystagmus present, conjunctiva clear, no scleral icterus Ears: normal gross auditory acuity Neck: no masses palpated, normal thyroid, no JVD or audible carotid bruits Heart: Normal rate and rhythm, no murmurs/rubs/gallops Lungs: less audible wheezes, no crackles Abdomen: Normal audible bowel sounds, no distension, No palpable masses, no organomegaly, no rebound/guarding/ or rigidity Musculoskeletal: no swelling bilateral lower extremities Neuro: CN II-X grossly intact Constitutional Vital Signs, click to edit/add: Last Vital Signs Temp 97.8 F 04/17/24 07:55 Pulse 90 04/17/24 07:55 Resp 20 04/17/24 07:55 BP 147/77 H 04/17/24 07:55 Pulse Ox 92 L 04/17/24 07:55 O2 Del Method Nasal Cannula 04/17/24 07:55 O2 Flow Rate 3 04/17/24 07:55 Progress Note: Objective Labs Labs: Short CBC 04/17/24 Range/Units 05:26 WBC 7.5 (4.0-11.0) 10^3/uL Hgb 12.7 (12.0-16.0) g/dL Hct 39.5 (36.0-48.0) % Plt Count 207 (150-450) 10^3/uL BMP 04/17/24 05:26 Sodium 139 Potassium 4.5 Chloride 100 Carbon Dioxide 33.4 H BUN 20.0 H Creatinine 0.71 Glucose 279 H Calcium 9.7 Progress Note: A&P Assessment and Plan (1) Pneumonia: Assessment and Plan: continue rocephin and levaquin, Solumedrol 60mg IV. Continue opep, duonebs, pulmicort. Pulmonary consult today and appreciate the input. I Discussed with patient she will need oxygen at discharge. Walk test 88% off oxygen and took 3L to recover >90 %. We will get home oxygen set up. Also will get her a nebulizer machine for pulmicort and duoneb treatments. Discussed close outpatient follow up with [facility] for PFT's and possible pulmonary rehab as outpatient. Qualifiers: Laterality: bilateral Lung location: unspecified part of lung Pneumonia type: due to unspecified organism Qualified Code(s): J18.9 - Pneumonia, unspecified organism (2) Acute hypoxic respiratory failure: Assessment and Plan: secondary to #1, still requiring 3L NC to maintain sats >90% (3) Diabetes: Assessment and Plan: Continue SSI as needed. Monitor closely while on steroids Qualifiers: Diabetes mellitus complication status: with hyperglycemia Diabetes mellitus ocean transportation intermediary insulin use: without ocean transportation intermediary use Diabetes mellitus type: type 2 Qualified Code(s): E11.65 - Type 2 diabetes mellitus with hyperglycemia (4) Hypertension: Assessment and Plan: continue metoprolol, lisinopril Qualifiers: Hypertension type: primary hypertension Qualified Code(s): I10 - Essential (primary) hypertension (5) Obesity, class 2: Assessment and Plan: would benefit from weight loss reduction Plan Patient is a full code Continue Lovenox for DVT prophylaxis Patient will require 1-2 more days of hospital necessary care to treat her Pneumonia; hopeful discharge tomorrow
[2024-04-17] MEDS: INSULIN ASPART 300 UNIT/3 ML PEN SUBQ ×4 (08:36→22:21)
[2024-04-17] MEDS: METOPROLOL SUCCINATE 25 MG TAB.ER.24H PO (08:37)
[2024-04-17] MEDS: POTASSIUM CHLORIDE 10 MEQ ER TABLET 20 MEQ PO (08:37)
[2024-04-17] MEDS: PIOGLITAZONE 15 MG TABLET 30 MG PO (08:37)
[2024-04-17] MEDS: MELOXICAM 7.5 MG TABLET 15 MG PO (08:37)
[2024-04-17] MEDS: METFORMIN HCL 500 MG TAB.ER.24H PO (08:37)
[2024-04-17] MEDS: CITALOPRAM HYDROBROMIDE 20 MG TABLET 40 MG PO (08:37)
[2024-04-17] MEDS: LISINOPRIL 10 MG TABLET PO (08:37)
[2024-04-17] MEDS: BUDESONIDE 0.5 MG/2 ML AMPULE NEB IH ×2 (11:20→23:04)
[2024-04-17] MEDS: 0.9 % SODIUM CHLORIDE 250 ML 20 ML IV (11:21)
[2024-04-17] MEDS: LEVOFLOXACIN IN DEXTROSE 5 % 750 MG/150 ML PREMIX 100 MG IV (11:22)
[2024-04-17 11:33] LABS: Glucometer 321 mg/dL (74-106)
--- NOTE | 2024-04-17 12:23 | CM.NOTE ---
Rounds made with , discussed with pt about discharging on oxygen and ordering home nebulizer. Dr. Barnes will consult Dr. Davidson for further recommendations and possible discharge to home tomorrow.
--- NOTE | 2024-04-17 12:35 | P.PLCN_ITS ---
History of Present Illness History of Present Illness Consult date: 04/17/24 Requesting physician: Tamara Barnes Reason for consult: hypoxemia and pneumonia Chief complaint: Shortness of Breath HYPOXEMIA PNEUMONIA Narrative: 63yo female presented to the hospital with dyspnea, found to have multifocal pneumonia, and developed acute hypoxic respiratory failure. I reviewed imaging from this visit - her chest CT notes a rather significant RAINA consolidation, with scattered areas in the other lobes. She has been slowly improving, but remains on supplemental O2 @ 3L/min. She has no known history of asthma or COPD, life-long non-smoker. However, over the past year, she has noticed more dyspnea with activities such as walking to and from her car, going up steps, carrying heavy objects. She was prescribed an albuterol inhaler by her PCP; she states this has helped relieve some of her dyspnea. 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 No pets. Review of Systems ROS Status of ROS 10 or more systems reviewed and unremark able except as noted in history and below Respiratory Reports: shortness of breath, cough, wheezing and chest congestion [facility] Medical History (Updated 04/14/24 @ 11:18 by Trevor Forrest MD) Hypoxemia ?R09.02 - Hypoxemia (ICD-10) Surgical History (Updated 04/13/24 @ 14:32 by Gina Reilly) H/O hernia repair ?Z98.890 - Other specified postprocedural states (ICD-10) ?Z87.19 - Personal history of other diseases of the digestive system (ICD-10) Family History (Updated 04/13/24 @ 16:06 by Yocasta Vargas) Sister Family history of diabetes mellitus Family history of hypertension Father Family history of diabetes mellitus Family history of cancer Mother Family history of diabetes mellitus Family history of hypertension Social History (Updated 04/13/24 @ 16:07 by Yocasta Vargas) Within the past year, how often did you have a drink containing alcohol: never Within the past year, how often did you have six or more drinks on one occasion: never Score interpretation: A score less than 3 is consistent with normal alcohol consumption. 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 Known occupational exposures/hazards: No Highest level of school completed/degree received: high school graduate Do you want help with school or training: No Are you now , , , , never or living with a partner: In a typical week, how many times do you talk on the telephone with family, friends, or neighbors: 3 or more times per week How often do you get together with friends or relatives: 3 or more times per week How often do you attend druze or temple services: 4 or more times per year Do you belong to any clubs or organizations such as druze groups unions, [employer] or athletic groups, or school groups: no Total score: 3 Score interpretation: A score of greater than or equal to 2 indicates the lowest level of social isolation. Little interest or pleasure in doing things: not at all Feeling down, depressed, or hopeless: not at all Feel stressed/tense/nervous/anxious/difficulty sleeping: not at all Due to disability, difficulty making decisions: No Do you think of yourself as: straight/heterosexual Gender Identity: female Meds Home Medications and Allergies Home Medications ?Medication ?Instructions ?Recorded ?Confirmed ?Type azithromycin 250 mg tablet 250 mg PO Q12H 04/13/24 04/13/24 History benzonatate 100 mg capsule 100 mg PO Q6H 04/13/24 04/13/24 History citalopram 40 mg tablet 40 mg PO DAILY 04/13/24 04/13/24 History lisinopril 10 mg tablet 10 mg PO DAILY 04/13/24 04/13/24 History meloxicam 15 mg tablet 15 mg PO DAILY 04/13/24 04/13/24 History metformin 500 mg tablet,extended 500 mg PO DAILY 04/13/24 04/13/24 History release 24 hr metoprolol succinate 25 mg 25 mg PO DAILY 04/13/24 04/13/24 History tablet,extended release 24 hr mirtazapine 45 mg tablet 45 mg PO DAILY 04/13/24 04/13/24 History pioglitazone 30 mg tablet 30 mg PO DAILY 04/13/24 04/13/24 History potassium chloride 20 mEq 20 meq PO DAILY 04/13/24 04/13/24 History tablet,extended release Allergies Allergy/AdvReac Type Severity Reaction Status Date / Time No Known Drug Allergies Allergy Verified 04/13/24 10:34 Exam Constitutional Vital Signs, click to edit/add: Last Vital Signs Temp 97.8 F 04/17/24 07:55 Pulse 71 04/17/24 11:21 Resp 20 04/17/24 07:55 BP 147/77 H 04/17/24 07:55 Pulse Ox 95 04/17/24 11:21 O2 Del Method Nasal Cannula 04/17/24 11:21 O2 Flow Rate 3 04/17/24 07:55 Other: Does not appear to be in any distress. Sitting up in her chair. HENMT Other: Wearing nasal cannula. Mallampati III No oral candidiasis Chest Common normals: inspection of chest normal Respiratory Other: Expiratory wheezes. Squeaks and crackles, most prominent in left upper posterior chest Cardio Other: RRR V/ systolic murmur GI Other: Increased central adiposity Extremity Other: No cyanosis Neuro Other: No fasciculations or tremors Psych Other: Normal affect Results Laboratory Findings ABG, PT/INR, D-dimer: PT/INR, D-dimer PT 10.9 sec (9.0-11.6) 04/13/24 10:35 INR 1.03 04/13/24 10:35 D-Dimer 0.86 mg/L FEU (<=0.59) H* 04/13/24 10:35 Abnormal lab findings: Abnormal Labs 04/13/24 04/13/24 04/13/24 10:35 15:39 19:19 RBC Neut % (Auto) 87.7 H Lymph % (Auto) 7.2 L Eos % (Auto) 0.0 L Baso % (Auto) Neut # (Auto) Lymph # (Auto) 0.5 L [place] # (Auto) 0.2 L Abs Immat Gran (auto) 0.08 H Seg Neuts % (Manual) Lymphocytes % (Manual) Monocytes % (Manual) Eosinophils % (Manual) Basophils % (Manual) Imm/Tot Granulo (auto) 1.2 H Neutrophils # (Manual) Lymphocytes # (Manual) Monocytes # (Manual) D-Dimer 0.86 H* Carbon Dioxide BUN Glucose 244 H Calcium Magnesium 1.7 L POC Glucose 256 H 272 H 04/14/24 04/14/24 04/14/24 05:58 11:32 15:42 RBC Neut % (Auto) Lymph % (Auto) Eos % (Auto) Baso % (Auto) Neut # (Auto) Lymph # (Auto) [place] # (Auto) Abs Immat Gran (auto) Seg Neuts % (Manual) 90.0 H Lymphocytes % (Manual) 7.0 L Monocytes % (Manual) Eosinophils % (Manual) 0.0 L Basophils % (Manual) 0.0 L Imm/Tot Granulo (auto) Neutrophils # (Manual) Lymphocytes # (Manual) 0.48 L Monocytes # (Manual) 0.13 L D-Dimer Carbon Dioxide 35.0 H BUN Glucose 251 H Calcium 10.2 H Magnesium POC Glucose 377 H 377 H 04/14/24 04/15/24 04/15/24 20:22 04:51 11:10 RBC Neut % (Auto) 89.5 H Lymph % (Auto) 7.1 L Eos % (Auto) 0.0 L Baso % (Auto) 0.1 L Neut # (Auto) 6.9 H Lymph # (Auto) 0.6 L [place] # (Auto) 0.2 L Abs Immat Gran (auto) 0.06 H Seg Neuts % (Manual) Lymphocytes % (Manual) Monocytes % (Manual) Eosinophils % (Manual) Basophils % (Manual) Imm/Tot Granulo (auto) 0.8 H Neutrophils # (Manual) Lymphocytes # (Manual) Monocytes # (Manual) D-Dimer Carbon Dioxide BUN 22.0 H Glucose 251 H Calcium 10.2 H Magnesium POC Glucose 268 H 361 H 04/15/24 04/15/24 04/16/24 16:08 21:08 05:13 RBC Neut % (Auto) Lymph % (Auto) Eos % (Auto) Baso % (Auto) Neut # (Auto) Lymph # (Auto) [place] # (Auto) Abs Immat Gran (auto) Seg Neuts % (Manual) 95.0 H Lymphocytes % (Manual) 3.0 L Monocytes % (Manual) 0.0 L Eosinophils % (Manual) 0.0 L Basophils % (Manual) 0.0 L Imm/Tot Granulo (auto) Neutrophils # (Manual) 7.31 H Lymphocytes # (Manual) 0.23 L Monocytes # (Manual) 0.00 L D-Dimer Carbon Dioxide BUN 24.0 H Glucose 302 H Calcium Magnesium POC Glucose 236 H 346 H 04/16/24 04/16/24 04/16/24 11:06 16:49 21:12 RBC Neut % (Auto) Lymph % (Auto) Eos % (Auto) Baso % (Auto) Neut # (Auto) Lymph # (Auto) [place] # (Auto) Abs Immat Gran (auto) Seg Neuts % (Manual) Lymphocytes % (Manual) Monocytes % (Manual) Eosinophils % (Manual) Basophils % (Manual) Imm/Tot Granulo (auto) Neutrophils # (Manual) Lymphocytes # (Manual) Monocytes # (Manual) D-Dimer Carbon Dioxide BUN Glucose Calcium Magnesium POC Glucose 396 H 243 H 304 H 04/17/24 04/17/24 05:26 11:29 RBC 4.19 L Neut % (Auto) 88.6 H Lymph % (Auto) 6.3 L Eos % (Auto) 0.0 L Baso % (Auto) 0.1 L Neut # (Auto) 6.6 H Lymph # (Auto) 0.5 L [place] # (Auto) Abs Immat Gran (auto) 0.13 H Seg Neuts % (Manual) Lymphocytes % (Manual) Monocytes % (Manual) Eosinophils % (Manual) Basophils % (Manual) Imm/Tot Granulo (auto) 1.7 H Neutrophils # (Manual) Lymphocytes # (Manual) Monocytes # (Manual) D-Dimer Carbon Dioxide 33.4 H BUN 20.0 H Glucose 279 H Calcium Magnesium POC Glucose 321 H Assessment and Plan Assessment and Plan (1) Pneumonia: Assessment and Plan: 1. Pneumonia, bilateral. No identified agent. RAINA consolidation most prominent. Appears to be slowly improving. Would continue with current antibiotics. Discussed pulmonary toilet - she is using PEP, but not expectorating much. She did not complain of worsening chest congestion. May consider adding Mucinex (guaifenesin) and/or saline nebs to facilitate expectoration. 2. Acute hypoxic respiratory failure. Secondary to #1. Discussed with patient she may require discharge home on supplemental O2 short-term. She voiced agreement. 3. Unspecified asthma with acute exacerbation. Patient complained of dyspnea outpatient. History suspicious for possible asthma. Albuterol helped. Will need outpatient F/U such as PFT - would wait at least 1 month until after patient recovers. May consider discharge home on ICS/LABA (e.g. Symbicort) until seen outpatient. 4. Obesity. BMI 38. Weight loss advised. Qualifiers: Laterality: bilateral Lung location: unspecified part of lung Pneumonia type: due to unspecified organism Qualified Code(s): J18.9 - Pneumonia, unspecified organism
[2024-04-17] MEDS: CEFTRIAXONE 1,000 MG in 0.9 % SODIUM CHLORIDE 50 ML 100 MG IV (13:10)
--- NOTE | 2024-04-17 14:30 | CM.NOTE ---
Case Management spoke with pt regarding HH services (nurse) and oxygen supply company. Options provided along with 5 star Medicare rating for HH. Pt does not have a preference of company. Case Management also spoke with pt in regards to f/u with Dr. Davidson and informational packet for pulmonary rehab. SW will send referrals.
--- NOTE | 2024-04-17 14:38 | SWNOTE1 ---
SW spoke to case management and pt will need home oxygen and home nebulizer and plan is for discharge tomorrow. Pt had voiced she has no preference on DME company. She is also interested in home health, just a nurse to assist with transition to home. Pt again has no preference at this time. Script, walk test, face sheet, and documentation sent to [facility] for home oxygen. [facility] sent referral to [facility] for nursing. Referral included face sheet and physician notes.
[2024-04-17] MEDS: GUAIFENESIN 600 MG TAB.ER.12H PO (14:58)
--- NOTE | 2024-04-17 15:48 | CM.NOTE ---
Message left for pulmonary rehab to speak with pt. Pt will f/u with Dr. Davidson.
[2024-04-17] MEDS: ENOXAPARIN SODIUM 40 MG/0.4 ML SYRINGE SUBQ (16:04)
--- NOTE | 2024-04-17 16:07 | SWNOTE1 ---
SW called [facility] and they have received the referral for home oxygen and will review.
[2024-04-17 16:08] LABS: Glucometer 273 mg/dL (74-106)
--- NOTE | 2024-04-17 16:15 | SWNOTE1 ---
MAXI called [facility] and they received referral and will review.
--- NOTE | 2024-04-17 16:24 | SWNOTE1 ---
[facility] is able to accept.
[2024-04-17 21:13] LABS: Glucometer 356 mg/dL (74-106)
[2024-04-17] MEDS: MIRTAZAPINE 15 MG TABLET 45 MG PO (22:21)
[2024-04-18 03:53] VITALS: BP 144/73; PULSE 70; TEMP 36.4; O2SAT 92
[2024-04-18 03:56] VITALS: PULSE 87; O2SAT 95
[2024-04-18] MEDS: IPRATROPIUM/ALBUTEROL SULFATE 3 ML AMPUL.NEB IH ×3 (03:56→11:20)
[2024-04-18] MEDS: METHYLPREDNISOLONE SOD SUCC PF 125 MG/2 ML VIAL 60 MG IVP ×2 (05:07→12:01)
[2024-04-18] MEDS: GUAIFENESIN 600 MG TAB.ER.12H PO (05:07)
[2024-04-18 06:09] LABS: Basophils Percent Auto 0.1 % (0.2-2.0); Eosinophils Percent Auto 0.3 % (0.9-7.0); Hematocrit 39.7 % (36.0-48.0); Hemoglobin 12.9 g/dL (12.0-16.0); Immature Granulocytes Abs Auto 0.17 10^3/uL (0.00-0.03); Immature Granulocytes Pct Auto 2.2 % (0.0-0.5); Lymphocytes Absolute Auto 0.4 10^3/uL (1.2-3.8); Lymphocytes Percent Auto 4.8 % (20.5-60.0); Mean Corpuscular HGB Conc 32.5 g/dL (29.9-35.2); Mean Corpuscular Hemoglobin 30.4 pg (26.7-34.0); Mean Corpuscular Volume 93.4 fL (81.0-99.0); Mean Platelet Volume 9.9 fL (9.5-13.5); Monocytes Absolute Auto 0.4 10^3/uL (0.3-0.8); Monocytes Percent Auto 4.4 % (1.7-12.0); Neutrophils Percent Auto 88.2 % (43.0-75.0); Platelet Count 199 10^3/uL (150-450); Red Blood Count 4.25 10^6/uL (4.20-5.40); Red Cell Distribution Width 13.1 % (11.0-15.0); White Blood Count 7.9 10^3/uL (4.0-11.0)
[2024-04-18 06:20] LABS: Anion Gap 8.9; BUN Creatinine Ratio 30.9; Calcium 9.8 mg/dL (8.5-10.1); Carbon Dioxide 33.8 mmol/L (21.0-32.0); Chloride 100 mmol/L (98-107); Estimated GFR (African America >60 (>=60 mL/min/1.73m^2); Estimated GFR (Non-African Ame >60 (>=60 mL/min/1.73m^2); Glucose 295 mg/dL (74-106); Potassium 4.7 mmol/L (3.5-5.1); Sodium 138 mmol/L (136-145)
[2024-04-18 07:53] VITALS: PULSE 76; O2SAT 92
[2024-04-18 08:00] VITALS: BP 144/66; PULSE 79; TEMP 36.7; O2SAT 91
--- NOTE | 2024-04-18 08:47 | PM.DS1 ---
DS: Providers Provider Date of admission: 04/13/24 15:11 Primary care physician: Trevor Forrest MD Attending physician on admission: Trevor Forrest Consults: 04/17/24 Consult to Pulmonology Routine Consulting Provider: Jesus Alberto Davidson Reason for consultation: pneumonia Has provider been notified: Yes Discharging clinician: Tamara Barnes DS: Diagnosis Discharge Diagnosis (1) Pneumonia: Qualifiers: Laterality: bilateral Lung location: unspecified part of lung Pneumonia type: due to unspecified organism Qualified Code(s): J18.9 - Pneumonia, unspecified organism (2) Acute hypoxic respiratory failure: (3) Diabetes: Qualifiers: Diabetes mellitus complication status: with hyperglycemia Diabetes mellitus ocean transportation intermediary insulin use: without penitentiary use Diabetes mellitus type: type 2 Qualified Code(s): E11.65 - Type 2 diabetes mellitus with hyperglycemia (4) Hypertension: Qualifiers: Hypertension type: primary hypertension Qualified Code(s): I10 - Essential (primary) hypertension (5) Obesity, class 2: DS: Summary Hospital Course Hospital Course: 63 y/o female to ER on 04/14/24 with cough and SOB for several days. Frequent cough and sputum. SOB with mild exertion. To urgent care 04/09 and given zithromax and prednisone. Symptoms continued to worsen. Increased SOB and fatigue with minimal exertion. [place] like not able to catch breath. Returned to urgent care but SpO2 in mid 80s on room air and directed to ER. SpO2 68% on room air on arrival and patient with increased work of breathing. Placed on oxygen and improved. Chest x-ray showed pneumonia. CTA negative for PE but again showed infiltrates. RSV, Influenza, and covid negative. Admitted for treatment. Started levaquin and rocephin for pneumonia. Decreased BS and wheezing and started solu-medrol and duoneb, opep, mucinex and pulmicort. Patient's oxygen sats improved but still required 3L NC as walk test dropped below 88% on room air. She will be set up with 3L NC at home. Pulmonary was consulted. He agreed with plan and to see patient at discharge. She will be discharged home today with oxygen 3L NC continuous, Levaquin x 5 days. Prednisone x 7 days, mucinex, symbicort and a nebulizer machine for duoneb treatments that should be done every 6 hours for the next 2-3 days. She is to remain on oxygen until evaluated by PCP and/or Pulmonary. She has close outpatient follow up. She will resume all home meds except mobic that she will hold while taking prednisone. We discussed pulmonary rehab and PFT's when she improves and Dr. Davidson can assist with this. She may return to the hospital with any worsening signs or symptoms. She has also been set up with [facility]. Labs are stable at the time of discharge. Status at Discharge Functional status at discharge: independent ambulation Overall status at discharge: patient is progressing back to baseline Time Spent with Patient Time attestation: Total time spent providing and/or coordinating discharge services: Time spent: greater than 30 minutes Exam Narrative Exam Narrative: General: Patient is alert, and oriented to person, place and time with normal affect, proper hygiene, conversational dyspnea Skin: no visible rashes, or ulcers Head: atraumatic, acephalic Eyes: PERRLA, no nystagmus present, conjunctiva clear, no scleral icterus Ears: normal gross auditory acuity Neck: no masses palpated, normal thyroid, no JVD or audible carotid bruits Heart: Normal rate and rhythm, no murmurs/rubs/gallops Lungs: less audible wheezes, no crackles Abdomen: Normal audible bowel sounds, no distension, No palpable masses, no organomegaly, no rebound/guarding/ or rigidity Musculoskeletal: no swelling bilateral lower extremities Neuro: CN II-X grossly intact Constitutional Vital Signs, click to edit/add: Last Vital Signs Temp 98.1 F 04/18/24 08:00 Pulse 79 04/18/24 08:00 Resp 20 04/18/24 08:00 BP 144/66 H 04/18/24 08:00 Pulse Ox 91 L 04/18/24 08:00 O2 Del Method Room Air 04/18/24 08:00 O2 Flow Rate 3 04/18/24 08:00 DS: Data Data Completed and Pending Labs on day of discharge: Labs from last 24 hours 04/18/24 04/17/24 04/17/24 05:52 21:05 16:06 WBC 7.9 RBC 4.25 Hgb 12.9 Hct 39.7 MCV 93.4 MCH 30.4 MCHC 32.5 RDW 13.1 Plt Count 199 MPV 9.9 Neut % (Auto) 88.2 H Lymph % (Auto) 4.8 L Sharp % (Auto) 4.4 Eos % (Auto) 0.3 L Baso % (Auto) 0.1 L Neut # (Auto) 7.0 H Lymph # (Auto) 0.4 L Sharp # (Auto) 0.4 Eos # (Auto) 0.0 Baso # (Auto) 0.0 Abs Immat Gran (auto) 0.17 H Imm/Tot Granulo (auto) 2.2 H Sodium 138 Potassium 4.7 Chloride 100 Carbon Dioxide 33.8 H Anion Gap 8.9 BUN 21.0 H Creatinine 0.68 Est GFR ( Amer) >60 Est GFR (Non-Af Amer) >60 BUN/Creatinine Ratio 30.9 Glucose 295 H Calcium 9.8 POC Glucose 356 H 273 H 04/17/24 11:29 WBC RBC Hgb Hct MCV MCH MCHC RDW Plt Count MPV Neut % (Auto) Lymph % (Auto) Sharp % (Auto) Eos % (Auto) Baso % (Auto) Neut # (Auto) Lymph # (Auto) Sharp # (Auto) Eos # (Auto) Baso # (Auto) Abs Immat Gran (auto) Imm/Tot Granulo (auto) Sodium Potassium Chloride Carbon Dioxide Anion Gap BUN Creatinine Est GFR ( Amer) Est GFR (Non-Af Amer) BUN/Creatinine Ratio Glucose Calcium POC Glucose 321 H Preliminary micro results at discharge 04/13/24 10:59 Blood Culture Result 2 - Preliminary Blood NO GROWTH AT 36-48 HOURS. FINAL TO FOLLOW. 04/13/24 10:35 Blood Culture Result 1 - Preliminary Blood NO GROWTH AT 36-48 HOURS. FINAL TO FOLLOW. Discharge Plan Discharge Disposition: Home, Self-Care Discharge Medications: New ipratropium-albuterol 0.5 mg-3 mg(2.5 mg base)/3 mL Solution For Nebulization 3 ml inhalation Q4H PRN (Reason: shortness of breath or wheezing) 30 Days Qty: 1 0RF Rx Instructions: Dispense 1 box guaifenesin [Mucus Relief ER] 600 mg Tablet Extended Release 12hr 600 mg PO Q12H 7 Days Qty: 14 0RF budesonide-formoterol [Symbicort] 80-4.5 mcg/actuation HFA aerosol inhaler 1 inh inhalation BID 30 Days Qty: 10.2 0RF prednisone 20 mg tablet 20 mg PO BID 7 Days Qty: 14 0RF levofloxacin 750 mg tablet 750 mg PO DAILY 5 Days Qty: 5 0RF Continued citalopram 40 mg tablet 40 mg PO DAILY lisinopril 10 mg tablet 10 mg PO DAILY metformin 500 mg tablet extended release 24 hr 500 mg PO DAILY metoprolol succinate 25 mg tablet extended release 24 hr 25 mg PO DAILY pioglitazone 30 mg tablet 30 mg PO DAILY potassium chloride 20 mEq tablet extended release 20 meq PO DAILY mirtazapine 45 mg tablet 45 mg PO DAILY Held meloxicam 15 mg tablet 15 mg PO DAILY Hold Instructions: Resume on 04/25/24. Discontinued azithromycin 250 mg tablet 250 mg PO Q12H benzonatate 100 mg capsule 100 mg PO Q6H Activity: increase activity as tolerated and wear oxygen at all times Activity Detail: 3L NC continuous Diet: advance to your usual diet Print Language: [employer] [employer]cre[employer] Sales Director Instructions: Discharge home with [facility]. Phone number is [phone]. [facility] home oxygen at 3 liters continuous. Please contact [facility] when you are home and they will deliver the rest of supplies. Phone number is [phone]. Forms: Portal Instructions Follow Up Appointments: , MondayApril 25 11:30am, . , MondayMay 14 2:30pm, , Please bring insurance card and copay.
[2024-04-18] MEDS: METOPROLOL SUCCINATE 25 MG TAB.ER.24H PO (08:56)
[2024-04-18] MEDS: CITALOPRAM HYDROBROMIDE 20 MG TABLET 40 MG PO (08:56)
[2024-04-18] MEDS: METFORMIN HCL 500 MG TAB.ER.24H PO (08:56)
[2024-04-18] MEDS: MELOXICAM 7.5 MG TABLET 15 MG PO (08:56)
[2024-04-18] MEDS: PIOGLITAZONE 15 MG TABLET 30 MG PO (08:57)
[2024-04-18] MEDS: POTASSIUM CHLORIDE 10 MEQ ER TABLET 20 MEQ PO (08:57)
[2024-04-18] MEDS: LISINOPRIL 10 MG TABLET PO (08:57)
[2024-04-18] MEDS: INSULIN ASPART 300 UNIT/3 ML PEN SUBQ ×2 (08:57→12:00)
--- NOTE | 2024-04-18 09:10 | SWNOTE1 ---
[facility] called [facility] and pt is all set with home oxygen and nebulizer. [facility]I to advise pt to call [facility] on way home and take tank to pt's room. [facility] accepted [facility] as well.
[2024-04-18] MEDS: BUDESONIDE 0.5 MG/2 ML AMPULE NEB IH (11:20)
--- NOTE | 2024-04-18 11:20 | CM.NOTE ---
Rounds made with Dr. Barnes. Plan for discharge to home today with Home Health. Follow up with [facility] and Family physician. Understanding verbalized.
--- NOTE | 2024-04-18 11:22 | SWNOTE1 ---
[facility] took [facility] valdez to pt's room and let pt know to call [facility] once home, phone number is attached to the tank. SW also let her know that [facility] will be contacting as well. Pt voiced understanding. dc med rec, CRF, and dc summary sent to [facility].
[2024-04-18 11:25] VITALS: PULSE 80; O2SAT 93
[2024-04-18 12:02] LABS: Glucometer 365 mg/dL (74-106)
--- NOTE | 2024-04-22 11:46 | CM.DCFOLLOWU ---
Person spoke with:patient How are you feeling? pretty good How is your pain?none Did you understand your discharge instructions?yes Do you have any questions about your discharge instructions? no Were you given any prescriptions at discharge?yes Were you able to get your prescriptions filled?yes Do you understand how to take your medications as ordered?yes Do you have any questions about your follow up appointment and do you plan to keep your follow up appointment? no questions, reviewed follow up and it is Apr 25 Is there anything else that you would like to discuss? no Questions/Comments/Concerns/Other: home oxygen was delivered and home health coming in tomorrow
== END 2024-04-18 13:15 | disposition home health service (06) | DRG 193 ==
LOC: ER 14:16 → MS 15:14
PROVIDERS: Admitting Provider Family Medicine; Emergency Provider Emergency Medicine; PCP Family Medicine; Visit Provider Family Medicine
DX: J18.9 Pneumonia, unspecified organism (principal); J96.01 Acute respiratory failure with hypoxia; J45.901 Unspecified asthma with (acute) exacerbation; Z68.38 Body mass index [BMI] 38.0-38.9, adult; E11.65 Type 2 diabetes mellitus with hyperglycemia; Z79.84 Long term (current) use of oral hypoglycemic drugs; I10 Essential (primary) hypertension; E66.812 Obesity, class 2; Z99.81 Dependence on supplemental oxygen
CPT/HCPCS: 36415; 71045; 71046; 71275; 80048; 80053; 82948; 83605; 83735; 83880; 84484; 85007; 85025; 85027; 85378; 85610; 87040; 87420; 87804; 87811; 93005; 94640; 94667; 94668; 94761; 96365; 96367; 96375; 99285; J0696; J1650; J2919; J3475; Q9967

== ENCOUNTER 2024-05-01 20:54 | Outpatient (OUT) | payer BC, SELFPAY ==
--- OUTSIDE RECORDS SUMMARY | 2024-05-01 20:57 | XMS_ITS | CCD ---
Author Organization [facility] Care Team Providers Care Operations Lieutenant Name Role Phone UNKNOWN, PROVIDER Unavailable Unavailable UNKNOWN, PROVIDER Unavailable Unavailable ALFA MEREDITH Unavailable Unavailable NADERER, TREVOR Unavailable Unavailable NADEREIan, TREVOR Primary Care Physician RODRIGO, DR TREVOR Valle Consulting Unavailable NADERER, DR TREVOR Valle Attending Unavailable NADERER, DR TREVOR Valle Admitting Unavailable NADERER, DR TREVOR Valle Primary Care Unavailable GARDNER ., DR BIRCH Consulting Unavailable GARDNER ., DR BIRCH Attending Unavailable GARDNER ., DR BIRCH Admitting Unavailable NADERER, DR TREVOR Valle Primary Care Unavailable AICHHOLZ, ABHAY ZHOU Admitting Unavailable AICHHOLZ, SQUIRT MACHINE OPERATOR ABELARDO Consulting Unavailable NADERER, DR TREVOR Valle Primary Care Unavailable AICHHOLZ, SQUIRT MACHINE OPERATOR ABELARDO Attending Unavailable NADERER, DR TREVOR Valle Attending Unavailable NADERER, DR TREVOR Valle Admitting Unavailable NADERER, DR TREVOR Valle Primary Care Unavailable NADERER, DR TREVOR Valle Consulting Unavailable NADERER, DR TREVOR Valle Attending Unavailable NADERER, DR TREVOR Valle Admitting Unavailable ZIEBER, DR FRANCINE Sosa Consulting Unavailable NADERER, DR TREVOR Valle Primary Care Unavailable NADERER, DR TREVOR Valle Consulting Unavailable Eyal GARDNER Attending Unavailable JILLIAN GILLESPIE Attending Unavailable NADERER, TREVOR Referring Unavailable Eyal GARDNER Attending Unavailable Eyal GARDNER Attending Unavailable Naderer Trevor FERRARI Primary Care Provider [phone] MELISA JO Attending Unavailable GAMAL GROVE Attending Unavailable NADERER, TREVOR Attending Unavailable DAUGHERTYTAMARA Rene Attending Unavailable NADERER, TREVOR Attending Unavailable KEVIN CRUZ Attending Unavailable DAUGHERTYTAMARA Rene Attending Unavailable NADERER, TREVOR Attending Unavailable TAMARA DAUGHERTY Attending Unavailable Allergies Allergy Classification Reported Allergen(s) Allergy Type Date of Onset Reaction(s) Facility (1 source) No Known Medication Allergies; Translations: [No Known Medication Allergies] Propensity to adverse reactions (disorder) [facility] Repository Medications Current Medications Medication Drug Class(es) Dates Sig (Normalized) Sig (Original) [id number] 200 actuat albuterol 0.09 mg/actuat metered dose inhaler (14 sources) beta2-Adrenergic Agonist Start: 01-15-2024 End: 01-14-2025 take 2 puff(s) by inhalation every four hours for wheezing albuterol HFA 90 mcg/act inhaler Indications: SOB (shortness of breath) Inhale 2 puffs every 4 (four) hours if needed for wheezing 18 g 2 01/15/2024 01/14/2025 Active albuterol 0.833 mg/ml / ipratropium bromide 0.167 mg/ml inhalation solution (5 sources) Anticholinergic, beta2-Adrenergic Agonist Start: 04-19-2024 ipratropium-albuter ol (Duo-Neb) 0.5-2.5 mg/3 mL nebulizer solution Indications: Acute hypoxic respiratory failure (CMS/HCC) , Pneumonia due to infectious organism, unspecified laterality, unspecified part of lung Take 3 mL by nebulization 4 (four) times a day as needed for wheezing or shortness of breath 180 mL 3 04/19/2024 Active Start: 04-19-2024 End: 04-19-2024 ipratropium-albuterol (Duo-N eb) 0.5-2.5 mg/3 mL nebulizer solution 04/19/2024 04/19/2024 Discontinued (Reorder) 60 actuat budesonide 0.08 mg/actuat / formoterol fumarate 0.0045 mg/actuat metered dose inhaler (4 sources) Corticosteroid, beta2-Adrenergic Agonist Start: 04-17-2024 take 1 puff(s) by inhalation in the morning budesonide-formoterol (Symbicort) 80-4.5 MCG/ACT inhaler Inhale 1 puff in the morning and 1 puff before bedtime. 04/17/2024 Active citalopram 40 mg oral tablet (20 sources) Serotonin Reuptake Inhibitor Start: 03-04-2024 End: [...] Refills(s) 0 Start Date: 12/20/21 Status: Ordered 12 hr guaiFENesin 600 mg extended release oral tablet (4 sources) Start: 04-17-2024 Mucus Relief 600 MG 12 hr tablet Take 600 mg by mouth every 12 (twelve) hours 04/17/2024 Active levoFLOXacin 750 mg oral tablet (4 sources) Quinolone Antimicrobial Start: 04-17-2024 End: 04-25-2024 take 1 tablet by mouth once daily levoFLOXacin (Levaquin) 750 MG tablet Take 1 tablet by mouth Daily 04/17/2024 04/25/2024 Discontinued lisinopril 10 mg oral tablet (20 sources) Angiotensin Converting Enzyme Inhibitor Start: 11-20-2023 [...] Status: Ordered meloxicam 15 mg oral tablet (17 sources) Nonsteroidal Anti-inflammatory Drug Start: 12-12-2023 End: 01-15-2024 take 1 tablet by mouth once daily meloxicam (Mobic) 15 MG tablet Indications: Primary osteoarthritis of both knees Take 1 tablet (15 mg) by mouth Daily 90 tablet 3 01/15/2024 Active 24 hr metFORMIN hydrochloride 500 mg extended release oral tablet (20 sources) Biguanide Start: 05-15-2023 take 1 tablet [...] succinate 25 mg extended release oral tablet (18 sources) beta-Adrenergic Beryl Start: 11-20-2023 take 1 [...] Daily, # 30 tab(s), Refills(s) 11, Pharmacy: [id number], 152, cm, 12/20/21 10:43:00 EDT, Height/Length Dosing, 86, kg, 12/20/21 10:43:00 EDT, Weight Dosing Start Date: 12/20/21 Status: Ordered Start: 12-20-2021 take 1 mg by mouth once daily Myrbetriq 25 mg oral tablet, extended release mg tab(s), Oral, Daily, Refills(s) 0 Start Date: 12/20/21 Status: Ordered mirtazapine 45 mg oral tablet (20 sources) Start: 11-20-2023 take 1 tablet by [...] 12/20/21 Status: Ordered Multiple Vitamin (multivitamin) tablet (18 sources) take 1 tablet by mouth in the morning Multiple Vitamin (multivitamin) tablet Take 1 tablet by mouth in the morning. Active Multivitamin preparation (3 sources) Start: 12-21-19 22 multivitamin Daily, Refill(s) 0 Start Date: 12/20/21 Status: Ordered nystatin 100 unt/mg topical powder (14 sources) Polyene Antifungal Start: 01-15-20 24 nystatin (Mycostatin) 431320 UNIT/GM powder Indications: Skin candidiasis Apply topically 2 (two) times a day 60 g 3 01/15/2024 Active omeprazole 20 mg delayed release oral capsule (20 sources) Proton Pump Inhibitor Start: 12-21-19 take [...] day(s), # 30 tab(s), Refills(s) 11, Pharmacy: [facility] #[id number], 152, cm, 04/04/22 11:08:00 EST, Height/Length Dosing, 89, kg, 04/04/22 11:08:00 EST, Weight Dosing Start Date: 04/04/22 Stop Date: 03/30/23 Status: Ordered pioglitazone 30 mg oral tablet (19 sources) Peroxisome Proliferator Receptor alpha Agonist, Peroxisome Proliferator Receptor gamma Agonist, Thiazolidinedione Start: 11-20-2023 take 1 tablet by mouth once daily pioglitazone (Actos) 30 MG tablet Indications: Type 2 diabetes mellitus with hyperglycemia, without long-term current use of insulin (CMS/[facility]) TAKE 1 TABLET BY MOUTH DAILY 100 tablet 2 11/20/2023 Active Start: 12-20-2021 take 1 mg by mouth once daily pioglitazone 30 mg Tab mg tab(s), Oral, Daily, Refills(s) 0 Start Date: 12/20/21 Status: Ordered microencapsulated potassium chloride 20 meq extended release oral tablet (20 sources) Start: 02-12-2024 End: 02-12-2024 take 1 [...] Do not crush or chew. . Active predniSONE 20 mg oral tablet (9 sources) Start: 04-17-2024 take 1 tablet by mouth in the morning predniSONE (Deltasone) 20 MG tablet Take 20 mg by mouth in the morning and 20 mg before bedtime. 04/17/2024 Active Start: 04-09-2024 End: 04-19-2024 take 3 tablets by mouth at mealtime predniSONE (Deltasone) 10 MG tablet Indications: Acute bronchitis, unspecified organism Take 3 tablets (30 mg) by mouth in the morning for 5 days. Take with meals. 15 tablet 04/09/2024 04/19/2024 Discontinued (Therapy completed) Completed/Discontinued Medications Medication Drug Class(es) Dates Sig (Normalized) Sig (Original) azithromycin 250 mg oral tablet (6 sources) Macrolide Antimicrobial Start: 04-09-2024 End: 04-19-2024 azithromycin (Zithromax) 250 MG tablet Indications: Bilateral acute otitis media Take 2 tabs (500 mg) by mouth today, than 1 tab (250 mg) daily for 4 days. 6 tablet 04/09/2024 04/19/2024 Discontinued (Therapy completed) benzonatate 100 mg oral capsule (6 sources) Non-narcotic Antitussive Start: 04-09-2024 End: 04-19-2024 take 1 capsule by mouth three times daily as needed for cough benzonatate (Tessalon Perles) 100 MG capsule Indications: Acute bronchitis, unspecified organism Take 1 capsule (100 mg) by mouth 3 (three) times a day as needed for cough for up to 7 days Do not crush or chew. 21 capsule 04/09/2024 04/19/2024 Discontinued (Therapy completed) ciprofloxacin 500 mg oral tablet (1 source) Quinolone Antimicrobial Start: 04-04-2022 Cipro 500 mg Tab 500 mg = 1 tab(s), Oral, As Directed, Patient to take 1 tab the day before procedure and the 2nd tab the day of procedure once completed, # 2 tab(s), Refills(s) 0, [id number], 152, cm, 04/04/22 11:08:00 EST, Height/Length Do... Start Date: 04/04/22 Status: Ordered Problems Active Problems Problem Classification Problem Date Documented Date Episodic/Chronic Abdominal hernia (1 source) Incisional hernia with obstruction, without gangrene; Translations: [INCISIONAL HERNIA WITH OBSTRUCTION, WITHOUT GANGRENE] Onset: 07-04-2017 Episodic Acute bronchitis (2 sources) Acute bronchitis; Translations: [Acute bronchitis, unspecified] 04-09-2024 Episodic Anxiety disorders (20 sources) Generalized anxiety disorder; Translations: [Generalized anxiety disorder] Onset: 07-14-2023 07-14-2023 Chronic Deficiency and other anemia (18 sources) Iron deficiency anemia due to blood [...] adult] Onset: 07-04-2017 12-20-2021 Chronic Esophageal disorders (20 sources) Gastroesophageal reflux disease; Translations: [Gastro-esophageal reflux disease without esophagitis] Onset: 07-14-2023 07-14-2023 Chronic Essential hypertension (20 sources) Essential (primary) hypertension; Translations: [Hypertensive disorder] Onset: 07-04-2017 12-20-2021 Chronic Fluid and electrolyte disorders (1 source) Hypokalemia; Translations: [Hypokalemia] 02-12-2024 Episodic Genitourinary symptoms and ill-defined conditions (7 sources) Mixed incontinence; Translations: [Incontinence] Onset: 12-20-2021 Chronic Genitourinary symptoms and ill-defined conditions (16 sources) Increased frequency of urination; Translations: [Frequency of micturition] Onset: 12-20-2021 Episodic Mood disorders (20 sources) Depressive disorder; Translations: [Recurrent major depressive episodes, mild ] Onset: 07-14-2023 12-20-2021 Chronic Mycoses (4 sources) Candidiasis of skin; Translations: [Candidiasis of skin and nail] 01-15-2024 Episodic Osteoarthritis (20 sources) Arthritis; Translations: [Primary gonarthrosis, bilateral] Onset: 07-14-2023 12-20-2021 Chronic Other aftercare (1 source) senior care (current) use of oral hypoglycemic drugs; Translations: [SHELTER USE ORAL HYPOGLYCEMIC DX] Onset: 06-16-2022 Episodic [...] Chronic Other diseases of bladder and urethra (19 sources) Overactive bladder; Translations: [Overactive bladder] Onset: 07-14-2023 08-24-2022 Chronic Other diseases of bladder and urethra (1 source) Other urethral stricture, female; Translations: [OTHER URETHRAL STRICTURE FEMALE] Onset: 06-16-2022 Episodic Other liver diseases (18 sources) Fatty (change of) liver, not elsewhere classified; Translations: [Other chronic nonalcoholic liver disease] Onset: 07-14-2023 07-14-2023 Chronic Other lower respiratory disease (2 sources) Dyspnea; Translations: [Shortness of breath] 01-15-2024 Episodic Other lower respiratory disease (2 sources) Wheezing; Translations: [Wheezing] 04-13-2024 Episodic Other non-traumatic joint disorders (1 source) Pain of joint of right foot; Translations: [Pain in right ankle and joints of right foot] 12-12-2023 Episodic Other nutritional; endocrine; and metabolic disorders (16 sources) Severe obesity; Translations: [Class 2 severe obesity due to excess calories with serious comorbidity and body mass index (BMI) of 37.0 to 37.9 in adult ([facility])] Onset: 01-15-2024 01-15-2024 Chronic Other screening for suspected conditions (not mental disorders or infectious disease) (6 sources) Encounter for screening mammogram for malignant neoplasm of breast; Translations: [Patient encounter status] Onset: 12-27-2021 Episodic Other upper respiratory disease (18 sources) Allergic rhinitis due to pollen; Translations: [Allergic rhinitis due to pollen] Onset: 07-14-2023 07-14-2023 Chronic Otitis media and related conditions (2 sources) Acute bilateral otitis media ; Translations: [Otitis media, unspecified, bilateral] 04-09-2024 Episodic Pneumonia (except that caused by tuberculosis or sexually transmitted disease) (7 sources) Pneumonia; Translations: [Pneumonia, unspecified organism] Onset: 04-25-2024 04-19-2024 Episodic Residual codes; unclassified (20 sources) Obstructive sleep apnea syndrome; Translations: [Obstructive sleep apnea (adult) (pediatric)] Onset: 07-14-2023 07-14-2023 Chronic Residual codes; unclassified (1 source) Acquired absence of other specified parts of digestive tract; Translations: [ACQ ABSENCE OTH PART DIGESTV TRACT] Onset: 06-16-2022 Episodic Residual codes; unclassified (1 source) Acquired absence of both cervix and uterus; Translations: [ACQUIRED ABSENCE BOTH CERVIX AND UTERUS] Onset: 06-16-2022 Episodic Respiratory failure; insufficiency; arrest (adult) (9 sources) Acute respiratory failure; Translations: [Acute respiratory failure with hypoxia] Onset: 04-25-2024 04-19-2024 Episodic Unclassified (2 sources) Unknown / UNK(Unknown) [...] Interpretation Reference Range Facility Patient Education 08-25-19 23 Patient Education Urology Botulinum Toxin Bladder Injection [...] including vitamins, herbs, eye drops, creams, and rbpi-vfv-ytpwzgs medicines. ? Any problems you or family [...] tells you to take them. ? Taking oqva-qnj-ojmzqei medicines, vitamins, herbs, and supplements. General instructions [...] these instructions at home: Medicines ? Take lort-fof-ajnwety and prescription medicines only as told by [...] health ca (more content not included)... Normal [facility] Urology Office/Clinic Noteon 08-24-2022 Urology Office/Clinic Note Chief Complaint Pt is here to discuss botox denial HPI Staff Eleni is a 61 y.o. female PRW pt [...] at length. Gave pt educational resources from [facility] and [facility] for bladder training. Pt will attempt [...] Contact Information VERNA HARO, JILLIAN Rene, URL [address] [address] Additional Instructions: 3 mos after bladder training to discuss botox Patient Education Botulinum Toxin Bladder Injection Documentation recorded by the scribe Tanya Crow accurately reflects the services(s) I performed [...] vaccine, inactivated 12/29/ (more content not included)... Normal [facility] Comment on above: Result Comment: Elec tronically Signed By: JILLIAN GILLESPIE PA-C\.br\Date and Time Signed: 08/24/22 14:58 EDT\.br\Electronically Co-Signed By: Tanya Crow\.br\Date and Time Co-Signed: 08/24/22 14:46 EDT Provider Letteron 07-07-2022 Provider Letter July 07, 2022 ELENI ROJO Addy [address] [address] Dear Eleni Rojo , We have been trying to reach you with no success. It is important that you return our call regarding your Botox treatment denial upon receiving this letter. Also, at the time of your call, please provide us with your current updated phone number. Thank you for your prompt attention to this matter. Sincerely, [facility] option #3 Normal [facility] Pre-Certification Formon Pre-Certification Form [id number]. 00CD:127 [facility] Operative Reporton 3 Operative Report [id number] 0CD:127 [facility] Operative Reporton 3 Operative Report [id number] 0CD:127 [facility] Covid-19 PCR (CVDTB)on SARS-CoV-2 (COVID-19) RNA DESEAN+probe Ql (Unsp spec) Detected Abnormal NOT DETECTED [facility] Comment on above: Result Comment: This test is not yet approved or cleared by the [place] FDA. When there are no FDA-approved or cleared tests available, and other criteria are met, FDA can make tests available under an emergency access mechanism called an Emergency Use Authorization (EUA). The EUA for this test is supported by the [place] of Health and Human Service's declaration that [...] longer be used). Performed By: #### [facility] ####[facility] [address] [place], [place] [address]VfDr. Shyam Farfan INFLUENZA A AND B AGon 05-18 [facility] SEE BELOW Normal [facility] Comment on above: Result Comment: Nega tive for Flu A protein angiten. Infection due to Flu A cannot be ruled out. Flu A angiten in the sample may be below the detection limit of the test. Performed By: #### I NFLUAB #### [facility] [address] [place] [address] Dr. Shyam [facility] BEL[facility] Normal [facility] Comment on above: Result Comment: Nega tive for Flu B protein antigen. Infection due to Flu B cannot be ruled out. Flu B antigen in the sample may be below the detection limit of the test. Performed By: #### I NFLUAB #### [facility] [address] [place] [address] Dr. Shyam Farfan INFLUENZA A AG Negative Normal NEGATIVE SEE COMMENT [facility] Comment on above: Performed By: #### I NFLUAB #### [facility] [address] [place] [address] Dr. Shyam Farfan INFLUENZA B AG Negative Normal NEGATIVE SEE COMMENT [facility] Comment on above: Performed By: #### I NFLUAB #### [facility] [address] [place] [address] Dr. Shyam Farfan Consent for Procedure/Surger yon 04-05-2022 Consent for Procedure/Surgery [id number] 0CD:127 Normal [facility] Ambulatory Visit Summaryon 0 04-04-2022 Ambulatory Visit Summary ELENI ROJO Tori :1960 Visit Date:04/04/2022 Ambulatory Visit Instructions Your Diagnosis Urinary frequency Urinary urgency Mixed incontinence Tests Performed Urnls Dip Stick Auto w/o Microscopy POC 07283 Your Care Team Attending Physician - Eyal GARDNER MD Primary Care Physician - TREVOR WALLACE MD [...] Following Appointments Follow Up with NARCISO FERRARI, Eyal Sosa, JOSEFINA When: Where: [facility] [address], [place] [address]- Medications What How Much When Instructions Unchanged [...] Urnls Dip Stick Auto w/o Microscopy POC 91276 (04/04/2022) Bilirubin Urine Dipstick - Negative Blood Urine Dipstick - Negative Glucose Urine Dipstick - Negative Ketones Urine Dipstick - Negative Leukocytes Urine Dipstick - 1+ Small Nitrite Urine Dipstick - Negative Protein Urine Dipstick - Negative Specific [place] Urine Dipstick - >=1.030 Urine Appearance Urine [...] herbs, eye (more content not included)... Normal [facility] Patient Educationon 04-04-19 Patient Education Urology [...] including vitamins, herbs, eye drops, creams, and ebbn-uoy-yytcjba medicines. ? Whether you are or may [...] system diseases. (more content not included)... Normal [facility] Urology Office/Clinic Noteon 04-04-2022 Urology Office/Clinic Note [...] Follow-up With When Contact Information NARCISO FERRARI, Eyal Sosa, URL [facility] [address] [place] [address]- Additional Instructions: schedule cysto Patient Education Urodynamic [...] Oral, Daily, (more content not included)... Normal [facility] Comment on above: Result Comment: Elec tronically Signed By: Eyal GARDNER MD\.br\Date and Time Signed: 04/04/22 11:52 EST\.br\Electronically Co-Signed By: Tanya Crow\.br\Date and Time Co-Signed: 04/04/22 11:49 EST GLYCOHEMOGLOBIN A1Con 2021 ADA RECOMMENDATION SEE BELOW Normal [facility] Comment on above: Result Comment: ADA RECOMMENDED LIMIT 4.0 - 6.0 ADA THERAPEUTIC TARGET < 7.0 ACTION SUGGESTED > 7.0 Performed By: #### A 1C #### [facility] [address] [address] [address] Shyam Farfan Glucose [Mass/Vol] 169 mg/dL Normal [facility] Comment on above: Performed By: #### A 1C #### [facility] [address] [address] [address] Shyam Farfan HbA1c (Bld) [Mass fraction] 7.5 % Critically high 4.5-6.2 [facility] Comment on above: Performed By: #### A 1C #### [facility] [address] [address] [address] Shyam Farfan MG MAMM SCREEN 3D MAI CADon 12-27-2021 MG MAMM SCREEN 3D MAI CAD Patient: ELENI ROJO Exam Date: 12/27/2021 : 1960 Gender:F Ordering : DR TREVOR WALLACE . Admission #: [id number] Family : Order #: [id number] CLICK HERE TO VIEW EXAM RADIOLOGY REPORT [...] Treatments None Family Cancers None LOCATION: [facility] BREAST COMPOSITION: Heterogeneously dense,which may obscure small [...] PALPABLE LUMP SHOULD BE BIOPSIED. Dictated by: Francine Tavera M.D. on 12/27/2021 at 12:07 Approved by: Francine Tavera M.D. on 12/27/2021 at 12:09 Normal [facility] Formson 12-21-2021 Forms [id number] 0CD:127 Normal [facility] Physician Referralon 022 Physician Referral [id number]. 00CD:127 Normal [facility] Ambulatory Visit Summaryon 1 Ambulatory Visit Summary ELENI ROJO :1960 Visit Date:12/20/2021 Ambulatory Visit Instructions Your Diagnosis Urinary frequency Urinary urgency Mixed incontinence Tests Performed Urnls Dip Stick Auto w/o Microscopy POC 38177 Your Care Team Attending Physician - NARCISO FERRARI, Eyal Sosa Primary Care Physician - TREVOR WALLACE [...] Monday 10:45 AM EST With: NARCISO FERRARI, Eyal Sosa Where: [facility] Patient Educationon 12-21-19 Patient Education [...] Take ove (more content not included)... Normal [facility] Urology Office/Clinic Noteon 12-20-2021 Urology Office/Clinic Note Chief Complaint Referred for OAB HPI Staff Bourne is here today as a new patient [...] FERRARI, JOSEFINA Nguyen In 3 months 03/22/2022 EST [facility] [address], [place] [address]- [phone] Additional Instructions: Patient Education Overactive Bladder, Adult [...] Social History (more content not included)... Normal [facility] Comment on above: Result Comment: Elec tronically Signed By: Eyal GARDNER MD\.br\Date and Time Signed: 12/20/21 11:01 EDT\.br\Electronically Co-Signed By: Muna Rush MA\.br\Date and Time Co-Signed: 12/20/21 10:58 EDT CBC AUTO DIFFon 07-15-2021 BASO # 0.0 103/ul Normal 0.0-0.1 [facility] Comment on above: Performed By: #### C BC #### [facility] [address] [address] [address] Shyam Farfan Basophils/100 WBC (Bld) 0.6 % Normal 0.2-2.0 [facility] Comment on above: Performed By: #### C BC #### [facility] [address] [place] [address] Dr. Shyam Farfan EO # 0.1 103/ul Normal 0.0-0.7 [facility] Comment on above: Performed By: #### C BC #### [facility] [address] [place] [address] Dr. Shyam Farfan Eosinophils/100 WBC (Bld) 1.7 % Normal 0.9-7.0 [facility] Comment on above: Performed By: #### C BC #### [facility] [address] [place] [address] Dr. Shyam Farfan Erythrocyte distribution width (RBC) [Ratio] 17.1 % Critically high 11.0-15.0 [facility] Comment on above: Performed By: #### C BC #### [facility] [address] [place] [address] Dr. Shyam Farfan Hematocrit (Bld) [Volume fraction] 44.4 % Normal 36.0-48.0 [facility] Comment on above: Performed By: #### C BC #### [facility] [address] [place] [address] Dr. Shyam Farfan Hemoglobin (Bld) [Mass/Vol] 13.5 g/dL Normal 12.0-16.0 [facility] Comment on above: Performed By: #### C BC #### [facility] [address] [place] [address] Dr. Shyam Farfan IG # 0.03 10e3/ul Normal 0.00-0.03 [facility] Comment on above: Performed By: #### C BC #### [facility] [address] [place] [address] Dr. Shyam Farfan IG % 0.5 % Normal 0.0-0.5 [facility] Comment on above: Performed By: #### C BC #### [facility] [address] [place] [address] Dr. Shyam Farfan LYMPH # 1.5 103/ul Normal 1.2-3.8 [facility] Comment on above: Performed By: #### C BC #### [facility] [address] [place] [address] Dr. Shyam Farfan Lymphocytes/100 WBC (Bld) 23.4 % Normal 20.5-60.0 [facility] Comment on above: Performed By: #### C BC #### [facility] [address] [place] [address] Dr. Shyam Farfan MANUAL DIFF REQ NO Normal [facility] Comment on above: Performed By: #### C BC #### [facility] [address] [place] [address] Dr. Shyam Farfan MCH (RBC) [Entitic mass] 26.5 pg Critically low 26.7-34.0 [facility] Comment on above: Performed By: #### C BC #### [facility] [address] [place] [address] Dr. Shyam Farfan MCHC (RBC) [Mass/Vol] 30.4 g/dL Normal 29.9-35.2 [facility] Comment on above: Performed By: #### C BC #### [facility] [address] [place] [address] Dr. Shyam Farfan MCV (RBC) [Entitic vol] 87.2 fL Normal 81.0-99.0 [facility] Comment on above: Performed By: #### C BC #### [facility] [address] [place] [address] Dr. Shyam Farfan MONO # 0.4 103/ul Normal 0.3-0.8 [facility] Comment on above: Performed By: #### C BC #### [facility] [address] [place] [address] Dr. Shyam Farfan Monocytes/100 WBC (Bld) 6.5 % Normal 1.7-12.0 [facility] Comment on above: Performed By: #### C BC #### [facility] [address] [place] [address] Dr. Shyam Farfan NEUT # 4.4 103/ul Normal 1.4-6.5 [facility] Comment on above: Performed By: #### C BC #### [facility] [address] [place] [address] Dr. Shyam Farfan Neutrophils/100 WBC (Bld) 67.3 % Normal 43.0-75.0 [facility] Comment on above: Performed By: #### C BC #### [facility] [address] [place] [address] Dr. Shyam Farfan Platelet mean volume (Bld) [Entitic vol] 10.1 fL Normal 9.5-13.5 [facility] Comment on above: Performed By: #### C BC #### [facility] [address] [place] [address] Dr. Shyam Farfan PLT 238 103/ul Normal 150-450 [facility] Comment on above: Performed By: #### C BC #### [facility] [address] [place] [address] Dr. Shyam Farfan RBC 5.09 106/ul Normal 4.20-5.40 [facility] Comment on above: Performed By: #### C BC #### [facility] [address] [place] [address] Dr. Shyam Farfan WBC 6.6 103/ul Normal 4.0-11.0 [facility] Comment on above: Performed By: #### C BC #### [facility] [address] [place] [address] Dr. Shyam Farfan GLYCOHEMOGLOBIN A1Con 2021 ADA RECOMMENDATION SEE BELOW Normal [facility] Comment on above: Result Comment: ADA RECOMMENDED LIMIT 4.0 - 6.0 ADA THERAPEUTIC TARGET < 7.0 ACTION SUGGESTED > 7.0 Performed By: #### A 1C #### [facility] [address] [address] [address] Shyam Farfan Glucose [Mass/Vol] 200 mg/dL Normal [facility] Comment on above: Performed By: #### A 1C #### [facility] [address] [address] [address] Shyam Farfan HbA1c (Bld) [Mass fraction] 8.6 % Critically high 4.5-6.2 [facility] Comment on above: Performed By: #### A 1C #### [facility] [address] [place] [address] Dr. Shyam Farfan LIPID PROFILEon 07-15-2021 CHOL-HDL RATIO NORM SEE BELOW Normal [facility] Comment on above: Result Comment: 3.3 - 4.4 LOW RISK 4.4 - 7.1 AVERAGE RISK 7.1 - 11.0 MODERATE RISK >11.0 HIGH RISK Performed By: #### B MP, LIPID, LIVER, TSH #### [facility] [address] [address] [address] Shyam Farfan Cholesterol [Mass/Vol] 176 mg/dL Normal <=200 [facility] Comment on above: Performed By: #### B MP, LIPID, LIVER, TSH #### [facility] [address] [address] [address] Shyam Farfan Cholesterol in HDL [Mass/Vol] 53 mg/dL Normal 40-60 [facility] Comment on above: Performed By: #### B MP, LIPID, LIVER, TSH #### [facility] [address] [address] [address] Shyam Farfan Cholesterol in LDL [Mass/Vol] 100.0 mg/dL Normal [facility] Comment on above: Performed By: #### B MP, LIPID, LIVER, TSH #### [facility] [address] [address] [address] Shyam Farfan Cholesterol.total/Ch olesterol in HDL [Mass ratio] 3.3 {ratio} Normal [facility] Comment on above: Performed By: #### B MP, LIPID, LIVER, TSH #### [facility] [address] [address] [address] Shyam Farfan HDL NORMAL > or = 60 mg/dl - LO W CARDIOVASCULAR RISK <40 mg/dl - HIGH CARDIOVASCULAR RISK Normal [facility] Comment on above: Performed By: #### B MP, LIPID, LIVER, TSH #### [facility] [address] [address] [address] Shyam Farfan LDL CALC NORMAL SEE BELOW Normal [facility] Comment on above: Result Comment: <100 mg/dl OPTIMAL 100 - 129 mg/dl NEAR OR ABOVE OPTIMAL 130 - 159 mg/dl BORDERLINE HIGH 160 - 189 mg/dl HIGH >190 mg/dl VERY HIGH Performed By: #### B MP, LIPID, LIVER, TSH #### [facility] [address] [address] [address] Shyam Farfan Triglyceride [Mass/Vol] 115 mg/dL Normal <=150 [facility] Comment on above: Performed By: #### B MP, LIPID, LIVER, TSH #### [facility] [address] [address] [address] Shyam Farfan VLDL CALC 23.0 mg/dL Normal [facility] Comment on above: Performed By: #### B MP, LIPID, LIVER, TSH #### [facility] [address] [address] [address] Shyam Farfan LIVER PROFILEon 07-15-2021 Albumin [Mass/Vol] 3.8 g/dL Normal 3.4-5.0 [facility] Comment on above: Performed By: #### B MP, LIPID, LIVER, TSH #### [facility] [address] [address] [address] Shyam Farfan Albumin/Globulin [Mass ratio] 1.0 {ratio} Normal [facility] Comment on above: Performed By: #### B MP, LIPID, LIVER, TSH #### [facility] [address] [address] [address] Shyam Farfan ALP [Catalytic activity/Vol] 114 U/L Normal 46-116 [facility] Comment on above: Performed By: #### B MP, LIPID, LIVER, TSH #### [facility] [address] [address] [address] Shyam Farfan ALT [Catalytic activity/Vol] 96 U/L Critically high 14-59 [facility] Comment on above: Performed By: #### B MP, LIPID, LIVER, TSH #### [facility] [address] [address] [address] Shyam Farfan AST [Catalytic activity/Vol] 49 U/L Critically high 15-37 [facility] Comment on above: Performed By: #### B MP, LIPID, LIVER, TSH #### [facility] [address] [place] [address] Dr. Shyam Farfan BILI, CONJUGATED 0.1 mg/dL Normal 0.0-0.2 [facility] Comment on above: Performed By: #### B MP, LIPID, LIVER, TSH #### [facility] [address] [place] [address] Dr. Shyam Farafn Bilirubin [Mass/Vol] 0.5 mg/dL Normal 0.2-1.0 [facility] Comment on above: Performed By: #### B MP, LIPID, LIVER, TSH #### [facility] [address] [place] [address] Dr. Shyam Farfan Globulin (S) [Mass/Vol] 3.7 g/dL Normal [facility] Comment on above: Performed By: #### B MP, LIPID, LIVER, TSH #### [facility] [address] [place] [address] Dr. Shyam Farfan Protein [Mass/Vol] 7.5 g/dL Normal 6.4-8.2 [facility] Comment on above: Performed By: #### B MP, LIPID, LIVER, TSH #### [facility] [address] [place] [address] Dr. Shyam Farfan MICROALBUMIN, RAND URon 05-0 -2021 mALB 2.4 mg/L Normal <=30.0 [facility] Comment on above: Performed By: #### M ALBR #### [facility] [address] [address] [address] Shyam Farfan PROF CHEM 8 (BAS METB)on Anion gap [Moles/Vol] 6.5 mmol/L Normal [facility] Comment on above: Performed By: #### B MP, LIPID, LIVER, TSH #### [facility] [address] [place] [address] Dr. Shyam Farfan Calcium [Mass/Vol] 9.3 mg/dL Normal 8.5-10.1 [facility] Comment on above: Performed By: #### B MP, LIPID, LIVER, TSH #### [facility] [address] [address] [address] Shyam Farfan Chloride [Moles/Vol] 102 mmol/L Normal 98-107 [facility] Comment on above: Performed By: #### B MP, LIPID, LIVER, TSH #### [facility] [address] [place] [address] Dr. Shyam Farfan CO2 [Moles/Vol] 31.5 mmol/L Normal 21.0-32.0 [facility] Comment on above: Performed By: #### B MP, LIPID, LIVER, TSH #### [facility] [address] [place] [address] Dr. Shyam Farfan Creatinine [Mass/Vol] 0.61 mg/dL Normal 0.55-1.02 [facility] Comment on above: Performed By: #### B MP, LIPID, LIVER, TSH #### [facility] [address] [place] [address] Dr. Shyam Farfan EGFR-AF SAMMARINESE >60 Normal >=60 [facility] Comment on above: Performed By: #### B MP, LIPID, LIVER, TSH #### [facility] [address] [place] [address] Dr. Shyam Farfan EGFR-NON AF SAMMARINESE >60 Normal >=60 [facility] Comment on above: Performed By: #### B MP, LIPID, LIVER, TSH #### [facility] [address] [place] [address] Dr. Shyam Farfan Glucose [Mass/Vol] 177 mg/dL Critically high 74-106 [facility] Comment on above: Performed By: #### B MP, LIPID, LIVER, TSH #### [facility] [address] [place] [address] Dr. Shyam Farfan Potassium [Moles/Vol] 4.0 mmol/L Normal 3.5-5.1 [facility] Comment on above: Performed By: #### B MP, LIPID, LIVER, TSH #### [facility] [address] [place] [address] Dr. Shyam Farfan Sodium [Moles/Vol] 136 mmol/L Normal 136-145 [facility] Comment on above: Performed By: #### B MP, LIPID, LIVER, TSH #### [facility] [address] [place] [address] Dr. Shyam Farfan Urea nitrogen [Mass/Vol] 11.0 mg/dL Normal 7.0-18.0 [facility] Comment on above: Performed By: #### B MP, LIPID, LIVER, TSH #### [facility] [address] [place] [address] Dr. Shyam Farfan Urea nitrogen/Creatinine [Mass ratio] 18.0 mg/mg Normal [facility] Comment on above: Performed By: #### B MP, LIPID, LIVER, TSH #### [facility] [address] [place] [address] Dr. Shyam Farfan TSHon 07-15-2021 TSH 0.792 uIU/mL Normal 0.358-3.740 [facility] Comment on above: Performed By: #### B MP, LIPID, LIVER, TSH #### [facility] [address] [place] [address] Dr. Shyam Farfan TSH RANGE SEE BELOW Normal [facility] Comment on above: Result Comment: <0.3 4 UIU/ml HYPERTHYROID 0.34-5.60 UIU/ml EUTHYROID >5.60 UIU/ml HYPOTHYROID Performed By: #### B MP, LIPID, LIVER, TSH #### [facility] [address] [place] [address] Dr. Shyam Farfan Discharge Summaryon 07-13-19 18 Discharge Summary MR#: [id number] [facility] Admitted: 07/03/2017 Discharged: 07/08/2017 Date of [...] be additional documentation fromme. Date Dict: 07/12/2017/04:38 A/Carmelo Rodgers MDDate Trans: 07/12/2017 06:47 [id number]: Trevor Wallace M.D. [address] [place] [address] Normal [facility] BASIC METABOLIC PANELon 04-2 Calcium 8.9 mg/dL Normal 8.6-10.3 [facility] Comment on above: Order Comment: No: D o not add to previous draw Performed By: #### 1 0054 ####[facility] [place] [address], [facility] Chloride 107 mmol/L Normal 98-107 [facility] Comment on above: Order Comment: No: D o not add to previous draw Performed By: #### 1 0054 ####[facility] [place] [address], [facility] CO2 25 mmol/L Normal 21-31 [facility] Comment on above: Order Comment: No: D o not add to previous draw Performed By: #### 1 0054 ####[facility] [place] [address], [facility] Creatinine 0.57 mg/dL Low 0.60-1.20 [facility] Comment on above: Order Comment: No: D o not add to previous draw Performed By: #### 1 0054 ####[facility] eGFR (black) mL/min/{1.73_m2} Normal >[address] [facility] Comment on above: Order Comment: No: D o not add to previous draw Performed By: #### 1 0054 ####[facility] [place] [address], [facility] eGFR (non-black) mL/min/{1.73_m2} Normal >60 [facility] Comment on above: Order Comment: No: D o not add to previous draw Performed By: #### 1 0054 ####[facility] [place] [address], [facility] Glucose mass conc 174 mg/dL High 70-100 [facility] Comment on above: Order Comment: No: D o not add to previous draw Performed By: #### 1 0054 ####[facility] [place] [address], [facility] Potassium molar conc 3.6 mmol/L Normal 3.5-5.1 [facility] Comment on above: Order Comment: No: D o not add to previous draw Performed By: #### 1 0054 ####[facility] [place] [address], [facility] Sodium 140 mmol/L Normal 136-145 [facility] Comment on above: Order Comment: No: D o not add to previous draw Performed By: #### 1 0054 ####[facility] [place] [address], [facility] Urea nitrogen 6 mg/dL Low 7-25 [facility] Comment on above: Order Comment: No: D o not add to previous draw Performed By: #### 1 0054 ####[facility] CBC COMPLETE BLOOD COUNTon 0 07-08-2017 Erythrocyte distribution width Auto Ratio (RBC) 13.7 % Normal 11.5-15.0 [facility] Comment on above: Order Comment: No: D o not add to previous draw Performed By: #### 1 0054 ####[facility] [place] [address], [facility] Erythrocytes (RBC) 4.14 10*6/uL Normal 3.80-5.00 [facility] Comment on above: Order Comment: No: D o not add to previous draw Performed By: #### 1 0054 ####[facility] [facility].[address] Erythrocytes (RBC) 0 % Normal 0-[address] [facility] Comment on above: Order Comment: No: D o not add to previous draw Performed By: #### 1 0054 ####[facility] [place] [address], [facility] Hematocrit (HCT) 36.0 % Normal 36.0-45.0 [facility] Comment on above: Order Comment: No: D o not add to previous draw Performed By: #### 1 0054 ####[facility] [facility].[address] Hemoglobin mass conc (Bld) 12.0 g/dL Normal 12.0-15.0 [facility] Comment on above: Order Comment: No: D o not add to previous draw Performed By: #### 1 0054 ####[facility] [facility].[address] MCH 29.0 pg Normal 27.0-33.0 [facility] Comment on above: Order Comment: No: D o not add to previous draw Performed By: #### 1 0054 ####[facility] [facility].[address] MCHC mass conc (RBC) 33.3 g/dL Normal 32.0-35.0 [facility] Comment on above: Order Comment: No: D o not add to previous draw Performed By: #### 1 0054 ####[facility] [facility].[address] MCV 87.0 fL Normal 82.0-98.0 [facility] Comment on above: Order Comment: No: D o not add to previous draw Performed By: #### 1 0054 ####[facility] [facility] [place] [address], [facility] PLAT CNT 230 10*3/uL Normal 150-[address] [facility] Comment on above: Order Comment: No: D o not add to previous draw Performed By: #### 1 0054 ####[facility] [facility] [place] [address], [facility] WBC (Leukocytes) 6.9 10*3/uL Normal 4.0-10.6 [facility] Comment on above: Order Comment: No: D o not add to previous draw Performed By: #### 1 0054 ####[facility] [place] [address], [facility] POC GLUCOSE LABon 07-08-2017 Glucose mass conc 106 mg/dL High 70-100 [facility] Comment on above: Performed By: #### 1 0054 ####[facility] [facility] [place] [address], [facility] Glucose mass conc 135 mg/dL High 70-100 [facility] Comment on above: Performed By: #### 1 0054 ####[facility] [facility] [place] [address], [facility] Glucose mass conc 122 mg/dL High 70-100 [facility] Comment on above: Performed By: #### 1 0054 ####[facility] [place] [address], [facility] POTASSIUM BLOODon 07-08-2017 Potassium molar conc 3.3 mmol/L Low 3.5-5.1 [facility] Comment on above: Order Comment: No: D o not add to previous draw Performed By: #### 1 0054 ####[facility] [place] [address], [facility] BASIC METABOLIC PANELon 06-12 Calcium 9.3 mg/dL Normal 8.6-10.3 [facility] Comment on above: Order Comment: Yes: Add to Previous draw if able Performed By: #### 5 6101 ####[facility] [place] [address], [facility] Chloride 108 mmol/L High 98-107 [facility] Comment on above: Order Comment: Yes: Add to Previous draw if able Performed By: #### 5 6101 ####[facility] [place] [address], [facility] CO2 26 mmol/L Normal 21-31 [facility] Comment on above: Order Comment: Yes: Add to Previous draw if able Performed By: #### 5 6101 ####[facility] [facility] [address], [facility] Creatinine 0.54 mg/dL Low 0.60-1.20 [facility] Comment on above: Order Comment: Yes: Add to Previous draw if able Performed By: #### 5 6101 ####[address] [facility] [place] [address], [facility] eGFR (black) mL/min/{1.73_m2} Normal >[address] [facility] Comment on above: Order Comment: Yes: Add to Previous draw if able Performed By: #### 5 6101 ####[facility] [facility] [place] [address], [facility] eGFR (non-black) mL/min/{1.73_m2} Normal >60 [facility] Comment on above: Order Comment: Yes: Add to Previous draw if able Performed By: #### 5 6101 ####[facility] [place] [address], [facility] Glucose mass conc 133 mg/dL High 70-100 [facility] Comment on above: Order Comment: Yes: Add to Previous draw if able Performed By: #### 5 6101 ####[facility] [place] [address], [facility] Potassium molar conc 2.9 mmol/L Low 3.5-5.1 [facility] Comment on above: Order Comment: Yes: Add to Previous draw if able Performed By: #### 5 6101 ####[facility] Sodium 140 mmol/L Normal 136-145 [facility] Comment on above: Order Comment: Yes: Add to Previous draw if able Performed By: #### 5 610 ####[facility] Urea nitrogen 13 mg/dL Normal 7-25 [facility] Comment on above: Order Comment: Yes: Add to Previous draw if able Performed By: #### 5 610 ####[facility] CBC COMPLETE BLOOD COUNTon 0 - Erythrocyte distribution width Auto Ratio (RBC) 13.4 % Normal 11.5-15.0 [facility] Comment on above: Order Comment: Yes: Add to Previous draw if able Performed By: #### 5 610 ####[facility] Erythrocytes (RBC) 4.30 10*6/uL Normal 3.80-5.00 [facility] Comment on above: Order Comment: Yes: Add to Previous draw if able Performed By: #### 5 610 ####[facility] Erythrocytes (RBC) 0 % Normal 0-0 [facility] Comment on above: Order Comment: Yes: Add to Previous draw if able Performed By: #### 5 6101 ####[facility] Hematocrit (HCT) 37.1 % Normal 36.0-45.0 [facility] Comment on above: Order Comment: Yes: Add to Previous draw if able Performed By: #### 5 [id number] ####[facility] [place] [address], [facility] Hemoglobin mass conc (Bld) 12.4 g/dL Normal 12.0-15.0 [facility] Comment on above: Order Comment: Yes: Add to Previous draw if able Performed By: #### 5 6101 ####[facility] [place] [address], [facility] MCH 28.8 pg Normal 27.0-33.0 [facility] Comment on above: Order Comment: Yes: Add to Previous draw if able Performed By: #### 5 6101 ####[facility] [facility].[address] MCHC mass conc (RBC) 33.4 g/dL Normal 32.0-35.0 [facility] Comment on above: Order Comment: Yes: Add to Previous draw if able Performed By: #### 5 6101 ####[facility] [place] [address].[address] MCV 86.3 fL Normal 82.0-98.0 [facility] Comment on above: Order Comment: Yes: Add to Previous draw if able Performed By: #### 5 6101 ####[facility] [facility] [place] [address], [facility] PLAT CNT 259 10*3/uL Normal 150-[address] [facility] Comment on above: Order Comment: Yes: Add to Previous draw if able Performed By: #### 5 [id number] ####[facility] [facility] [place] [address], [facility] WBC (Leukocytes) 15.3 10*3/uL High 4.0-10.[address] [facility] Comment on above: Order Comment: Yes: Add to Previous draw if able Performed By: #### 5 6101 ####[facility] [place] POC GLUCOSE LABon 07-07-2017 Glucose mass conc 133 mg/dL High 70-100 [facility] Comment on above: Performed By: #### 1 0054 ####[place] [address], [facility] Glucose mass conc 117 mg/dL High 70-100 [facility] Comment on above: Performed By: #### 5 6101 ####[facility] [place] [place] [address], [facility] Glucose mass conc 103 mg/dL High 70-100 [facility] Comment on above: Performed By: #### 5 6101 ####[address] [place] [address], [facility] Glucose mass conc 195 mg/dL High 70-100 [facility] Comment on above: Performed By: #### 5 6101 ####[facility] [place] SMALL BOWELon 07-07-2017 SMALL BOWEL [facility] Gmobqildl[address] [place] [id number] ========Patient Name: ELENI ROJO : 1960ex: FAge: Race: OtherMRN: [id number]. Location: [id number] Status: IVisit #: [id number] Date: 07/07/2017 8:30:00 AMCompleted Date: 07/07/2017 12:31 PMRequesting Provider: CARMELO RODGERS Attending Provider: CHIQUI JULES Report Copy To: Signs & Symptoms: Abdomen Pain GeneralizedHistory: Patient history not availableComments: R/O Obstruction, please put contrast through NGT and use water-soluble contrastExam: SMALL BOWELAccession #: [id number] SMALL BOWEL 07/07/2017 12:57 PM EDT SIGNS AND SYMPTOMS: Abdomen Pain Generalized TECHNOLOGIST COMMENTS: patient states severe cramping vomiting loose stools surgery x2 for hernia last surgery 200ml of Omni 350 QUESTION FOR THE RADIOLOGIST: R/O Obstruction, please put contrast through NGT and use water-soluble contrast CONTRAST: Contrast: OMNIPAQUE 350 (LOCM), 200 milliliter, Nasogastric COMPARISON: none FINDINGS: 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 Electronically signed by:Ethan Nuñez. Transcribed by: [email or web address], User Resident: Electronically Signed by: ETHAN NUÑEZ @ 07/07/2017 01:38 PM Normal [facility] Comment on above: Order Comment: No: D o not add to previous draw POC GLUCOSE LABon 07-06-2017 Glucose mass conc 198 mg/dL High 70-100 [facility] Comment on above: Performed By: #### 5 6101 ####[facility] [place] [facility] [address], [facility] Glucose mass conc 208 mg/dL High 70-100 [facility] Comment on above: Performed By: #### 5 6101 ####[facility] [place] [facility] [address], [place] Glucose mass conc 152 mg/dL High 70-100 [facility] Comment on above: Performed By: #### 5 6101 ####[facility] [place] [place] [address], [facility] Glucose mass conc 145 mg/dL High 70-100 [facility] Comment on above: Performed By: #### 5 6101 ####[facility] [place] [place] [address], [place] Glucose mass conc 141 mg/dL High 70-100 [facility] Comment on above: Performed By: #### 5 6101 ####[facility] [place] [place] [address], [facility] BASIC METABOLIC PANELon 04-2 Calcium 9.5 mg/dL Normal 8.6-10.3 [facility] Comment on above: Order Comment: No: D o not add to previous draw Performed By: #### 5 0103 ####[facility] [place] [place] [address], [place] Chloride 106 mmol/L Normal 98-107 [facility] Comment on above: Order Comment: No: D o not add to previous draw Performed By: #### 5 0103 ####[facility] [place] [place] [address], [facility] CO2 27 mmol/L Normal 21-31 [facility] Comment on above: Order Comment: No: D o not add to previous draw Performed By: #### 5 0103 ####[facility] [place] [place] [address], [place] Creatinine 0.57 mg/dL Low 0.60-1.20 [facility] Comment on above: Order Comment: No: D o not add to previous draw Performed By: #### 5 0103 ####[facility] [place] [place] [address], [place] eGFR (black) mL/min/{1.73_m2} Normal >[address] [facility] Comment on above: Order Comment: No: D o not add to previous draw Performed By: #### 5 0103 ####[facility] [place] eGFR (non-black) mL/min/{1.73_m2} Normal >60 Th [facility] Comment on above: Order Comment: No: D o not add to previous draw Performed By: #### 5 0103 ####[facility] [place] [place] [address], [facility] Glucose mass conc 119 mg/dL High 70-100 [facility] Comment on above: Order Comment: No: D o not add to previous draw Performed By: #### 5 3 ####[facility] [place] Potassium molar conc 3.6 mmol/L Normal 3.5-5.1 [facility] Comment on above: Order Comment: No: D o not add to previous draw Performed By: #### 5 3 ####[facility] [place] [facility] [address] Sodium 138 mmol/L Normal 136-145 [facility] Comment on above: Order Comment: No: D o not add to previous draw Performed By: #### 5 3 ####[facility] [place] [facility].[address] Urea nitrogen 8 mg/dL Normal 7-25 [facility] Comment on above: Order Comment: No: D o not add to previous draw Performed By: #### 5 3 ####[facility] [place] [facility].[address] CBC COMPLETE BLOOD COUNTon 0 07-05-2017 Erythrocyte distribution width Auto Ratio (RBC) 13.7 % Normal 11.5-15.0 [facility] Comment on above: Order Comment: No: D o not add to previous draw Performed By: #### 5 0103 ####[facility] [place] Erythrocytes (RBC) 0 % Normal 0-0 [facility] Comment on above: Order Comment: No: D o not add to previous draw Performed By: #### 5 0103 ####[facility] [place] [place] [address], [facility] Erythrocytes (RBC) 4.48 10*6/uL Normal 3.80-5.00 [facility] Comment on above: Order Comment: No: D o not add to previous draw Performed By: #### 5 0103 ####[facility] [place] Hematocrit (HCT) 38.9 % Normal 36.0-45.0 [facility] Comment on above: Order Comment: No: D o not add to previous draw Performed By: #### 5 0103 ####[facility] [place] Hemoglobin mass conc (Bld) 12.9 g/dL Normal 12.0-15.0 [facility] Comment on above: Order Comment: No: D o not add to previous draw Performed By: #### 5 3 ####[facility] [place] [facility] MCH 28.8 pg Normal 27.0-33.0 [facility] Comment on above: Order Comment: No: D o not add to previous draw Performed By: #### 5 0103 ####[facility] [place] [place] [address], [facility] MCHC mass conc (RBC) 33.2 g/dL Normal 32.0-35.0 [facility] Comment on above: Order Comment: No: D o not add to previous draw Performed By: #### 5 3 ####[facility] [place] [place] [address], [facility] MCV 86.8 fL Normal 82.0-98.0 [facility] Comment on above: Order Comment: No: D o not add to previous draw Performed By: #### 5 0103 ####[facility] [place] [facility] [address], [facility] PLAT CNT 224 10*3/uL Normal 150-[address] [facility] Comment on above: Order Comment: No: D o not add to previous draw Performed By: #### 5 0103 ####[facility] [place] [facility] [place] [address], [facility] WBC (Leukocytes) 7.2 10*3/uL Normal 4.0-10.6 [facility] Comment on above: Order Comment: No: D o not add to previous draw Performed By: #### 5 3 ####[facility] [place] [facility].[address] POC GLUCOSE LABon 07-05-2017 Glucose mass conc 122 mg/dL High 70-100 [facility] Comment on above: Performed By: #### 5 3 ####[address] [address] [facility] [place] [address], [facility] Glucose mass conc 93 mg/dL Normal 70-100 [facility] Comment on above: Performed By: #### 5 3 ####[facility] [place] [facility] [place] [address], [facility] Glucose mass conc 116 mg/dL High 70-100 [facility] Comment on above: Performed By: #### 5 3 ####[facility] [place] [facility] [place] [address], [facility] Glucose mass conc 115 mg/dL High 70-100 [facility] Comment on above: Performed By: #### 5 3 ####[facility] [place] [facility] [place] [address], [facility] BASIC METABOLIC PANELon 04-2 Calcium 9.3 mg/dL Normal 8.6-10.3 [facility] Comment on above: Order Comment: No: D o not add to previous draw Performed By: #### 0 0071, [id number] ####[facility] [place] [place] [address], [facility] Chloride 106 mmol/L Normal 98-107 [facility] Comment on above: Order Comment: No: D o not add to previous draw Performed By: #### 0 0071, [id number] ####[facility] [place] [place] [address], [facility] CO2 26 mmol/L Normal 21-31 [facility] Comment on above: Order Comment: No: D o not add to previous draw Performed By: #### 0 0071, [id number] ####[facility] [place] [place] [address], [facility] Creatinine 0.53 mg/dL Low 0.60-1.20 [facility] Comment on above: Order Comment: No: D o not add to previous draw Performed By: #### 0 0071, [id number] ####[facility] [place] [place] [address], [facility] eGFR (black) mL/min/{1.73_m2} Normal >[address] [facility] Comment on above: Order Comment: No: D o not add to previous draw Performed By: #### 0 0071, [id number] ####[facility] [place] [place] [address], [facility] eGFR (non-black) mL/min/{1.73_m2} Normal >60 [facility] Comment on above: Order Comment: No: D o not add to previous draw Performed By: #### 0 0071, [id number] ####[facility] [place] [place] [address], [facility] Glucose mass conc 167 mg/dL High 70-100 [facility] Comment on above: Order Comment: No: D o not add to previous draw Performed By: #### 0 0071, [id number] ####[facility] [place] [place] [address], [facility] Potassium molar conc 3.4 mmol/L Low 3.5-5.1 [facility] Comment on above: Order Comment: No: D o not add to previous draw Performed By: #### 0 0071, [id number] ####[facility] [place] [place] [address], [facility] Sodium 137 mmol/L Normal 136-145 [facility] Comment on above: Order Comment: No: D o not add to previous draw Performed By: #### 0 0071, [id number] ####[facility] [place] [place] [address], [facility] Urea nitrogen 12 mg/dL Normal 7-25 [facility] Comment on above: Order Comment: No: D o not add to previous draw Performed By: #### 0 0071, [id number] ####[facility] [place] [place] [address], [facility] Calcium 9.9 mg/dL Normal 8.6-10.3 [facility] Comment on above: Order Comment: No: D o not add to previous draw Performed By: #### 0 0071 ####[facility] [place] [id number], [facility] Chloride 103 mmol/L Normal 98-107 [facility] Comment on above: Order Comment: No: D o not add to previous draw Performed By: #### 0 0071 ####[facility] [place] [place] [address], [facility] CO2 25 mmol/L Normal 21-31 [facility] Comment on above: Order Comment: No: D o not add to previous draw Performed By: #### 0 0071 ####[facility] [place] [place] [address], [facility] Creatinine 0.56 mg/dL Low 0.60-1.20 [facility] Comment on above: Order Comment: No: D o not add to previous draw Performed By: #### 0 0071 ####[facility] [place] [place] [address], [facility] eGFR (black) mL/min/{1.73_m2} Normal >[address] [facility] Comment on above: Order Comment: No: D o not add to previous draw Performed By: #### 0 0071 ####[facility] [place] [place] [address], [facility] eGFR (non-black) mL/min/{1.73_m2} Normal >60 [facility] Comment on above: Order Comment: No: D o not add to previous draw Performed By: #### 0 0071 ####[facility] [place] [place] [address], [facility] Glucose mass conc 179 mg/dL High 70-100 [facility] Comment on above: Order Comment: No: D o not add to previous draw Performed By: #### 0 0071 ####[facility] [place] [place] [address], [facility] Potassium molar conc 3.4 mmol/L Low 3.5-5.1 [facility] Comment on above: Order Comment: No: D o not add to previous draw Performed By: #### 0 0071 ####[facility] [place] [place] [address], [facility] Sodium 136 mmol/L Normal 136-145 [facility] Comment on above: Order Comment: No: D o not add to previous draw Performed By: #### 0 0071 ####[facility] [place], [place] [address] Urea nitrogen 12 mg/dL Normal 7-25 [facility] Comment on above: Order Comment: No: D o not add to previous draw Performed By: #### 0 0071 ####[facility] [place] [facility].[address] CBC COMPLETE BLOOD COUNTon 0 - Erythrocyte distribution width Auto Ratio (RBC) 13.8 % Normal 11.5-15.0 [facility] Comment on above: Order Comment: No: D o not add to previous draw Performed By: #### 5 0608 ####[facility] [place] [facility].[address] Erythrocytes (RBC) 0 % Normal 0-0 [facility] Comment on above: Order Comment: No: D o not add to previous draw Performed By: #### 5 0608 ####[facility] [place] [facility].[address] Erythrocytes (RBC) 4.58 10*6/uL Normal 3.80-5.00 [facility] Comment on above: Order Comment: No: D o not add to previous draw Performed By: #### 5 0608 ####[place] [address] [facility].[address] Hematocrit (HCT) 39.7 % Normal 36.0-45.0 [facility] Comment on above: Order Comment: No: D o not add to previous draw Performed By: #### 5 0608 ####[facility] [place] [facility].[address] Hemoglobin mass conc (Bld) 13.1 g/dL Normal 12.0-15.0 [facility] Comment on above: Order Comment: No: D o not add to previous draw Performed By: #### 5 0608 ####[facility] [place] MCH 28.6 pg Normal 27.0-33.0 [facility] Comment on above: Order Comment: No: D o not add to previous draw Performed By: #### 5 0608 ####[facility] [place] MCHC mass conc (RBC) 33.0 g/dL Normal 32.0-35.0 [facility] Comment on above: Order Comment: No: D o not add to previous draw Performed By: #### 5 0608 ####[facility] [place] [place] [address] MCV 86.7 fL Normal 82.0-98.0 [facility] Comment on above: Order Comment: No: D o not add to previous draw Performed By: #### 5 0608 ####[address] PLAT CNT 264 10*3/uL Normal 150-[address] [facility] Comment on above: Order Comment: No: D o not add to previous draw Performed By: #### 5 0608 ####[address] WBC (Leukocytes) 11.2 10*3/uL High 4.0-10.[address] [facility] Comment on above: Order Comment: No: D o not add to previous draw Performed By: #### 5 0608 ####[address] CBC W/DIFFon 07-04-2017 ABS BASOPHILS 0.0 10*3/uL Normal 0.0-0.2 [facility] Comment on above: Performed By: #### 5 0103 ####[address] ABS IMM GRANS 0.1 10*3/uL Normal 0.0-0.2 [facility] Comment on above: Performed By: #### 5 0103 ####[facility] [place] [place] [address], [facility] Basophils Auto #/vol (Bld) 0.3 % Normal 0.0-1.0 [facility] Comment on above: Performed By: #### 5 0103 ####[facility] [place] [place] [address], [facility] Eosinophils 0.0 10*3/uL Normal 0.0-0.5 [facility] Comment on above: Performed By: #### 0103 ####[facility] [place] [facility] [place] [address], [facility] Eosinophils/100 leukocytes 0.2 % Normal 0.0-6.0 [facility] Comment on above: Performed By: #### 3 ####[facility] [place] [facility].[address] Erythrocyte distribution width Auto Ratio (RBC) 13.8 % Normal 11.5-15.0 [facility] Comment on above: Performed By: #### 0103 ####[facility] [place] [facility].[address] Erythrocytes (RBC) 0 % Normal 0-0 [facility] Comment on above: Performed By: #### 5 3 ####[facility] [place] [facility] Erythrocytes (RBC) 4.67 10*6/uL Normal 3.80-5.00 [facility] Comment on above: Performed By: #### 5 0103 ####[facility] [place] [facility].[address] Hematocrit (HCT) 40.3 % Normal 36.0-45.0 [facility] Comment on above: Performed By: #### 5 3 ####[facility] [place] Hemoglobin mass conc (Bld) 13.5 g/dL Normal 12.0-15.0 [facility] Comment on above: Performed By: #### 5 0103 ####[facility] [place] [facility] [place] [address], [facility] IMMATURE GRANS 0.5 % Normal 0.0-1.0 [facility] Comment on above: Performed By: #### 5 0103 ####[facility] [place] Lymphocytes 1.6 10*3/uL Normal 1.2-4.0 [facility] Comment on above: Performed By: #### 5 0103 ####[facility] [place] Lymphocytes/100 leukocytes 10.9 % Low 20.0-45.0 [facility] Comment on above: Performed By: #### 5 0103 ####[facility] [place] MCH 28.9 pg Normal 27.0-33.0 [facility] Comment on above: Performed By: #### 5 0103 ####[facility] [place] MCHC mass conc (RBC) 33.5 g/dL Normal 32.0-35.0 [facility] Comment on above: Performed By: #### 5 0103 ####[facility] [place] MCV 86.3 fL Normal 82.0-98.0 [facility] Comment on above: Performed By: #### 5 3 ####[facility] [place] [facility] [place] [address], [facility] Monocytes 0.9 10*3/uL Normal 0.1-1.[address] [facility] Comment on above: Performed By: #### 5 0103 ####[facility] [place] [facility].[address] MONOS 6.5 % Normal 5.0-12.0 [facility] Comment on above: Performed By: #### 5 0103 ####[facility] [place] Neutrophils 11.8 10*3/uL High 1.6-7.6 [facility] Comment on above: Performed By: #### 5 0103 ####[facility] [place] Neutrophils/100 leukocytes 81.6 % High 40.0-72.0 [facility] Comment on above: Performed By: #### 5 0103 ####[facility] [place] [facility].[address] PLAT CNT 277 10*3/uL Normal 150-[address] [facility] Comment on above: Performed By: #### 5 0103 ####[facility] [place] WBC (Leukocytes) 14.4 10*3/uL High 4.0-10.6 [facility] Comment on above: Performed By: #### 5 0103 ####[facility] [place] History and Physicalon 07-04 History and Physical [id number] Admitted: 07/03/2017 Date of : 1960 Attending Physician: Chiqui Jules MD Room #: [id number] Discharge Date: HISTORY AND PHYSICALHISTORY OF PRESENT ILLNESS: Ms. Rojo is a 56-year-old female, whopresents with signs of small [facility] She states she had intense abdominal pain, [...] at that time. Surgeries were performed at [facility] and records are unavailable. On arrival to [facility], patient's painis noted to have greatly [...] [facility] However, this was not scheduled until August [...] responsibility for the exam. NOTBILLABLEDate Dict: 07/04/2017/12:24 Tori/Chey Navarrete Trans: 07/04/2017 05:33 A/Anthony_JN:[id number] Normal [facility] LACTATE BLOODon 07-04-2017 Lactate 0.6 mmol/L Normal .5-2.2 [facility] Comment on above: Order Comment: No: D o not add to previous draw Performed By: #### 1 0054 ####[facility] [place] MAGNESIUM BLOODon 07-04-2017 Magnesium 2.1 mg/dL Normal 1.9-2.7 [facility] Comment on above: Order Comment: No: D o not add to previous draw Performed By: #### 0 0071, 78618 ####[facility] [place] [place] [address] OUTSIDE CONSULT GIGUon 07-04 OUTS[facility] GIGU [facility] [place], [place] [address] ========Patient Name: ELENI ROJO : 1960ex: FAge: Race: OtherMRN: [id number]. Location: [id number] Status: IVisit #: [id number] Date: 07/04/2017 7:10:00 AMCompleted Date: 07/04/2017 07:20 AMRequesting Provider: NADER SALCEDO Attending Provider: CIHQUI JULES A Report Copy To: TREVOR WALLACE Signs & Symptoms: outside consultHistory: CT abd/pelvis [facility] 07/03/[address] Nader EllisiComments: Exam: OUTSIDE CONSULT GIGUAccession #: [id number] OUTSIDE CONSULT GIGU 07/04/2017 7:20 AM EDT OUTSIDE STUDY: CT TECHNIQUE: Outside CT images of the abdomen and pelvis obtained from [facility] dated July 03, 2017.. Image review with [...] interpretation. Electronically signed by:Ethan Nuñez. Transcribed by: [email or web address], User Resident: Electronically Signed by: ETHAN NUÑEZ @ 07/04/2017 10:22 AM Normal [facility] POC GLUCOSE LABon 07-04-2017 Glucose mass conc 123 mg/dL High 70-100 [facility] Comment on above: Performed By: #### 5 0103 ####[facility] [place] [place] [address], [facility] Glucose mass conc 134 mg/dL High 70-100 [facility] Comment on above: Performed By: #### 5 0103 ####[facility] [place] [facility] [place] [address], [facility] Glucose mass conc 193 mg/dL High 70-100 [facility] Comment on above: Order Comment: NOTE: Result Checked Performed By: #### 8 5499 ####[facility] [place] [facility] [place] [address], [facility] Glucose mass conc 147 mg/dL High 70-100 [facility] Comment on above: Performed By: #### 8 5499 ####[facility] [place] [facility].[address] PROTHROMBIN TIMEon 8 INR Coag RelTime (PPP) 1.20 {INR} High 0.91-1.16 [facility] Comment on above: Order Comment: Yes: [...] OF ACTION, CLINICALEFFECTIVENESS, AND OPTIMAL THERAPEUTIC RANGE. [id number]. Performed By: #### 5 6101 ####[facility] [place] Prothrombin time (PT) Coag time (PPP) 15.3 s High 12.3-14.8 [facility] Comment on above: Order Comment: Yes: Add to Previous draw if able Result Comment: ALL RESULTS MUST BE INTERPRETED WITH RESPECT TO BLOOD DRAWING ARTIFACTOR DILUTION ERROR OF ANTICOAGULANT AT THE TIME OF SAMPLING. Performed By: #### 5 6101 ####[facility] [place] TYPE AND SCREENon 07-04-2017 ABO INTERPRETATION O Normal [facility] Comment on above: Performed By: #### 6 2586 ####[address] ANTIBODY SCREEN Negative Normal [facility] Comment on above: Performed By: #### 6 2586 ####[facility] [place] RH INTERPRETATION Positive Normal [facility] Comment on above: Performed By: #### 6 2586 ####[address] Vital Signs Date Time Vital Sign Value Performing Clinician Facility 04-25-2024 10:50-0500 Body height 152.4 cm Trevor Wallace MD Work Phone: [facility] 04-25-2024 10:50-0500 Body mass index (BMI) [Ratio] 35.74 kg/m2 Trevor Wallace MD Work Phone: [facility] 04-25-2024 10:50-0500 Body temperature 96.6 [degF] Trevor Wallace MD Work Phone: [facility] 04-25-2024 10:50-0500 Body weight 83.01 kg Trevor Wallace MD Work Phone: [facility] 04-25-2024 10:50-0500 Diastolic blood pressure 70 mm[Hg] Trevor Wallace MD Work Phone: [facility] 04-25-2024 10:50-0500 Heart rate 90 /min Trevor Wallace MD Work Phone: [facility] 04-25-2024 10:50-0500 Respiratory rate 24 /min Trevor Wallace MD Work Phone: [facility] 04-25-2024 10:50-0500 SaO2% (BldA) [Mass fraction] 96 % Trevor Wallace MD Work Phone: [facility] 04-25-2024 10:50-0500 Systolic blood pressure 118 mm[Hg] Trevor Wallace MD Work Phone: [facility] 04-13-2024 09:11-0500 Body mass index (BMI) [Ratio] 38.22 kg/m2 Gamal Grove DO Work Phone: [facility] 04-13-2024 09:11-0500 Body temperature 97.7 [degF] Gamal Grove DO Work Phone: [facility] 04-13-2024 09:11-0500 Body weight 88.77 kg Gamal Grove DO Work Phone: [facility] 04-13-2024 09:11-0500 Diastolic blood pressure 80 mm[Hg] Gamal Grove DO Work Phone: [facility] 04-13-2024 09:11-0500 Heart rate 78 /min Gamal Grove DO Work Phone: [facility] 04-13-2024 09:11-0500 SaO2% (BldA) [Mass fraction] 85 % Gamal Grove DO Work Phone: [facility] 04-13-2024 09:11-0500 Systolic blood pressure 124 mm[Hg] Gamal Grove DO Work Phone: [facility] 04-09-2024 09:51-0500 Body mass index (BMI) [Ratio] 38.97 kg/m2 Melisa Jo NP Work Phone: [facility] 04-09-2024 09:51-0500 Body temperature 98.01 [degF] Melisa Jo PARAMEDIC SUPERVISOR Work Phone: [facility] 04-09-2024 09:51-0500 Body weight 90.5 kg Melisa Jo PARAMEDIC SUPERVISOR Work Phone: [facility] 04-09-2024 09:51-0500 Diastolic blood pressure 88 mm[Hg] Melisa Jo PARAMEDIC SUPERVISOR Work Phone: [facility] 04-09-2024 09:51-0500 Heart rate 71 /min Melisa Jo PARAMEDIC SUPERVISOR Work Phone: [facility] 04-09-2024 09:51-0500 SaO2% (BldA) [Mass fraction] 92 % Melisa Jo PARAMEDIC SUPERVISOR Work Phone: [facility] 04-09-2024 09:51-0500 Systolic blood pressure 128 mm[Hg] Melisa Jo PARAMEDIC SUPERVISOR Work Phone: [facility] 03-21-2024 10:49-0500 Body height 152.4 cm Tamara Daugherty DPM Work Phone: [facility] 03-21-2024 10:49-0500 Body mass index (BMI) [Ratio] 37.5 kg/m2 Tamara Daugherty DPM Work Phone: [facility] 03-21-2024 10:49-0500 Body weight 87.09 kg Tamara Daugherty DPM Work Phone: [facility] 01-15-2024 09:16-0500 Body height 152.4 cm Trevor Wallace MD Work Phone: [facility] 01-15-2024 09:16-0500 Body mass index (BMI) [Ratio] 37.5 kg/m2 Trevor Wallace MD Work Phone: [facility] 01-15-2024 09:16-0500 Body temperature 97.5 [degF] Trevor Wallace MD Work Phone: [facility] 01-15-2024 09:16-0500 Body weight 87.09 kg Trevor Wallace MD Work Phone: [facility] 01-15-2024 09:16-0500 Diastolic blood pressure 74 mm[Hg] Trevor Wallace MD Work Phone: [facility] 01-15-2024 09:16-0500 Heart rate 87 /min Trevor Wallace MD Work Phone: [facility] 01-15-2024 09:16-0500 Respiratory rate 20 /min Trevro Wallace MD Work Phone: [facility] 01-15-2024 09:16-0500 SaO2% (BldA) [Mass fraction] 97 % Trevor Wallace MD Work Phone: [facility] 01-15-2024 09:16-0500 Systolic blood pressure 130 mm[Hg] Trevor Wallace MD Work Phone: [facility] 11-07-2023 10:38-0400 Body height 152.4 cm Tamara Daugherty DPM Work Phone: [facility] 11-07-2023 10:38-0400 Body mass index (BMI) [Ratio] 36.33 kg/m2 Tamara Daugherty DPM Work Phone: [facility] 11-07-2023 10:38-0400 Body weight 84.37 kg Tamara Daugherty DPM Work Phone: [facility] 08-24-2022 14:25-0400 Blood Pressure Location JILLIAN GILLESPIE [facility] 08-24-2022 14:25-0400 Diastolic blood pressure 86 mm[Hg] JILLIAN GILLESPIE [facility] 08-24-2022 14:25-0400 Heart rate 71 /min JILLIAN GILLESPIE [facility] 08-24-2022 14:25-0400 Systolic blood pressure 135 mm[Hg] JILLIAN GILLESPIE [facility] 04-04-2022 10:39-0500 Blood Pressure Location Eyalpetrona GARDNER [facility] 04-04-2022 10:39-0500 Diastolic blood pressure 82 mm[Hg] Eyal GARDNER [facility] 04-04-2022 10:39-0500 Heart rate 70 /min Eyal GARDNER [facility] 04-04-2022 10:39-0500 Respiratory rate 16 /min Eyal GARDNER [facility] 04-04-2022 10:39-0500 Systolic blood pressure 127 mm[Hg] Eayl GARDNER [facility] 12-20-2021 10:26-0400 Blood Pressure Location Eyalpetrona GARDNER [facility] 12-20-2021 10:26-0400 Diastolic blood pressure 78 mm[Hg] Eyal GARDNER [facility] 12-20-2021 10:26-0400 Heart rate 77 /min Eyal GARDNER [facility] 12-20-2021 10:26-0400 Respiratory rate 16 /min Eyal GARDNER [facility] 12-20-2021 10:26-0400 Systolic blood pressure 139 mm[Hg] Eyal GARDNER [facility] Encounters Encounter Date Encounter Type Care Provider Facility Start: 04-25-2024 End: 04-25-2024 Bamboo flowsheet Trevor Wallace MD Work Phone: [facility] Start: 04-25-2024 End: 04-25-2024 Bamboo flowsheet Trevor Wallace MD Work Phone: [facility] Start: 04-25-2024 End: 04-25-2024 Transitional care manage srvc 7 day discharge Trevor Wallace MD Work Phone: [facility] Comment on above: Multifocal pneumonia (Primary Dx); Acute hypoxic respiratory failure (CMS/HCC); Obstructive sleep apnea Start: 04-25-2024 End: 04-25-2024 ambulatory TREVOR WALLACE Not Available Start: 04-19-2024 End: 04-19-2024 ambulatory Arpit Carreon MA [facility] Start: 04-13-2024 End: 04-15-2024 Clinisync Result Encounter Generic External Data Provider [facility] External Department Unsolicited Start: 04-13-2024 End: 04-15-2024 Clinisync Result Encounter Generic External Data Provider [facility] External Department Unsolicited Start: 04-13-2024 End: 04-13-2024 ambulatory GAMAL GROVE Not Available Start: 04-13-2024 End: 04-13-2024 Office outpatient visit 25 minutes Gamal Grove DO Work Phone: [facility] Comment on above: Wheezing (Primary Dx ); Acute hypoxic respiratory failure (CMS/HCC) Start: 04-09-2024 End: 04-09-2024 Office outpatient visit 25 minutes Melisa Jo PARAMEDIC SUPERVISOR Work Phone: [facility] Comment on above: Acute bronchitis, un specified organism (Primary Dx); Bilateral acute otitis media Start: 04-09-2024 End: 04-09-2024 ambulatory MELISA JO Not Available Start: 03-21-2024 End: 03-21-2024 Bamboo flowsheet Tamara Daugherty DPM Work Phone: [facility] Start: 03-21-2024 End: 03-21-2024 Bamboo flowsheet Tamara Daugherty DPM Work Phone: [facility] Start: 03-21-2024 End: 03-21-2024 Patient encounter procedure Tamara Daugherty DPM Work Phone: [facility] Comment on above: Diabetes mellitus wi thout complication (CMS/HCC) (Primary Dx); Onychomycosis; Pain in toes of both feet Start: 03-21-2024 End: 03-21-2024 ambulatory TAMARA DAUGHERTY Not Available Start: 02-12-2024 End: 02-12-2024 [...] 25 minutes Trevor Wallace MD Work Phone: [facility] Comment on above: Type 2 diabetes mechelle itus with hyperglycemia, without long-term current use of insulin (CMS/HCC) (Primary Dx); Essential hypertension, benign (CMS/HCC); Major depressive disorder, recurrent episode, mild (HCC) (CMS/HCC); Generalized anxiety disorder (CMS/HCC); Gastroesophageal reflux disease without esophagitis; Primary osteoarthritis of both knees; Breast cancer screening by mammogram; Class 2 severe obesity due to excess calories with serious comorbidity and body mass index (BMI) of 37.0 to 37.9 in adult (CMS/HCC); SOB (shortness of breath); Skin candidiasis Start: 12-11-2023 End: 12-12-2023 Telephone encounter Tamara Daugherty DPM Work Phone: [facility] Comment on above: Advice Only (Rx Refi ll Request) Start: 11-07-2023 End: 11-07-2023 Bamboo flowsheet Tamara Daugherty DPM Work Phone: [facility] Start: 11-07-2023 End: 11-07-2023 Bamboo flowsheet Tamara Daugherty DPM Work Phone: [facility] Start: 11-07-2023 End: 11-07-2023 Patient encounter procedure Tamara Daugherty DPM Work Phone: [facility] Comment on above: Diabetes mellitus wi thout complication (CMS/HCC) (Primary Dx); Onychomycosis; Pain in toes of both feet Start: 11-07-2023 End: 11-07-2023 ambulatory TAMARA DAUGHERTY Not Available Start: 08-01-2023 End: 08-01-2023 ambulatory KEVIN CRUZ Not Available Start: 07-14-2023 Patient encounter procedure Tamara Daugherty DPM Work Phone: [facility] Start: 07-14-2023 End: 07-14-2023 ambulatory TREVOR WALLACE Not Available Start: 07-04-2023 End: 07-04-2023 ambulatory TAMARA DAUGHERTY Not Available Start: 08-24-2022 End: 08-25-2022 ambulatory JILLIAN GILLESPIE Facility:[facility] Start: 08-24-2022 End: 08-24-2022 Patient encounter procedure JILLIAN GILLESPIE [facility] Start: 06-13-2022 End: 06-13-[address] EYAL GARDNER . Facility:[facility] Start: 05-18-2022 End: 05-18-2022 ambulatory ABHAY MAHARAJ Facility:[facility] Start: 05-16-2022 ambulatory Eyal Etiennei ty:CD:[id number] Start: 04-04-2022 End: 04-05-2022 ambulatory Eyal GARDNER Facility:[facility] Start: 04-04-2022 End: 04-04-2022 Patient encounter procedure Eyal GARDNER [facility] Start: 01-26-2022 End: 01-27-[address] TREVOR WALLACE Facility:[facility] Start: 12-27-2021 End: 12-28-[address] TREVOR WALLACE Facility:[facility] Start: 12-20-2021 End: 12-21-2021 ambulatory TREVOR WALLACE Facility:[facility] Start: 12-20-2021 End: 12-20-2021 Patient encounter procedure Eyal GARDNER [facility] Start: 11-29-2021 ambulatory Eyal GARDNER Facility :[facility] Start: 07-16-2021 Encounter for genera l adult medical examination without abnormal findings DR TREVOR WALLACE [facility] Start: 07-15-2021 End: 07-16-[address] TREVOR WALLACE Facility:[facility] Start: 07-15-2021 End: 07-16-2021 Encounter for general adult medical examination without abnormal findings DR TREVOR WALLACE Facility:[facility] Start: 07-04-2017 End: 07-08-2017 Evaluation and management of inpatient PROVIDER UNKNOWN Facility:[facility] Procedures Date Procedure Procedure Detail Performing Clinician Start: 04-13-2024 BLOOD CULTURE 1 Generic External Data Provider Start: 02-14-2024 Mammography Tamara Cl arke DPM Work Phone: Start: 12-30-2022 Mammography Tamara Cl arke DPM Work Phone: Start: 06-13-2022 Cystoscopy JILLIAN OLIVARES Start: 06-21-2016 Colonoscopy flx dx w /collj spec when pfrmd Eyal GARDNER Start: 06-21-2016 Colonoscopy Tamara Cl arke DPM Work Phone: Appendectomy Eyal GARDNER Cholecystectomy Eyal SUE Hernia of abdominal cavity (disorder) Eyal GARDNER Hysterectomy Eyal GARDNER Plan of Treatment Date Care Activity Detail Author Start: 06-21-2026 Screening for malign ant neoplasm of colon [facility] Start: 02-19-2026 Glaucoma screening Diabetes: R etinopathy Screening [facility] Start: 06-26-2025 Glaucoma screening Diabetes: R etinopathy Screening [facility] Start: 02-13-2025 Screening for malign ant neoplasm of breast Mammogram [facility] Start: 07-23-2024 End: 07-23-2024 Patient encounter procedure 07/23/2024 10:00 AM EDT Procedure Visit [facility] [address] [place] [id number] Tamara Daugherty, DPM [address] [place] [address] [facility] Start: 07-15-2024 End: 07-15-2024 Patient encounter procedure 07/15/2024 9:15 AM EDT Office Visit [facility] [address] [place] [address] Trevor Wallace MD [address] [place] [id number] [facility] Start: 07-13-2024 Urine screening for protein Diabetes: Urine Protein Screening [facility] Start: 04-25-2024 End: 04-25-2024 [facility] Comment on above: Arrived Start: 03-21-2024 End: 03-21-2024 Patient encounter procedure [facility] Comment on above: Arrived Start: 01-15-2024 End: 01-14-2025 Hemoglobin A1c/Hemoglobin.total in Blood Hemoglobin A1c Lab Routine Type 2 diabetes mellitus with hyperglycemia, without long-term current use of insulin ([facility]) Expected: 01/15/2024 (Approximate), Expires: 01/14/2025 [facility] Work Phone: Comment on above: Expected: 01/15/2024 (Approximate), Expires: 01/14/2025 Start: 01-15-2024 End: 03-16-2025 MG Breast - bilateral Screening Bilateral screening mammogram Imaging Routine Breast cancer screening by mammogram Expected: 01/15/2024, Expires: 03/16/2025 [facility] Comment on above: Expected: 01/15/2024 , Expires: 03/16/2025 Start: 01-15-2024 End: 01-15-2024 Patient encounter procedure 01/15/2024 9:00 AM EST Office Visit [facility] [address] [place] [id number] Trevor Wallace MD [address] [place] [id number] [facility] Start: 01-14-2024 Hemoglobin A1c measurement Diabetes: Hemoglobin A1C [facility] Start: 12-31-2023 Screening for malign ant neoplasm of breast Mammogram [facility] Start: 11-12-2023 Influenza vaccination Influenza Vacc ine (#1) [facility] Start: 11-07-2023 End: 11-07-2023 Patient encounter procedure 11/07/2023 10:45 AM EDT Procedure Visit [facility] [address] [place] [phone] Tamara Daugherty, DPM [address] [place] [address] Arrived [facility] Comment on above: Arrived Start: 06-11-2019 Hemoglobin A1c measurement Diabetes: Hemoglobin A1C [facility] Start: 09-20-1989 Screening for malign ant neoplasm of cervix [facility] Start: 09-20-1980 Screening for malign ant neoplasm of cervix Pap Smear [facility] Start: 09-20-1978 Urine screening for protein Diabetes: Urine Protein Screening [facility] Start: 1959 Screening for malign ant neoplasm of colon [facility] BLOOD CULTURE 1 BLOOD CULTURE 1 Lab Routine 04/13/2024 10:35 AM EST [facility] Immunizations Immunization Date Immunization Notes Care Provider Samira [email or web address] 01-10-2024 influenza virus vaccine, unspecified formulation Trevor Wallace MD Work Phone: [facility] 12-10-2022 influenza virus vaccine, unspecified formulation Tamara Daugherty DPM Work Phone: [facility] 12-29-2021 influenza virus vaccine, unspecified formulation JILLIAN GILLESPIE [facility] 12-29-2021 influenza, injectabl e, quadrivalent, preservative free Tamara Daugherty DPM Work Phone: [facility] 12-29-2021 SARS-CoV-2 (COVID-19 ) mRNA-1273 vaccine JILLIAN GILLESPIE [facility] 03-08-2021 SARS-CoV-2 (COVID-19 ) mRNA-1273 vaccine Eyal GARDNER [facility] 07-03-2020 SARS-CoV-2 (COVID-19 ) mRNA-1273 vaccine Eyal GARDNER [facility] 06-05-2020 SARS-CoV-2 (COVID-19 ) mRNA-1273 vaccine Eyal GARDNER [facility] 12-17-2019 influenza virus vaccine, unspecified formulation Eyal GARDNER [facility] 12-17-2019 Influenza, injectabl e, Madin [place] Canine Kidney, preservative free, quadrivalent Tamara Daugherty DPM Work Phone: [facility] 12-20-2018 influenza virus vaccine, unspecified formulation Eyal GARDNER [facility] 12-20-2018 influenza, injectabl e, quadrivalent, preservative free Tamara Daugherty DPM Work Phone: [facility] 01-12-2017 influenza virus vaccine, unspecified formulation Eyal GARDNER [facility] 01-12-2017 influenza, injectabl e, quadrivalent, preservative free Tamara Daugherty DPM Work Phone: [facility] Payers Date Payer Category Payer [facility] [id number] 2024 Unknown [id number] 2022 Private Health Insurance NICOLE ARECHIGA [id number] 2022 Unknown KRISTEN PETERSON [facility] [id number] 2022-Present [phone] [address] [place] [address] [id number] [id number] 2022 Unknown [id number] 2022 Unknown [id number] 1959 Unknown [id number] 2.16.840.1.043575.3.579. 2.593 1959 Unknown [id number] 2.16.840.1.633604.3.579. 2.593 1959 Unknown [id number] 2.16.840.1.784406.3.579. 2.593 1959 Unknown [id number] 2.16.840.1.517508.3.579. 2.593 1959 Unknown [id number] 2.16.840.1.653933.3.579. 2.593 1959 Unknown [id number] 2.16.840.1.463357.3.579. 2.727 1959 Unknown [id number] 2.16.840.1.910764.3.579. 2.727 1959 Unknown [id number] 2.16.840.1.380426.3.579. 2.727 1959 Unknown [id number] 2.16.840.1.551586.3.579. 2.1259 1959 Unknown [id number] 2.16.840.1.529996.3.579. 2.1259 1959 Unknown [id number] 2.16.840.1.614435.3.579. 2.1259 1959 Unknown [id number] 2.16.840.1.911293.3.579. 2.1259 1959 Unknown [id number] 2.16.840.1.832834.3.579. 2.1259 1959 Unknown [id number] 2.16.840.1.649376.3.579. 2.1259 1959 Unknown [id number] 2.16.840.1.575027.3.579. 2.1259 1959 Unknown [id number] 2.16.840.1.075558.3.579. 2.1259 1959 Unknown [id number] 2.16.840.1.009453.3.579. 2.1259 1959 Unknown [id number] 1959 Unknown [id number] Social History Date Type Detail Facility Tobacco smoking status [facility] Start: 11-07-2023 End: 04-25-2024 Sex Assigned At Female [facility] Start: 08-24-2022 End: 10-23-2022 Tobacco smoking status Never smoked tobacco (finding) [facility] Tobacco smoking status Never [facility] Start: 11-07-2023 End: 04-13-2024 Alcoholic beverage intake Ex-drinker (finding) [facility] Start: 11-07-2023 End: 04-25-2024 History of Social function [facility] Start: 1960 Sex assigned at Not on file [facility] Medical Equipment Procedure Code Equipment Code Equipment Origin al Text Equipment Identifier Dates USE DIRECTED to test BLOOD SUGAR THREE TIMES DAILY [id number] Start: 04-10-2023 Functional Status Date Assessment Result Facility 08-24-2022 Functional Status N/A [facility] 04-04-2022 Functional Status N/A [facility] 12-20-2021 Functional Status N/A [facility] Clinical Notes 12-20-2021 to 04-25-2024 Trevor Wallace MD - 04/25/2024 11:14 AM Brent Wallace MD - 04/25/2024 11:14 AM Brent Wallace MD - 04/25/2024 11:13 AM Brent Wallace MD - 04/25/2024 10:45 AM EST Note Date & Type Note Facility 04-25-2024 History of Present illness Narrative Associated Problem(s): Multifocal pneumonia Recent pneumonia and improving. Wean oxygen. Follow with pulmonology. Associated Problem(s): Acute hypoxic respiratory failure (CMS/HCC) Developed hypoxia with pneumonia and improved. Discussed weaning off oxygen and monitoring SpO2. Follow up with pulmonology. Associated Problem(s): Obstructive sleep apnea Prior sleep study diagnosed SAQIB several years ago but no machine for years. Refer for titration study. Images from the original note were not included. Subjective Patient ID: Eleni Rojo is a 63 y.o. female who presents for Follow-up ([facility] f/up pneumonia ). Hospital follow up from 04/13-04/18 for pneumonia and hypoxia. Developed cough and SOB for several days. To urgent care and given zpack and prednisone. No improvement and to ER. SpO2 68% on room air. CTA showed multifocal pneumonia and admitted. Started rocephin and levaquin. Started albuterol and solu-medrol. Gradually improved but not able to wean off oxygen. Seen by pulmonology and concerned of underlying asthma. Discharged home with O2. Overall feels better but still fatigue. Mild SOB and cough. Completed antibiotics and steroids. Scheduled with pulmonology 05/14. Prior SAQIB and had CPAP but not used for years. Reports sleep study prior to 2019. Patient was advised to resume CPAP. Review of Systems Respiratory: Negative for cough, [...] Assessment/Plan Problem List Items Addressed This Visit Obstructive sleep apnea Prior sleep study diagnosed SAQIB several years ago but no machine for years. Refer for titration study. Multifocal pneumonia - Primary Recent pneumonia and improving. Wean oxygen. Follow with pulmonology. Acute hypoxic respiratory failure (CMS/HCC) Developed hypoxia with pneumonia and improved. Discussed weaning off oxygen and monitoring SpO2. Follow up with pulmonology. documented in this encounter [facility] 04-19-2024 History of Present illness Narrative Images from the original note were not included. Flowsheet Row Patient Outreach from 04/19/2024 in [facility] with Arpit Carreon MA Hospital Information ED, Hospital or Long-Term Facility Discharge? Hospital Patient has been contacted within two business days of discharge Yes Diagnosis pneumonia, acute hypoxic resp failure Discharge Date 04/18/24 Discharged To: Home Setting Discharge Hospital [facility] Engagement Admission Date 04/13/24 Medications Discharge medications reviewed and reconciled from hospital? Yes Is the patient having any side effects they believe may be caused by any medication additions or changes? No Does the patient have all medications ordered at discharge? No [Pharmacy needed clarification on the Duoneb Rx, waiting to pickup driver] Nursing Interventions No intervention needed Prescription Comments Levaquin, Prednisone, Mucinex, Symbicort, Duoneb solution Is the patient taking all medications as directed (includes completed medication regime)? Yes Appointments Does the patient have a primary care provider? Yes [Felix FERRARI] Nursing Interventions Verified appointment date/time/provider [04/25/2024 at 1130] Does the patient have any upcoming specialty appointments? Yes [Pulmonology, Lety, 05/14/2024 at 1430] Nursing Interventions Advised patient to keep appointment Self Management Does patient have home health yes What is the home health agency? [facility] Has home health visited the patient within 72 hours of discharge? Yes [they are coming today] What Durable Medical Equipment (DME) was ordered? oxygen and supplies, nebulizer machine [[facility]] Has all Durable Medical Equipment (DME) been delivered? Yes Patient Teaching Does the patient have access to their discharge instructions? Yes Nursing Interventions Reviewed instructions with patient What is the patient's perception of their health status since discharge? Improving Is the patient/caregiver able to teach back the hierarchy of who to call/visit for symptoms/problems? PCP, Specialist, Home Health nurse, Urgent Care, ED, 911 Yes Wrap Up Is the patient/caregiver familiar with Advance Care Planning? Yes Would the patient like more information on Advance Care Planning? No Wrap Up Additional Comments EKG, chest XR, CTA, Labs, RSV.Flu/Cov swabs Pt presented to ER for SOB and productive cough with yellow sputum for six days. Previously seen in urgent care and was prescribed Zpak and Prednisone. Pt SpO2 on room air was 68%. Pt placed on 3L of oxygen. Chest XR shows pneumonia and CTA confirms showing multifocal pneumonia, but was negative for PE. RSV/Flu/Cov swabs all negative. EKG showed sinus rhythm no ST elevation or depression. Pt was started on Levaquin IV and given a breathing treatment and SoluMedrol. Pt was admitted. Pulmonology was consulted. Pt was discharged after five day stay with Rxs,home health, oxygen and nebulizer equipment. Pt has follow up with PCP on 04/25 and follow up with Samsa on 05/14. Pt contacted and she is doing somewhat better. She did sound SOB when she answered the phone. She said she is using her oxygen. She is waiting on the Duoneb RX as the pharmacy needed clarification for something. I spoke with Dr Wallace about this as I don't want her to have to wait. He will send in a new Rx so this can be filled for her right away. I did review her medications with her and reminded her to stop the Mobic until she is done with the Prednisone Rx and to monitor her BS's as well. She did voice understanding of that. BRAD completed and meds were reconciled. Pt gave verbal consent to enroll in 30 day Monitor. documented in this encounter [facility] 04-13-2024 History of Present illness Narrative Images from the original note were not included. [address] , [address] [facility], [address] P: [phone] F: [phone] HPI Historian of HPI: patient Eleni Rojo is a 63 y.o. female who presents today to the Urgent Care with the following complaints and denials which have been present for 6 day(s) pt states she is having SOB and still struggling to breathe. Pt states she was seen here on Monday and was dx with bronchitis and feels her sx have worsened. Pt admits to diarrhea. Pt denies any vomiting and nausea. Pt would like to be re seen by a provider before any testing. C/O Denies Symptom Comments [x] [] Runny Nose [] [x] Difficulty Swallowing [] [x] Sore Throat [x] [] Cough Wheezing, SOB, wet cough [] [x] Ear Pain [] [x] Fever [x] [] Chills [] [x] Nasal Congestion [x] [] Myalgia [x] [] Sinus Pain Headache [] [x] Sinus Pressure Additional Comments: pt has taken tessalon perles, azithromycin OTC medication without relief ROS A complete system ROS was performed and negative aside from the pertinent positives noted in the HPI and PE. IH Testing: PHYSICAL EXAM Physical Exam Constitutional: General: She is in acute distress. Appearance: She is ill-appearing. HENT: Right Ear: Tympanic membrane normal. Left Ear: Tympanic membrane normal. Cardiovascular: Rate and Rhythm: Normal rate. Pulmonary: Breath sounds: Wheezing and rales present. Neurological: Mental Status: She is alert. Psychiatric: Mood and Affect: Mood normal. TREATMENT PLAN Diagnoses and all orders for this visit: Wheezing (Primary) Acute hypoxic respiratory failure (CMS/HCC) Patient was in obvious acute distress, and I attended her as quickly as possible after she was roomed. She had markedly tight wheezes and rales were auscultated throughout the chest. At this time, I gave her an albuterol treatment to attempt to open up her airways, but she still remained very tightly wheezing and the SpO2 only went up to 89 percent. At this time, I recommended to her and her that she should go to the emergency room, and they agreed to do so. They chose [facility], and triage call was made by our MA. I felt that the patient will likely be admitted to the hospital with at least bronchitis if not pneumonia. documented in this encounter [facility] 04-09-2024 History of Present illness Narrative [address] , [address] [facility], [address] P: [phone] F: [phone] HPI Historian of HPI: patient and Spouse Eleni Rojo is a 63 y.o. female who presents today to the Urgent Care with the following complaints and denials which have been present for 1 day(s) C/O Denies Symptom Comments [x] [] Runny Nose clear [] [x] Difficulty Swallowing [x] [] Sore Throat Scratchy [x] [] Cough dry [] [x] Ear Pain [] [x] Fever [] [x] Chills [] [x] Nasal Congestion [] [x] Myalgia [] [x] Sinus Pain [x] [] Sinus Pressure Additional Comments: pt has taken Niurka seltzer OTC medication with relief Admits to eating and drinking normally. Noticed some wheezing this morning, admits to feeling winded while walking into the today. Denies fever, chills, NVD ROS A complete system ROS was performed and negative aside from the pertinent positives noted in the HPI and PE. IH Testing: PHYSICAL EXAM Examination General Examination: General Examination: alert, oriented, normal affect, well appearing, in no acute distress, well developed, well nourished Head: normocephalic, atraumatic Eyes: sclera non-icteric Ears: tympanic membrane intact, red, auditory canal non inflamed Nose: congested with clear drainage. Oral Cavity: mucosa moist, no lesions Throat: uvula midline Neck/Thyroid: FROM Lymph Nodes: no cervical adenopathy Heart: no murmurs, regular rate and rhythm, S1, S2 normal Lungs: clear to auscultation bilaterally. Bronchospastic cough Extremities: no edema, no cyanosis Neurologic: alert and oriented Psych: alert, oriented, cognitive function intact, cooperative with exam TREATMENT PLAN 1. Acute bronchitis, unspecified organism (Primary) Diagnosis and treatment discussed with patient. Immediate eval if new, worsening sx otherwise f/u with PCP if sx not resolved with course of atb, sooner if not improving over next 3-4 days. To ED for trouble swallowing secretions, shortness of breath, chest pain, or other red flag symptoms. Advised Pt on supportive therapies, including using a vaporizer/humidifer/steam from hot showers, lots of fluids as tolerated, rest, avoidance of second-hand smoke, frequent hand-washing w/ soap and water, and OTC ibuprofen or acetaminophen as directed prn for pain control - predniSONE (Deltasone) 10 MG tablet; Take 3 tablets (30 mg) by mouth in the morning for 5 days. Take with meals. Dispense: 15 tablet; Refill: 0 - benzonatate (Tessalon Perles) 100 MG capsule; Take 1 capsule (100 mg) by mouth 3 (three) times a day as needed for cough for up to 7 days Do not crush or chew. Dispense: 21 capsule; Refill: 0 2. Bilateral acute otitis media Diagnosis and treatment discussed. See above. - azithromycin (Zithromax) 250 MG tablet; Take 2 tabs (500 mg) by mouth today, than 1 tab (250 mg) daily for 4 days. Dispense: 6 tablet; Refill: 0 documented in this encounter [facility] 03-21-2024 History of Present illness Narrative Images from the original note were not included. Subjective Patient ID: Eleni Rojo is a 63 y.o. female who presents for Nail care (Eleni Rojo is a 63 y.o. female who [...] Daily, Disp: 90 tablet, Rfl: 3 Lancets (Mob[employer] Delica Plus [id number]) [facility], USE DIRECTED to [...] the morning., Disp: , Rfl: nystatin (Mycostatin) 333496 UNIT/GM powder, Apply topically 2 (two) times [...] Procedure Laterality Date APPENDECTOMY ARTHROPLASTY Left 08/04/2021 [facility] arthroplasty - Dr. Panchal BUNIONECTOMY Left SECTION, [...] and Affect: Mood normal. Behavior: Behavior normal. [address] Assessment/Plan ICD-10-CM 1. Diabetes mellitus without complication ([facility]) E11.9 2. Onychomycosis B35.1 3. Pain in [...] or corrected. Thank you for your understanding. Tamara Daugherty DPM documented in this encounter [facility] 01-15-2024 History of Present illness Narrative Associated Problem(s): Class 2 severe obesity due to excess calories with serious comorbidity and body mass index (BMI) of 37.0 to 37.9 in adult ([facility]) Weight loss indicated Associated Problem(s): Type 2 diabetes mellitus with hyperglycemia, without long-term current use of insulin ([facility]) Reports BS stable and due for A1C. Stick to ADA diet and limit carbs. Associated Problem(s): Primary osteoarthritis of both knees Pain stable and use mobic PRN. Increase activity and walk regularly. Associated Problem(s): Major depressive disorder, recurrent episode, mild (HCC) ([facility]) Symptoms controlled with medication and continue. Associated Problem(s): Generalized anxiety disorder (CMS/HCC) Symptoms controlled with medication and continue. Associated Problem(s): Gastroesophageal reflux disease Symptoms controlled with omeprazole and continue. Associated Problem(s): Essential hypertension, benign (CMS/HCC) BP controlled and monitor PRN. Images from the original note were not included. Subjective Patient ID: Eleni Rojo is a 63 y.o. female who [...] of 37.0 to 37.9 in adult (CMS/HCC) Weight loss indicated Other Visit Diagnoses Breast cancer screening by mammogram Relevant Orders Bilateral screening mammogram documented in this encounter [facility] 12-12-2023 Telephone encounter Note I called in Meloxicam to [facility] in [place]. [facility] 12-12-2023 Miscellaneous Notes I called in Meloxicam to [facility] in [place]. Patient called as she needs a refill of the anti-inflammatory that [facility] prescribed, however should couldn't remember the name of the medication or when it was last prescribed. Are you able to help find this information for the patient documented in this encounter [facility] 12-11-2023 Telephone encounter Note Patient called as she needs a refill of the anti-inflammatory that [facility] prescribed, however should couldn't remember the name of the medication or when it was last prescribed. Are you able to help find this information for the patient [facility] 11-07-2023 History of Present illness Narrative Images from the original note were not included. Subjective Patient ID: Eleni Rojo is a 63 y.o. female who presents for Nail care (Eleni Rojo is a 63 y.o. female who presents for Nail Care. BS [address] Wallace 08/24/2022-Next 07/14/2023/SS 7./ /). HPI Established patient returns requesting nail. She states nails are elongated. She had to trim the nails between her appointments as the nails became too long Review of Systems Medications Current Outpatient Medications: Lancets (OneTouch Delica Plus [id number]) misc, USE DIRECTED to test BLOOD SUGAR THREE [...] Procedure Laterality Date APPENDECTOMY ARTHROPLASTY Left 08/04/2021 [facility] [place] - Dr. Panchal BUNIONECTOMY Left SECTION, [...] and Affect: Mood normal. Behavior: Behavior normal. [address]24 Assessment/Plan ICD-10-CM 1. Diabetes mellitus without complication (CMS/[facility]) E11.9 2. Onychomycosis B35.1 3. Pain in [...] or corrected. Thank you for your understanding. Tamara Daugherty DPM documented in this encounter [facility] 08-24-2022 Hospital Discharge instructions Patient Education 08/24/2022 [...] including vitamins, herbs, eye drops, creams, and epru-aua-nlhhlqa medicines. Any problems you or family members [...] provider tells you to take them. Taking mhys-gyt-kprbgnc medicines, vitamins, herbs, and supplements. General instructions [...] Follow these instructions at home: Medicines Take rxwl-wwp-ojmmhed and prescription medicines only as told by [...] provider. Document Revised: 09/03/2021 Document Reviewed: 09/03/2021 [employer] Patient Education 2022 [employer]. Follow Up Care 07/13/2022 09:23:16 With:JILLIAN GILLESPIE PA-C, URL Address: [address] [facility] [place] [address] When: Unknown [facility] Hospital Discharge instructions Patient Education [...] including vitamins, herbs, eye drops, creams, and qsux-qms-hjlixkh medicines. ?Whether you are or may be [...] 12/25/2007 Document Revised: 06/18/2019 Document Reviewed: 01/01/2018 [employer] Patient Education 2020 [employer] Follow Up Care 12/20/2021 11:03:34 With:NARCISO FERRARI, Eyal Sosa, URL Address: [facility] [address] [place] [address]- When: Unknown [facility] 12-20-2021 Hospital Discharge instructions Patient Education 12/20/2021 [...] fried and sweet foods. General instructions Take vvnb-gcz-yldllaw and prescription medicines only as told by [...] 12/24/2009 Document Revised: 06/20/2019 Document Reviewed: 03/15/2018 [employer] Patient Education 2020 [employer]. Follow Up Care 11/29/2021 15:38:28 With:Eyal GARDNER MD, URL Address: [facility] [address] , [place] [address]- [phone] When:03/22/2022 [facility] Evaluation + Plan note Future Appointments Appointment Date:04/04/2022 10:45:00 AM Scheduled Provider:Eyal GARDNER MD Location:[facility] Appointment Type:URO Office Visit [facility] Evaluation note Diagnosis Pain in joint of right foot- Primary documented in this encounter [facility]* Diagnosis Annual physical exam- Primary Routine general medical examination at a [facility] facility Type 2 diabetes mellitus with hyperglycemia, [...] skin and nails documented in this encounter [facility]* Diagnosis Annual physical exam- Primary Routine general medical examination at a [facility] care facility Type 2 diabetes mellitus with [...] Hypokalemia- Primary Hypopotassemia documented in [facility]* Diagnosis Diabetes mellitus without complication (CMS/HCC)- Primary Type II or unspecified type diabetes mellitus without mention of complication, not stated as uncontrolled Onychomycosis Dermatophytosis of nail Pain in toes of both feet documented in this encounter [facility]* Diagnosis Annual physical exam- [...] of both feet documented in this encounter [facility]* Diagnosis Annual physical exam- Primary Routine general medical examination at a health care facility Type 2 diabetes mellitus with hyperglycemia, without long-term current use of insulin (CMS/[facility]) Essential hypertension, benign (CMS/HCC) Essential hypertension, benign Pain in joint of right foot Capsulitis of right foot Type 2 diabetes mellitus with polyneuropathy (CMS/HCC) Type II or unspecified type diabetes mellitus with neurological manifestations, not stated as uncontrolled Type 2 diabetes mellitus with hyperglycemia, without long-term current use of insulin ([facility]/HCC)- Primary Essential hypertension, benign (CMS/HCC) Essential hypertension, [...] (BMI) of 37.0 to 37.9 in adult ([facility]) SOB (shortness of breath) Shortness of breath Skin candidiasis Candidiasis of skin and nails Acute bronchitis, unspecified organism- Primary Bilateral acute otitis media Unspecified otitis media documented in this encounter [facility]* Diagnosis Annual physical exam- Primary Routine general medical examination at a health care facility Type 2 diabetes mellitus with hyperglycemia, without long-term current use of insulin ([facility]) Essential hypertension, benign ([facility]) Essential hypertension, benign Pain in joint of right foot Capsulitis of right foot Type 2 diabetes mellitus with polyneuropathy ([facility]) Type II or unspecified type diabetes mellitus with neurological manifestations, not stated as uncontrolled Type 2 diabetes mellitus with hyperglycemia, without long-term current use of insulin ([facility])- Primary Essential hypertension, benign ([facility]) Essential hypertension, benign Major depressive disorder, recurrent episode, mild (HCC) ([facility]) Major depressive disorder, recurrent episode, mild Generalized anxiety disorder ([facility]) Generalized anxiety disorder Gastroesophageal reflux disease without esophagitis Esophageal reflux Primary osteoarthritis of both knees Breast cancer screening by mammogram Class 2 severe obesity due to excess calories with serious comorbidity and body mass index (BMI) of 37.0 to 37.9 in adult ([facility]) SOB (shortness of breath) Shortness of breath Skin candidiasis Candidiasis of skin and nails Type 2 diabetes mellitus with hyperglycemia, without long-term current use of insulin ([facility])- Primary Essential hypertension, benign ([facility]) Essential hypertension, benign Acute hypoxic respiratory failure ([facility]) Pneumonia due to infectious organism, unspecified laterality, unspecified part of lung documented in this encounter [facility]* Diagnosis Annual physical exam- Primary Routine general medical examination at a health care facility Type 2 diabetes mellitus with hyperglycemia, without long-term current use of insulin ([facility]) Essential hypertension, benign ([facility]) Essential hypertension, benign Pain in joint of right foot Capsulitis of right foot Type 2 diabetes mellitus with polyneuropathy ([facility]) Type II or unspecified type diabetes mellitus with neurological manifestations, not stated as uncontrolled Type 2 diabetes mellitus with hyperglycemia, without long-term current use of insulin ([facility])- Primary Essential hypertension, benign (CMS/HCC) Essential hypertension, [...] Skin candidiasis Candidiasis of skin and nails Multifocal pneumonia- Primary Acute hypoxic respiratory failure (CMS/HCC) Obstructive sleep apnea Obstructive sleep apnea (adult) (pediatric) documented in this encounter [facility]* Diagnosis Annual physical exam- Primary [...] Skin candidiasis Candidiasis of skin and nails Wheezing- Primary Acute hypoxic respiratory failure (CMS/HCC) Multifocal pneumonia- Primary Acute hypoxic respiratory failure (CMS/HCC) Obstructive sleep apnea Obstructive sleep apnea (adult) (pediatric) documented in this encounter [facility] Narrative No data available for this section [facility] progress note No data available for this section [facility] Summary Purpose Family History No Family History Records FoundNo Family History Records FoundNo Family History Records FoundNo Family History Records Found Advance Directives No Advanced Directives Records FoundNo Advanced Directives Records FoundNo Advanced Directives Records FoundNo Advanced Directives Records Found Additional Source Comments INFORMATION SOURCE (unrecogn ized section and content) DATE CREATED AUTHOR 09/14/2017 [facility] DATE CREATED AUTHOR AUTHOR'S ORGANIZ ATION 06/18/2022 [facility] DATE CREATED AUTHOR AUTHOR'S ORGANIZ ATION 08/25/2022 [facility] DATE CREATED AUTHOR AUTHOR'S ORGANIZ ATION 04/27/2024 [facility] EPIC Patient Care team informatio n (unrecognized section and content) Operations Lieutenant Relationship Specialty Start Date End Date Trevor Wallace MD [address] [place] [address] PCP - General Cardiology 07/22/22 Operations Lieutenant Relationship Specialty Start Date End Date Trevor Wallace MD [address] [place] [address] PCP - General Cardiology 07/22/22 Operations Lieutenant Relationship Specialty Start Date End Date Trevor Wallace MD [address] [place] [address] PCP - General Cardiology 07/22/22 Operations Lieutenant Relationship Specialty Start Date End Date Trevor Wallace MD [address] [place] [address] PCP - General Cardiology 07/22/22 Operations Lieutenant Relationship Specialty Start Date End Date Trevor Wallace MD [address] [place] [address] PCP - General Cardiology 07/22/22 Operations Lieutenant Relationship Specialty Start Date End Date Trevor Wallace MD [address] [place] [address] PCP - General Cardiology 07/22/22 Operations Lieutenant Relationship Specialty Start Date End Date Trevor Wallace MD [address] [place] [address] PCP - General Cardiology 07/22/22 Operations Lieutenant Relationship Specialty Start Date End Date Trevor Wallace MD [address] [place] [address] PCP - General Cardiology 07/22/22 Operations Lieutenant Relationship Specialty Start Date End Date Trevor Wallace MD [address] [place] [address] PCP - General Cardiology 07/22/22 Operations Lieutenant Relationship Specialty Start Date End Date Trevor Wallace MD [address] [place] [address] PCP - General Cardiology 07/22/22 Operations Lieutenant Relationship Specialty Start Date End Date Trevor Wallace MD [address] [place] [address] PCP - General Cardiology 07/22/22 Operations Lieutenant Relationship Specialty Start Date End Date Trevor Wallace MD [address] [place] [address] PCP - General Cardiology 07/22/22 Reason for Visit (unrecogniz ed section and content) Reason Onset Date Comments Advice Only 12/11/2023 Rx Refill Reques t Reason Comments Follow-up 6 m Reason Onset Date Comments Med Refill 02/12/2024 Reason Comments Nail care Eleni Rojo is a 63 y.o. female who presents for Nail Care. BS [address] Wallace 08/24/2022-Next 07/14/2023/SS 7. Reason Comments Nail care Eleni Rojo is a 63 y.o. female who presents for Nail Care. BS [address] Wallace 01/15/2024. SS 7. Reason Comments Follow-up Tbh f/up pneumonia FOR RECORDS PERTAINING TO PATIENTS WHO ARE [...] BE BASED ON THE PRIMARY CLINICAL RECORDS. [facility] [employer] provides no warranty or guarantee of the accuracy or completeness of information in this document.
== END 2024-05-01 20:55 | disposition home or self-care (01) ==
LOC: SLEEP 20:54
PROVIDERS: PCP Family Medicine; Visit Provider Family Medicine
DX: G47.33 Obstructive sleep apnea (adult) (pediatric) (principal)
CPT/HCPCS: 95811

== ENCOUNTER 2024-07-19 09:48 | Outpatient (OUT) | payer BC, SELFPAY ==
[2024-07-19 09:59] LABS: Basophils Percent Auto 0.7 % (0.2-2.0); Eosinophils Absolute Auto 0.1 10^3/uL (0.0-0.7); Eosinophils Percent Auto 2.4 % (0.9-7.0); Hematocrit 41.3 % (36.0-48.0); Hemoglobin 13.5 g/dL (12.0-16.0); Immature Granulocytes Abs Auto 0.02 10^3/uL (0.00-0.03); Immature Granulocytes Pct Auto 0.3 % (0.0-0.5); Lymphocytes Absolute Auto 1.4 10^3/uL (1.2-3.8); Lymphocytes Percent Auto 24.2 % (20.5-60.0); Mean Corpuscular HGB Conc 32.7 g/dL (29.9-35.2); Mean Corpuscular Hemoglobin 30.8 pg (26.7-34.0); Mean Corpuscular Volume 94.1 fL (81.0-99.0); Mean Platelet Volume 9.5 fL (9.5-13.5); Monocytes Absolute Auto 0.4 10^3/uL (0.3-0.8); Monocytes Percent Auto 6.3 % (1.7-12.0); Neutrophils Absolute Auto 3.9 10^3/uL (1.4-6.5); Neutrophils Percent Auto 66.1 % (43.0-75.0); Platelet Count 224 10^3/uL (150-450); Red Blood Count 4.39 10^6/uL (4.20-5.40); Red Cell Distribution Width 13.6 % (11.0-15.0); White Blood Count 5.9 10^3/uL (4.0-11.0)
[2024-07-19 10:33] LABS: Alanine Aminotransferase 28 U/L (14-59); Albumin Globulin Ratio 1.2; Albumin Level 3.7 g/dL (3.4-5.0); Alkaline Phosphatase 93 U/L (46-116); Anion Gap 10.3; Aspartate Amino Transferase 19 U/L (15-37); BUN Creatinine Ratio 19.4; Bilirubin Direct 0.1 mg/dL (0.0-0.2); Bilirubin Total 0.5 mg/dL (0.2-1.0); Calcium 9.8 mg/dL (8.5-10.1); Carbon Dioxide 29.6 mmol/L (21.0-32.0); Chloride 102 mmol/L (98-107); Cholesterol 189 mg/dL (<=200); Estimated GFR (African America >60 (>=60 mL/min/1.73m^2); Estimated GFR (Non-African Ame >60 (>=60 mL/min/1.73m^2); Globulin 3.2 g/dL; Glucose 133 mg/dL (74-106); HDL Cholesterol 62 mg/dL (40-60); Potassium 3.9 mmol/L (3.5-5.1); Sodium 138 mmol/L (136-145); Total Protein 6.9 g/dL (6.4-8.2); Triglycerides 96 mg/dL (<=150); VLDL CHOLESTEROL 19.2 mg/dL
[2024-07-19 10:35] LABS: Microalbum Creatinine Ratio Ur 8.8 mg/g (0.0-29.9); Microalbumin Urine Random <1.3 mg/dL (<=30.0)
[2024-07-19 11:07] LABS: Estimated Average Glucose 160 mg/dL; Glycohemoglobin A1C 7.2 % (4.5-6.2)
== END 2024-07-19 09:49 | disposition home or self-care (01) ==
LOC: LAB 09:48
PROVIDERS: PCP Family Medicine; Visit Provider Family Medicine
DX: Z00.00 Encounter for general adult medical examination without abnormal findings (principal); E11.65 Type 2 diabetes mellitus with hyperglycemia
CPT/HCPCS: 36415; 80048; 80061; 80076; 82043; 82570; 83036; 84443; 85025

== ENCOUNTER 2024-07-23 12:40 | Outpatient (OUT) | payer BC, SELFPAY ==
[2024-07-23] MEDS: ALBUTEROL SULFATE 2.5 MG/3 ML VIAL NEB IH (13:17)
--- NOTE | 2024-07-23 13:19 | RT_ITS ---
The [facility] Test Date: 2024-07-23 Pat Name: ELENI WATKINS Department: Room: - Gender: Female Criminal Records Technician: Nasir Reed RRT : 1960 Requested By: Jesus Alberto Davidson Order Number: [id number] Reading MD: Jesus Alberto Davidson Interpretive Statements Pulmonary function testing was completed according to ATS criteria. Findings were considered accurate and reproducible, with exception of DLCO which did not meet ATS standards. Both pre- and post-bronchodilator values utilized for spirometry. Spirometry (based on pre-bronchodilator values): -FEV1/FVC: Normal @ 92% -FEV1: Severely reduced @ 47% -FVC: Very severely reduced @ 39% -There is no significant bronchodilator response. Lung volumes by plethysmography (based on pre-bronchodilator values): -RV: Reduced @ 47% -TLC: Severely reduced @ 52% Diffusion capacity: -DLCO: Moderate reduction @ 56% when corrected for Hb 13.5g/dL Flow-volume loop: -Severe restrictive pattern Impressions: -Spirometry suggests severe restriction which is confirmed by a severely decreased TLC. There is a moderately reduced diffusion capacity. Overall study is conistent with restrictive lung disease. This pattern can be seen in, but not restricted to, cardiopulmonary vascular disorders, early interstitial lung disease, and early emphysema. Clinical correlation required. Electronically Signed On 07-24-2024 15:25:30 EDT by Jesus Alberto Davidson
--- NOTE | 2024-07-23 13:58 | CT_ITS ---
The [address] [address] Patient Name: ELENI WATKINS MRN: [id number] date: 1960 Sex: F Assigned Patient Location: CARD Current Patient Location: CARD Accession/Order Number: [id number] Exam Date: 07/23/2024 14:34 Report Date: 07/23/2024 14:41 At the request of: SCARLETT NAVA DO Procedure: CT chest wo con CT chest wo con 07/23/2024 2:15 PM SIGN AND SYMPTOMS: Follow-up for pneumonia TECHNIQUE: Multidetector CT axial slices of the chest were obtained without IV contrast. Multiplanar reformats were performed and viewed on a separate workstation and reviewed to further define anatomy and possible pathology. CT was performed with one or more of the following dose reduction techniques: Automated exposure control, adjustment of the mA and/or kV according to patient size, or use of iterative reconstruction technique. COMPARISON: 04/13/2024 and 04/15/2024. FINDINGS: Lower neck: There is a 9 mm nodule along the deep margin of the right thyroid bed slightly inferior to the thyroid in the right paratracheal region. This may represents a lymph node. However, a parathyroid adenoma should also be considered. Follow-up with nuclear medicine parathyroid imaging soft tissue neck CT with and without contrast as well as correlation with clinical service calcium and parathyroid hormone values. Vessels: Mild atherosclerotic changes are noted in the thoracic aorta. Mediastinum and Gloria: Within normal limits. Heart: Normal size. No pericardial effusion. Airways: Within normal limits Lungs: There is dependent atelectasis. There has been significant interval improvement in airspace opacities bilaterally with near complete resolution of opacity in the left upper lobe when compared to the prior exam. Pleura: Within normal limits. Chest Wall: Within normal limits. Upper Abdomen: There is evidence of prior cholecystectomy. Bones: Degenerative changes are noted in the thoracic spine. CT/CT chest wo con IMPRESSION: There is a 9 mm nodule along the deep margin of the right thyroid bed slightly inferior to the thyroid in the right paratracheal region. This may represents a lymph node. However, a parathyroid adenoma should also be considered. Follow-up with nuclear medicine parathyroid imaging soft tissue neck CT with and without contrast as well as correlation with clinical service calcium and parathyroid hormone values. There has been significant interval improvement in airspace opacities bilaterally with near complete resolution of opacity in the left upper lobe when compared to the prior exam. There is dependent atelectasis. Impression dictated by: Andrei Fatima M.D. 07/23/2024 2:41 PM Dictation Location: [place] [address] Electronically authenticated by: [id number] Y Date: 07/23/2024 14:41
== END 2024-07-23 12:41 | disposition home or self-care (01) ==
LOC: CARD 12:40
PROVIDERS: PCP Family Medicine; Visit Provider Internal Medicine
DX: R06.02 Shortness of breath (principal); J18.9 Pneumonia, unspecified organism; R91.8 Other nonspecific abnormal finding of lung field
CPT/HCPCS: 71250; 94060; 94726; 94729

== ENCOUNTER 2024-08-14 10:47 | Outpatient (OUT) | payer BC, SELFPAY ==
--- OUTSIDE RECORDS SUMMARY | 2024-05-13 11:26 | XMS_ITS ---
Author Organization [facility] [place] Address [address] [place] [address] Care Team Providers Care Music Therapist [employer] Name Role Phone Trevor Forrest MD Primary Care Provider Jesus Alberto Gustafson Unavailable [phone] REASON FOR VISIT Appt. Time Change Encounters Encounter Location Date Provider Diagnosis Pulmonary [facility] [place] [address] [place] [address] 05/13/2024 Jesus Alberto Davidson Plan Of Treatment No Information Progress Notes * Tayla WATKINS ADOB: [birth year] (63 yo F)Acc No.[id number]:05/13/2024 Patient: Tayla MANSFIELD A :1960 A ge:63 Y S ex:Female Address:[place], [address] * true * Date: Generated for Printi ng/Facarlosg/eTransmitting on: 0 08/14/2024 10:51 AM EDT
--- OUTSIDE RECORDS SUMMARY | 2024-08-14 10:51 | XMS_ITS | Encounter Summary ---
Author Organization [facility] Address [address] [facility] [place] [address] Care Team Providers Care Newspaper Peddler Name Role Phone Trevor Forrest MD Primary Care Provider [phone] Kathleen Jo HEAD FILTER TANK TENDER HELPER Unavailable [phone] Gamal May DO Unavailable [phone] Encounter Details Date Type Department Care Team (Late st Contact Info) Description 03/14/2024 Orders Only [facility] [address] [place] [address] Trevor Forrest MD [address] [place] [address] Social History Tobacco Use Types Packs/Day Years Used Date Smoking Tobacco: Never Alcohol Use Standard Drinks/Week Comments Not Currently 0 (1 standard drink = 0.6 oz pur e alcohol) Comments Unknown Sex and Gender Information Value Date Recorded Sex Assigned at Not on file Legal Sex Female 7:36 PM EDT Gender Identity Not on file Sexual Orientation Not on file documented as of this encounter Plan of Treatment Upcoming Encounters Date Type Department Care Team (Late st Contact Info) Description 11/26/2024 10:00 AM EDT Procedure Visit [facility] [address] [place] [address] Tamara Castle, DPM [address] [place] [phone] 01/15/2025 9:15 AM EST Office Visit [facility] [address] [place] [address] Trevor Forrest MD [address] [place] [address] documented as of this encounter Procedures Procedure Name Priority Date/Time Associated Diagnosis Comments DIABETES EYE EXAM Routine 03/14/2024 1:44 PM EST documented in this encounter Results * Hm Diabetes Eye Exam (03/14/2024 1:44 PM EST) Trevor Forrest MD HEALTH MAINTENANCE Final Result documented in this encounter Visit Diagnoses Not on filedocumented in this encounter Care Teams Newspaper Peddler Relationship Specialty Start Date End Date Trevor Forrest MD [address] [place] [address] PCP - General Cardiology 07/22/22 Kathleen Jo NP [address] [place] [address] PCP - [employer] 05/11/24 Gamal May DO [address] [place] [address] PCP - [employer] 06/11/24 documented as of this encounter
--- OUTSIDE RECORDS SUMMARY | 2024-08-14 10:51 | XMS_ITS | Encounter Summary ---
Author Organization [facility] Address [address] [place] [address] Care Team Providers Care Tax Credit Leasing Consultant Name Role Phone Trevor Forrest MD Primary Care Provider [phone] Kathleen Jo COKE DRAWER Unavailable [phone] Gamal May DO Unavailable [phone] Encounter Details Date Type Department Care Team (Late st Contact Info) Description 02/14/2024 Clinisync Result Encounter [facility] External Department Unsolicited Trevor Forrest MD [address] [place] [address] Social History Tobacco Use Types Packs/Day Years [...] EDT Procedure Visit [facility] [address] [facility] [place] [address] Tamara Castle, DPM [address] [place], [place] [phone] 01/15/2025 9:15 AM EST [facility] [address] [place] [address] Trevor Forrest MD [address] [place] [address] documented as of this encounter Procedures Procedure Name Priority Date/Time Associated Diagnosis Comments MM TOMOSYNTHESIS SCREENING BI 02/14/2024 2:06 PM EST documented in this encounter Results * MM TOMOSYNTHESIS SCREENING BI (02/14/2024 2:06 PM EST) Anatomical Region Laterality Modality Other 02/14/2024 2:06 PM EST Narrative 02/14/2024 2:07 [place] [address] Mammography Report Signed Patient: ELENI WATKINS MR#: [id number] : 1960 Acct:[id number] Age/Sex: 63 / F ADM Date: 02/14/24 Loc: MAMMO Attending Dr: Trevor Forrest M.D. Ordering Physician: Trevor Forrest M.D. Results: Date of Service: 02/14/24 Follow Up: Procedure(s): MM tomosynthesis screening BI Accession Number(s): [id number] cc: Trevor Forrest M.D. Patient Name: ELENI WATKINS MR#: [id number] : 1960 Exam Date: 02/14/2024 Ordering Doctor: DR Trevor Forrest . RADIOLOGY REPORT PROCEDURE: MM TOMOSYNTHESIS SCREENING BI COMPARISON: MG MAMM SCREEN 3D MAI CAD, 12/27/2021. MM TOMOSYNTHESIS SCREENING BI, 12/30/2022. INDICATIONS: Screening Calculator Name NCI Breast Cancer Risk Assessment Tool 5 Year Breast Cancer Risk 0.90% Lifetime Breast Cancer Risk 3.70% Personal Breast Cancer No Personal Ovarian Cancer No Treatments None Family Cancers None LOCATION: The [facility] BREAST COMPOSITION: The breasts are heterogeneously dense,which may obscure small masses. FINDINGS: DIAGNOSTIC CATEGORY 1--NEGATIVE. NO CHANGE FROM COMPARISON ASSESSMENT. Scattered benign-appearing calcifications are present. Scattered benign-appearing lymph nodes are present. RIGHT BREAST: No significant suspicious finding. LEFT BREAST: No significant suspicious finding. RECOMMENDATIONS: ROUTINE MAMMOGRAM AND CLINICAL EVALUATION IN 12 MONTHS. PLEASE NOTE: A NORMAL MAMMOGRAM DOES NOT EXCLUDE THE POSSIBILITY OF BREAST CANCER. A CLINICALLY SUSPICIOUS PALPABLE LUMP SHOULD BE BIOPSIED. Dictated by: Yaw Denton MD on 02/14/2024 at 14:05 Approved by: Yaw Denton MD on 02/14/2024 at 14:06 Dictated By: Yaw Denton M.D. Signed By: 02/14/24 1407 DD/ 1406 TD/TT: Supervisor Electronics Assembly: Procedure Note Radiology, Radiologist, MD - 02/14/2024 [place] [address] Mammography Report Signed Patient: ELENI WATKINS AMR#: [id number] : 1960Acct:[id number] Age/Sex: 63 / FADM Date: 02/14/24 Loc: MAMMO Attending Dr: Trevor Forrest M.D. Ordering Physician: Trevor Forrest M.D.Results: Date of Service: 02/14/24Follow Up: Procedure(s): MM tomosynthesis screening BI Accession Number(s): [id number] cc: Trevor Forrest M.D. Patient Name: ELENI WATKINS MR#: [id number] : 1960 Exam Date: 02/14/2024 Ordering Doctor: DR Trevor Honeycutt RADIOLOGY REPORT PROCEDURE: MM TOMOSYNTHESIS SCREENING BI COMPARISON: MG MAMM SCREEN 3D MAI CAD, 12/27/2021. MM TOMOSYNTHESIS SCREENING BI, 12/30/2022. INDICATIONS: Screening Calculator Name NCI Breast Cancer Risk Assessment Tool 5 Year Breast Cancer Risk 0.90% Lifetime Breast Cancer Risk 3.70% Personal Breast Cancer No Personal Ovarian Cancer No Treatments None Family Cancers None LOCATION: The [facility] BREAST COMPOSITION: The breasts are heterogeneously dense,which may obscure small masses. FINDINGS: DIAGNOSTIC CATEGORY 1--NEGATIVE. NO CHANGE FROM COMPARISON ASSESSMENT. Scattered benign-appearing calcifications are present. Scattered benign-appearing lymph nodes are present. RIGHT BREAST: No significant suspicious finding. LEFT BREAST: No significant suspicious finding. RECOMMENDATIONS: ROUTINE MAMMOGRAM AND CLINICAL EVALUATION IN 12 MONTHS. PLEASE NOTE: A NORMAL MAMMOGRAM DOES NOT EXCLUDE THE POSSIBILITY OFBREAST CANCER. A CLINICALLY SUSPICIOUS PALPABLE LUMP SHOULD BE BIOPSIED. Dictated by: Yaw Denton MD on 02/14/2024 at 14:05 Approved by: Yaw Denton MD on 02/14/2024 at 14:06 Dictated By: Yaw Denton M.D. Signed By:02/14/24 1407 DD/ 1406 TD/TT: Supervisor Electronics Assembly: Trevor Forrest MD [facility] Final Result documented in this encounter Visit Diagnoses Not on filedocumented in this encounter Care Teams Tax Credit Leasing Consultant Relationship Specialty Start Date End Date Trevor Forrest MD [address] [place] [address] PCP - General Cardiology 07/22/22 Kathleen Jo NP [address] [place] [address] PCP - [employer] 05/11/24 Gamal May DO [address] [place] [address] PCP - [employer] 06/11/24 documented as of this encounter
--- OUTSIDE RECORDS SUMMARY | 2024-08-14 10:51 | XMS_ITS | Patient Health Record ---
Author Organization The [facility] in [place] Address [address] [place] [address] Care Team Providers Care [place] Maintainer Name Role Phone Trevor Forrest MD Primary Care Provider Unavailab Scarlett Camilo Unavailable [phone] Allergies No Known Allergies Results Component Value Reference Range Notes CT chest wo con Reviewed date:07/23/2024 03:06:54 PM Interpretation: Performing Lab: Notes/Report: Source Facility: [place] [address] CT Scan Report Signed Patient: ELENI WATKINS MR#: [id number] : 1960 Acct:[id number] Age/Sex: 63 / F ADM Date: 07/23/24 Loc: CARD Attending Dr: Scarlett Nava D.O. Ordering Physician: Scarlett Nava D.O. Date of Service: 07/23/24 Procedure(s): CT chest wo con Accession Number(s): [id number] cc: Trevor Forrest M.D. [place] [address] Patient Name: ELENI WATKINS MRN: [id number] date: 1960 Sex: F Assigned Patient Location: CARD Current Patient Location: CARD Accession/Order Number: [id number] Exam Date: 07/23/2024 14:34 Report Date: 07/23/2024 14:41 At the request of: SCARLETT NAVA DO Procedure: CT chest wo con CT chest wo con 07/23/2024 2:15 PM SIGN AND SYMPTOMS: Follow-up for pneumonia TECHNIQUE: Multidetector CT axial slices of the chest were obtained without IV contrast. Multiplanar reformats were performed and viewed on a separate workstation and reviewed to further define anatomy and possible pathology. CT was performed with one or more of the following dose reduction techniques: Automated exposure control, adjustment of the mA and/or kV according to patient size, or use of iterative reconstruction technique. COMPARISON: 04/13/2024 and 04/15/2024. FINDINGS: Lower neck: There is a 9 mm nodule along the deep margin of the right thyroid bed slightly inferior to the thyroid in the right paratracheal region. This may represents a lymph node. However, a parathyroid adenoma should also be considered. Follow-up with nuclear medicine parathyroid imaging soft tissue neck CT with and without contrast as well as correlation with clinical service calcium and parathyroid hormone values. Vessels: Mild atherosclerotic changes are noted in the thoracic aorta. Mediastinum and Gloria: Within normal limits. Heart: Normal size. No pericardial effusion. Airways: Within normal limits Lungs: There is dependent atelectasis. There has been significant interval improvement in airspace opacities bilaterally with near complete resolution of opacity in the left upper lobe when compared to the prior exam. Pleura: Within normal limits. Chest Wall: Within normal limits. Upper Abdomen: There is evidence of prior cholecystectomy. Bones: Degenerative changes are noted in the thoracic spine. CT/CT chest wo con IMPRESSION: There is a 9 mm nodule along the deep margin of the right thyroid bed slightly inferior to the thyroid in the right paratracheal region. This may represents a lymph node. However, a parathyroid adenoma should also be considered. Follow-up with nuclear medicine parathyroid imaging soft tissue neck CT with and without contrast as well as correlation with clinical service calcium and parathyroid hormone values. There has been significant interval improvement in airspace opacities bilaterally with near complete resolution of opacity in the left upper lobe when compared to the prior exam. There is dependent atelectasis. Impression dictated by: Andrei Fatima M.D. 07/23/2024 2:41 PM Dictation Location: [place] [address] Electronically authenticated by: [id number] Y Date: 07/23/2024 14:41 Dictated By: Andrei Fatima M.D. Signed By: 07/23/24 1444 DD/ 1441 TD/TT: Pile Driver Operator: The [address] [address] [address] Scan Report Signed Patient: FELIPE WATKINS MR#: [id number] : 1960 Acct:[id number] Age/Sex: 63 / F ADM Date: 07/23/24 Loc: CARD Attending Dr: Scarlett Nava D.O. Ordering Physician: Scarlett Nava D.O. Date of Service: 07/23/24 Procedure(s): CT chest wo con Accession Number(s): [id number] cc: Trevor Forrest M.D. [address] [address] Patient Name: ELENI WATKINS MRN: [id number] date: 1960 Sex: F Assigned Patient Location: CARD Current Patient Location: CARD Accession/Order Numb er: [id number] Exam Date: 07/23/2024 14:34 Report Date: 07/23/2024 14:41 At the request of: SCARLETT NAVA DO Procedure: CT chest wo con CT chest wo con 07/23 2:15 PM SIGN AND SYMPTOMS: F ollow-up for pneumonia TECHNIQUE: Multidete ctor CT axial slices of the chest were obtained without IV contrast. Multiplana r reformats were performed and viewed on a separate workstation and revi ewed to further define anatomy and possible pathology. CT was performed with o ne or more of the following dose reduction techniques: Automated exposure c ontrol, adjustment of the mA and/or kV according to patient size, or use of iterative reconstruction technique. COMPARISON: 04/13/2024 and 04/15/2024. FINDINGS: Lower neck: There is a 9 mm nodule along the deep margin of the right thyroid bed slightly inferio r to the thyroid in the right paratracheal region. This may represents a lym ph node. However, a parathyroid adenoma should also be considered. Follow-u p with nuclear medicine parathyroid imaging soft tissue neck CT with and wit hout contrast as well as correlation with clinical service calcium and parathyr oid hormone values. Vessels: Mild athero sclerotic changes are noted in the thoracic aorta. Mediastinum and Gloria : Within normal limits. Heart: Normal size. No pericardial effusion. Airways: Within normal limits Lungs: There is depe ndent atelectasis. There has been significant interval improvement in airsp kaylie opacities bilaterally with near complete resolution of opacity in the left upper lobe when compared to the prior exam. Pleura: Within normal limits. Chest Wall: Within n ormal limits. Upper Abdomen: There is evidence of prior cholecystectomy. Bones: Degenerative changes are noted in the thoracic spine. C T/CT chest wo con IMPRESSION: There is a 9 mm nodu le along the deep margin of the right thyroid bed slightly inferior to the thyr oid in the right paratracheal region. This may represents a lymph node. Howeve r, a parathyroid adenoma should also be considered. Follow-up with [facility] parathyroid imaging soft tissue neck CT with and without contrast as well as correlation with clinical service calcium and parathyroid hormone values. There has been signi ficant interval improvement in airspace opacities bilaterally with alexandre r complete resolution of opacity in the left upper lobe when compared to the prior exam. There is dependent atelectasis. Impression dictated by: Andrei Fatima M.D. 07/23/2024 2:41 PM Dictation Location: [place] [address] Electronically authe nticated by: [id number] Y Date: 07/23/2024 14:41 Dictated By: Andrei Fatima M.D. Signed By: 07/23/24 1444 DD/ 1441 TD/TT: Pile Driver Operator: RT pulmonary function test Reviewed date:07/24/2024 03:48:57 PM Interpretation: Performing Lab: Notes/Report: Source Facility: [place] [address] [place] [address] Respiratory Report Signed Patient: ELENI WATKINS MR#: [id number] : 1960 Acct:[id number] Age/Sex: 63 / F ADM Date: 07/23/24 Loc: CARD Attending Dr: Scarlett Nava D.O. Ordering Physician: Scarlett Nava D.O. Date of Service: 07/23/24 Procedure(s): RT pulmonary function test Accession Number(s): [id number] cc: The [facility] Test Date: 2024-07-23 Pat Name: ELENI WATKINS Department: Room: - Gender: Female Entry Level Account Manager: Nasir Reed RRT : 1960 Requested By: Scarlett Nava Order Number: [id number] Buzz MD: Scarlett Nava Interpretive Statements Pulmonary function testing was completed according to ATS criteria. Findings were considered accurate and reproducible, with exception of DLCO which did not meet ATS standards. Both pre- and post-bronchodilator values utilized for spirometry. Spirometry (based on pre-bronchodilator values): -FEV1/FVC: Normal @ 92% -FEV1: Severely reduced @ 47% -FVC: Very severely reduced @ 39% -There is no significant bronchodilator response. Lung volumes by plethysmography (based on pre-bronchodilator values): -RV: Reduced @ 47% -TLC: Severely reduced @ 52% Diffusion capacity: -DLCO: Moderate reduction @ 56% when corrected for Hb 13.5g/dL Flow-volume loop: -Severe restrictive pattern Impressions: -Spirometry suggests severe restriction which is confirmed by a severely decreased TLC. There is a moderately reduced diffusion capacity. Overall study is conistent with restrictive lung disease. This pattern can be seen in, but not restricted to, cardiopulmonary vascular disorders, early interstitial lung disease, and early emphysema. Clinical correlation required. Electronically Signed On 07-24-2024 15:25:30 EDT by Scarlett Nava Dictated By: Scarlett Nava D.O. Signed By: 07/24/24 1525 DD/ 1251 TD/TT: Pile Driver Operator: [place] [address] Respiratory Report Signed Patient: FELIPE WATKINS MR#: [id number] : 1960 Acct:[id number] Age/Sex: 63 / F ADM Date: 07/23/24 Loc: CARD Attending Dr: Scarlett Nava D.O. Ordering Physician: Scarlett Nava D.O. Date of Service: 07/23/24 Procedure(s): RT pul monary function test Accession Number(s): [id number] cc: The [facility] Test Date: 2024-07-23 Pat Name: ELENI ALAN Department: Room: - Gender: Female Techn ician: Nasir RuizYENNIFER landry : 1960 Req uested By: Scarlett Nava Order Number: [id number] Reading MD: Scarlett Nava Interpretive Statements Pulmonary function t esting was completed according to ATS criteria. Findings were considered accu rate and reproducible, with exception of DLCO which did not meet ATS standar ds. Both pre- and post-bronchodilator values utilized for spirometry. Spirometry (based on pre-bronchodilator values): -FEV1/FVC: Normal @ 92% -FEV1: Severely reduced @ 47% -FVC: Very severely reduced @ 39% -There is no signifi cant bronchodilator response. Lung volumes by plet hysmography (based on pre-bronchodilator values): -RV: Reduced @ 47% -TLC: Severely reduced @ 52% Diffusion capacity: -DLCO: Moderate redu ction @ 56% when corrected for Hb 13.5g/dL Flow-volume loop: -Severe restrictive pattern Impressions: -Spirometry suggests severe restriction which is confirmed by a severely decreased TLC. There is a moderately reduced diffusion capacity. Overall study is conistent w ith restrictive lung disease. This pattern can be seen in, but not restrict ed to, cardiopulmonary vascular disorders, early interstitial lung di sease, and early emphysema. Clinical correlation required. Electronically Josette d On 07-24-2024 15:25:30 EDT by Scarlett Nava Dictated By: Scarlett Nava D.O. Signed By: 07/24/24 1525 DD/ 1251 TD/TT: Pile Driver Operator: CT Chest w/o contrast Reviewed date:07/23/2024 03:17:09 PM Interpretation: Performing Lab: Notes/Report: Reason For Referral No Information Medications Medication SIG (Take, Route, Frequency, Duration) Notes Start Date End Date Status Mirtazapine 45 MG TAKE 1 TABLET BY EDGARDO TH AT BEDTIME Oral for 90 Days Active metFORMIN HCl ER 500 MG TAKE 1 TABLET BY MOUTH DAILY Oral for 90 Days Active Omeprazole 20 MG 1 capsule 1/2 to 1 h our before morning meal Orally Once a day Active Multi Vitamin - 1 tablet Orally Once a day Active Potassium Chloride Fidelina ER 20 MEQ TAKE 1 TABLET BY MOUTH DAILY DO NOT CRUSH OR CHEW Oral for 90 Days Active Pioglitazone HCl 30 MG TAKE 1 TABLET BY MOUTH DAILY Oral for 90 Days Active Ipratropium-Albuterol 0.5-2.5 (3) MG/3ML Inhalation for 30 Days Not-Taking Budesonide-Formoterol Fumarate 80-4.5 MCG/ACT Inhalation for 30 Days Active Lisinopril 10 MG TAKE 1 TABLET BY EDGARDO TH DAILY Oral for 90 Days Active Citalopram Hydrobromide 40 MG TAKE 1 TABLET BY MOUTH DAILY Oral for 79 Days Active Meloxicam 15 MG TAKE 1 TABLET BY EDGARDO TH DAILY Oral for 90 Days Active Immunizations Vaccine Route Administration Date Status Comme nts Flu, (45855) -historic- Whole Unknown 01/10/2024 Admini stered SARS-COV-2 (COVID 19 Moderna - Booster 0.25mL) Unknown 12/29/2021 Administered Social History Tobacco Use: Social History Observation Description Date Details (start date - stop date) Never Smoker NA - NA Tobacco Control (Standard) Question Answer Notes Tobacco use: Nonsmoker Problems Problem Type SNOMED Code ICD Code Onset Dates Problem Status W/U Status Risk Notes Problem 794809469 Unspecified asthma with (acute) exacerbation (J45.901) Active confirmed Problem 705242204 Obesity, unspecified (E66.9) Active confirmed Problem Chronic respiratory failure (74102735) Chronic respiratory failure with hypoxia (J96.11) Active confirmed Problem Hypertension (09279765) Hypertension (I10) Active confirmed Problem Obesity (553447304) Obesity (E66.9) Active confirmed Problem Hypertension (95771587) HTN (hypertension) (I10) Active confirmed Problem Obstructive sleep apnea syndrome (27777795) SAQIB (obstructive sleep apnea) (G47.33) Active confirmed Problem Thyroid nodule (529651154) Thyroid nodule (E04.1) Active confirmed Problem Diabetes mellitus type 2 (disorder) (47726490) DM2 (diabetes mellitus, type 2) (E11.9) Active confirmed Problem Restrictive lung disease (93132581) Restrictive lung disease (J98.4) Active confirmed Vital Signs Heart Rate 66 /min 07/24/2024 RA Activity/Res ting Temperature 96.8 degrees Fahrenheit 07/24/2024 RA A ctivity/Resting Respiratory Rate 18 /min 07/24/2024 RA Activity /Resting Oximetry 94 % 07/24/2024 RA Activity/Res ting Blood pressure diastolic 81 mm Hg 07/24/2024 RA Activity/Resting Height 65 in 07/24/2024 RA Activity/Res ting Blood pressure systolic 145 mm Hg 07/24/2024 RA A ctivity/Resting Weight 192.0 lbs 07/24/2024 RA Activity/Res ting BMI 31.95 kg/m2 07/24/2024 RA Activity/Res ting Encounters Encounter Location Date Provider Diagnosis [facility] [address] [place] [address] 04/18/2024 [facility] [address] [place] [address] 04/29/2024 [facility] [address] [place] [address] 05/13/2024 [facility] [address] [place] [facility] [place] [address] 07/24/2024 Scarlett Nava Pneumonia, unspecifi ed organism J18.9 ; Shortness of breath R06.02 ; Restrictive lung disease J98.4 ; Chronic respiratory failure with hypoxia J96.11 ; Thyroid nodule E04.1 ; DM2 (diabetes mellitus, type 2) E11.9 and Obesity, class 1 E66.811 [facility] [address] [place] [address] 05/14/2024 Scarlett Nava Pneumonia, unspecifi ed organism J18.9 ; Shortness of breath R06.02 ; Chronic respiratory failure with hypoxia J96.11 ; DM2 (diabetes mellitus, type 2) E11.9 and Obesity, class 1 E66.811 Assessments Encounter Date Diagnosis (ICD Code) Assessment Notes Treatment Notes Treatment Clinical Notes Section Notes 05/14/2024 Pneumonia, unspecified organism (ICD-10 - J18.9) Admitted to [facility] 04/13/[address] 04/13/2024 showed a significantly large RAINA consolidation with scattered infiltrates elsewhere. She appears clinically improved, but still has some bronchial breath sounds in the RAINA region. Recommend a F/U chest CT to document resolution of the infiltrates, especially the large RAINA consolidation. No contrast is required. Ordered chest CT without contrast due beginning of July 2024. 05/14/2024 Shortness of breath (ICD-10 - R06.02) Patient complained of worsening dyspnea over the past year. She was discharged on Symbicort 80, but has only been using it once daily. She states she feels better. Discussed if she is short of breath, she should go to the recommended maintenance dose of 2 puffs BID. Continue to rinse after use. She will need PFT to evaluate for asthma or COPD. Will allow her more time to heal - she can get the PFT done along with the chest CT the beginning of July 2024, with F/U after. 07/24/2024 Pneumonia, unspecified organism (ICD-10 - J18.9) CT chest 07/23/[address] chest 04/13/2024 shows significant improvement in infiltrates/pneumo pankaj. Barely any remnant findings. This should not be contributing to her ongoing symptoms or cause such a severe decrease in TLC. 07/24/2024 Shortness of breath (ICD-10 - R06.02) Still has MCINTYRE with stairs and distances. Remains hypoxic on RA - 86% upon arrival to office, but not wearing it. She has not responded to Symbicort. Lungs are clear. No ILD/fibrosis on CT chest. Differential of decreased TLC + DLCO is cardiovascular disease. She has not been w/up from this standpoint. Recommended referral to cardiology. Provided several local options. She voiced she does not know who to go to. She was instructed to speak to Dr. Forrest about a referral then. Otherwise, I do not have anything else to contribute at this time until after she has seen cardiology. 07/24/2024 Restrictive lung disease (ICD-10 - J98.4) TLC 52%, DLCO 56%. This is a restrictive pattern. Obesity is contributing some, but that does not cause decreased DLCO. She had difficulty meeting ATS standards during testing, but regardless, cannot say there is no cardiovascular disease present. Pulmonary causes are absent - no ILD or fibrosis, drastic improvement in pneumonia findings, clear breath sounds. Recommend cardiac w/up. 05/14/2024 Chronic respiratory failure with hypoxia (ICD-10 - J96.11) Tevv-pi-yyhx encounter performed with the patient to document continued need for supplemental oxygen (O2). -Flow & directions: 2L/min ATC -Patient voices adherence to recommended usage: Yes -Symptom control on O2: Improved dyspnea -Counseled patient not begin, restart, or continue smoking, around the O2 due to risk of fire which could result in damage to the O2 tanks & lines, smoke inhalation and flame damage to the airway, significant cortez, potential , property damage, and potential harm & to bystanders. Additionally, counseled it is not castellanos to begin, restart, or continue smoking given the underlying pulmonary disease that led to the point of requiring O2. -Recommendations: She appears to be recovering. Discussed the next step is to wean off O2. Can begin @ rest - as long as SpO2 is in the 90's on RA she may remain off it. She can then start decreasing the flow with activity. 05/14/2024 DM2 (diabetes mellitus, type 2) (ICD-10 - E11.9) Steroids prescribed for this patient's underlying pulmonary disease can adversely affect blood glucose levels, inducing hyperglycemia and worsening underlying diabetes. The patient is encouraged to follow up with the primary care provider to create a plan to manage diabetes in this situation. 07/24/2024 Chronic respiratory failure with hypoxia (ICD-10 - J96.11) Mavh-ud-nras encounter performed with the patient to document continued need for supplemental oxygen (O2). -Flow & directions: 2L/min ATC -Patient voices adherence to recommended usage: Nope -Counseled patient not begin, restart, or continue smoking, around the O2 due to risk of fire which could result in damage to the O2 tanks & lines, smoke inhalation and flame damage to the airway, significant cortez, potential , property damage, and potential harm & to bystanders. Additionally, counseled it is not castellanos to begin, restart, or continue smoking given the underlying pulmonary disease that led to the point of requiring O2. -Recommendations: She is not using O2. 86% on RA. Symptomatic with stairs and ambulation still. Recommend continuing to use O2 with activity for now. 07/24/2024 Thyroid nodule (ICD-10 - E04.1) Incidental 9mm right thyroid nodule on 07/23/2024. No thyroid abnormalities commented on 04/13/2024 study. Further w/up was recommended by radiologist. Defer further w/up and management to PCP. 05/14/2024 Obesity, class 1 (ICD-10 - E66.811) Patient's weight is inducing a restrictive pulmonary physiology. Weight loss indicated: Decrease calories, increase activity. 07/24/2024 DM2 (diabetes mellitus, type 2) (ICD-10 - E11.9) Being diabetic increases macrovascular and microvascular risk of complications. 07/24/2024 Obesity, class 1 (ICD-10 - E66.811) Patient's weight is inducing a restrictive pulmonary physiology. Weight loss indicated: Decrease calories, increase activity. Plan Of Treatment No Information Insurance Providers Payer Name Payer Address Payer Phone Subscriber Number Group Number Insured Name Patient Relationship to Insured Coverage Start Date Coverage End Date [facility] [address] [place] [address] [id number] [address] [place], [place] Self - patient is the insured Medical (General) History Medical History History ICD Code DM2 (diabetes mellitus, type 2) E11.9 SAQIB (obstructive sleep apnea) G47.33 HTN (hypertension) I10 Restrictive lung disease J98.4 Obesity E66.9 Thyroid nodule E04.1 Surgical History Surgery Date(Month/Year) cholecystectomy section hernia surgery hysterectomy cystoscopy Hospitalization History Reason Date(Month/Year) Pneumonia-[facility] 04/13/2024
--- OUTSIDE RECORDS SUMMARY | 2024-08-14 10:51 | XMS_ITS | Clinical Summary ---
Author Organization [facility] Healthcare Address [address] [place] [address] Care Team Providers Care Certified Prosthetist Vice President Name Role Phone Trevor Forrest MD Primary Care Provider [phone] Allergies No known active allergies Medications Multiple Vitamin (multivitamin) tablet Take 1 tablet by mouth in the morning. Active omeprazole OTC (PriLOSEC OTC) 20 MG EC tablet Take 20 mg by mouth in the morning. Take before meals. Do not crush, chew, or split. . Active mirtazapine (Remeron) 45 MG tabletIndications:M ajor depressive disorder, recurrent, mild (HCC) (CMS/HCC) TAKE 1 TABLET BY MOUTH AT BEDTIME 360 tablet 3 4 Active lisinopril 10 MG tabletIndications:E ssential hypertension, benign (CMS/HCC) TAKE 1 TABLET BY MOUTH DAILY 192 tablet 2 4 Active metoprolol succinate XL (Toprol-XL) 25 MG 24 hr tabletIndications:E ssential hypertension, benign (CMS/HCC) TAKE 1 TABLET BY MOUTH DAILY 192 tablet 2 4 Active meloxicam (Mobic) 15 MG tabletIndications:P rimary osteoarthritis of both knees Take 1 tablet (15 mg) by mouth Daily 90 tablet 3 4 Active albuterol HFA 90 mcg/act inhalerIndications: SOB (shortness of breath) Inhale 2 puffs every 4 (four) hours if needed for wheezing 18 g 2 4 01/15/20 25 Active potassium chloride CR (Klor-Con M20) 20 MEQ ER tabletIndications:H ypokalemia Take 1 tablet (20 mEq) by mouth Daily Do not crush or chew. 90 tablet 3 4 Active citalopram (CeleXA) 40 MG tabletIndications:Elena nagy depressive disorder, recurrent episode, mild (HCC) (CMS/HCC) Take 1 tablet (40 mg) by mouth Daily 90 tablet 3 4 03/04/20 25 Active budesonide-formoter ol (Symbicort) 80-4.5 MCG/ACT inhaler Inhale 1 puff in the morning and 1 puff before bedtime. 5 Active Mucus Relief 600 MG 12 hr tablet Take 600 mg by mouth every 12 (twelve) hours 5 Active metFORMIN XR (Glucophage-XR) 500 MG 24 hr tabletIndications:T ype 2 diabetes mellitus with hyperglycemia, without long-term current use of insulin (CMS/HCC) TAKE 1 TABLET BY MOUTH DAILY 372 tablet 5 Active Lancets (OneTouch Delica Plus [id number]) miscIndications:Typ e 2 diabetes mellitus with hyperglycemia, without long-term current use of insulin (CMS/HCC) USE DIRECTED to test BLOOD SUGAR THREE TIMES DAILY 90 each 3 5 Active Active Problems Problem Noted Date Diagnosed Date Class 2 severe obesity due t o excess calories with serious comorbidity and body mass index (BMI) of 37.0 to 37.9 in adult 01/15/2024 Assessment & Plan (07/15/2024 9:43 AM EDT): Weight loss indicated Assessment & Plan (01/15/2024 10:01 AM EST): Weight loss indicated Essential hypertension, benign 07/14/2023 Assessment & Plan (07/15/2024 9:43 AM EDT): BP controlled and monitor PRN. Assessment & Plan (01/15/2024 9:59 AM EST): BP controlled and monitor PRN. Assessment & Plan (07/14/2023 9:36 AM EDT): BP elevated today but reports normal at home and continue to monitor. Allergic rhinitis due to pollen 07/14/2023 Generalized anxiety disorder 07/14/2023 Assessment & Plan (07/15/2024 9:43 AM EDT): Symptoms controlled with medication and continue. Assessment & Plan (01/15/2024 9:59 AM EST): Symptoms controlled with medication and continue. Gastroesophageal reflux disease 07/14/2023 Assessment & Plan (07/15/2024 9:43 AM EDT): Symptoms controlled with omeprazole and continue. Assessment & Plan (01/15/2024 9:59 AM EST): Symptoms controlled with omeprazole and continue. Major depressive disorder, recurrent episode, mi ld (HCC) 07/14/2023 Assessment & Plan (07/15/2024 9:44 AM EDT): Symptoms controlled with medication and continue. Assessment & Plan (01/15/2024 9:59 AM EST): Symptoms controlled with medication and continue. Obstructive sleep apnea 07/14/2023 Assessment & Plan (04/25/2024 11:13 AM EST): Prior sleep study diagnosed SAQIB several years ago but no machine for years. Refer for titration study. Primary osteoarthritis of both knees 07/14/2023 Assessment & Plan (01/15/2024 10:00 AM EST): Pain stable and use mobic PRN. Increase activity and walk regularly. Iron deficiency anemia due to chronic blood loss 07/14/2023 Non-alcoholic fatty liver disease 07/14/2023 Overactive bladder 07/14/2023 Annual physical exam 07/14/2023 Assessment & Plan (07/14/2023 9:36 AM EDT): Due for labs. Discussed proper diet and regular aerobic exercise. Need aerobic exercise 5-6 days a week for 30 minutes at a time. Smaller portions and limit total calories. Colonoscopy every 10 years. Tetanus every 10 years. Advised not to smoke. Discussed daily Aspirin therapy. Type 2 diabetes mellitus with polyneuropathy 05/2023 Assessment & Plan (07/14/2023 9:38 AM EDT): Follow with podiatry. Type 2 diabetes mellitus wit h hyperglycemia, without long-term current use of insulin 02/13/2023 Assessment & Plan (07/15/2024 9:44 AM EDT): Reports BS stable and due for A1C. Stick to ADA diet and limit carbs. Assessment & Plan (01/15/2024 10:00 AM EST): Reports BS stable and due for A1C. Stick to ADA diet and limit carbs. Assessment & Plan (07/14/2023 9:36 AM EDT): BS stable and due for A1C. Stick to ADA diet and limit carbs. Resolved Problems Problem Noted Date Diagnosed Date Resolved Date Multifocal pneumonia 04/25/2024 025 Assessment & Plan (04/25/2024 11:14 AM EST): Recent pneumonia and improving. Wean oxygen. Follow with pulmonology. Acute hypoxic respiratory failure 04/25/2024 07/15/2024 Assessment & Plan (04/25/2024 11:14 AM EST): Developed hypoxia with pneumonia and improved. Discussed weaning off oxygen and monitoring SpO2. Follow up with pulmonology. Encounters Date Type Department Care Team Description 07/29/2024 Telephone [facility] [address] [place] [address] Trevor Forrest MD Referral 07/25/2024 Telephone [facility] [address] [place] [address] Trevor Forrest MD Referral 07/23/2024 10:00 AM EDT Procedure Visit [facility] [address] [place] [address] Tamara Castle, DPM Diabetes mellitus without complication (Primary Dx); Onychomycosis; Pain in toes of both feet 07/23/2024 Clinisync Result Encounter [facility] External Department Unsolicited Provider, Generic External Data 07/23/2024 Orders Only [facility] [address] [place] [phone] Scarlett Nava DO 07/23/2024 Clinisync Result Encounter [facility] External Department Unsolicited Provider, Generic External Data 07/23/2024 Bamboo flowsheet [facility] [address] [place] [phone] Tamara Castle DPM 07/23/2024 Travel 07/22/2024 Results Follow-Up [facility] [address] [place] [phone] Trevor Forrest MD 07/19/2024 Clinisync Result Encounter [facility] External Department Unsolicited Trevor Forrest MD 07/15/2024 9:15 AM EDT Office Visit [facility] [address] [place] [phone] Trevor Forrest MD Type 2 diabetes mellitus with hyperglycemia, without long-term current use of insulin ([facility]) (Primary Dx); Essential hypertension, benign (CMS/HCC); Major depressive disorder, recurrent episode, mild (HCC) (CMS/HCC); Generalized anxiety disorder (CMS/HCC); Gastroesophageal reflux disease without esophagitis; Class 2 severe obesity due to excess calories with serious comorbidity and body mass index (BMI) of 37.0 to 37.9 in adult (CMS/HCC); Annual physical exam 07/15/2024 Bamboo flowsheet [facility] [address] [place] [phone] Trevor Forrest MD 06/27/2024 Refill [facility] [address] [place] [phone] Trevor Forrest MD Type 2 diabetes mellitus with hyperglycemia, without long-term current use of insulin ([facility]) 05/24/2024 Patient Outreach [facility] [address] [place] [address] Arpit Carreon MA 05/21/2024 Refill [facility] [address] [place] [address] Trevor Forrest MD Type 2 diabetes mellitus with hyperglycemia, without long-term current use of insulin ([facility]) 05/20/2024 Patient Outreach [facility] [address] [place] [address] Arpit Carreon MA from Last 3 Months Immunizations Immunization Administration Dates Next Due Influenza, injectable, MDCK, preservative free, quadrivalent 12/17/2019 Influenza, injectable, quadr ivalent, preservative free 12/29/2021,12/20/2018,01/12/2017 Family History Medical History Relation Name Comments Hypertension Brother Cancer Father Diabetes Father Lung cancer Father Diabetes Mother Bipolar disorder Sister Diabetes Sister Heart disease Sister Relation Name Status Comments Brother Father Mother Sister Social History Tobacco Use Types Packs/Day Years Used Date Smoking Tobacco: Never Tobacco Cessation:Counseling Given: Not Answered Alcohol Use Standard Drinks/Week Comments Not Currently 0 (1 standard drink = 0.6 oz pur e alcohol) Comments No Sex and Gender Information Value Date Recorded Sex Assigned at Not on file Legal Sex Female 7:36 PM EDT Gender Identity Not on file Sexual Orientation Not on file Last Filed Vital Signs Vital Sign Reading Time Taken Comments Blood Pressure 138/80 07/15/2024 9:18 AM EDT Pulse 70 07/15/2024 9:18 AM EDT Temperature 35.6 C (96 F) 07/15/2024 9:18 AM EDT Respiratory Rate 20 07/15/2024 9:18 AM EDT Oxygen Saturation 90% 07/15/2024 9:18 AM EDT Inhaled Oxygen Concentration - - Weight 87.1 kg (192 lb) 07/23/2024 9:57 AM EDT Height 152.4 cm (5') 07/23/2024 9:57 AM EDT Body Mass Index 37.5 07/23/2024 9:57 AM EDT Plan of Treatment Upcoming Encounters Date Type Department Care Team (Late st Contact Info) Description 11/26/2024 10:00 AM EDT Procedure Visit [facility] [address] [place] [phone] Tamara Castle, DPM [address] [place], [place] [phone] 01/15/2025 9:15 AM EST Office Visit [facility] [address] [place] [address] Trevor Forrest MD [address] [place] [phone] Health Maintenance Due Date Last Done Comments CT Colonography 1960 FIT-DNA 1959 FIT 1960 FOBT 1960 Sigmoidoscopy 1960 Diabetes: Hemoglobin A1C 01/14/2024 07/14/2023, 02/12 Mammogram 02/13/2025 02/14/2024, 12/12, 02/23/2017, Additional history exists Diabetes: Urine Protein Screening 07/19/2025 025, 07/14/2023 Diabetes: Retinopathy Screening 02/19/2026 , 06/27/2023 Colonoscopy 06/21/2026 06/21/2016 Colorectal Cancer Screening 06/21/2026 Influenza Vaccine Completed 01/10/2024, , 12/29/2021, Additional history exists Procedures Procedure Name Priority Date/Time Associated Diagnosis Comments CT CHEST WO IV CONTRAST Routine 07/23/2024 3:[address] CHEST WO CON 07/23/2024 2:41 PM EDT RT PULMONARY FUNCTION TEST 07/23/2024 12:51 PM EDT MLR HEMOGLOBIN A1C Routine 07/19/2024 9: 56 AM EDT ALL THYROID STIM HORMONE Routine 07/19/2024 9:56 AM EDT ALL LIPID PROFILE (FASTING) Routine 07/19/2024 9:56 AM EDT ALL BASIC METABOLIC PANEL Routine 07/19/2024 9:56 AM EDT HMHP LIVER PANEL Routine 07/19/2024 9:56 AM EDT ALL CBC WITH AUTO DIFF Routine 9:56 AM EDT TBH MICROALB CREAT RATIO RANDOM Routine 07/19/2024 9:46 AM EDT MM TOMOSYNTHESIS SCREENING BI 02/14/2024 2:06 PM EST from Last 3 Months or Most Recently Relevant to Health Maintenance Results * CT chest wo IV contrast (07/23/2024 3:13 PM EDT) Anatomical Region Laterality Modality Body, Chest Computed Tomogra phy Scarlett ANSARI CT PROCEDURES Final Result * CT CHEST WO CON (07/23/2024 2:41 PM EDT) Anatomical Region Laterality Modality Other 07/23/2024 2:41 PM EDT Narrative 07/23/2024 2:44 PM EDT The [address] [address] [address] Scan Report Signed Patient: ELENI ROJO MR#: [id number] : 1960 Acct:[id number] Age/Sex: 63 / F ADM Date: 07/23/24 Loc: CARD Attending Dr: Scarlett Nava D.O. Ordering Physician: Scarlett Nava D.O. Date of Service: 07/23/24 Procedure(s): CT chest wo con Accession Number(s): [id number] cc: Trevor Forrest M.D. The [address] [address] Patient Name: ELENI ROJO MRN: [id number] date: 1960 Sex: F Assigned Patient Location: CARD Current Patient Location: CARD Accession/Order Number: [id number] Exam Date: 07/23/2024 14:34 Report Date: 07/23/2024 [...] Fatima M.D. 07/23/2024 2:41 PM Dictation Location: [place] [address] Electronically authenticated by: [id number] Y Date: 07/23/2024 14:41 Dictated By: Andrei Fatima M.D. Signed By: 07/23/24 1444 DD/ 1441 TD/TT: Air Route Traffic Controller: Procedure Note Radiology, Radiologist, MD - 07/23/2024 [place] [address] CT Scan Report Signed Patient: ELENI ROJO AMR#: [id number] : 1960Acct:[id number] Age/Sex: 63 / FADM Date: 07/23/24 Loc: CARD Attending Dr: Scarlett Nava D.O. Ordering Physician: Scarlett Nava D.O. Date of Service: 07/23/24 Procedure(s): CT chest wo con Accession Number(s): [id number] cc: Trevor Forrest M.D. The [place] [id number] Patient Name: ELENI ROJO MRN: [id number] date: 1960 Sex: F Assigned Patient Location: CARD Current Patient Location: CARD Accession/Order Number: [id number] Exam Date: 07/23/2024 14:34 Report Date: 07/23/2024 14:41 At the request of: SCARLETT NAVA DO Procedure: CT chest wo con CT chest wo con 07/23/2024 2:15 PM SIGN AND SYMPTOMS: Follow-up for pneumonia TECHNIQUE: Multidetector CT axial slices of the chest were obtainedwithout IV contrast. Multiplanar reformats were performed and viewed on a separate workstation and reviewed to further define anatomy and possible pathology.CT was performed with one or more of the following dose reduction techniques: Automated exposure control, adjustment of the mA and/or kV according to patient size, or use of iterative reconstruction technique. COMPARISON: 04/13/2024 and 04/15/2024. FINDINGS: Lower neck: There is a 9 mm nodule along the deep margin of the rightthyroid bed slightly inferior to the thyroid in the right paratracheal region.This may represents a lymph node. However, a parathyroid adenoma should alsobe considered. Follow-up with nuclear medicine parathyroid imaging softtissue neck CT with and without contrast as well as correlation with clinicalservice calcium and parathyroid hormone values. Vessels: Mild atherosclerotic changes are noted in the thoracic aorta. Mediastinum and Gloria: Within normal limits. Heart: Normal size. No pericardial effusion. Airways: Within normal limits Lungs: There is dependent atelectasis. There has been significantinterval improvement in airspace opacities bilaterally with near completeresolution of opacity in the left upper lobe when compared to the prior exam. Pleura: Within normal limits. Chest Wall: Within normal limits. Upper Abdomen: There is evidence of prior cholecystectomy. Bones: Degenerative changes are noted in the thoracic spine. CT/CT chest wo con IMPRESSION: There is a 9 mm nodule along the deep margin of the right thyroid bedslightly inferior to the thyroid in the right paratracheal region. This mayrepresents a lymph node. However, a parathyroid adenoma should also be considered. Follow-up with nuclear medicine parathyroid imaging soft tissue neck CTwith and without contrast as well as correlation with clinical service calciumand parathyroid hormone values. There has been significant interval improvement in airspace opacities bilaterally with near complete resolution of opacity in the left upperlobe when compared to the prior exam. There is dependent atelectasis. Impression dictated by: Andrei Fatima M.D. 07/23/2024 2:41 PM Dictation Location: [place] [address] Electronically authenticated by: [id number] Y Date: 4:41 Dictated By: Andrei Fatima M.D. Signed By:07/23/24 1444 DD/ 1441 TD/TT: Air Route Traffic Controller: us Generic External Data Provider [facility] Final Result * RT PULMONARY FUNCTION TEST (07/23/2024 12:51 PM EDT) Anatomical Region Laterality Modality Other 07/23/2024 12:5 1 PM EDT Narrative 07/24/2024 3:25 PM EDT The [place] [id number] Respiratory Report Signed Patient: ELENI ROJO MR#: [id number] : 1960 Acct:[id number] Age/Sex: 63 / F ADM Date: 07/23/24 Loc: CARD Attending Dr: Scarlett Nava D.O. Ordering Physician: Scarlett Nava D.O. Date of Service: 07/23/24 Procedure(s): RT pulmonary function test Accession Number(s): [id number] cc: The [facility] Test Date: 2024-07-23 Pat Name: ELENI ROJO Department: Room: - Gender: Female Web Specialist: Nasir Reed RRT : 1960 Requested By: Scarlett Nava Order Number: [id number] Reading MD: Scarlett Nava Interpretive Statements Pulmonary [...] Signed By: 07/24/24 1525 DD/ 1251 TD/TT: Air Route Traffic Controller: Procedure Note Radiology, Radiologist, - 07/24/2024 [place] [address] Respiratory Report Signed Patient: ELENI ROJO AMR#: [id number] : 1960Acct:[id number] Age/Sex: 63 / FADM Date: 07/23/24 Loc: CARD Attending Dr: Scarlett Nava D.O. Ordering Physician: Scarlett Nava D.O. Date of Service: 07/23/24 Procedure(s): RT pulmonary function test Accession Number(s): [id number] cc: The [facility] Test Date: 2024-07-23 Pat Name: ELENI ROJO Department: Room: - Gender: Female Web Specialist: Nasir Reed RRT : 1960 Requested By: Scarlett Nava Order Number: [id number] Reading MD: Scarlett Nava Interpretive Statements Pulmonary function testing was completed according to ATS criteria.Findings were considered accurate and reproducible, with exception of DLCO whichdid not meet ATS standards. Both pre- and [...] with restrictive lung disease. This pattern can beseen in, but not restricted to, cardiopulmonary vascular disorders, early interstitial lung disease, and early emphysema. Clinical correlation required. Electronically Signed On 07-24-2024 15:25:30 EDT by Scarlett Nava Dictated By: Scarlett Nava D.O. Signed By:07/24/24 1525 DD/ 1251 TD/TT: Air Route Traffic Controller: Generic External Data Provider [facility] Final Result * (ABNORMAL) MLR HEMOGLOBIN A1C (07/19/2024 9:56 AM EDT) GLYCOHEMOGLOBIN A1C 7.2(H) 4.5 - 6.2 % TB Comment: ADA RECOMMENDED LIMIT 4.0 - 6.0 ADA THERAPEUTIC TARGET < 7.0 ACTION SUGGESTED > 7.0 ESTIMATED AVERAGE GLUCOSE 160 mg/dL TB 07/19/2024 9:56 AM EDT 07/19/2024 9:57 AM EDT Narrative [facility] - 07/19/2024 11:09 AM EDT Trevor Forrest MD [facility] Final Result Performing Organization Address [facility] de Phone Number [facility] * HMHP LIVER PANEL (07/19/2024 9:56 AM EDT) BILIRUBIN TOTAL 0.5 0.2 - 1.0 mg/dL TB BILIRUBIN DIRECT 0.1 0.0 - 0.2 mg/dL TBH ASPARTATE AMINO TRANSFERASE 19 15 - 37 U/L TBH ALANINE AMINOTRANSFERASE 28 14 - 59 U/L TBH ALKALINE PHOSPHATASE 93 46 - 116 U/L TB TOTAL PROTEIN 6.9 6.4 - 8.2 g/dL TBH ALBUMIN LEVEL 3.7 3.4 - 5.0 g/dL TBH GLOBULIN 3.2 g/dL TBH ALBUMIN GLOBULIN RATIO 1.2 TBH 07/19/2024 9:56 AM EDT 07/19/2024 9:57 AM EDT Narrative [facility] - 07/19/2024 10:33 AM EDT Trevor Forrest MD [facility]IN[facility] Final Result Performing Organization Address [facility] de Phone Number [facility] * ALL THYROID STIM HORMONE (07/19/2024 9:56 AM EDT) THYROID STIMULATING HORMONE 0.820 0.358 - 3.740 uIU/mL TBH 07/19/2024 9:56 AM EDT 07/19/2024 9:57 AM EDT Narrative [facility] - 07/19/2024 10:33 AM EDT Trevor Forrest MD [facility] Final Result Performing Organization Address [facility] Co de Phone Number [facility] * (ABNORMAL) ALL LIPID PROFILE (FASTING) (07/19/2024 9:56 AM EDT) TRIGLYCERIDES 96 <=150 mg/dL TBH CHOLESTEROL 189 <=200 mg/dL TB HDL CHOLESTEROL 62(H) 40 - 60 mg/dL TB Comment: > or =60 mg/dl - LOW CARDIOVASCULAR RISK <40 mg/dl - HIGH CARDIOVASCULAR RISK LDL CHOLESTEROL CALCULATED 108.0 mg/dL TB Comment: <100 mg/dl OPTIMAL 100-129 mg/dl NEAR OR ABOVE OPTIMAL 130-159 mg/dl BORDERLINE HIGH 160-189 mg/dl HIGH >190 mg/dl VERY HIGH VLDL CHOLESTEROL 19.2 mg/dL TB CHOL HDL RATIO 3.0 TB Comment: 3.3 - 4.4 LOW RISK 4.4 - 7.1 AVERAGE RISK 7.1 - 11.0 MODERATE RISK >11.0 HIGH RISK 07/19/2024 9:56 AM EDT 07/19/2024 9:57 AM EDT Narrative [facility] - 07/19/2024 10:33 AM EDT us Trevor FAJARDOISYMONICA Final Result Performing Organization Address [facility]/ZIP Co de Phone Number [facility] * ALL CBC WITH AUTO DIFF (07/19/2024 9:56 AM EDT) TBH WBC 5.9 4.0 - 11.0 10 3/uL TBH TBH RBC 4.39 4.20 - 5.40 10 6/uL TBH TBH HGB 13.5 12.0 - 16.0 g/dL TBH TBH HCT 41.3 36.0 - 48.0 % TBH TBH MCV 94.1 81.0 - 99.0 fL TBH TBH MCH 30.8 26.7 - 34.0 pg TBH TBH MCHC 32.7 29.9 - 35.2 g/dL TBH TBH RDW 13.6 11.0 - 15.0 % TBH TBH PLT 224 150 - 450 10 3/uL TBH TBH MPV 9.5 9.5 - 13.5 fL TBH NEUTROPHILS PERCENT AUTO 66.1 43.0 - 75.0 % TBH LYMPHOCYTES PERCENT AUTO 24.2 20.5 - 60.0 % TBH MONOCYTES PERCENT AUTO 6.3 1.7 - 12.0 % TBH TBH EO % 2.4 0.9 - 7.0 % TBH BASOPHILS PERCENT AUTO 0.7 0.2 - 2.0 % TBH IMMATURE GRANULOCYTES PCT AUTO 0.3 0.0 - 0.5 % TBH NEUTROPHILS ABSOLUTE AUTO 3.9 1.4 - 6.5 10 3/uL TBH LYMPHOCYTES ABSOLUTE AUTO 1.4 1.2 - 3.8 10 3/uL TBH MONOCYTES ABSOLUTE AUTO 0.4 0.3 - 0.8 10 3/uL TBH TBH EO # 0.1 0.0 - 0.7 10 3/uL TBH BASOPHILS ABSOLUTE AUTO 0.0 0.0 - 0.1 10 3/uL TBH IMMATURE GRANULOCYTES ABS AUTO 0.02 0.00 - 0.03 10 3/uL TBH 07/19/2024 9:56 AM EDT 07/19/2024 9:57 AM EDT Narrative [facility] - 07/19/2024 10:04 AM EDT us Trevor Forrest MD [facility] Final Result [facility] * (ABNORMAL) ALL BASIC METABOLIC PANEL (07/19/2024 9:56 AM EDT) SODIUM 138 136 - 145 mmol/L TBH POTASSIUM 3.9 3.5 - 5.1 mmol/L TBH CHLORIDE 102 98 - 107 mmol/L TBH CARBON DIOXIDE 29.6 21.0 - 32.0 mmol/L TBH ANION GAP 10.3 TBH GLUCOSE 133(H) 74 - 106 mg/dL TBH BLOOD UREA NITROGEN 13.0 7.0 - 18.0 mg/dL TBH CREATININE 0.67 0.55 - 1.02 mg/dL TBH TBH EGFR-AF BURKINAN >60 >=60 mL/min/1.7 3m 2 TBH TBH EGFR-NON AF BURKINAN >60 >=60 mL/min/1.7 3m 2 TBH BUN CREATININE RATIO 19.4 TBH CALCIUM 9.8 8.5 - 10.1 mg/dL TBH 07/19/2024 9:56 AM EDT 07/19/2024 9:57 AM EDT Narrative [facility] - 07/19/2024 10:33 AM EDT us Trevor oFrrest MD [facility] Final Result Performing Organization Address [facility] Co de Phone Number [facility] TB * TBH MICROALB CREAT RATIO RANDOM (07/19/2024 9:46 AM EDT) MICROALBUMIN URINE RANDOM <1.3 <=30.0 mg/dL TB CREATININE URINE RANDOM 147.30 20.00 - 300.00 mg/dL TBH MICROALBUM CREATININE RATIO UR 8.8 0.0 - 29.9 mg/g TBH Comment: NO MICROALBUMINURIA 0-29 MG/G CLINICAL MICROALBUMINURIA 30-300 MG/G MACROALBUMINURIA >300 MG/G 07/19/2024 9:46 AM EDT 07/19/2024 9:57 AM EDT Narrative [facility] - 07/19/2024 10:40 AM EDT us Trevor Forrest MD [facility] Final Result [facility] * MM TOMOSYNTHESIS SCREENING BI (02/14/2024 2:06 PM EST) Anatomical Region Laterality Modality Other 02/14/2024 2:06 PM EST Narrative 02/14/2024 2:07 PM EST The [address] [address] Mammography Report Signed Patient: ELENI ROJO MR#: [id number] : 1960 Acct:[id number] Age/Sex: 63 / F ADM Date: 02/14/24 Loc: MAMMO Attending Dr: Trevor Forrest M.D. Ordering Physician: Trevor Forrest M.D. Results: Date of Service: 02/14/24 Follow Up: Procedure(s): MM tomosynthesis screening BI Accession Number(s): [id number] cc: Trevor Forrest M.D. Patient Name: ELENI ROJO MR#: [id number] : 1960 Exam Date: 02/14/2024 Ordering Doctor: [...] Treatments None Family Cancers None LOCATION: [facility] BREAST COMPOSITION: The breasts are heterogeneously [...] Signed By: 02/14/24 1407 DD/ 1406 TD/TT: Air Route Traffic Controller: Procedure Note Radiology, Radiologist, - 02/14/2024 The [place] [id number] Mammography Report Signed Patient: ELENI ROJO AMR#: [id number] : 1960Acct:[id number] Age/Sex: 63 / FADM Date: 02/14/24 Loc: MAMMO Attending Dr: Trevor Forrest M.D. Ordering Physician: Trevor Forrest M.D.Results: Date of Service: 02/14/24Follow Up: Procedure(s): MM tomosynthesis screening BI Accession Number(s): [id number] cc: Trevor Forrest M.D. Patient Name: ELENI ROJO MR#: [id number] : 1960 Exam Date: 02/14/2024 Ordering Doctor: [...] Treatments None Family Cancers None LOCATION: [facility] BREAST COMPOSITION: The breasts are heterogeneously [...] M.D. Signed By:02/14/24 1407 DD/ 1406 TD/TT: Air Route Traffic Controller: Trevor Forrest MD [facility] Final Result from Last 3 Months or Most Recently Relevant to Health Maintenance Insurance [employer] Care Teams Certified Prosthetist Vice President Relationship Specialty Start Date End Date Trevor Forrest MD [address] [place] [place] [address] PCP - General Cardiology 07/22/22
--- OUTSIDE RECORDS SUMMARY | 2024-08-14 10:51 | XMS_ITS | Encounter Summary ---
Author Organization [facility] Address [address] [place] [address] Care Team Providers Care Deputy Fire Chief Name Role Phone Trevor Forrest MD Primary Care Provider [phone] Reason for Referral * Consultation (Routine) - Authorized Specialty Diagnoses / Procedures Referred By Contac t Referred To Contact Cardiology Diagnoses Acute hypoxic respiratory failure (CMS/HCC) SOB (shortness of breath) Procedures MO OFFICE/OUTPATIENT NEW HIGH MDM 60 MINUTES Trevor Forrest MD [address] [place] [address] Phone: tel: fax: Jose Gomez MD [address] [place] [address] Phone: tel: fax: Referral ID Status Reason Start Date Expiration Date Visits Requested Visits Authorized [id number] Authorized Specialty Services Required 07/30/2024 01/26/2025 1 1 Reason for Visit * Reason Onset Date Comments Referral 07/29/2024 Encounter Details Date Type Department Care Team (Late st Contact Info) Description 07/29/2024 Telephone [facility] [address] [place] [address] Trevor Forrest MD [address] [place] [address] Referral Social History Tobacco Use Types Packs/Day Years [...] on file documented as of this encounter Miscellaneous Notes * Telephone Encounter - Trevor Forrest MD - 07/30/2024 5:41 PM EDT Referral in chart. They will contact patient. * Telephone Encounter - Jillian Marciano - 07/29/2024 9:34 AM EDT Patient stopped back in again this morning asking about that referral to cardiology. I know you said you were waiting on the notes from Dr. Davidson, looks like we got those on Monday. So she is asking if she will get a referral to cardiology or not. JN documented in this encounter Plan of Treatment Upcoming Encounters Date Type Department Care Team (Late st Contact Info) Description 11/26/2024 10:00 AM EDT Procedure Visit [facility] [address] [place] [address] Tamara Castle, DPM [address] [place] [address] 01/15/2025 9:15 AM EST Office Visit [facility] [address] [place] [address] Trevor Forrest MD [address] [place] [address] Scheduled Referrals Name Type Priority Associated Diagnoses Orde r Schedule Ambulatory referral to Cardiology Outpatient Referral Routine Acute hypoxic respiratory failure (CMS/HCC) SOB (shortness of breath) Expected: 07/30/2024 (Approximate), Expires: 01/30/2025 documented as of this encounter Visit Diagnoses Diagnosis Acute hypoxic respiratory failure (CMS/HCC)- Primary SOB (shortness of breath) Shortness of breath documented in this encounter Care Teams Deputy Fire Chief Relationship Specialty Start Date End Date Trevor Forrest MD [address] [place] [address] PCP - General Cardiology 07/22/22 documented as of this encounter
--- OUTSIDE RECORDS SUMMARY | 2024-08-14 10:51 | XMS_ITS | Clinical Summary ---
Author Organization [facility] Address [address] [place] [address] Care Team Providers Care Supervisor Opening And Picking Name Role Phone Unavailable Primary Care Provider Unavailabl e Medications therapeutic multivitamin-mi nerals (THERAGRAN-M) tablet Take 1 tablet by mouth daily. Active Estradiol (VAGIFEM VA) Place 10 mcg vaginally twice a week. Active omeprazole (PRILOSEC) 20 MG capsule Take 20 mg by mouth daily. Active atenolol (TENORMIN) 25 MG tablet Take 25 mg by mouth daily. Active potassium chloride SA (KLOR-CON M20) 20 MEQ tablet Take 20 mEq by mouth daily. Active lisinopril (PRINIVIL;ZESTR IL) 10 MG tablet Take 10 mg by mouth daily. Active mirtazapine (REMERON) 30 MG tablet Take 30 mg by mouth nightly. Active Social History Tobacco Use Types Packs/Day Years Used Date Smoking Tobacco: Never Assessed Comments Unknown Sex and Gender Information Value Date Recorded Sex Assigned at Not on file Legal Sex Female 1:20 AM EST Gender Identity Not on file Sexual Orientation Not on file Plan of Treatment Not on file
--- OUTSIDE RECORDS SUMMARY | 2024-08-14 10:51 | XMS_ITS | Encounter Summary ---
Author Organization [facility] Address [address] [place] [address] Care Team Providers Care Information Security Architect Name Role Phone Trevor Forrest MD Primary Care Provider [phone] Encounter Details Date Type Department Care Team (Late Contact Info) Description 07/23/2024 Orders Only [facility] [address] [place] [address] Jesus Alberto Davidson, DO [address] [place] [address] Social History Tobacco Use Types Packs/Day Years [...] Encounters Date Type Department Care Team (Late Contact Info) Description 11/26/2024 10:00 AM EDT Procedure Visit [facility] [address] [place] [address] Tamara Castle, DPM [address] [place] [address] 01/15/2025 9:15 AM EST Office Visit [facility] [address] [place] [address] Trevor Forrest MD [address] [place] [address] documented as of this encounter Procedures Procedure Name Priority Date/Time Associated Diagnosis Comments CT CHEST WO IV CONTRAST Routine 07/23/2024 3:13 PM EDT documented in this encounter Results * CT chest wo IV contrast (07/23/2024 3:13 PM EDT) Anatomical Region Laterality Modality Body, Chest Computed Tomogra phy Jesus Alberto FRANK CT PROCEDURES Final Result documented in this encounter Visit Diagnoses Not on filedocumented in this encounter Care Teams Information Security Architect Relationship Specialty Start Date End Date Trevor Forrest MD [address] [place] [address] PCP - General Cardiology 07/22/22 documented as of this encounter
--- OUTSIDE RECORDS SUMMARY | 2024-08-14 10:51 | XMS_ITS | Encounter Summary ---
Author Organization [facility] Address [address] [place] [address] Care Team Providers Care General Education Instructor Name Role Phone Trevor Forrest MD Primary Care Provider [phone] Encounter Details Date Type Department Care Team ([facility] Contact Info) Description 07/22/2024 Results Follow-Up [facility] [address] [place] [address] Trevor Forrest MD [address] [place] [address] Social History Tobacco Use Types Packs/Day Years [...] Upcoming Encounters Date Type Department Care Team ([facility] Contact Info) Description 11/26/2024 10:00 AM EDT Procedure Visit [facility] [address] [facility] [place] [address] Tamara Castle, DPM [address] [place], [place] [phone] 01/15/2025 9:15 AM EST Office Visit [facility] [address] [place] [address] Trevor Forrest MD [address] [place] [address] documented as of this encounter Visit Diagnoses Not on filedocumented in this encounter Care Teams General Education Instructor Relationship Specialty Start Date End Date Trevor Forrest MD [address] [place] [address] PCP - General Cardiology 07/22/22 documented as of this encounter
--- OUTSIDE RECORDS SUMMARY | 2024-08-14 10:51 | XMS_ITS | Encounter Summary ---
Author Organization [facility] Address [id number] [address] [place] [address] Care Team Providers Care Store Operations Associate Name Role Phone Trevor Forrest MD Primary Care Provider [phone] Reason for Visit * Reason Comments Med Refill Encounter Details Date Type Department Care Team (Late st Contact Info) Description 09/01/2016 Refill [facility] [address] [place] [address] [place] [address] iRley Cross, DO [address] [place] [address] Social History Tobacco Use Types Packs/Day Years Used Date Smoking Tobacco: Never Alcohol Use Standard Drinks/Week Comments No 0 (1 standard drink = 0.6 oz pur e alcohol) Comments No Sex and Gender Information Value Date Recorded Sex Assigned at Not on file Legal Sex Female 11:29 AM EDT Gender Identity Not on file Sexual Orientation Not on file documented as of this encounter Miscellaneous Notes * Telephone Encounter - Armando Garcia - 09/07/2016 1:[address] [facility] OFFICE HAS BEEN MADE AWARE OF THIS SCRIPT REQUEST. documented in this encounter Plan of Treatment Not on file documented as of this encounter Visit Diagnoses Not on filedocumented in this encounter Care Teams Store Operations Associate Relationship Specialty Start Date End Date Trevor Forrest MD PCP - General 07/12/16 documented as of this encounter
--- OUTSIDE RECORDS SUMMARY | 2024-08-14 10:52 | XMS_ITS | Clinical Summary ---
Author Organization [facility] Address [id number] [address] [place] [address] Care Team Providers Care Mushroom Press Operator Name Role Phone Trevor Forrest MD Primary Care Provider [phone] Allergies No known active allergies Medications alcohol swabs pads, medicated See Admin Instructions. 3 07/13/2016 Active atenolol (TENORMIN) 25 mg tablet TK 1 T PO D 3 06/03/2016 Active ONETOUCH ULTRA TEST strip 2 (two) times a day. for testing 3 07/13/2016 Active ONETOUCH DELICA LANCETS 33 gauge misc USE DIRECTED BID 3 07/13/2016 Active lisinopril (PRINIVIL,ZESTR IL) 10 mg tablet TK 1 T PO D 5 08/05/2016 Active metFORMIN XR (GLUCOPHAGE-XR) 500 mg 24 hr tablet TK 1 T PO D 5 08/05/2016 Active loratadine (CLARITIN) 10 mg tablet TK 1 T PO D 5 08/05/2016 Active potassium chloride 20 mEq tablet extended release TK 1 T PO D 5 08/05/2016 Active mirtazapine (REMERON) 15 mg tablet Take 15 mg by mouth nightly. Active citalopram (CeleXA) 40 mg tablet Take 40 mg by mouth in the morning. 05/25/2021 Active pioglitazone (ACTOS) 30 mg tablet Take 30 mg by mouth in the morning. Active ferrous sulfate 325 (65 FE) mg tablet Take 325 mg by mouth daily with breakfast. 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 Family History Medical History Relation Name Comments Diabetes Brother Hypertension Brother Diabetes Father Kidney disease Father Arthritis Mother Cancer Mother Diabetes Mother Hypertension Mother Diabetes Sister Hypertension Sister Breast cancer Neg Hx Relation Name Status Comments Brother Father Mother Sister Social History Tobacco Use Types Packs/Day Years Used Date Smoking Tobacco: Never Smokeless Tobacco: Never Alcohol Use Standard Drinks/Week Comments No 0 (1 standard drink = 0.6 oz pur e alcohol) Childcare Answer Date Recorded Childcare Unknown 08/22/2018 Employment Answer Date Recorded Employment Unknown 08/22/2018 Purpose - Life Answer Date Recorded Purpose and direction in life Unknown Comments No Sex and Gender Information Value Date Recorded Sex Assigned at Not on file Legal Sex Female 11:29 AM EDT Gender Identity Not on file Sexual Orientation Not on file Last Filed Vital Signs Vital Sign Reading Time Taken Comments Blood Pressure 144/83 08/04/2021 2:22 PM EDT Pulse 88 08/04/2021 2:22 PM EDT Temperature 36.6 C (97.8 F) 08/04/2021 1:54 PM EDT Respiratory Rate 16 08/04/2021 1:54 PM EDT Oxygen Saturation 92% 08/04/2021 2:22 PM EDT Inhaled Oxygen Concentration - - Weight 85.3 kg (188 lb) 08/04/2021 11:19 AM EDT Height 152.4 cm (5') 08/04/2021 11:19 AM EDT Body Mass Index 36.72 08/04/2021 11:19 AM EDT Plan of Treatment Health Maintenance Due Date Last Done Comments Diabetic Ophthalmology Exam 1959 Depression Screening 1971 Tobacco Screening 1971 Diabetic Foot Exam 09/20/1977 DTaP,Tdap and Td Vaccines (1 - Tdap) 09/20/1978 Zoster (Shingles) Vaccine (1 of 2) 09/20/2009 Adult BMI Screening 08/04/2022 COVID-19 Vaccine ( - 2023-2 5 season) 2023 12/29/2021, 03/08/2021, 07/03/2020, Additional history exists Influenza Vaccine 11/11/2024 12/29/2021, , 12/20/2018, Additional history exists Colonoscopy 06/21/2026 06/21/2016, 06/21/2016 Medical Devices Not on file Procedures Procedure Name Priority Date/Time Associated Diagnosis Comments COLONOSCOPY Routine 06/21/2016 from Last 3 Months or Most Recently Relevant to Health Maintenance Results * COLONOSCOPY (06/21/2016) Colonoscopy COLONOSCOPY MAN MAKAYLA TRANSCRIBED RESULTS us Scanning Provider External HEALTH MAINTENANCE Fi nal Result MANUALLY TRANSCRIBED RESULTS from Last 3 Months or Most Recently Relevant to Health Maintenance Insurance [employer] Care Teams Mushroom Press Operator Relationship Specialty Start Date End Date Trevor Forrest MD PCP - General 07/12/16
--- OUTSIDE RECORDS SUMMARY | 2024-08-14 10:52 | XMS_ITS | Encounter Summary ---
Author Organization [facility] Address [address] [facility] [place] [address] Care Team Providers Care Operators Teacher Name Role Phone Trevor Forrest MD Primary Care Provider [phone] Kathleen Jo TRAVEL COORDINATOR Unavailable [phone] Gamal May DO Unavailable [phone] Encounter Details Date Type Department Care Team (Late st Contact Info) Description 04/15/2024 Orders Only [facility] [address] [place] [phone] James Matias DO [address] [place] [address] Social History Tobacco Use Types Packs/Day Years [...] EDT Procedure Visit [facility] [address] [facility] [address] Tamara Castle, DPM [address] [place], [place] [address] 01/15/2025 9:15 AM EST Office Visit [facility] [address] [place] [address] Trevor Forrest MD [address] [place] [address] documented as of this encounter Procedures Procedure Name Priority Date/Time Associated Diagnosis Comments RHYTHM ECG, REPORT Routine 04/15/2024 1:[address] ANGIO CHEST W CONT(INCL WO) Routine 04/15/2024 11:29 AM EST XR CHEST 1 VIEW Routine 04/15/2024 11:25 AM EST RHYTHM ECG, REPORT Routine 04/15/2024 10:06 AM EST XR CHEST 2 VIEWS Routine 04/13/2024 2:58 PM EST documented in this encounter Results * ECG 3 Lead (04/15/2024 1:29 PM EST) us James Rene Florencio DO IN CLINIC/BEDSIDE ORDERABLES Final Result * CT ANGIO CHEST W CONT(INCL WO) (04/15/2024 11:29 AM EST) Anatomical Region Laterality Modality Radiographic Daphnie ging us Trevor Forrest MD IMG XR PROCEDURES Final Result * XR chest 1 view (04/15/2024 11:25 AM EST) Anatomical Region Laterality Modality Chest Radiographic Daphnie ging Trevor Forrest MD IMG XR PROCEDURES Final Result * ECG 3 Lead (04/15/2024 10:06 AM EST) us James Rene Ball DO IN CLINIC/BEDSIDE ORDERABLES Final Result * XR chest 2 views (04/13/2024 2:58 PM EST) Anatomical Region Laterality Modality Chest Radiographic Daphnie ging us Tamara Barnes MD IMG XR PROCEDURES Final Result documented in this encounter Visit Diagnoses Not on filedocumented in this encounter Care Teams Operators Teacher Relationship Specialty Start Date End Date Trevor Forrest MD [address] [place] [address] PCP - General Cardiology 07/22/22 Kathleen Jo NP [address] [place] [address] PCP - [place] [employer] 05/11/24 Gamal May DO [address] [place] [address] PCP - [address] [employer] 06/11/24 documented as of this encounter
--- OUTSIDE RECORDS SUMMARY | 2024-08-14 10:52 | XMS_ITS | Encounter Summary ---
Author Organization [facility] Address [address] [place] [address] Care Team Providers Care Skoog Machine Operator Name Role Phone Trevor Forrest MD Primary Care Provider [phone] Kathleen Jo INSPECTOR TOOL Unavailable [phone] Gamal May DO Unavailable [phone] Encounter Details Date Type Department Care Team (Late st Contact Info) Description 10/23/2022 Abstract [facility] [address] [place] [address] Tamara Castle, DPM [address], [place] [phone] Social History Tobacco Use Types Packs/Day Years [...] Procedure Visit [facility] [address] [place] [address] Tamara Castle, DPM [address] [place], [place] [address] 01/15/2025 9:15 AM EST Office Visit [facility] [address] [place] [address] Trevor Forrest MD [address] [place] [address] documented as of this encounter Visit Diagnoses Not on filedocumented in this encounter Care Teams Skoog Machine Operator Relationship Specialty Start Date End Date Trevor Forrest MD [address] [place] [address] PCP - General Cardiology 07/22/22 Kathleen Jo NP [address] [place] [address] PCP - [place] [employer] 05/11/24 Gamal May DO [address] [place] [address] PCP - [place] [employer] 06/11/24 documented as of this encounter
--- OUTSIDE RECORDS SUMMARY | 2024-08-14 10:52 | XMS_ITS | Encounter Summary ---
Author Organization [facility] Address [address] [facility] [place] [address] Care Team Providers Care Game Developer Name Role Phone Trevor Forrest MD Primary Care Provider [phone] Kathleen Jo TRAUMA THERAPIST Unavailable [phone] Gamal May DO Unavailable [phone] Encounter Details Date Type Department Care Team (Late st Contact Info) Description 07/19/2023 Orders Only [facility] [address] [place] [address] Trevor Forrest MD [address] [place] [address] Social History Tobacco Use Types Packs/Day Years [...] EDT Procedure Visit [facility] [address] [place] [address] Tamara Castle, DPM [address] [place] [phone] 01/15/2025 9:15 AM EST Office Visit [facility] [address] [place] [address] Trevor Forrest MD [address] [place] [address] documented as of this encounter Visit Diagnoses Not on filedocumented in this encounter Care Teams Game Developer Relationship Specialty Start Date End Date Trevor Forrest MD [address] [place] [address] PCP - General Cardiology 07/22/22 Kathleen Jo NP [address] [facility] [address] [facility] [address] [place] [address] PCP - [place] [employer] 05/11/24 Gamal May DO [address] [place] [address] PCP - [place] [employer] 06/11/24 documented as of this encounter
--- OUTSIDE RECORDS SUMMARY | 2024-08-14 10:52 | XMS_ITS | Clinical Summary ---
Author Organization [facility] Address [address] [place], [place] [id number] Care Team Providers Care Windows Software Developer Name Role Phone Bob Marcos MD Primary Care Provider [phone] Allergies No known active allergies Medications metFORMIN (GLUCOPHAGE) 500 mg tablet Take 500 mg by mouth daily with breakfast. Active potassium chloride (KLOR-CON) 20 mEq packet Take by mouth once daily. Active sucralfate (CARAFATE) 1 gram tablet Take 1 g by mouth four times daily. Active loratadine (CLARITIN) 10 mg tablet Take 10 mg by mouth once daily. Active lisinopril (ZESTRIL, PRINIVIL) 10 mg tablet Take 10 mg by mouth once daily. Active metoprolol tartrate, short acting, (LOPRESSOR) 25 mg tablet Take 25 mg by mouth once daily. Active mirtazapine (REMERON) 45 mg tablet Take 45 mg by mouth daily at bedtime. Active omeprazole (PRILOSEC) 20 mg capsule Take 20 mg by mouth once daily. Active MULTI-VITAMIN ORAL Take by mouth once daily. Active ibuprofen (MOTRIN IB) 200 mg tablet Take 200 mg by mouth as needed. Active naproxen sodium (ALEVE) 220 mg tablet Take 220 mg by mouth as needed. Active ACETAMINOPHEN ORAL Take 500 mg by mouth. Active Active Problems Problem Noted Date Diagnosed Date SBO (small bowel obstruction) 2017 Diabetes mellitus type 2, controlled, without co mplications 2017 Depression 2017 Hypertension 2017 Sleep apnea 2017 Incisional hernia 09/20/2017 Overview (2017): Added automatically from request for surgery [id number] Ventral hernia without obstruction or gangrene 0 08/29/2017 Overview (08/29/2017): Added automatically from request for surgery [id number] Social History Tobacco Use Types Packs/Day Years Used Date Smoking Tobacco: Never Smokeless Tobacco: Never PHQ-2 Answer Date Recorded PHQ2 Score 1 2017 Area Deprivation Index Answer Date Claudio rded National Score (1-100), lower number is lower ri sk Not on file 02/18/2020 State Score (1-10), lower number is lower risk N ot on file 02/18/2020 Data from: https://www.neighborhoodatlas.medicine.[facility]/. Last address used for calculation Not on file 02/18/2020 Comments No Sex and Gender Information Value Date Recorded Sex Assigned at Not on file Legal Sex Female 12:40 PM EDT Gender Identity Not on file Sexual Orientation Not on file Last Filed Vital Signs Vital Sign Reading Time Taken Comments Blood Pressure 144/76 09/17/2018 10:53 AM EDT Pulse 80 09/17/2018 10:53 AM EDT Temperature 36.6 C (97.9 F) 09/17/2018 10:53 AM EDT Respiratory Rate 16 09/29/2017 5:50 AM EDT Oxygen Saturation 92% 09/17/2018 10:53 AM EDT Inhaled Oxygen Concentration - - Weight 80.8 kg (178 lb 3.2 oz) 09/17/2018 10:53 AM EDT Height 152.4 cm (5') 09/17/2018 10:53 AM EDT Body Mass Index 34.8 09/17/2018 10:53 AM EDT Plan of Treatment Health Maintenance Due Date Last Done Comments Anxiety Screening 09/20/1977 Depression Screening 09/20/1977 HIV Screening 09/20/1977 Hepatitis C Screening 09/20/1977 DTaP,Tdap,Td Vaccine (1 - Tdap) 09/20/1978 Cervical Cancer Screening 09/20/[address] Colonography 09/20/2004 Cologuard (FIT-DNA) 09/20/2004 Fecal Occult Blood 09/20/2004 Sigmoidoscopy 09/20/2004 Pneumococcal Vaccine: 50+ (1 of 1 - PCV) 09/20/2009 Shingrix Vaccine (1 of 2) 09/20/2009 Colonoscopy 06/21/2017 06/21/2016 Colorectal Cancer Screening 06/21/2017 Covid-19 Vaccine (5 - 2023-2 5 season) 2023 12/29/2021, 03/08/2021, 07/03/2020, Additional history exists Influenza Vaccine (Season Ended) 2024 12/29/2021, 12/17/2019, 12/20/2018, Additional history exists Diabetes Screening 09/01/2025 09/01/2022, 0 09/01/2022, 07/14/2021, Additional history exists Lipid Screening 09/02/2027 09/01/2022 RSV Vaccine (1 - 1-dose 75+ series) 09/20/2034 Medical Devices Implanted Type Area Rolling [employer] Plugger Device Identifier Shelf Expiration Date Model / Serial / Lot Mesh Srg Prol [id number] Charisse - [id number] Implanted:Qty: 1 on 09/22/2017 at [facility] Mesh [employer] 11/10/2021 PML / / [id number] Procedures Procedure Name Priority Date/Time Associated Diagnosis Comments BASIC METABOLIC PANEL Routine 09/28/2017 12:42 AM EDT from Last 3 Months or Most Recently Relevant to Health Maintenance Results * (ABNORMAL) BASIC METABOLIC PNL (09/28/2017 12:42 AM EDT) [facility] Glucose 104(H) 74 - 99 mg/dL 09/28/2017 2:34 AM EDT [facility] Comment: The [place] [employer] Association (ADA) provides guidance for cutoff values for fasting glucose and random glucose. The ADA defines fasting as no caloric intake for at least 8 hours. Fasting plasma glucose results between 100 to 125 mg/dL indicate increased risk for diabetes (prediabetes). Fasting plasma glucose results greater than or equal to 126 mg/dL meet the criteria for diagnosis of diabetes. In the absence of unequivocal hyperglycemia, results should be confirmed by repeat testing. In a patient with classic symptoms of hyperglycemia or hyperglycemic crisis, random plasma glucose results greater than or equal to 200 mg/dL meet the criteria for diagnosis of diabetes. Reference: Standards of Medical Care in Diabetes 2016, [place] [employer] Association. Diabetes Care. 2016.39(Suppl 1). BUN 4(L) 7 - 21 mg/dL 09/28/2017 2:34 AM EDT [facility] Creatinine 0.54(L) 0.58 - 0.96 mg/dL 09/28/2017 2:34 AM EDT [facility] Sodium 142 136 - 144 mmol/L 09/28/2017 2:34 AM EDT [facility] Potassium 3.8 3.7 - 5.1 mmol/L 09/28/2017 2:34 AM EDT [facility] Chloride 102 97 - 105 mmol/L 09/28/2017 2:34 AM EDT [facility] CO2 25 22 - 30 mmol/L 09/28/2017 2:34 AM EDT [facility] Anion Gap 15 9 - 18 mmol/L 09/28/2017 2:34 AM EDT [facility] Calcium 9.1 8.5 - 10.2 mg/dL 09/28/2017 2:34 AM EDT [facility] eGFR- >60 09/28/2017 2:34 AM EDT [facility] eGFR-All Other Races >60 . 09/28/2017 2:34 AM EDT [facility] Comment: eGFR (Estimated GFR) Units of measure: mL/min/1.73 meters squared eGFR is derived from the reexpressed MDRD Study equation using the following parameters: serum creatinine, age, gender and race. The creatinine assay has been calibrated to be traceable to IDMS. An eGFR <60 mL/min/1.73m2 for >3 months is consistent with chronic kidney disease. Refer to KDOQI guidelines for clinical interpretation. In patients with unstable renal function, e.g. those with acute kidney injury, the eGFR may not accurately reflect actual GFR. Blood specimen (specimen) BLOOD SPECIMEN / Unknown 09/28/2017 12:42 AM EDT 09/28/2017 12:43 AM EDT us Frank Arita MD LABORATORY Final Result [facility] [address] [place] [address] from Last 3 Months or Most Recently Relevant to Health Maintenance Care Teams Windows Software Developer Relationship Specialty Start Date End Date Bob Marcos MD PCP - General General Surgery 06/21/17
--- OUTSIDE RECORDS SUMMARY | 2024-08-14 11:07 | XMS_ITS | CCD ---
Author Organization [facility] CliniSymi Care Team Providers Care External Grinder Name Role Phone UNKNOWN, PROVIDER Unavailable Unavailable UNKNOWN, PROVIDER Unavailable Unavailable ALFA MEREDITH Unavailable Unavailable NADERER, TREVOR Unavailable Unavailable NADEREIan, TREVOR Primary Care Physician [phone] RODRIGO, DR TREVOR Valle Consulting Unavailable NADERER, DR TREVOR Valle Attending Unavailable NADERER, DR TREVOR Valle Admitting Unavailable NADERER, DR TREVOR Valle Primary Care Unavailable GARDNER ., DR BIRCH Consulting Unavailable GARDNER ., DR BIRCH Attending Unavailable GARDNER ., DR BIRCH Admitting Unavailable NADERER, DR TREVOR Valle Primary Care Unavailable AICHHOLZ, ABHAY SHOREA Admitting Unavailable AICHHOLZ, BOARD TURNER ABELARDO Consulting Unavailable NADERER, DR TREVOR Valle Primary Care Unavailable AICHHOLZ, BOARD TURNER ABELARDO Attending Unavailable NADERER, DR TREVOR Valle Attending Unavailable NADERER, DR TREVOR Valle Admitting Unavailable NADERER, DR TREVOR Valle Primary Care Unavailable NADERER, DR TREVOR Valle Consulting Unavailable NADERER, DR TREVOR Valle Attending Unavailable NADERER, DR TREVOR Valle Admitting Unavailable ZIEBER, DR FRANCINE Sosa Consulting Unavailable NADERER, DR TREVOR Valle Primary Care Unavailable NADERER, DR TREVOR Valle Consulting Unavailable Eyal GARDNER Attending Unavailable VERNAJILLIAN Attending Unavailable NADERER, TREVOR Referring Unavailable Eyal GARDNER Attending Unavailable Eyal GARDNER Attending Unavailable Naderer Trevor FERRARI Primary Care Provider [phone] Sandro MELARA, Melisa Boyle Unavailable MELISA JO Attending Unavailable GAMAL GROVE Attending Unavailable KEVIN CRUZ Attending Unavailable NADERER, TREVOR Attending Unavailable NADEREIan, TREVOR Attending Unavailable TAMARA DAUGHERTY Attending Unavailable TAMARA DAUGHERTY Attending Unavailable NADERER, TREVOR Attending Unavailable TAMARA DAUGHERTY Attending Unavailable Allergies Allergy Classification Reported Allergen(s) Allergy Type Date of Onset Reaction(s) Facility (1 source) No Known Medication Allergies; Translations: [No Known Medication Allergies] Propensity to adverse reactions (disorder) [facility] Repository Medications Current Medications Medication Drug Class(es) Dates Sig (Normalized) Sig (Original) [id number] 200 actuat albuterol 0.09 mg/actuat metered dose inhaler (20 sources) beta2-Adrenergic Agonist Start: 01-15-2024 End: 01-14-2025 take 2 puff(s) by inhalation every four hours for wheezing albuterol HFA 90 mcg/act inhaler Indications: SOB (shortness of breath) Inhale 2 puffs every 4 (four) hours if needed for wheezing 18 g 2 01/15/2024 01/14/2025 Active albuterol 0.833 mg/ml / ipratropium bromide 0.167 mg/ml inhalation solution (8 sources) Anticholinergic, beta2-Adrenergic Agonist Start: 04-19-2024 End: 07-15-2024 ipratropium-albuter ol (Duo-Neb) 0.5-2.5 mg/3 mL nebulizer solution Indications: Acute hypoxic respiratory failure (CMS/HCC) , Pneumonia due to infectious organism, unspecified laterality, unspecified part of lung Take 3 mL by nebulization 4 (four) times a day as needed for wheezing or shortness of breath 180 mL 3 04/19/2024 07/15/2024 Discontinued Start: 04-19-2024 End: 04-19-2024 ipratropium-albuterol (Duo-N eb) 0.5-2.5 mg/3 mL nebulizer solution 04/19/2024 04/19/2024 Discontinued (Reorder) 60 actuat budesonide 0.08 mg/actuat / formoterol fumarate 0.0045 mg/actuat metered dose inhaler (12 sources) Corticosteroid, beta2-Adrenergic Agonist Start: 04-17-2024 take [...] guaiFENesin 600 mg extended release oral tablet (12 sources) Start: 04-17-2024 Mucus Relief 600 MG [...] Status: Ordered meloxicam 15 mg oral tablet (20 sources) Nonsteroidal Anti-inflammatory Drug Start: 12-12-2023 End: 01-15-2024 take 1 tablet by mouth once daily meloxicam (Mobic) 15 MG tablet Indications: Primary osteoarthritis of both knees Take 1 tablet (15 mg) by mouth Daily 90 tablet 3 01/15/2024 Active 24 hr metFORMIN hydrochloride 500 mg extended release oral tablet (20 sources) Biguanide Start: 05-21-2024 take 1 tablet by mouth once daily metFORMIN XR (Glucophage-XR) 500 MG 24 hr tablet Indications: Type 2 diabetes mellitus with hyperglycemia, without long-term current use of insulin (CMS/HCC) TAKE 1 TABLET BY MOUTH DAILY 372 tablet 05/21/2024 Active Start: 05-15-2023 take 1 tablet by ailyn th once daily metFORMIN XR (Glucophage-XR) 500 MG [...] succinate 25 mg extended release oral tablet (20 sources) beta-Adrenergic Beryl Start: 11-20-2023 take 1 [...] Daily, # 30 tab(s), Refills(s) 11, Pharmacy: [facility] #[id number], 152, cm, 12/20/21 10:43:00 EDT, Height/Length Dosing, [...] 12/20/21 Status: Ordered Multiple Vitamin (multivitamin) tablet (20 sources) take 1 tablet by mouth in the morning Multiple Vitamin (multivitamin) tablet Take 1 tablet by mouth in the morning. Active Multivitamin preparation (3 sources) Start: 12-21-19 multivitamin Daily, Refill(s) 0 Start Date: 12/20/21 Status: Ordered nystatin 100 unt/mg topical powder (17 sources) Polyene Antifungal Start: 01-15-20 End: 07-16-19 nystatin (Mycostatin) 860387 UNIT/GM powder Indications: Skin candidiasis Apply topically 2 (two) times a day 60 g 3 01/15/2024 07/15/2024 Discontinued omeprazole 20 mg delayed release oral capsule [...] day(s), # 30 tab(s), Refills(s) 11, Pharmacy: [facility] #[id number], 152, cm, 04/04/22 11:08:00 EST, Height/Length Dosing, 89, kg, 04/04/22 11:08:00 EST, Weight Dosing Start Date: 04/04/22 Stop Date: 03/30/23 Status: Ordered pioglitazone 30 mg oral tablet (20 sources) Peroxisome Proliferator Receptor alpha Agonist, Peroxisome Proliferator Receptor gamma Agonist, Thiazolidinedione Start: 11-20-2023 End: 07-15-2024 take 1 tablet by mouth once daily pioglitazone (Actos) 30 MG tablet Indications: Type 2 diabetes mellitus with hyperglycemia, without long-term current use of insulin ([facility]) TAKE 1 TABLET BY MOUTH DAILY 100 tablet 2 11/20/2023 07/15/2024 Discontinued Start: 12-20-2021 take 1 mg by mouth [...] . Active predniSONE 20 mg oral tablet (12 sources) Start: 04-17-2024 End: 07-15-2024 take 1 tablet by mouth in the morning predniSONE (Deltasone) 20 MG tablet Take 20 mg by mouth in the morning and 20 mg before bedtime. 04/17/2024 07/15/2024 Discontinued Start: 04-09-2024 End: 04-19-2024 take 3 tablets [...] completed, # 2 tab(s), Refills(s) 0, [id number], 152, cm, 04/04/22 11:08:00 EST, Height/Length Do... [...] 07-14-2023 07-14-2023 Chronic Deficiency and other anemia (20 sources) Iron deficiency anemia due to blood loss; Translations: [Iron deficiency anemia secondary to blood loss (chronic)] Onset: 07-14-2023 07-14-2023 Chronic Diabetes mellitus with complications (20 sources) Type 2 diabetes mellitus with hyperglycemia; Translations: [Hyperglycemia due to type 2 diabetes mellitus] Onset: 07-16-2021 Chronic Diabetes mellitus without complication (8 sources) Type 2 diabetes mellitus without complications; [...] mild ] Onset: 07-14-2023 12-20-2021 Chronic Mycoses (5 sources) Candidiasis of skin; Translations: [Candidiasis of skin and nail] 01-15-2024 Episodic Osteoarthritis (20 sources) Arthritis; Translations: [Primary gonarthrosis, bilateral] Onset: 07-14-2023 12-20-2021 Chronic Other aftercare (1 source) 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; Translations: [INTERMEDIATE USE ORAL HYPOGLYCEMIC DX] Onset: 06-16-2022 Episodic Other connective tissue disease (3 sources) Pain of toes of bilateral feet; Translations: [Pain in right toe(s)] 11-07-2023 Episodic Other diseases of bladder and urethra (1 source) Other specified disorders of bladder; Translations: [OTHER SPECIFIED DISORDERS BLADDER] Onset: 06-16-2022 Chronic Other diseases of bladder and urethra (1 source) Detrusor overactivity; Translations: [Overactive bladder] Onset: 08-24-2022 Chronic Other diseases of bladder and urethra (20 sources) Overactive bladder; Translations: [Overactive bladder] Onset: 07-14-2023 08-24-2022 Chronic Other diseases of bladder and urethra (1 source) Other urethral stricture, female; Translations: [OTHER URETHRAL STRICTURE FEMALE] Onset: 06-16-2022 Episodic Other liver diseases (20 sources) Fatty (change of) liver, not elsewhere [...] Episodic Other nutritional; endocrine; and metabolic disorders (20 sources) Severe obesity; Translations: [Class 2 severe obesity due to excess calories with serious comorbidity and body mass index (BMI) of 37.0 to 37.9 in adult ([facility])] Onset: 01-15-2024 01-15-2024 Chronic Other screening for suspected conditions (not mental disorders or infectious disease) (6 sources) Encounter for screening mammogram for malignant neoplasm of breast; Translations: [Patient encounter status] Onset: 12-27-2021 Episodic Other upper respiratory disease (20 sources) Allergic rhinitis due to pollen; Translations: [Allergic rhinitis due to pollen] Onset: 07-14-2023 07-14-2023 Chronic Otitis media and related conditions (2 sources) Acute bilateral otitis media ; Translations: [Otitis media, unspecified, bilateral] 04-09-2024 Episodic Residual codes; unclassified (20 sources) Obstructive [...] Classification Problem Date Documented Da te Episodic/Chronic Pneumonia (except that caused by tuberculosis or sexually transmitted disease) (15 sources) Pneumonia; Translations: [Pneumonia, unspecified organism] Onset: 04-25-2024 Resolved: 07-15-2024 04-19-2024 Episodic Respiratory failure; insufficiency; arrest (adult) (17 sources) Acute respiratory failure; Translations: [Acute respiratory failure with hypoxia] Onset: 04-25-2024 Resolved: 07-15-2024 04-19-2024 Episodic Unclassified (1 source) CONTACT W/AND (SUSP) EXPOS COVID-19; Translations: [CONTACT W/AND (SUSP) EXPOS COVID-19] Onset: 05-18-2022 Results Test Name Value Interpretation Reference Range Facility RT PULMONARY FUNCTION TESTon 07-24-[address] [address] Respiratory Report Signed Patient: ELENI ROJO MR#: [id number] : 1960 Acct:[id number] Age/Sex: 63 / F ADM Date: 07/23/24 Loc: CARD Attending Dr: Scarlett Nava D.O. Ordering Physician: Scarlett Nava D.O. Date of Service: 07/23/24 Procedure(s): RT pulmonary function test Accession Number(s): [id number] cc: [facility] Test Date: 2024-07-23 Pat Name: ELENI ROJO Department: Room: - Gender: Female Sample Examiner: Nasir Reed RRT : 1960 Requested By: Scarlett Nava Order Number: [id number] Reading MD: Scarlett Nava Interpretive Statements Pulmonary [...] Signed By: 07/24/24 1525 DD/ 1251 TD/TT: Data Collection Interviewer: [facility] Radiology, Radiologist, - 07/24/2024 [place] [address] Respiratory Report Signed Patient: ELENI ROJO MR#: [id number] : 1960 Acct:[id number] Age/Sex: 63 / F ADM Date: 07/23/24 Loc: CARD Attending Dr: Scarlett Nava D.O. Ordering Physician: Scarlett Nava D.O. Date of Service: 07/23/24 Procedure(s): RT pulmonary function test Accession Number(s): [id number] cc: [facility] Test Date: 2024-07-23 Pat Name: ELENI ROJO Department: Room: - Gender: Female Sample Examiner: Nasri Reed RRT : 1960 Requested By: Scarlett Nava Order Number: [id number] Reading MD: Scarlett Nava Interpretive Statements Pulmonary [...] Signed By: 07/24/24 1525 DD/ 1251 TD/TT: Data Collection Interviewer: [facility] RT PULMONARY FUNCTION TESTOr dered By: Radiologist Radiology on 07-24-2024 [employer] Work Phone: CT CHEST WO CONon 07-23-2024 [place] [address] CT Scan Report Signed Patient: ELENI ROJO MR#: [id number] : 1960 Acct:[id number] Age/Sex: 63 / F ADM Date: 07/23/24 Loc: CARD Attending Dr: Scarlett Nava D.O. Ordering Physician: Scarlett Nava D.O. Date of Service: 07/23/24 Procedure(s): CT chest wo con Accession Number(s): [id number] cc: Trevor Wallace M.D. [place] [id number] Patient Name: ELENI ROJO MRN: [facility]:[id number] date: 1960 Sex: F Assigned Patient Location: CARD Current Patient Location: CARD Accession/Order Number: [id number] Exam Date: 07/23/2024 14:34 Report Date: 07/23/2024 [...] Fatima M.D. 07/23/2024 2:41 PM Dictation Location: [place] [address] Electronically authenticated by: [id number] Y Date: 07/23/2024 14:41 Dictated By: Andrei Fatima M.D. Signed By: 07/23/24 1444 DD/ 1441 TD/TT: Data Collection Interviewer: [facility] Radiology, Radiologist, MD - 07/23/2024 [place] [address] CT Scan Report Signed Patient: ELENI ROJO MR#: [id number] : 1960 Acct:[id number] Age/Sex: 63 / F ADM Date: 07/23/24 Loc: CARD Attending Dr: Sacrlett Nava D.O. Ordering Physician: Scarlett Nava D.O. Date of Service: 07/23/24 Procedure(s): CT chest wo con Accession Number(s): [id number] cc: Trevor Wallace M.D. The [place] [id number] Patient Name: ELENI ROJO MRN: [facility]:[id number] date: 1960 Sex: F Assigned Patient Location: CARD Current Patient Location: CARD Accession/Order Number: [id number] Exam Date: 07/23/2024 14:34 Report Date: 07/23/2024 14:41 At the request of: SCARLETT SAMSA DO Procedure: CT chest wo con CT [...] Fatima M.D. 07/23/2024 2:41 PM Dictation Location: [place] [address] Electronically authenticated by: [id number] Y Date: 07/23/2024 14:41 Dictated By: Andrei Fatima M.D. Signed By: 07/23/24 1444 DD/ 144 TD/TT: Data Collection Interviewer: [facility] Radiology Study observation (narrative) [facility] CT CHEST WO CONOrdered By: Ian bruceiologlopez Radiology on 07-23-2024 [facility] Work Phone: RT PULMONARY FUNCTION TESTon 07-23-2024 Radiology Study observation (narrative) [facility] ALL CBC WITH AUTO DIFFon BASOPHILS ABSOLUTE AUTO 0 [facility] Basophils/100 WBC (Bld) 0.7 % 0.2 - 2.0 % [facility] Eosinophils/100 WBC (Bld) 2.4 % 0.9 - 7.0 % [facility] Erythrocyte distribution width (RBC) [Ratio] 13.6 % 11.0 - 15.0 % [facility] Hematocrit (Bld) [Volume fraction] 41.3 % 36.0 - 48.0 % [facility] Hemoglobin (Bld) [Mass/Vol] 13.5 g/dL 12.0 - 16.0 g/dL [facility] IMMATURE GRANULOCYTES ABS AUTO 0.02 [facility] Immature granulocytes/100 WBC (Bld) 0.3 % 0.0 - 0.5 % [facility] LYMPHOCYTES ABSOLUTE AUTO 1.4 [facility] Lymphocytes/100 WBC (Bld) 24.2 % 20.5 - 60.0 % [facility] MCH (RBC) [Entitic mass] 30.8 pg 26.7 - 34.0 pg [facility] MCHC (RBC) [Mass/Vol] 32.7 g/dL 29.9 - 35.2 g/dL [facility] MCV (RBC) [Entitic vol] 94.1 fL 81.0 - 99.0 fL [facility] MONOCYTES ABSOLUTE AUTO 0.4 [facility] Monocytes/100 WBC (Bld) 6.3 % 1.7 - 12.0 % [facility] NEUTROPHILS ABSOLUTE AUTO 3.9 [facility] Neutrophils/100 WBC (Bld) 66.1 % 43.0 - 75.0 % [facility] Platelet mean volume (Bld) [Entitic vol] 9.5 fL 9.5 - 13.5 fL [facility] TBH EO # 0.1 [facility]H PLT [facility] RBC 4.39 [facility] WBC 5.9 [facility] Patient Educationon 08-25-19 23 Patient Education Urology Botulinum Toxin [...] including vitamins, herbs, eye drops, creams, and ogpd-tmt-znbozzk medicines. ? Any problems you or family [...] tells you to take them. ? Taking sgwb-lcn-nbzunhh medicines, vitamins, herbs, and supplements. General instructions [...] these instructions at home: Medicines ? Take skoo-hxk-garvnhj and prescription medicines only as told by [...] health ca (more content not included)... [facility] Urology Office/Clinic Noteon 08-24-2022 Urology Office/Clinic Note [...] at length. Gave pt educational resources from [facility] and [facility] for bladder training. Pt will attempt this [...] Contact Information VERNA HARO, JILLIAN Rene, URL [address] [facility] [place] [address] Additional Instructions: 3 mos after bladder training to discuss botox Patient Education Botulinum Toxin Bladder Injection Documentation recorded by the scribosmin Crow accurately reflects the services(s) I performed and decisions made by me. Authenticated by Jillian Gillespie PA-C on 08/24/2022 14:57:33. ITanya, personally scribed for MAURICE Ochoa on 08/24/2022 [...] virus vaccine, inactivated (more content not included)... [facility] Comment on above: Result Comment: Elec tronically Signed By: JILLIAN GILLESPIE PA-C\.br\Date and Time Signed: 08/24/22 14:58 EDT\.br\Electronically Co-Signed By: Tanya Crow\.br\Date and Time Co-Signed: 08/24/22 14:46 EDT Provider Letteron 07-07-2022 Provider Letter July 07, 2022 [place] [address] Dear Eleni Rojo , We have been trying to reach you with no success. It is important that you return our call regarding your Botox treatment denial upon receiving this letter. Also, at the time of your call, please provide us with your current updated phone number. Thank you for your prompt attention to this matter. Sincerely, [facility] option #3 [facility] Pre-Certification Formon Pre-Certification Form [id number]#1. 00CD:127 [facility] Operative Reporton 3 Operative Report [id number] 0CD:127 [facility] Operative Reporton 3 Operative Report [id number]#1.0 0CD:127 [facility] Covid-19 PCR (CVDTB)on SARS-CoV-2 (COVID-19) RNA DESEAN+probe Ql (Unsp spec) Detected Abnormal NOT DETECTED [facility] Comment on above: Result Comment: This test is not yet approved or cleared by the [place] FDA. When there are no FDA-approved or cleared tests available, and other criteria are met, FDA can make tests available under an emergency access mechanism called an Emergency Use Authorization (EUA). The EUA for this test is supported by the [place] of Health and Human Service's declaration that [...] be used). Performed By: #### C VDTB ####[facility] [address] [place], [place] [address]JhDr. Shyam Farfan INFLUENZA A AND B AGon 05-[address] [facility] SEE BELOW [facility] Comment on above: Result Comment: Nega tive for Flu A protein angiten. Infection due to Flu A cannot be ruled out. Flu A angiten in the sample may be below the detection limit of the test. Performed By: #### I NFLUAB #### [facility] [address] [place], [place] [address] Dr. Shyam Farfan [facility] Comment on above: Result Comment: Nega tive for Flu B protein antigen. Infection due to Flu B cannot be ruled out. Flu B antigen in the sample may be below the detection limit of the test. Performed By: #### I NFLUAB #### [facility] [address] [place] [address] [address] Shyam Farfan INFLUENZA A AG Negative Normal NEGATIVE SEE COMMENT [facility] Comment on above: Performed By: #### I NFLUAB #### [facility] [address] [place] [address] [address] Shyam Farfan INFLUENZA B AG Negative Normal NEGATIVE SEE COMMENT [facility] Comment on above: Performed By: #### I NFLUAB #### [facility] [address] [place] [address] [address] Shyam Farfan Consent for Procedure/Surger yon 04-05-2022 Consent for Procedure/Surgery [id number] 0CD:127 [facility] Ambulatory Visit Summaryon 0 04-04-2022 Ambulatory Visit Summary ELENI ROJO Tori :1960 Visit Date:04/04/2022 Ambulatory Visit Instructions Your Diagnosis Urinary frequency Urinary urgency Mixed incontinence Tests Performed Urnls Dip Stick Auto w/o Microscopy POC 49638 Your Care Team Attending Physician - NARCISO [...] [facility] [address], [place] [address]- Medications What How Much When Instructions Unchanged [...] Urnls Dip Stick Auto w/o Microscopy POC 81231 (04/04/2022) Bilirubin Urine Dipstick - Negative Blood Urine Dipstick - Negative Glucose Urine Dipstick - Negative Ketones Urine Dipstick - Negative Leukocytes Urine Dipstick - 1+ Small Nitrite Urine Dipstick - Negative Protein Urine Dipstick - Negative Specific [place] Urine Dipstick - >=1.030 Urine Appearance Urine [...] herbs, eye (more content not included)... [facility] Patient Educationon 04-04-19 Patient Education Urology [...] including vitamins, herbs, eye drops, creams, and mfgu-ztl-ebqqqei medicines. ? Whether you are or may [...] system diseases. (more content not included)... [facility] Urology Office/Clinic Noteon 04-04-2022 Urology Office/Clinic [...] When Contact Information NARCISO FERRARI, Eyal Sosa, [facility] [address], [place] [address]- Additional Instructions: schedule cysto Patient Education Urodynamic [...] Oral, Daily, (more content not included)... [facility] Comment on above: Result Comment: Elec tronically Signed By: Eyal GARDNER MD\.br\Date and Time Signed: 04/04/22 11:52 EST\.br\Electronically Co-Signed By: Tanya Crow\.br\Date and Time Co-Signed: 04/04/22 11:49 EST GLYCOHEMOGLOBIN A1Con 2021 ADA RECOMMENDATION SEE BELOW Normal [facility] Comment on above: Result Comment: ADA RECOMMENDED LIMIT 4.0 - 6.0 ADA THERAPEUTIC TARGET < 7.0 ACTION SUGGESTED > 7.0 Performed By: #### A 1C #### [facility] [address] [place] [address] [address] Shyam Farfan Glucose [Mass/Vol] 169 mg/dL Normal [facility] Comment on above: Performed By: #### A 1C #### [facility] [address] [place] [address] [address] Shyam Farfan HbA1c (Bld) [Mass fraction] 7.5 % Critically high 4.5-6.2 [facility] Comment on above: Performed By: #### A 1C #### [facility] [address] [place] [address] [address] Shyam Farfan MG MAMM SCREEN 3D MAI CADon 12-27-2021 MG MAMM SCREEN 3D MAI CAD Patient: ELENI ROJO Exam Date: 12/27/2021 : 1960 Gender:F Ordering : DR TREVOR WALLACE . Admission #: [id number] Family : Order #: [id number] CLICK HERE TO VIEW EXAM RADIOLOGY REPORT [...] Treatments None Family Cancers None LOCATION: [facility] BREAST COMPOSITION: Heterogeneously dense,which may obscure [...] Tavera M.D. on 12/27/2021 at 12:09 [facility] Formson 12-21-2021 Forms [id number] 0CD:127 [facility] Physician Referralon 022 Physician Referral [id number]. 00CD:127 [facility] Ambulatory Visit Summaryon 1 Ambulatory Visit Summary ELEIN ROJO :1960 Visit Date:12/20/2021 Ambulatory Visit Instructions Your Diagnosis Urinary frequency Urinary urgency Mixed incontinence Tests Performed Urnls Dip Stick Auto w/o Microscopy POC 43184 Your Care Team Attending Physician - NARCISO FERRARI, Eyal Sosa Primary Care Physician - RODRIGO FERRARI, [...] Appointments Monday 10:45 AM EST With: NARCISO FERRAIR, Eyal Sosa Where: [facility] Patient Educationon 12-21-19 Patient Education Obstetrics [...] Take ove (more content not included)... [facility] Urology Office/Clinic Noteon 12-20-2021 Urology Office/Clinic Note Chief Complaint Referred for OAB HPI Staff Eleni is here today as a new patient [...] months 03/22/2022 EST [facility] [address] , [place] [phone] Additional Instructions: Patient Education Overactive Bladder, Adult [...] Social History (more content not included)... [facility] Comment on above: Result Comment: Elec tronically Signed By: Eyal GARDNER MD\.br\Date and Time Signed: 12/20/21 11:01 EDT\.br\Electronically Co-Signed By: Muna Rush MA\.br\Date and Time Co-Signed: 12/20/21 10:58 EDT CBC AUTO DIFFon 07-15-2021 BASO # 0.0 103/ul Normal 0.0-0.1 [facility] Comment on above: Performed By: #### C BC #### [facility] [address] [address] [address] Shyam Farfan Basophils/100 WBC (Bld) 0.6 % Normal 0.2-2.0 [facility] Comment on above: Performed By: #### C BC #### [facility] [address] [address] [address] Shyam Farfan EO # 0.1 103/ul Normal 0.0-0.7 [facility] Comment on above: Performed By: #### C BC #### [facility] [address] [place] [address] Dr. Shyam Farfan Eosinophils/100 WBC (Bld) 1.7 % Normal 0.9-7.0 [facility] Comment on above: Performed By: #### C BC #### [facility] [address] [place] [address] Dr. Shyam Farfan Erythrocyte distribution width (RBC) [Ratio] 17.1 % Critically high 11.0-15.0 [facility] Comment on above: Performed By: #### C BC #### [facility] [address] [place] [address] Dr. Shyam Farfan Hematocrit (Bld) [Volume fraction] 44.4 % Normal 36.0-48.0 [facility] Comment on above: Performed By: #### C BC #### [facility] [address] [place] [address] Dr. Shyam Farfan Hemoglobin (Bld) [Mass/Vol] 13.5 g/dL Normal 12.0-16.0 [facility] Comment on above: Performed By: #### C BC #### [facility] [address] [place] [address] Dr. Shyam Farfan IG # 0.03 10e3/ul Normal 0.00-0.03 [facility] Comment on above: Performed By: #### C BC #### [facility] [address] [place] [address] Dr. Shyam Farfan IG % 0.5 % Normal 0.0-0.5 [facility] Comment on above: Performed By: #### C BC #### [facility] [address] [place] [address] Dr. Shyam Farfan LYMPH # 1.5 103/ul Normal 1.2-3.8 [facility] Comment on above: Performed By: #### C BC #### [facility] [address] [place] [address] Dr. Shyam Farfan Lymphocytes/100 WBC (Bld) 23.4 % Normal 20.5-60.0 [facility] Comment on above: Performed By: #### C BC #### [facility] [address] [place] [address] Dr. Shyam Farfan MANUAL DIFF REQ NO Normal [facility] Comment on above: Performed By: #### C BC #### [facility] [address] [place] [address] Dr. Shyam Farfan MCH (RBC) [Entitic mass] 26.5 pg Critically low 26.7-34.0 [facility] Comment on above: Performed By: #### C BC #### [facility] [address] [place] [address] Dr. Shyam Farfan MCHC (RBC) [Mass/Vol] 30.4 g/dL Normal 29.9-35.2 [facility] Comment on above: Performed By: #### C BC #### [facility] [address] [place] [address] Dr. Shyam Farfan MCV (RBC) [Entitic vol] 87.2 fL Normal 81.0-99.0 [facility] Comment on above: Performed By: #### C BC #### [facility] [address] [place] [address] Dr. Shyam Farfan MONO # 0.4 103/ul Normal 0.3-0.8 [facility] Comment on above: Performed By: #### C BC #### [facility] [address] [place] [address] Dr. Shyam Farfan Monocytes/100 WBC (Bld) 6.5 % Normal 1.7-12.0 [facility] Comment on above: Performed By: #### C BC #### [facility] [address] [place] [address] Dr. Shyam Farfan NEUT # 4.4 103/ul Normal 1.4-6.5 [facility] Comment on above: Performed By: #### C BC #### [facility] [address] [place] [address] Dr. Shyam Farfan Neutrophils/100 WBC (Bld) 67.3 % Normal 43.0-75.0 [facility] Comment on above: Performed By: #### C BC #### [facility] [address] [address] [address] Shyam Farfan Platelet mean volume (Bld) [Entitic vol] 10.1 fL Normal 9.5-13.5 [facility] Comment on above: Performed By: #### C BC #### [facility] [address] [address] [address] Shyam Farfan PLT 238 103/ul Normal 150-450 [facility] Comment on above: Performed By: #### C BC #### [facility] [address] [address] [address] Shyam Farfan RBC 5.09 106/ul Normal 4.20-5.40 [facility] Comment on above: Performed By: #### C BC #### [facility] [address] [address] [address] Shyam Farfan WBC 6.6 103/ul Normal 4.0-11.0 [facility] Comment on above: Performed By: #### C BC #### [facility] [address] [address] [address] Shyam Farfan GLYCOHEMOGLOBIN A1Con 2021 ADA RECOMMENDATION SEE BELOW Normal [facility] Comment on above: Result Comment: ADA RECOMMENDED LIMIT 4.0 - 6.0 ADA THERAPEUTIC TARGET < 7.0 ACTION SUGGESTED > 7.0 Performed By: #### A 1C #### [facility] [address] [place] [address] Dr. Shyam Farfan Glucose [Mass/Vol] 200 mg/dL Normal [facility] Comment on above: Performed By: #### A 1C #### [facility] [address] [place] [address] Dr. Shyam Farfan HbA1c (Bld) [Mass fraction] 8.6 % Critically high 4.5-6.2 [facility] Comment on above: Performed By: #### A 1C #### [facility] [address] [place] [address] Dr. Shyam Farfan LIPID PROFILEon 07-15-2021 CHOL-HDL RATIO NORM SEE BELOW Normal [facility] Comment on above: Result Comment: 3.3 - 4.4 LOW RISK 4.4 - 7.1 AVERAGE RISK 7.1 - 11.0 MODERATE RISK >11.0 HIGH RISK Performed By: #### B MP, LIPID, LIVER, TSH #### [facility] [address] [address] [address] Shyam Farfan Cholesterol [Mass/Vol] 176 mg/dL Normal <=200 [facility] Comment on above: Performed By: #### B MP, LIPID, LIVER, TSH #### [facility] [address] [address] [address] Shyam Farfan Cholesterol in HDL [Mass/Vol] 53 mg/dL Normal 40-60 [facility] Comment on above: Performed By: #### B MP, LIPID, LIVER, TSH #### [facility] [address] [place] [address] Dr. Shyam Farfan Cholesterol in LDL [Mass/Vol] 100.0 mg/dL Normal [facility] Comment on above: Performed By: #### B MP, LIPID, LIVER, TSH #### [facility] [address] [place] [address] Dr. Shyam Farfan Cholesterol.total/Ch olesterol in HDL [Mass ratio] 3.3 {ratio} Normal [facility] Comment on above: Performed By: #### B MP, LIPID, LIVER, TSH #### [facility] [address] [place] [address] Dr. Shyam Farfan HDL NORMAL > or = 60 mg/dl - LO W CARDIOVASCULAR RISK <40 mg/dl - HIGH CARDIOVASCULAR RISK Normal [facility] Comment on above: Performed By: #### B MP, LIPID, LIVER, TSH #### [facility] [address] [place] [address] Dr. Shyam Farfan LDL CALC NORMAL SEE BELOW Normal [facility] Comment on above: Result Comment: <100 mg/dl OPTIMAL 100 - 129 mg/dl NEAR OR ABOVE OPTIMAL 130 - 159 mg/dl BORDERLINE HIGH 160 - 189 mg/dl HIGH >190 mg/dl VERY HIGH Performed By: #### B MP, LIPID, LIVER, TSH #### [facility] [address] [place] [address] Dr. Shyam Farfan Triglyceride [Mass/Vol] 115 mg/dL Normal <=150 [facility] Comment on above: Performed By: #### B MP, LIPID, LIVER, TSH #### [facility] [address] [place] [address] Dr. Shyam Farfan VLDL CALC 23.0 mg/dL Normal [facility] Comment on above: Performed By: #### B MP, LIPID, LIVER, TSH #### [facility] [address] [address] [address] Shyam Farfan LIVER PROFILEon 07-15-2021 Albumin [Mass/Vol] 3.8 g/dL Normal 3.4-5.0 [facility] Comment on above: Performed By: #### B MP, LIPID, LIVER, TSH #### [facility] [address] [place] [address] Dr. Shyam Farfan Albumin/Globulin [Mass ratio] 1.0 {ratio} Normal [facility] Comment on above: Performed By: #### B MP, LIPID, LIVER, TSH #### [facility] [address] [place] [address] Dr. Shyam Farfan ALP [Catalytic activity/Vol] 114 U/L Normal 46-116 [facility] Comment on above: Performed By: #### B MP, LIPID, LIVER, TSH #### [facility] [address] [place] [address] Dr. Shyam Farfan ALT [Catalytic activity/Vol] 96 U/L Critically high 14-59 [facility] Comment on above: Performed By: #### B MP, LIPID, LIVER, TSH #### [facility] [address] [place] [address] Dr. Shyam Farfan AST [Catalytic activity/Vol] 49 U/L Critically high 15-37 [facility] Comment on above: Performed By: #### B MP, LIPID, LIVER, TSH #### [facility] [address] [place] [address] Dr. Shyam Farfan BILI, CONJUGATED 0.1 mg/dL Normal 0.0-0.2 [facility] Comment on above: Performed By: #### B MP, LIPID, LIVER, TSH #### [facility] [address] [address] [address] Shyam Farfan Bilirubin [Mass/Vol] 0.5 mg/dL Normal 0.2-1.0 [facility] Comment on above: Performed By: #### B MP, LIPID, LIVER, TSH #### [facility] [address] [address] [address] Shyam Farfan Globulin (S) [Mass/Vol] 3.7 g/dL Normal [facility] Comment on above: Performed By: #### B MP, LIPID, LIVER, TSH #### [facility] [address] [address] [address] Shyam Farfan Protein [Mass/Vol] 7.5 g/dL Normal 6.4-8.2 [facility] Comment on above: Performed By: #### B MP, LIPID, LIVER, TSH #### [facility] [address] [place] [address] Dr. Shyam Farfan MICROALBUMIN, RAND URon 05 mALB 2.4 mg/L Normal <=30.0 [facility] Comment on above: Performed By: #### M ALBR #### [facility] [address] [place] [address] Dr. Shyam Farfan PROF CHEM 8 (BAS METB)on Anion gap [Moles/Vol] 6.5 mmol/L Normal [facility] Comment on above: Performed By: #### B MP, LIPID, LIVER, TSH #### [facility] [address] [place] [address] Dr. Shyam Farfan Calcium [Mass/Vol] 9.3 mg/dL Normal 8.5-10.1 [facility] Comment on above: Performed By: #### B MP, LIPID, LIVER, TSH #### [facility] [address] [place] [address] Dr. Shyam Farfan Chloride [Moles/Vol] 102 mmol/L Normal 98-107 [facility] Comment on above: Performed By: #### B MP, LIPID, LIVER, TSH #### [facility] [address] [place] [address] Dr. Shyam Farfan CO2 [Moles/Vol] 31.5 mmol/L Normal 21.0-32.0 [facility] Comment on above: Performed By: #### B MP, LIPID, LIVER, TSH #### [facility] [address] [address] [address] Shyam Farfan Creatinine [Mass/Vol] 0.61 mg/dL Normal 0.55-1.02 [facility] Comment on above: Performed By: #### B MP, LIPID, LIVER, TSH #### [facility] [address] [address] [address] Shyam Farfan EGFR-AF IRANIAN >60 Normal >=60 [facility] Comment on above: Performed By: #### B MP, LIPID, LIVER, TSH #### [facility] [address] [address] [address] Shyam Farfan EGFR-NON AF IRANIAN >60 Normal >=60 [facility] Comment on above: Performed By: #### B MP, LIPID, LIVER, TSH #### [facility] [address] [address] [address] Shyam Farfan Glucose [Mass/Vol] 177 mg/dL Critically high 74-106 [facility] Comment on above: Performed By: #### B MP, LIPID, LIVER, TSH #### [facility] [address] [address] [address] Shyam Farfan Potassium [Moles/Vol] 4.0 mmol/L Normal 3.5-5.1 [facility] Comment on above: Performed By: #### B MP, LIPID, LIVER, TSH #### [facility] [address] [address] [address] Shyam Farfan Sodium [Moles/Vol] 136 mmol/L Normal 136-145 [facility] Comment on above: Performed By: #### B MP, LIPID, LIVER, TSH #### [facility] [address] [address] [address] Shyam Farfan Urea nitrogen [Mass/Vol] 11.0 mg/dL Normal 7.0-18.0 [facility] Comment on above: Performed By: #### B MP, LIPID, LIVER, TSH #### [facility] [address] [address] [address] Shyam Farfan Urea nitrogen/Creatinine [Mass ratio] 18.0 mg/mg Normal [facility] Comment on above: Performed By: #### B MP, LIPID, LIVER, TSH #### [facility] [address] [address] [address] Shyam Farfan TSHon 07-15-2021 TSH 0.792 uIU/mL Normal 0.358-3.740 [facility] Comment on above: Performed By: #### B MP, LIPID, LIVER, TSH #### [facility] [address] [address] [address] Shyam Farfan TSH RANGE SEE BELOW Normal [facility] Comment on above: Result Comment: <0.3 4 UIU/ml HYPERTHYROID 0.34-5.60 UIU/ml EUTHYROID >5.60 UIU/ml HYPOTHYROID Performed By: #### B MP, LIPID, LIVER, TSH #### [facility] [address] [address] [address] Shyam Farfan Discharge Summaryon 07-13-19 18 Discharge Summary MR#: [id number] [facility] Eleni Rojo Admitted: 07/03/2017 Discharged: [...] Dict: 07/12/2017/04:38 A/MALU Thaoate Trans: 07/12/2017 06:47 A/Anthony_JN:[id number] 282cc: Trevor Wallace M.D. [address] [facility] [address] Normal [facility] BASIC METABOLIC PANELon 04-2 Calcium 8.9 mg/dL Normal 8.6-10.3 [facility] Comment on above: Order Comment: No: D o not add to previous draw Performed By: #### 1 0054 ####[facility] [facility] [place] [address], [facility] Chloride 107 mmol/L Normal 98-107 [facility] Comment on above: Order Comment: No: D o not add to previous draw Performed By: #### 1 0054 ####[facility] [place] [address], [facility] CO2 25 mmol/L Normal 21-31 [facility] Comment on above: Order Comment: No: D o not add to previous draw Performed By: #### 1 0054 ####[facility] [facility] [place] [address], [facility] Creatinine 0.57 mg/dL Low 0.60-1.20 [facility] Comment on above: Order Comment: No: D o not add to previous draw Performed By: #### 1 0054 ####[facility] [facility] [place] [address], [facility] eGFR (black) mL/min/{1.73_m2} Normal >60 [facility] Comment on above: Order Comment: No: D o not add to previous draw Performed By: #### 1 0054 ####[facility] [facility].[address] eGFR (non-black) mL/min/{1.73_m2} Normal >60 [facility] Comment on above: Order Comment: No: D o not add to previous draw Performed By: #### 1 0054 ####[facility] [facility] [place] [address], [facility] Glucose mass conc 174 mg/dL High 70-100 [facility] Comment on above: Order Comment: No: D o not add to previous draw Performed By: #### 1 0054 ####[facility] [facility] [place] [address], [facility] Potassium molar conc 3.6 mmol/L Normal 3.5-5.1 [facility] Comment on above: Order Comment: No: D o not add to previous draw Performed By: #### 1 0054 ####[facility] [facility] [place] [address], [facility] Sodium 140 mmol/L Normal 136-145 [facility] Comment on above: Order Comment: No: D o not add to previous draw Performed By: #### 1 0054 ####[facility] Urea nitrogen 6 mg/dL Low 7-25 [facility] Comment on above: Order Comment: No: D o not add to previous draw Performed By: #### 1 0054 ####[facility] [facility].[address] CBC COMPLETE BLOOD COUNTon 0 07-08-2017 Erythrocyte distribution width Auto Ratio (RBC) 13.7 % Normal 11.5-15.0 [facility] Comment on above: Order Comment: No: D o not add to previous draw Performed By: #### 1 0054 ####[facility] [facility].[address] Erythrocytes (RBC) 4.14 10*6/uL Normal 3.80-5.00 [facility] Comment on above: Order Comment: No: D o not add to previous draw Performed By: #### 1 0054 ####[facility] [facility].[address] Erythrocytes (RBC) 0 % Normal 0-0 [facility] Comment on above: Order Comment: No: D o not add to previous draw Performed By: #### 1 0054 ####[facility] [facility].[address] Hematocrit (HCT) 36.0 % Normal 36.0-45.0 [facility] Comment on above: Order Comment: No: D o not add to previous draw Performed By: #### 1 0054 ####[facility] Hemoglobin mass conc (Bld) 12.0 g/dL Normal 12.0-15.0 [facility] Comment on above: Order Comment: No: D o not add to previous draw Performed By: #### 1 0054 ####[facility] MCH 29.0 pg Normal 27.0-33.0 [facility] Comment on above: Order Comment: No: D o not add to previous draw Performed By: #### 1 0054 ####[facility] [place] [address], [facility] MCHC mass conc (RBC) 33.3 g/dL Normal 32.0-35.0 [facility] Comment on above: Order Comment: No: D o not add to previous draw Performed By: #### 1 0054 ####[facility] [facility] [place] [address], [facility] MCV 87.0 fL Normal 82.0-98.0 [facility] Comment on above: Order Comment: No: D o not add to previous draw Performed By: #### 1 0054 ####[facility] [facility].[address] PLAT CNT 230 10*3/uL Normal 150-400 [facility] Comment on above: Order Comment: No: D o not add to previous draw Performed By: #### 1 0054 ####[facility] [facility].[address] WBC (Leukocytes) 6.9 10*3/uL Normal 4.0-10.6 [facility] Comment on above: Order Comment: No: D o not add to previous draw Performed By: #### 1 0054 ####[facility] POC GLUCOSE LABon 07-08-2017 Glucose mass conc 106 mg/dL High 70-100 [facility] Comment on above: Performed By: #### 1 0054 ####[facility] [place] [address], [facility] Glucose mass conc 135 mg/dL High 70-100 [facility] Comment on above: Performed By: #### 1 0054 ####[facility] [place] [address], [facility] Glucose mass conc 122 mg/dL High 70-100 [facility] Comment on above: Performed By: #### 1 0054 ####[facility] [place] [address], [facility] POTASSIUM BLOODon 07-08-2017 Potassium molar conc 3.3 mmol/L Low 3.5-5.1 [facility] Comment on above: Order Comment: No: D o not add to previous draw Performed By: #### 1 0054 ####[facility] BASIC METABOLIC PANELon 06-12 Calcium 9.3 mg/dL Normal 8.6-10.3 [facility] Comment on above: Order Comment: Yes: Add to Previous draw if able Performed By: #### 5 [id number] ####[facility] [place] [address], [facility] Chloride 108 mmol/L High 98-107 [facility] Comment on above: Order Comment: Yes: Add to Previous draw if able Performed By: #### 5 [id number] ####[facility] [place] [address], [facility] CO2 26 mmol/L Normal 21-31 [facility] Comment on above: Order Comment: Yes: Add to Previous draw if able Performed By: #### 5 [id number] ####[facility] [place] [address], [facility] Creatinine 0.54 mg/dL Low 0.60-1.20 [facility] Comment on above: Order Comment: Yes: Add to Previous draw if able Performed By: #### 5 [id number] ####[facility] eGFR (black) mL/min/{1.73_m2} Normal >60 [facility] Comment on above: Order Comment: Yes: Add to Previous draw if able Performed By: #### 5 [id number] ####[facility] [place] [address], [facility] eGFR (non-black) mL/min/{1.73_m2} Normal >60 [facility] Comment on above: Order Comment: Yes: Add to Previous draw if able Performed By: #### 5 [id number] ####[facility] [place] [address], [facility] Glucose mass conc 133 mg/dL High 70-100 [facility] Comment on above: Order Comment: Yes: Add to Previous draw if able Performed By: #### 5 [id number] ####[facility] [place] [address], [facility] Potassium molar conc 2.9 mmol/L Low 3.5-5.1 [facility] Comment on above: Order Comment: Yes: Add to Previous draw if able Performed By: #### 5 [id number] ####[facility] [place] [address], [facility] Sodium 140 mmol/L Normal 136-145 [facility] Comment on above: Order Comment: Yes: Add to Previous draw if able Performed By: #### 5 [id number] ####[facility] [place] [address], [facility] Urea nitrogen 13 mg/dL Normal 7-25 [facility] Comment on above: Order Comment: Yes: Add to Previous draw if able Performed By: #### 5 [id number] ####[facility] [place] [address], [facility] CBC COMPLETE BLOOD COUNTon 0 - Erythrocyte distribution width Auto Ratio (RBC) 13.4 % Normal 11.5-15.0 [facility] Comment on above: Order Comment: Yes: Add to Previous draw if able Performed By: #### 5 [id number] ####[facility] [facility].[address] Erythrocytes (RBC) 4.30 10*6/uL Normal 3.80-5.00 [facility] Comment on above: Order Comment: Yes: Add to Previous draw if able Performed By: #### 5 [id number] ####[facility] [facility].[address] Erythrocytes (RBC) 0 % Normal 0-0 [facility] Comment on above: Order Comment: Yes: Add to Previous draw if able Performed By: #### 5 [id number] ####[place] [address] [address] Hematocrit (HCT) 37.1 % Normal 36.0-45.0 [facility] Comment on above: Order Comment: Yes: Add to Previous draw if able Performed By: #### 5 [id number] ####[place] [address] Hemoglobin mass conc (Bld) 12.4 g/dL Normal 12.0-15.0 [facility] Comment on above: Order Comment: Yes: Add to Previous draw if able Performed By: #### 5 [id number] ####[facility] [facility].[address] [address] MCH 28.8 pg Normal 27.0-33.0 [facility] Comment on above: Order Comment: Yes: Add to Previous draw if able Performed By: #### 5 6101 ####[facility]3000 [facility].[address] MCHC mass conc (RBC) 33.4 g/dL Normal 32.0-35.0 [facility] Comment on above: Order Comment: Yes: Add to Previous draw if able Performed By: #### 5 6101 ####[facility] [place] [address], [place] MCV 86.3 fL Normal 82.0-98.0 [facility] Comment on above: Order Comment: Yes: Add to Previous draw if able Performed By: #### 5 6101 ####[facility] [place] [address], [place] PLAT CNT 259 10*3/uL Normal 150-400 The [facility] Comment on above: Order Comment: Yes: Add to Previous draw if able Performed By: #### 5 6101 ####[facility]3000 [facility] [place] [place] [address], [facility] WBC (Leukocytes) 15.3 10*3/uL High 4.0-10.6 [facility] Comment on above: Order Comment: Yes: Add to Previous draw if able Performed By: #### 5 6101 ####[facility] [place] [address], [facility] POC GLUCOSE LABon 07-07-2017 Glucose mass conc 133 mg/dL High 70-100 The [facility] Comment on above: Performed By: #### 1 0054 ####[facility]3000 [facility] [place] [place] [address], [place] Glucose mass conc 117 mg/dL High 70-100 The [facility] Comment on above: Performed By: #### 5 6101 ####[facility] [place] [address], [place] Glucose mass conc 103 mg/dL High 70-100 The [facility] Comment on above: Performed By: #### 5 6101 ####[facility] [place] [address], [place] Glucose mass conc 195 mg/dL High 70-100 The [facility] Comment on above: Performed By: #### 5 6101 ####[facility] [place], [place] [address] SMALL BOWELon 07-07-2017 SMALL BOWEL [facility] Drumvks[address] [place] [address] ========Patient Name: ELENI ROJO : 1960ex: FAge: Race: OtherMRN: [id number]. Location: [id number] Status: IVisit #: [id number] Date: 07/07/2017 8:30:00 AMCompleted Date: 07/07/2017 12:31 PMRequesting Provider: CARMELO MCDANIEL Attending Provider: CHIQUI JULES A Report Copy To: Signs & Symptoms: Abdomen Pain GeneralizedHistory: Patient history not availableComments: R/O Obstruction, please put contrast through NGT and use water-soluble contrastExam: SMALL BOWELAccession #: [id number] SMALL BOWEL 07/07/2017 12:57 PM EDT SIGNS AND SYMPTOMS: Abdomen Pain Generalized TECHNOLOGIST COMMENTS: patient states severe cramping vomiting loose stools surgery x2 for hernia last surgery 200ml of Omni 350 QUESTION FOR THE RADIOLOGIST: R/O Obstruction, please put contrast through NGT and use water-soluble contrast CONTRAST: Contrast: OMNIPAQUE 350 (LOCM), 200 milliliter, Nasogastric COMPARISON: none FINDINGS: Service Desk Agent images through the patient's abdomen show gas [...] follow-through. Electronically signed by:Ethan Nuñez. Transcribed by: [email or web address], User Resident: Electronically Signed by: ETHAN NUÑEZ @ 07/07/2017 01:38 PM Normal [facility] Comment on above: Order Comment: No: D o not add to previous draw POC GLUCOSE LABon 07-06-2017 Glucose mass conc 198 mg/dL High 70-100 The [facility] Comment on above: Performed By: #### 5 6101 ####[facility] [place] [address], [facility] Glucose mass conc 208 mg/dL High 70-100 The [facility] Comment on above: Performed By: #### 5 6101 ####[facility] [place] [address], [facility] Glucose mass conc 152 mg/dL High 70-100 The [facility] Comment on above: Performed By: #### 5 6101 ####[facility] [place] [address], [facility] Glucose mass conc 145 mg/dL High 70-100 The [facility] Comment on above: Performed By: #### 5 6101 ####[facility] [place] [address], [facility] Glucose mass conc 141 mg/dL High 70-100 The [facility] Comment on above: Performed By: #### 5 6101 ####[facility] BASIC METABOLIC PANELon 06-12 Calcium 9.5 mg/dL Normal 8.6-10.3 [facility] Comment on above: Order Comment: No: D o not add to previous draw Performed By: #### 5 0103 ####[facility] [place] [address], [facility] Chloride 106 mmol/L Normal 98-107 [facility] Comment on above: Order Comment: No: D o not add to previous draw Performed By: #### 5 0103 ####[facility] [place] [address], [place] CO2 27 mmol/L Normal 21-31 [facility] Comment on above: Order Comment: No: D o not add to previous draw Performed By: #### 5 0103 ####[facility] [place] [address], [facility] Creatinine 0.57 mg/dL Low 0.60-1.20 [facility] Comment on above: Order Comment: No: D o not add to previous draw Performed By: #### 5 3 ####[facility] [place] [address], [facility] eGFR (black) mL/min/{1.73_m2} Normal >60 [facility] Comment on above: Order Comment: No: D o not add to previous draw Performed By: #### 5 0103 ####[facility] [place] [address], [facility] eGFR (non-black) mL/min/{1.73_m2} Normal >60 Th e [facility] Comment on above: Order Comment: No: D o not add to previous draw Performed By: #### 5 0103 ####[facility] [place] [address], [place] Glucose mass conc 119 mg/dL High 70-100 The [facility] Comment on above: Order Comment: No: D o not add to previous draw Performed By: #### 5 0103 ####[facility] [place] [address], [place] Potassium molar conc 3.6 mmol/L Normal 3.5-5.1 [facility] Comment on above: Order Comment: No: D o not add to previous draw Performed By: #### 5 0103 ####[facility] Sodium 138 mmol/L Normal 136-145 [facility] Comment on above: Order Comment: No: D o not add to previous draw Performed By: #### 5 0103 ####[facility] Urea nitrogen 8 mg/dL Normal 7-25 The [facility] Comment on above: Order Comment: No: D o not add to previous draw Performed By: #### 5 0103 ####[facility] CBC COMPLETE BLOOD COUNTon 0 07-05-2017 Erythrocyte distribution width Auto Ratio (RBC) 13.7 % Normal 11.5-15.0 [facility] Comment on above: Order Comment: No: D o not add to previous draw Performed By: #### 5 0103 ####[facility] Erythrocytes (RBC) 0 % Normal 0-0 [facility] Comment on above: Order Comment: No: D o not add to previous draw Performed By: #### 5 0103 ####[facility] [facility].[address] Erythrocytes (RBC) 4.48 10*6/uL Normal 3.80-5.00 [facility] Comment on above: Order Comment: No: D o not add to previous draw Performed By: #### 5 0103 ####[facility] Hematocrit (HCT) 38.9 % Normal 36.0-45.0 [facility] Comment on above: Order Comment: No: D o not add to previous draw Performed By: #### 5 0103 ####[facility]3000 [facility].[address] Hemoglobin mass conc (Bld) 12.9 g/dL Normal 12.0-15.0 [facility] Comment on above: Order Comment: No: D o not add to previous draw Performed By: #### 5 0103 ####[facility]3000 [facility].[address] MCH 28.8 pg Normal 27.0-33.0 [facility] Comment on above: Order Comment: No: D o not add to previous draw Performed By: #### 5 3 ####[address] MCHC mass conc (RBC) 33.2 g/dL Normal 32.0-35.0 [facility] Comment on above: Order Comment: No: D o not add to previous draw Performed By: #### 5 3 ####[facility] MCV 86.8 fL Normal 82.0-98.0 [facility] Comment on above: Order Comment: No: D o not add to previous draw Performed By: #### 5 3 ####[place] [address] [facility].[address] PLAT CNT 224 10*3/uL Normal 150-400 The [facility] Comment on above: Order Comment: No: D o not add to previous draw Performed By: #### 5 3 ####[address] WBC (Leukocytes) 7.2 10*3/uL Normal 4.0-10.6 [facility] Comment on above: Order Comment: No: D o not add to previous draw Performed By: #### 5 3 ####[facility] [place] [address], [facility] POC GLUCOSE LABon 07-05-2017 Glucose mass conc 122 mg/dL High 70-100 The [facility] Comment on above: Performed By: #### 5 3 ####[facility] [place] [address], [place] Glucose mass conc 93 mg/dL Normal 70-100 The [facility] Comment on above: Performed By: #### 5 3 ####[facility] [place] [address], [place] Glucose mass conc 116 mg/dL High 70-100 The [facility] Comment on above: Performed By: #### 5 102 ####[facility] [place] [address], [place] Glucose mass conc 115 mg/dL High 70-100 The [facility] Comment on above: Performed By: #### 5 102 ####[facility]3000 [facility] [place] [place] [address], [facility] BASIC METABOLIC PANELon 06-12 Calcium 9.3 mg/dL Normal 8.6-10.3 [facility] Comment on above: Order Comment: No: D o not add to previous draw Performed By: #### 0 0071, [id number] ####[facility] [place] [address], [place] Chloride 106 mmol/L Normal 98-107 [facility] Comment on above: Order Comment: No: D o not add to previous draw Performed By: #### 0 0071, 36874 ####[facility] [place] [address], [place] CO2 26 mmol/L Normal 21-31 [facility] Comment on above: Order Comment: No: D o not add to previous draw Performed By: #### 0 0071, 64659 ####[facility] [place] [address], [facility] Creatinine 0.53 mg/dL Low 0.60-1.20 [facility] Comment on above: Order Comment: No: D o not add to previous draw Performed By: #### 0 0071, 32182 ####[facility] [place] [address], [facility] eGFR (black) mL/min/{1.73_m2} Normal >60 [facility] Comment on above: Order Comment: No: D o not add to previous draw Performed By: #### 0 0071, 99611 ####[facility]3000 [facility] [place] [place] [address], [facility] eGFR (non-black) mL/min/{1.73_m2} Normal >[address] [facility] Comment on above: Order Comment: No: D o not add to previous draw Performed By: #### 0 0071, 94136 ####[facility] [place] [address], [facility] Glucose mass conc 167 mg/dL High 70-100 [facility] Comment on above: Order Comment: No: D o not add to previous draw Performed By: #### 0 0071, 31719 ####[place] [address] [facility] [place] [address], [facility] Potassium molar conc 3.4 mmol/L Low 3.5-5.1 [facility] Comment on above: Order Comment: No: D o not add to previous draw Performed By: #### 0 0071, 82622 ####[facility] [place] [address], [facility] Sodium 137 mmol/L Normal 136-145 [facility] Comment on above: Order Comment: No: D o not add to previous draw Performed By: #### 0 0071, 60642 ####[facility] [id number], [facility] Urea nitrogen 12 mg/dL Normal 7-25 The [facility] Comment on above: Order Comment: No: D o not add to previous draw Performed By: #### 0 0071, 40125 ####[facility] [place] [address], [facility] Calcium 9.9 mg/dL Normal 8.6-10.3 [facility] Comment on above: Order Comment: No: D o not add to previous draw Performed By: #### 0 0071 ####[facility] [place] [address], [place] Chloride 103 mmol/L Normal 98-107 [facility] Comment on above: Order Comment: No: D o not add to previous draw Performed By: #### 0 0071 ####[facility] [id number], [facility] CO2 25 mmol/L Normal 21-31 [facility] Comment on above: Order Comment: No: D o not add to previous draw Performed By: #### 0 0071 ####[facility] [place] [address], [facility] Creatinine 0.56 mg/dL Low 0.60-1.20 [facility] Comment on above: Order Comment: No: D o not add to previous draw Performed By: #### 0 0071 ####[facility] [place] [address], [facility] eGFR (black) mL/min/{1.73_m2} Normal >60 [facility] Comment on above: Order Comment: No: D o not add to previous draw Performed By: #### 0 0071 ####[facility] [place] [address], [facility] eGFR (non-black) mL/min/{1.73_m2} Normal >60 Th e [facility] Comment on above: Order Comment: No: D o not add to previous draw Performed By: #### 0 0071 ####[facility] [place] [address], [facility] Glucose mass conc 179 mg/dL High 70-100 [facility] Comment on above: Order Comment: No: D o not add to previous draw Performed By: #### 0 0071 ####[facility] [id number], [facility] Potassium molar conc 3.4 mmol/L Low 3.5-5.1 [facility] Comment on above: Order Comment: No: D o not add to previous draw Performed By: #### 0 0071 ####[facility]3000 [facility] [place] [place] [address], [facility] Sodium 136 mmol/L Normal 136-145 [facility] Comment on above: Order Comment: No: D o not add to previous draw Performed By: #### 0 0071 ####[facility] [place] [address], [facility] Urea nitrogen 12 mg/dL Normal 7-25 The [facility] Comment on above: Order Comment: No: D o not add to previous draw Performed By: #### 0 0071 ####[facility]3000 [facility] [place] [address], [facility] CBC COMPLETE BLOOD COUNTon 0 - Erythrocyte distribution width Auto Ratio (RBC) 13.8 % Normal 11.5-15.0 [facility] Comment on above: Order Comment: No: D o not add to previous draw Performed By: #### 5 0608 ####[facility] [place] [address], [facility] Erythrocytes (RBC) 0 % Normal 0-0 [facility] Comment on above: Order Comment: No: D o not add to previous draw Performed By: #### 5 0608 ####[facility] Erythrocytes (RBC) 4.58 10*6/uL Normal 3.80-5.00 [facility] Comment on above: Order Comment: No: D o not add to previous draw Performed By: #### 5 0608 ####[facility] Hematocrit (HCT) 39.7 % Normal 36.0-45.0 The [facility] Comment on above: Order Comment: No: D o not add to previous draw Performed By: #### 5 0608 ####[facility]3000 [facility].[address] Hemoglobin mass conc (Bld) 13.1 g/dL Normal 12.0-15.0 [facility] Comment on above: Order Comment: No: D o not add to previous draw Performed By: #### 5 0608 ####[facility]3000 [facility].[address] MCH 28.6 pg Normal 27.0-33.0 [facility] Comment on above: Order Comment: No: D o not add to previous draw Performed By: #### 5 0608 ####[facility]3000 [facility].[address] MCHC mass conc (RBC) 33.0 g/dL Normal 32.0-35.0 [facility] Comment on above: Order Comment: No: D o not add to previous draw Performed By: #### 5 0608 ####[facility]3000 [facility].[address] MCV 86.7 fL Normal 82.0-98.0 [facility] Comment on above: Order Comment: No: D o not add to previous draw Performed By: #### 5 0608 ####[facility] [place] [address], [facility] PLAT CNT 264 10*3/uL Normal 150-400 The [facility] Comment on above: Order Comment: No: D o not add to previous draw Performed By: #### 5 0608 ####[facility] WBC (Leukocytes) 11.2 10*3/uL High 4.0-10.6 [facility] Comment on above: Order Comment: No: D o not add to previous draw Performed By: #### 5 0608 ####[facility] CBC W/DIFFon 07-04-2017 ABS BASOPHILS 0.0 10*3/uL Normal 0.0-0.2 The [facility] Comment on above: Performed By: #### 5 0103 ####[facility] ABS IMM GRANS 0.1 10*3/uL Normal 0.0-0.2 [facility] Comment on above: Performed By: #### 5 0103 ####[place] [address] [address] Basophils Auto #/vol (Bld) 0.3 % Normal 0.0-1.0 [facility] Comment on above: Performed By: #### 5 0103 ####[facility] Eosinophils 0.0 10*3/uL Normal 0.0-0.5 The [facility] Comment on above: Performed By: #### 5 0103 ####[place] [address] [address] Eosinophils/100 leukocytes 0.2 % Normal 0.0-6.0 [facility] Comment on above: Performed By: #### 5 0103 ####[facility] [place] [address], [place] Erythrocyte distribution width Auto Ratio (RBC) 13.8 % Normal 11.5-15.0 [facility] Comment on above: Performed By: #### 5 0103 ####[facility]3000 [facility] [place] [address], [facility] Erythrocytes (RBC) 0 % Normal 0-0 [facility] Comment on above: Performed By: #### 5 0103 ####[facility]3000 [facility] [place] [address], [facility] Erythrocytes (RBC) 4.67 10*6/uL Normal 3.80-5.00 [facility] Comment on above: Performed By: #### 5 0103 ####[facility]3000 [facility].[address] Hematocrit (HCT) 40.3 % Normal 36.0-45.0 The [facility] Comment on above: Performed By: #### 5 0103 ####[facility] Hemoglobin mass conc (Bld) 13.5 g/dL Normal 12.0-15.0 [facility] Comment on above: Performed By: #### 5 0103 ####[facility] [place] [address], [facility] IMMATURE GRANS 0.5 % Normal 0.0-1.0 The [facility] Comment on above: Performed By: #### 5 0103 ####[facility] [place] [address], [facility] Lymphocytes 1.6 10*3/uL Normal 1.2-4.0 The [facility] Comment on above: Performed By: #### 5 0103 ####[facility]3000 [facility] [place] [address], [facility] Lymphocytes/100 leukocytes 10.9 % Low 20.0-45.0 The [facility] Comment on above: Performed By: #### 5 0103 ####[facility] MCH 28.9 pg Normal 27.0-33.0 [facility] Comment on above: Performed By: #### 5 0103 ####[facility] MCHC mass conc (RBC) 33.5 g/dL Normal 32.0-35.0 [facility] Comment on above: Performed By: #### 5 0103 ####[facility] MCV 86.3 fL Normal 82.0-98.0 [facility] Comment on above: Performed By: #### 5 0103 ####[facility] Monocytes 0.9 10*3/uL Normal 0.1-1.0 The [facility] Comment on above: Performed By: #### 5 010 ####[facility] MONOS 6.5 % Normal 5.0-12.0 [facility] Comment on above: Performed By: #### 5 0103 ####[facility] Neutrophils 11.8 10*3/uL High 1.6-7.6 The [facility] Comment on above: Performed By: #### 5 0103 ####[facility] Neutrophils/100 leukocytes 81.6 % High 40.0-72.0 [facility] Comment on above: Performed By: #### 5 3 ####[facility]3000 [facility] [place] [address], [facility] PLAT CNT 277 10*3/uL Normal 150-400 The [facility] Comment on above: Performed By: #### 5 0103 ####[facility]3000 [facility].[address] WBC (Leukocytes) 14.4 10*3/uL High 4.0-10.6 [facility] Comment on above: Performed By: #### 5 0103 ####[facility]3000 [facility].[address] History and Physicalon 07-04 History and Physical MR[id number] Eleni Rojo Admitted: 07/03/2017 Date of : 1960 Attending Physician: Chiqui Jules MD Room #: [id number] Discharge Date: HISTORY AND PHYSICALHISTORY OF PRESENT ILLNESS: Ms. Rojo is a 56-year-old female, whopresents with signs of small bowel obst[facility] She states she had intense abdominal pain, [...] at that time. Surgeries were performed at [facility] and records are unavailable. On arrival to [facility], patient's painis noted to have greatly improved. [...] [facility]. However, this was not scheduled until [...] responsibility for the exam. NOTBILLABLEDate Dict: 07/04/2017/12:24 A/Nader Ralph MDDate Trans: 07/04/2017 05:33 [id number] Normal [facility] LACTATE BLOODon 07-04-2017 Lactate 0.6 mmol/L Normal .5-2.2 [facility] Comment on above: Order Comment: No: D o not add to previous draw Performed By: #### 1 0054 ####[address] MAGNESIUM BLOODon 07-04-2017 Magnesium 2.1 mg/dL Normal 1.9-2.7 [facility] Comment on above: Order Comment: No: D o not add to previous draw Performed By: #### 0 0071, [id number] ####[place] [address] [address] OUTSIDE CONSULT GIGUon 07-04 OUTSIDE CONSULT GIGU [facility] [address] [place] [id number] ========Patient Name: ELENI ROJO : 1960ex: FAge: Race: OtherMRN: [id number]. Location: [id number] Status: IVisit #: [id number] Date: 07/04/2017 7:10:00 AMCompleted Date: 07/04/2017 07:20 AMRequesting Provider: NADER RALPH Attending Provider: CHIQUI JULES A Report Copy To: TREVOR WALLACE Signs & Symptoms: outside consultHistory: CT abd/pelvis [facility] 07/03/[address] Nader EllisiComments: Exam: OUTSIDE CONSULT GIGUAccession #: [id number] OUTSIDE CONSULT GIGU 07/04/2017 7:20 AM EDT OUTSIDE STUDY: CT TECHNIQUE: Outside CT images of the abdomen and pelvis obtained from [facility] dated July 03, 2017.. Image review [...] interpretation. Electronically signed by:Ethan Nuñez. Transcribed by: [email or web address], User Resident: Electronically Signed by: ETHAN NUÑEZ @ 07/04/2017 10:22 AM Normal [facility] POC GLUCOSE LABon 07-04-2017 Glucose mass conc 123 mg/dL High 70-100 [facility] Comment on above: Performed By: #### 5 [id number] ####[facility] [place] [address], [facility] Glucose mass conc 134 mg/dL High 70-100 [facility] Comment on above: Performed By: #### 5 [id number] ####[facility] [place] [address], [facility] Glucose mass conc 193 mg/dL High 70-100 [facility] Comment on above: Order Comment: NOTE: Result Checked Performed By: #### [id number] ####[facility] [place] [address], [facility] Glucose mass conc 147 mg/dL High 70-100 [facility] Comment on above: Performed By: #### 8 [id number] ####[facility] [place] [address], [facility] PROTHROMBIN TIMEon 8 INR Coag RelTime (PPP) 1.20 {INR} High 0.91-1.16 [facility] Comment on above: Order Comment: Yes: [...] OF ACTION, CLINICALEFFECTIVENESS, AND OPTIMAL THERAPEUTIC RANGE. [id number]. Performed By: #### 5 [id number] ####[facility] [facility].[address] Prothrombin time (PT) Coag time (PPP) 15.3 s High 12.3-14.8 [facility] Comment on above: Order Comment: Yes: Add to Previous draw if able Result Comment: ALL RESULTS MUST BE INTERPRETED WITH RESPECT TO BLOOD DRAWING ARTIFACTOR DILUTION ERROR OF ANTICOAGULANT AT THE TIME OF SAMPLING. Performed By: #### 5 [id number] ####[facility] [facility] [place] [address], [facility] TYPE AND SCREENon 07-04-2017 ABO INTERPRETATION O Normal [facility] Comment on above: Performed By: #### 6 [id number] ####[facility] [facility] [place] [address], [facility] ANTIBODY SCREEN Negative Normal [facility] Comment on above: Performed By: #### 6 [id number] ####[facility] [facility] [place] [address], [facility] RH INTERPRETATION Positive Normal [facility] Comment on above: Performed By: #### 6 [id number] ####[facility] [facility] [place] [address], [facility] Vital Signs Date Time Vital Sign Value Performing Clinician Facility 07-23-2024 09:57-0400 Body height 152.4 cm Tamara Daugherty DPM Work Phone: [facility] 07-23-2024 09:57-0400 Body mass index (BMI) [Ratio] 37.5 kg/m2 Tamara HERNANDEZM Work Phone: [facility] 07-23-2024 09:57-0400 Body weight 87.09 kg Tamara Daugherty DPM Work Phone: [facility] 07-15-2024 09:18-0400 Body height 152.4 cm Trevor Wallace MD Work Phone: [facility] 07-15-2024 09:18-0400 Body mass index (BMI) [Ratio] 37.5 kg/m2 Trevor Wallace MD Work Phone: [facility] 07-15-2024 09:18-0400 Body temperature 96.01 [degF] Trevor Wallace MD Work Phone: [facility] 07-15-2024 09:18-0400 Body weight 87.09 kg Trevor Wallace MD Work Phone: [facility] 07-15-2024 09:18-0400 Diastolic blood pressure 80 mm[Hg] Trevor Wallace MD Work Phone: [facility] 07-15-2024 09:18-0400 Heart rate 70 /min Trevor Wallace MD Work Phone: [facility] 07-15-2024 09:18-0400 Respiratory rate 20 /min Trevor Wallace MD Work Phone: [facility] 07-15-2024 09:18-0400 SaO2% (BldA) [Mass fraction] 90 % Trevor Wallace MD Work Phone: [facility] 07-15-2024 09:18-0400 Systolic blood pressure 138 mm[Hg] Trevor Wallace MD Work Phone: [facility] 04-25-2024 10:50-0500 Body height 152.4 cm Trevor Wallace MD Work Phone: [facility] 04-25-2024 10:50-0500 Body mass index (BMI) [Ratio] 35.74 kg/m2 Trevor Wallace MD Work Phone: [facility] 04-25-2024 10:50-0500 Body temperature 96.6 [degF] Trevor Wallace MD Work Phone: [facility] 04-25-2024 10:50-0500 Body weight 83.01 kg Trevor Wallace MD Work Phone: [facility] 04-25-2024 10:50-0500 Diastolic blood pressure 70 mm[Hg] Trevor Wallace MD Work Phone: [facility] 04-25-2024 10:50-0500 Heart rate 90 /min Trevor Wallace MD Work Phone: [facility] 04-25-2024 10:50-0500 Respiratory rate 24 /min Trevor Wallace MD Work Phone: [facility] 04-25-2024 10:50-0500 SaO2% (BldA) [Mass fraction] 96 % Trevor Wallace MD Work Phone: [facility] 04-25-2024 10:50-0500 Systolic blood pressure 118 mm[Hg] Trevor Wallace MD Work Phone: [facility] 04-13-2024 09:11-0500 Body mass index (BMI) [Ratio] 38.22 kg/m2 Gamal Grove DO Work Phone: [facility] 04-13-2024 09:11-0500 Body temperature 97.7 [degF] Gamal Lalo DO Work Phone: [facility] 04-13-2024 09:11-0500 Body weight 88.77 kg Gmaal Grove DO Work Phone: [facility] 04-13-2024 09:11-0500 Diastolic blood pressure 80 mm[Hg] Gamal Grove DO Work Phone: [facility] 04-13-2024 09:11-0500 Heart rate 78 /min Gamal Grove DO Work Phone: [facility] 04-13-2024 09:11-0500 SaO2% (BldA) [Mass fraction] 85 % Gamal Grove DO Work Phone: [facility] 04-13-2024 09:11-0500 Systolic blood pressure 124 mm[Hg] Gamal Grove DO Work Phone: [facility] 04-09-2024 09:51-0500 Body mass index (BMI) [Ratio] 38.97 kg/m2 Melis[place]amlesh [place] [facility] Work Phone: [facility] 04-09-2024 09:51-0500 Body temperature 98.01 [degF] Melisa Sandro [facility] Work Phone: [facility] 04-09-2024 09:51-0500 Body weight 90.5 kg Melisa Sandro [facility] Work Phone: [facility] 04-09-2024 09:51-0500 Diastolic blood pressure 88 mm[Hg] Melisa [place] [facility] Work Phone: [facility] 04-09-2024 09:51-0500 Heart rate 71 /min Melisa [place] [facility] Work Phone: [facility] 04-09-2024 09:51-0500 SaO2% (BldA) [Mass fraction] 92 % Melisa [place] [facility] Work Phone: [facility] 04-09-2024 09:51-0500 Systolic blood pressure 128 mm[Hg] Melisa Sandro [facility] Work Phone: [facility] 01-09-2025 10:49-0500 Body height 152.4 cm Tamara Daugherty DPM Work Phone: [facility] 03-21-2024 10:49-0500 Body mass index (BMI) [Ratio] 37.5 kg/m2 Tamara Tin DPM Work Phone: [facility] 03-21-2024 10:49-0500 Body weight 87.09 kg Tamara Daugherty DPM Work Phone: [facility] 01-15-2024 09:16-0500 Body height 152.4 cm Trevor Wallace MD Work Phone: [facility] 01-15-2024 09:16-0500 Body mass index (BMI) [Ratio] 37.5 kg/m2 Trevor Wallace MD Work Phone: [facility] 01-15-2024 09:16-0500 Body temperature 97.5 [degF] Trevor Wallace MD Work Phone: [facility] 01-15-2024 09:16-0500 Body weight 87.09 kg Trevor Wallace MD Work Phone: [facility] 01-15-2024 09:16-0500 Diastolic blood pressure 74 mm[Hg] Trevor Wallace MD Work Phone: [facility] 01-15-2024 09:16-0500 Heart rate 87 /min Trevor Wallace MD Work Phone: [facility] 01-15-2024 09:16-0500 Respiratory rate 20 /min Trevor Wallace MD Work Phone: [facility] 01-15-2024 09:16-0500 SaO2% (BldA) [Mass fraction] 97 % Trevor Wallace MD Work Phone: [facility] 01-15-2024 09:16-0500 Systolic blood pressure 130 mm[Hg] Trevor Wallace MD Work Phone: [facility] 11-07-2023 10:38-0400 Body height 152.4 cm Tamara Daugherty DPM Work Phone: [facility] 11-07-2023 10:38-0400 Body mass index (BMI) [Ratio] 36.33 kg/m2 Tamara Daugherty DPM Work Phone: [facility] 11-07-2023 10:38-0400 Body weight 84.37 kg Tamara Daugherty DPM Work Phone: [facility] 08-24-2022 14:25-0400 Blood Pressure Location JILLIAN GILLESPIE [facility] 08-24-2022 14:25-0400 Diastolic blood pressure 86 mm[Hg] JILLIAN GILLESPIE [facility] 08-24-2022 14:25-0400 Heart rate 71 /min JILLIAN GILLESPIE [facility] 08-24-2022 14:25-0400 Systolic blood pressure 135 mm[Hg] JILLIAN GILLESPIE [facility] 04-04-2022 10:39-0500 Blood Pressure Location Eyal GARDNER [facility] 04-04-2022 10:39-0500 Diastolic blood pressure 82 mm[Hg] Eyal GARDNER [facility] 04-04-2022 10:39-0500 Heart rate 70 /min Eyal GARDNER [facility] 04-04-2022 10:39-0500 Respiratory rate 16 /min Eyal GARDNER [facility] 04-04-2022 10:39-0500 Systolic blood pressure 127 mm[Hg] Eyal GARDNER [facility] 12-20-2021 10:26-0400 Blood Pressure Location Eyal GARDNER [facility] 12-20-2021 10:26-0400 Diastolic blood pressure 78 mm[Hg] Eyalpetrona GARDNER [facility] 12-20-2021 10:26-0400 Heart rate 77 /min Eyal GARDNER [facility] 12-20-2021 10:26-0400 Respiratory rate 16 /min Eyal GARDNER [facility] 12-20-2021 10:26-0400 Systolic blood pressure 139 mm[Hg] Eyal GARDNER [facility] Encounters Encounter Date Encounter Type Care Provider Facility Start: 07-23-2024 End: 07-23-2024 Bamboo flowsheet Tamara Daugherty DPM Work Phone: [facility] Start: 07-23-2024 End: 07-24-2024 Bamboo flowsheet Tamara Daugherty DPM [facility] Start: 07-23-2024 End: 07-24-2024 Clinisync Result Encounter Generic External Data Provider [facility] External Department Unsolicited Start: 07-23-2024 End: 07-23-2024 Office outpatient visit 15 minutes Tamara Daugherty DPM Work Phone: [facility] Comment on above: Diabetes mellitus wi thout complication (Primary Dx); Onychomycosis; Pain in toes of both feet Start: 07-23-2024 End: 07-23-2024 ambulatory TAMARA DAUGHERTY Not Available Start: 07-19-2024 End: 07-19-2024 Clinisync Result Encounter Trevor Wallace MD Work Phone: [facility] External Department Unsolicited Start: 07-19-2024 End: 07-19-2024 Clinisync Result Encounter Trevor Wallace MD Work Phone: [facility] External Department Unsolicited Start: 07-15-2024 End: 07-15-2024 Bamboo flowsheet Trevor Wallace MD Work Phone: [facility] Start: 07-15-2024 End: 07-15-2024 Bamboo flowsheet Trevor Wallace MD Work Phone: [facility] Start: 07-15-2024 End: 07-15-2024 Office outpatient visit 25 minutes Trevor Wallace [...] 37.9 in adult (CMS/HCC); Annual physical exam Start: 07-15-2024 End: 07-15-2024 Patient encounter procedure Trevor Wallace MD Work Phone: [facility] Start: 07-15-2024 End: 07-15-2024 ambulatory TREVOR WALLACE Not Available Start: 04-25-2024 End: 04-25-2024 Bamboo flowsheet Trevor [...] apnea Start: 04-25-2024 End: 04-25-2024 ambulatory TREVOR ARGUELLOCARMELLA Not Available Start: 04-19-2024 End: 04-19-2024 ambulatory Lulelton Carreon [facility] Start: 04-13-2024 End: 04-15-2024 Clinisync Result Encounter Generic External Data Provider [facility] External Department Unsolicited Start: 04-13-2024 End: 04-15-2024 Clinisync Result Encounter Generic External Data Provider [facility] External Department Unsolicited Start: 04-13-2024 End: 04-13-2024 ambulatory GAMAL GROVE Not Available Start: 04-13-2024 End: 04-13-2024 Office outpatient visit 25 minutes Gamal Grove DO Work Phone: [facility] Comment on above: Wheezing (Primary Dx ); Acute hypoxic respiratory failure (CMS/HCC) Start: 04-09-2024 End: 04-09-2024 Office outpatient visit 25 minutes Melisa Jo [facility] Work Phone: [facility] Comment on above: Acute bronchitis, un specified organism (Primary Dx); Bilateral acute otitis media Start: 04-09-2024 End: 04-09-2024 ambulatory MELISA JO Not Available Start: 03-21-2024 End: 03-21-2024 Bamboo flowsheet Tamara Daugherty DPM Work Phone: [facility] Start: 03-21-2024 End: 03-21-2024 Bamboo flowsheet Tamara Daugherty DPM Work Phone: [facility] Start: 03-21-2024 End: 03-21-2024 Patient encounter procedure Tamara Daugherty DPM Work Phone: [facility] Comment on above: Diabetes mellitus wi thout complication (CMS/HCC) (Primary Dx); Onychomycosis; Pain in toes of both feet Start: 03-21-2024 End: 03-21-2024 ambulatory TAMARA DAUGHERTY Not Available Start: 02-12-2024 End: 02-12-2024 Refill Trevor Wallace MD Work Phone: [facility] Comment on above: Hypokalemia (Primary Dx) Start: 01-15-2024 End: 01-15-2024 Bamboo flowsheet Trevor Wallace MD Work Phone: [facility] Start: 01-15-2024 End: 01-15-2024 Bamboo flowsheet Trevor Wallace MD Work Phone: [facility] Start: 01-15-2024 End: 01-15-2024 ambulatory TREVOR WALLACE Not Available Start: 01-15-2024 End: 01-15-2024 Office outpatient visit 25 minutes Trevor Wallace MD Work Phone: [facility] Comment on above: Type 2 diabetes [...] Telephone encounter Tamara Daugherty DPM Work Phone: [facility] Comment on above: Advice Only (Rx Refi ll Request) Start: 11-07-2023 End: 11-07-2023 Bamboo flowsheet Tamara Daugherty DPM Work Phone: [facility] Start: 11-07-2023 End: 11-07-2023 Bamboo flowsheet Tamara Daugherty DPM Work Phone: [facility] Start: 11-07-2023 End: 11-07-2023 Patient encounter procedure Tamara Daugherty DPM Work Phone: [facility] Comment on above: Diabetes mellitus wi thout complication ([facility]) (Primary Dx); Onychomycosis; Pain in toes of both feet Start: 11-07-2023 End: 11-07-2023 ambulatory TAMARA DAUGHERTY Not Available Start: 08-01-2023 End: 08-01-2023 ambulatory KEVIN Ornelas ANTHONY Not Available Start: 07-14-2023 Patient encounter procedure Tamara Daugherty DP Work Phone: [facility] Start: 08-24-2022 End: 08-25-2022 ambulatory JILLIAN GILLESPIE Facility:[facility] Start: 08-24-2022 End: 08-24-2022 Patient encounter procedure JILLIAN GILLESPIE [facility] Start: 06-13-2022 End: 06-13-[address] EYAL GARDNER . Facility:[facility] Start: 05-18-2022 End: 05-18-2022 ambulatory ABHAY MAHARAJ Facility:[facility] Start: 05-16-2022 ambulatory Eyal GARDNER [facility] ty:[id number] Start: 04-04-2022 End: 04-05-2022 ambulatory Eyal GARDNER Facility:[facility] Start: 04-04-2022 End: 04-04-2022 Patient encounter procedure Eyal GARDNER [facility] Start: 01-26-2022 End: 01-27-[address] TREVOR WALLACE Facility:[facility] Start: 12-27-2021 End: 12-28-[address] TREVOR WALLACE Facility:[facility] Start: 12-20-2021 End: 12-21-2021 ambulatory TREVOR WALLACE Facility:[facility] Start: 12-20-2021 End: 12-20-2021 Patient encounter procedure Eyal GARDNER [facility] Start: 11-29-2021 ambulatory Eyal GARDNER Facility :[facility] Start: 07-16-2021 Encounter for genera l adult medical examination without abnormal findings DR TREVOR WALLACE [facility] Start: 07-15-2021 End: 07-16-[address] TREVOR WALLACE Facility: Start: 07-15-2021 End: 07-16-2021 Encounter for general adult medical examination without abnormal findings DR TREVOR WALLACE Facility: Start: 07-04-2017 End: 07-08-2017 Evaluation and management of inpatient PROVIDER UNKNOWN Facility:[facility] Procedures Date Procedure Procedure Detail Performing Clinician Start: 07-23-2024 CT CHEST WO CON Generic External Data Provider Start: 07-23-2024 RT PULMONARY FUNCTION TEST Generic External Data Provider Start: 07-19-2024 ALL CBC WITH AUTO DIFF Trevor Wallace MD Work Phone: Start: 04-13-2024 BLOOD CULTURE 1 Generic External [...] Screening for malign ant neoplasm of colon [facility] Healthcare Start: 02-19-2026 Glaucoma screening Diabetes: R etinopathy Screening [facility] Start: 07-19-2025 Urine screening for protein Diabetes: Urine Protein Screening [facility] Start: 06-26-2025 Glaucoma screening Diabetes: R etinopathy Screening [facility] Start: 02-13-2025 Screening for malign ant neoplasm of breast Mammogram [facility] Start: 01-15-2025 End: 01-15-2025 Patient encounter procedure 01/15/2025 9:15 AM EST Office Visit [facility] [address] [place] [address] Trevor Wallace MD [address] [place] [address] [facility] Start: 11-26-2024 End: 11-26-2024 Patient encounter procedure 11/26/2024 10:00 AM EDT Procedure Visit [facility] [address] [place] [id number] Tamara Daugherty, DPM [address] [place] [address] [facility] Start: 07-23-2024 End: 07-23-2024 Patient encounter procedure [facility] Comment on above: Arrived Start: 07-15-2024 End: 07-15-2025 Basic metabolic 1998 panel - Serum or Plasma Basic metabolic panel Lab Routine Annual physical exam Expected: 07/15/2024 (Approximate), Expires: 07/15/2025 [facility] Comment on above: Expected: 07/15/2024 (Approximate), Expires: 07/15/2025 Start: 07-15-2024 End: 07-15-2025 CBC W Auto Differential panel - Blood CBC and differential Lab Routine Annual physical exam Expected: 07/15/2024 (Approximate), Expires: 07/15/2025 [facility] Comment on above: Expected: 07/15/2024 (Approximate), Expires: 07/15/2025 Start: 07-15-2024 End: 07-15-2025 Hemoglobin A1c/Hemoglobin.total in Blood Hemoglobin A1c Lab Routine Annual physical exam Expected: 07/15/2024 (Approximate), Expires: 07/15/2025 [facility] Healthcare Comment on above: Expected: 07/15/2024 (Approximate), Expires: 07/15/2025 Start: 07-15-2024 End: 07-15-2025 Hepatic function 2000 panel - Serum or Plasma Hepatic function panel Lab Routine Annual physical exam Expected: 07/15/2024 (Approximate), Expires: 07/15/2025 [facility] Healthcare Comment on above: Expected: 07/15/2024 (Approximate), Expires: 07/15/2025 Start: 07-15-2024 End: 07-15-2025 Lipid 1996 panel - Serum or Plasma Lipid panel Lab Routine Annual physical exam Expected: 07/15/2024 (Approximate), Expires: 07/15/2025 [facility] Comment on above: Expected: 07/15/2024 (Approximate), Expires: 07/15/2025 Start: 07-15-2024 End: 07-15-2025 Microalbumin/Creatinine panel in random Urine Microalbumin / creatinine, urine ratio Lab Routine Type 2 diabetes mellitus with hyperglycemia, without long-term current use of insulin ([facility]) Expected: 07/15/2024 (Approximate), Expires: 07/15/2025 [facility] Work Phone: Comment on above: Expected: 07/15/2024 (Approximate), Expires: 07/15/2025 Start: 07-15-2024 End: 07-15-2025 Thyrotropin [Units/volume] in Serum or Plasma TSH Lab Routine Annual physical exam Expected: 07/15/2024 (Approximate), Expires: 07/15/2025 [facility] Comment on above: Expected: 07/15/2024 (Approximate), Expires: 07/15/2025 Start: 07-15-2024 End: 07-15-2024 Patient encounter procedure [facility] Comment on above: Arrived Start: 07-13-2024 Urine screening for protein Diabetes: Urine Protein Screening [facility] Start: 04-25-2024 End: 04-25-2024 Patient encounter procedure [facility] Comment on above: Arrived Start: 03-21-2024 End: 03-21-2024 Patient encounter procedure [facility] Comment on above: Arrived Start: 01-15-2024 End: 01-14-2025 Hemoglobin A1c/Hemoglobin.total in Blood Hemoglobin A1c Lab Routine Type 2 diabetes mellitus with hyperglycemia, without long-term current use of insulin ([facility]) Expected: 01/15/2024 (Approximate), Expires: 01/14/2025 [facility] Work Phone: Comment on above: Expected: 01/15/2024 (Approximate), Expires: 01/14/2025 Start: 01-15-2024 End: 03-16-2025 MG Breast - bilateral Screening Bilateral screening mammogram Imaging Routine Breast cancer screening by mammogram Expected: 01/15/2024, Expires: 03/16/2025 [facility] Comment on above: Expected: 01/15/2024 , Expires: 03/16/2025 Start: 01-15-2024 End: 01-15-2024 Patient encounter procedure 01/15/2024 9:00 AM EST Office Visit [facility] [address] [place] [address] Trevor Wallace MD [address] [place] [phone] [facility] Start: 01-14-2024 Hemoglobin A1c measurement Diabetes: Hemoglobin A1C [facility] Start: 12-31-2023 Screening for malign ant neoplasm of breast Mammogram [facility] Start: 11-12-2023 Influenza vaccination Influenza Vacc ine (#1) [facility] Start: 11-07-2023 End: 11-07-2023 Patient encounter procedure 11/07/2023 10:45 AM EDT Procedure Visit [facility] [address] [place] [phone] Tamara Daugherty, DPElena [address] [place], [place] [phone] Arrived [facility] Comment on above: Arrived Start: 06-11-2019 Hemoglobin A1c measurement Diabetes: Hemoglobin A1C [facility] Start: 09-20-1989 Screening for malign ant neoplasm of cervix [facility] Start: 09-20-1980 Screening for malign ant neoplasm of cervix Pap Smear [facility] Start: 09-20-1978 Urine screening for protein Diabetes: Urine Protein Screening [facility] Start: 1959 Screening for malign ant neoplasm of colon [facility] BLOOD CULTURE 1 BLOOD CULTURE 1 Lab Routine 04/13/2024 10:35 AM EST [facility] Immunizations Immunization Date Immunization Notes Care Provider Fa [facility] 01-10-2024 influenza virus vaccine, unspecified formulation Trevor Wallace MD Work Phone: [facility] 12-10-2022 influenza virus vaccine, unspecified formulation Tamara Daugherty DPM Work Phone: [facility] 12-29-2021 influenza virus vaccine, unspecified formulation JILLIAN GILLESPIE [facility] 12-29-2021 influenza, injectabl e, quadrivalent, preservative free Tamara Daugherty DPM Work Phone: [facility] 12-29-2021 SARS-CoV-2 (COVID-19 ) mRNA-1273 vaccine JILLIAN GILLESPIE [facility] 03-08-2021 SARS-CoV-2 (COVID-19 ) mRNA-1273 vaccine Eyal GARDNER [facility] 07-03-2020 SARS-CoV-2 (COVID-19 ) mRNA-1273 vaccine Eyal GARDNER [facility] 06-05-2020 SARS-CoV-2 (COVID-19 ) mRNA-1273 vaccine Eyal GARDNER [facility] 12-17-2019 influenza virus vaccine, unspecified formulation Eyal GARDNER [facility] 12-17-2019 Influenza, injectabl e, Madin [place] Canine Kidney, preservative free, quadrivalent Tamara Daugherty DPM Work Phone: [facility] 12-20-2018 influenza virus vaccine, unspecified formulation Eyal GARDNER [facility] 12-20-2018 influenza, injectabl e, quadrivalent, preservative free Tamara Daugherty DPM Work Phone: [facility] 01-12-2017 influenza virus vaccine, unspecified formulation Eyal GARDNER [facility] 01-12-2017 influenza, injectabl e, quadrivalent, preservative free Tamara Daugherty DPM Work Phone: [facility] Healthcare Payers Date Payer Category Payer [facility] er [id number] 2024 Unknown [id number] 2022 Private Health Insurance [employer]ICOLE [employer] [id number] 2022 Unknown [employer] [id number] 2022-Present [phone] [address] [place] [address] [id number] [id number] 2022 Unknown [id number] 1959 Unknown [id number] 2.16.840.1.137084.3.579. 2.593 1959 Unknown [id number] 2.16.840.1.866659.3.579. 2.593 1959 Unknown [id number] 2.16.840.1.460781.3.579. 2.593 1959 Unknown [id number] 2.16.840.1.684158.3.579. 2.593 1959 Unknown [id number] 2.16.840.1.519735.3.579. 2.593 1959 Unknown [id number] 2.16.840.1.774813.3.579. 2.727 1959 Unknown [id number] 2.16.840.1.485817.3.579. 2.727 1959 Unknown [id number] 2.16.840.1.348739.3.579. 2.727 1959 Unknown [id number] 2.16.840.1.053589.3.579. 2.1259 1959 Unknown [id number] 2.16.840.1.509100.3.579. 2.1259 1959 Unknown [id number] 2.16.840.1.355166.3.579. 2.1259 1959 Unknown [id number] 2.16.840.1.299327.3.579. 2.1259 1959 Unknown [id number] 2.16.840.1.920240.3.579. 2.1258 1959 Unknown [id number] 2.16.840.1.193053.3.579. 2.1258 1959 Unknown [id number] 2.16.840.1.033489.3.579. 2.1258 1959 Unknown [id number] 2.16.840.1.538487.3.579. 2.1258 1959 Unknown [id number] 2.16.840.1.036703.3.579. 2.1258 1959 Unknown [id number] 1959 Unknown [id number] Social History Date Type Detail Facility Tobacco smoking status [facility] Start: 11-07-2023 End: 07-23-2024 Sex Assigned At Female [facility] Start: 08-24-2022 End: 10-23-2022 Tobacco smoking status Never smoked tobacco (finding) [facility] Tobacco smoking status Never [facility] Start: 11-07-2023 End: 07-23-2024 Alcoholic beverage intake Ex-drinker (finding) [facility] Healthcare Start: 11-07-2023 End: 07-23-2024 History of Social function [facility] Start: 1960 Sex assigned at Not on file [facility] Medical Equipment Procedure Code Equipment Code Equipment Origin al Text Equipment Identifier Dates USE DIRECTED to test BLOOD SUGAR THREE TIMES DAILY [id number] Start: 04-10-2023 USE DIRECTED to test BLOOD SUGAR THREE TIMES DAILY [id number] Start: 06-27-2024 Functional Status Date Assessment Result Facility 08-24-2022 Functional Status N/A [facility] 04-04-2022 Functional Status N/A [facility] 12-20-2021 Functional Status N/A [facility] Clinical Notes 12-20-2021 to 07-23-2024 Tamara Daugherty DPM - 07/23/2024 10:00 AM Derek Wallace MD - 07/15/2024 9:44 AM Derek Wallace MD - 07/15/2024 9:44 AM EDLore Wallace MD - 07/15/2024 9:43 AM EDT Note Date & Type Note Facility 07-23-2024 History of Present illness Narrative Images from the original note were not included. Subjective Patient ID: Eleni Rojo is a 63 y.o. female who presents for DM Foot Care (Pt presents today requesting diabetic foot care, she states the nails are becoming bothersome due to how long they are getting /BS: 134 A1C: 7.2/LV Dr. Wallace 07-15-2024/SS: 7). HPI Established patient returns requesting nail debridement. She states the nails are thick, elongated, fungal. She is also due for diabetic foot exam. Review of Systems Medications Current Outpatient Medications: albuterol HFA 90 mcg/act inhaler, Inhale 2 puffs every 4 (four) hours if needed for wheezing, Disp: 18 g, Rfl: 2 budesonide-formoterol (Symbicort) 80-4.5 MCG/ACT inhaler, Inhale 1 puff in the morning and 1 puff before bedtime., Disp: , Rfl: citalopram (CeleXA) 40 MG tablet, Take 1 tablet (40 mg) by mouth Daily, Disp: 90 tablet, Rfl: 3 Lancets (OneTouch Delica Plus [id number]) [facility], USE DIRECTED to test BLOOD SUGAR THREE [...] AT BEDTIME, Disp: 360 tablet, Rfl: 3 Mucus Relief 600 MG 12 hr tablet, Take 600 mg by mouth every 12 (twelve) hours, Disp: , Rfl: Multiple Vitamin (multivitamin) tablet, [...] Procedure Laterality Date APPENDECTOMY ARTHROPLASTY Left 08/04/[facility] [facility] [place] Dr. Panchal BUNIONECTOMY Left SECTION, [...] Comments: Date of last diabetic foot exam: 07/23/2024 Skin: General: Skin is warm. Capillary Refill: Capillary refill takes 2 to 3 seconds. Findings: No bruising or erythema. Comments: SKIN FINDINGS: Plantar aspect of proximal phalanx R 3rd digit, possible small ganglionic cyst present, not grossly visible, but palpable. Some tenderness with palpation. No erythema, no ecchymosis. webspaces are clean and dry. HYPERKERATOSIS:plantar medial hallux IPJ b/l. NAIL PATHOLOGY:Nail 2 and 5 R are yellow and orange, crumbly fungal debris, 4mm thick. Nail 2 L with central orange and yellow mycotic streaking, 3mm thick. Nail 5L is 3mm thick, discolored, brittle, fungal. ULCER: no sign of ulceration or open wound . Neurological: Mental Status: She is alert and oriented to person, place, and time. Comments: Light touch sensation intact VIBRATORY:diminished at IPJ and MTPJ, intact at medial malleolus SEMMES-ALBA 5.07 MONOFILAMENTintact at 10/10 sites. Psychiatric: Mood and Affect: Mood normal. Behavior: Behavior normal. [id number] Assessment/Plan ICD-10-CM 1. Diabetes mellitus without complication E11.9 2. Onychomycosis B35.1 3. Pain in toes of both feet M79.674 M79.675 Reviewed findings of diabetic foot exam with the pt along with diagnosis of peripheral neuropathy and importance of maintaining good control of blood sugars. They are to get into a habit of looking at their feet or have someone look at them. They are to look for any signs of redness, blistering, cracking, swelling, drainage, open lesions etc.They are to refrain from going barefoot. Wear shoes at all times to help protect feet. Shoe gear should be inspected for any foreign objects. Shoes should have a deep wide toe box. With any type of shoe, the feet should be inspected for any signs of pressure, i.e., redness, blistering, or open sores. Conservative and palliative care implemented as per request. Under aseptic technique all nails debrided with large and small nail nippers, curette and power rogers. Onychodebridement in length and thickness with the goals of relief of pain, reducing risks of infection, ulceration or pain. Well tolerated and expresses appreciation for care given. Feet inspected and hygiene discussed This note was created with the assistance of a speech recognition program. While intending to generate a timely document that accurately reflects the content of the visit, no guarantee can be provided that every grammatical or spelling mistake has been or will be identified or corrected. Thank you for your understanding. Tamara Daugherty DPM documented in this encounter [facility] 07-15-2024 History of Present illness Narrative Associated Problem(s): Type 2 diabetes mellitus with hyperglycemia, without long-term current use of insulin (CMS/HCC) Reports BS stable and due for A1C. Stick to ADA diet and limit carbs. Associated Problem(s): Major depressive disorder, recurrent episode, mild (HCC) (CMS/HCC) Symptoms controlled with medication and continue. Associated Problem(s): Generalized anxiety disorder (CMS/HCC) Symptoms controlled with medication and continue. Associated Problem(s): Gastroesophageal reflux disease Symptoms controlled with omeprazole and continue. Associated Problem(s): Essential hypertension, benign (CMS/HCC) BP controlled and monitor PRN. Associated Problem(s): Class 2 severe obesity due to excess calories with serious comorbidity and body mass index (BMI) of 37.0 to 37.9 in adult (CMS/HCC) Weight loss indicated Images from the original note were not included. Subjective Patient ID: Eleni Rojo is a 63 y.o. female who presents for Follow-up (6m f/up). Follow up DM, HTN, depression, anxiety, and GERD. Patient stable today. Reports BS controlled around 140. Tries to eat well and stick to [...] ADA diet and limit carbs. Relevant Orders Microalbumin / creatinine, urine ratio Essential hypertension, benign (CMS/HCC) BP controlled and monitor PRN. Generalized anxiety disorder (CMS/HCC) Symptoms controlled with medication and continue. Gastroesophageal reflux disease Symptoms controlled with omeprazole and continue. Major depressive disorder, recurrent episode, mild (HCC) (CMS/HCC) Symptoms controlled with medication and continue. Annual physical exam Relevant Orders Hemoglobin A1c Basic metabolic panel CBC and differential Hepatic function panel Lipid panel TSH Class 2 severe obesity due to excess calories with serious comorbidity and body mass index (BMI) of 37.0 to 37.9 in adult (CMS/HCC) Weight loss indicated documented in this encounter [facility] 04-25-2024 History of Present illness Narrative Associated [...] 63 y.o. female who presents for Follow-up ([facility] f/up pneumonia ). Hospital follow up [...] Completed antibiotics and steroids. Scheduled with pulmonology /. Prior SAQIB and had CPAP but not [...] up with pulmonology. documented in this encounter [facility] 04-19-2024 History of Present illness Narrative Images from the original note were not included. Flowsheet Row Patient Outreach from 04/19/2024 in [facility] [employer] with Arpit Carreon [place] Hospital Information ED, Hospital or Group Home Facility Discharge? Hospital Patient has been contacted within two business days of discharge Yes Diagnosis pneumonia, acute hypoxic resp failure Discharge Date 04/18/24 Discharged To: Home Setting Discharge Hospital [facility] Engagement Admission Date 04/13/24 Medications Discharge medications reviewed and reconciled from hospital? Yes Is the patient having any side effects they believe may be caused by any medication additions or changes? No Does the patient have all medications ordered at discharge? No [Pharmacy needed clarification on the Duoneb Rx, waiting to pickle maker] Nursing Interventions No intervention needed Prescription Comments Levaquin, Prednisone, Mucinex, Symbicort, Duoneb solution Is the patient taking all medications as directed (includes completed medication regime)? Yes Appointments Does the patient have a primary care provider? Yes [Felix FERRARI] Nursing Interventions Verified appointment date/time/provider [04/25/2024 at 1130] Does the patient have any upcoming specialty appointments? Yes [Pulmonology, [facility], 05/14/2024 at 1430] Nursing Interventions Advised patient to keep appointment Self Management Does patient have home health yes What is the home health agency? [facility] Has home health visited the patient within 72 hours of discharge? Yes [they are coming today] What Durable Medical Equipment (DME) was ordered? oxygen and supplies, nebulizer machine [[facility]] Has all Durable Medical Equipment (DME) been [...] 30 day Monitor. documented in this encounter [facility] 04-13-2024 History of Present illness Narrative Images from the original note were not included. [address] , [address] [facility], [address] P: [phone] F: [phone] HPI Historian of HPI: patient Eleni Rojo [...] agreed to do so. They chose [facility], and triage call was made by our MA. I felt that the patient will likely be admitted to the hospital with at least bronchitis if not pneumonia. documented in this encounter [facility] 04-09-2024 History of Present illness Narrative [address] , [address] [facility], [address] P: [phone] F: [phone] HPI Historian of HPI: patient and Spouse [...] tablet; Refill: 0 documented in this encounter [facility] 03-21-2024 History of Present illness Narrative Images [...] Daily, Disp: 90 tablet, Rfl: 3 Lancets (MiMediaTouch Delica Plus [id number]) [facility], USE DIRECTED to test BLOOD SUGAR THREE [...] the morning., Disp: , Rfl: nystatin (Mycostatin) [id number] UNIT/GM powder, Apply topically 2 (two) times [...] Procedure Laterality Date APPENDECTOMY ARTHROPLASTY Left 08/04/2021 [facility] [place] - Dr. Panchal BUNIONECTOMY Left SECTION, [...] intact VIBRATORY:diminished at IPJ, intact at MTPJ. SEMMES-ABLA 5.07 MONOFILAMENTintact at 10/10 sites. Psychiatric: Mood and Affect: Mood normal. Behavior: Behavior normal. [id number] Assessment/Plan ICD-10-CM 1. Diabetes mellitus without complication ([facility]) E11.9 2. Onychomycosis B35.1 3. Pain in [...] Tamara Daugherty DPM documented in this encounter [facility] 01-15-2024 History of Present illness Narrative Associated Problem(s): Class 2 severe obesity due to excess calories with serious comorbidity and body mass index (BMI) of 37.0 to 37.9 in adult ([facility]) Weight loss indicated Associated Problem(s): Type 2 diabetes mellitus with hyperglycemia, without long-term current use of insulin ([facility]) Reports BS stable and due for A1C. [...] Bilateral screening mammogram documented in this encounter [facility] 12-12-2023 Telephone encounter Note I called in Meloxicam to [facility] in [place]. [facility] 12-12-2023 Miscellaneous Notes I called in Meloxicam to [facility] in [place]. Patient called as she needs a refill of the anti-inflammatory that [facility] prescribed, however should couldn't remember the name of the medication or when it was last prescribed. Are you able to help find this information for the patient documented in this encounter [facility] 12-11-2023 Telephone encounter Note Patient called as she needs a refill of the anti-inflammatory that [facility] prescribed, however should couldn't remember the name of the medication or when it was last prescribed. Are you able to help find this information for the patient [facility] 11-07-2023 History of Present illness Narrative Images [...] Current Outpatient Medications: Lancets (OneTouch Delica Plus [id number]) mis, USE DIRECTED to test BLOOD SUGAR THREE [...] Procedure Laterality Date APPENDECTOMY ARTHROPLASTY Left 08/04/2021 [facility] [place] Dr. Panchal BUNIONECTOMY Left SECTION, [...] and Affect: Mood normal. Behavior: Behavior normal. [id number] Assessment/Plan ICD-10-CM 1. Diabetes mellitus without complication ([facility]) E11.9 2. Onychomycosis B35.1 3. Pain in [...] Tamara Daugherty DPM documented in this encounter [facility] 08-24-2022 Hospital Discharge instructions Patient Education 08/24/2022 [...] including vitamins, herbs, eye drops, creams, and ihgq-lqj-lrvfisc medicines. Any problems you or family members [...] provider tells you to take them. Taking bqqh-ewn-lxzpkfn medicines, vitamins, herbs, and supplements. General instructions [...] Follow these instructions at home: Medicines Take vgyu-wfm-kvowagx and prescription medicines only as told by [...] provider. Document Revised: 09/03/2021 Document Reviewed: 09/03/2021 [employer] Patient Education 2022 [employer]. Follow Up Care 07/13/2022 09:23:16 With:JILLIAN GILLESPIE PA-C, URL Address: [address] [place], [place] [address] [address] When: Unknown [facility] 04-04-2022 Hospital Discharge instructions Patient Education 04/04/2022 [...] including vitamins, herbs, eye drops, creams, and nynb-xdj-scmholi medicines. ?Whether you are or may be [...] 12/25/2007 Document Revised: 06/18/2019 Document Reviewed: 01/01/2018 Elsevier Patient Education 2019 [employer]. Follow Up Care 12/20/2021 11:03:34 With:NARCISO FERRARI, Eyal Sosa, JOSEFINA Address: [facility] [address] [place] [address]- When: Unknown [facility] [place] 12-20-2021 Hospital Discharge instructions Patient Education [...] fried and sweet foods. General instructions Take pgxz-nxh-razeuvv and prescription medicines only as told by [...] 12/24/2009 Document Revised: 06/20/2019 Document Reviewed: 03/15/2018 [employer] Patient Education 2020 [employer]. Follow Up Care 11/29/2021 15:38:28 With:NARCISO FERRARI, Eyal Sosa, URL Address: [facility] [address] , [place] [address] [phone] When:03/22/2022 [facility] [place] Evaluation + Plan note Future Appointments Appointment Date:04/04/2022 10:45:00 AM Scheduled Provider:Eyal GARD[facility]O Office Visit [facility] Evaluation note Diagnosis Pain in joint of [...] (BMI) of 37.0 to 37.9 in adult ([facility]) SOB (shortness of breath) Shortness of breath Skin candidiasis Candidiasis of skin and nails Hypokalemia- Primary Hypopotassemia documented in this encounter [facility]* Diagnosis Diabetes mellitus without complication ([facility])- Primary Type II or unspecified type diabetes mellitus without mention of complication, not stated as uncontrolled Onychomycosis Dermatophytosis of nail Pain in toes of both feet documented in this encounter [facility]* Diagnosis Annual physical exam- Primary Routine general medical examination at a health care facility Type 2 diabetes mellitus with hyperglycemia, without long-term current use of insulin ([facility]) Essential hypertension, benign ([facility]) Essential hypertension, benign Pain in joint of right foot Capsulitis of right foot Type 2 diabetes mellitus with polyneuropathy ([facility]) Type II or unspecified type diabetes mellitus with neurological manifestations, not stated as uncontrolled Type 2 diabetes mellitus with hyperglycemia, without long-term current use of insulin ([facility])- Primary Essential hypertension, benign ([facility]) Essential hypertension, benign Major depressive disorder, recurrent episode, mild (HCC) ([facility]) Major depressive disorder, recurrent episode, mild Generalized anxiety disorder ([facility]) Generalized anxiety disorder Gastroesophageal reflux disease without esophagitis Esophageal reflux Primary osteoarthritis of both knees Breast cancer screening by mammogram Class 2 severe obesity due to excess calories with serious comorbidity and body mass index (BMI) of 37.0 to 37.9 in adult ([facility]) SOB (shortness of breath) Shortness of breath Skin candidiasis Candidiasis of skin and nails Diabetes mellitus without complication ([facility])- Primary Type II or unspecified type diabetes mellitus without mention of complication, not stated as uncontrolled Onychomycosis Dermatophytosis of nail Pain in toes of both feet documented in this encounter [facility] HealthcareEvaluation note* Diagnosis Annual physical exam- Primary Routine general medical examination at a health care facility Type 2 diabetes mellitus with hyperglycemia, without long-term current use of insulin ([facility]) Essential hypertension, benign ([facility]) Essential hypertension, benign Pain in joint of right foot Capsulitis of right foot Type 2 diabetes mellitus with polyneuropathy ([facility]) Type II or unspecified type diabetes mellitus with neurological manifestations, not stated as uncontrolled Type 2 diabetes mellitus with hyperglycemia, without long-term current use of insulin ([facility])- Primary Essential hypertension, benign (CMS/HCC) Essential hypertension, benign Major depressive disorder, recurrent episode, mild (HCC) ([facility]) Major depressive disorder, recurrent episode, mild Generalized anxiety disorder (CMS/HCC) Generalized anxiety disorder Gastroesophageal reflux disease without esophagitis Esophageal reflux Primary osteoarthritis of both knees Breast cancer screening by mammogram Class 2 severe obesity due to excess calories with serious comorbidity and body mass index (BMI) of 37.0 to 37.9 in adult ([facility]) SOB (shortness of breath) Shortness of breath Skin candidiasis Candidiasis of skin and nails Acute bronchitis, unspecified organism- Primary Bilateral acute otitis media Unspecified otitis media documented in this encounter [facility] Healthcare[facility]* Diagnosis Annual physical exam- Primary Routine general medical examination at a [facility] care facility Type 2 diabetes mellitus with hyperglycemia, without long-term current use of insulin ([facility]) Essential hypertension, benign ([facility]) Essential hypertension, benign Pain in joint of right foot Capsulitis of right foot Type 2 diabetes mellitus with polyneuropathy ([facility]) Type II or unspecified type diabetes mellitus with neurological manifestations, not stated as uncontrolled Type 2 diabetes mellitus with hyperglycemia, without long-term current use of insulin ([facility])- Primary Essential hypertension, benign ([facility]) Essential hypertension, benign Major depressive disorder, recurrent episode, mild (HCC) ([facility]) Major depressive disorder, recurrent episode, mild Generalized anxiety disorder ([facility]) Generalized anxiety disorder Gastroesophageal reflux disease without esophagitis Esophageal reflux Primary osteoarthritis of both knees Breast cancer screening by mammogram Class 2 severe obesity due to excess calories with serious comorbidity and body mass index (BMI) of 37.0 to 37.9 in adult ([facility]) SOB (shortness of breath) Shortness of breath Skin candidiasis Candidiasis of skin and nails Type 2 diabetes mellitus with hyperglycemia, without long-term current use of insulin ([facility])- Primary Essential hypertension, benign ([facility]) Essential hypertension, benign Acute hypoxic respiratory failure ([facility]) Pneumonia due to infectious organism, unspecified laterality, unspecified part of lung documented in this encounter [facility] HealthcareEvaluation [facility]* Diagnosis Annual physical exam- Primary Routine general medical examination at a health care facility Type 2 diabetes mellitus with hyperglycemia, without long-term current use of insulin ([facility]/HCC) Essential hypertension, benign (CMS/HCC) Essential hypertension, benign [...] apnea (adult) (pediatric) documented in this encounter [facility] HealthcareEvaluation note* Diagnosis Annual physical exam- Primary [...] apnea (adult) (pediatric) documented in this encounter [facility]* [...] Major depressive disorder, recurrent episode, mild (HCC) ([facility]) Major depressive disorder, recurrent episode, mild Generalized anxiety disorder (CMS/HCC) Generalized anxiety disorder Gastroesophageal reflux disease without esophagitis Esophageal reflux Primary osteoarthritis of both knees Breast cancer screening by mammogram Class 2 severe obesity due to excess calories with serious comorbidity and body mass index (BMI) of 37.0 to 37.9 in adult ([facility]) SOB (shortness of breath) Shortness of breath Skin candidiasis Candidiasis of skin and nails Multifocal pneumonia- Primary Acute hypoxic respiratory failure ([facility]) Obstructive sleep apnea Obstructive sleep apnea (adult) (pediatric) Type 2 diabetes mellitus with hyperglycemia, without long-term current use of insulin ([facility])- Primary Essential hypertension, benign (CMS/HCC) Essential hypertension, benign Major depressive disorder, recurrent episode, mild (HCC) ([facility]) Major depressive disorder, recurrent episode, mild Generalized anxiety disorder (CMS/HCC) Generalized anxiety disorder Gastroesophageal reflux disease without esophagitis Esophageal reflux Class 2 severe obesity due to excess calories with serious comorbidity and body mass index (BMI) of 37.0 to 37.9 in adult ([facility]) Annual physical exam Routine general medical examination at a health care facility documented in this encounter [facility] HealthcareEvaluation note* Diagnosis Annual physical exam- Primary Routine general medical examination at a health care facility Type 2 diabetes mellitus with hyperglycemia, without long-term current use of insulin (CMS/HCC) Essential hypertension, benign (CMS/HCC) Essential hypertension, benign Pain in joint of right foot Capsulitis of right foot Type 2 diabetes mellitus with polyneuropathy ([facility]) Type II or unspecified type diabetes mellitus with neurological manifestations, not stated as uncontrolled Type 2 diabetes mellitus with hyperglycemia, without long-term current use of insulin ([facility])- Primary Essential hypertension, benign (CMS/HCC) Essential hypertension, benign Major depressive disorder, recurrent episode, mild (HCC) ([facility]/HCC) Major depressive disorder, recurrent episode, mild Generalized anxiety disorder ([facility]/HCC) Generalized anxiety disorder Gastroesophageal reflux disease without esophagitis Esophageal reflux Primary osteoarthritis of both knees Breast cancer screening by mammogram Class 2 severe obesity due to excess calories with serious comorbidity and body mass index (BMI) of 37.0 to 37.9 in adult ([facility]) SOB (shortness of breath) Shortness of breath Skin candidiasis Candidiasis of skin and nails Multifocal pneumonia- Primary Acute hypoxic respiratory failure ([facility]) Obstructive sleep apnea Obstructive sleep apnea (adult) (pediatric) Type 2 diabetes mellitus with hyperglycemia, without long-term current use of insulin ([facility])- Primary Essential hypertension, benign ([facility]/HCC) Essential hypertension, benign Major depressive disorder, recurrent episode, mild (HCC) ([facility]) Major depressive disorder, recurrent episode, mild Generalized anxiety disorder ([facility]) Generalized anxiety disorder Gastroesophageal reflux disease without esophagitis Esophageal reflux Class 2 severe obesity due to excess calories with serious comorbidity and body mass index (BMI) of 37.0 to 37.9 in adult ([facility]) Annual physical exam Routine general medical examination at a health care facility Diabetes mellitus without complication- Primary Type II or unspecified type diabetes mellitus without mention of complication, not stated as uncontrolled Onychomycosis Dermatophytosis of nail Pain in toes of both feet documented in this encounter [facility] Narrative No data available for this section [facility] progress note No data available for this section [facility] Summary Purpose Family History No Family History Records FoundNo Family History Records FoundNo Family History Records FoundNo Family History Records Found Advance Directives No Advanced Directives Records FoundNo Advanced Directives Records FoundNo Advanced Directives Records FoundNo Advanced Directives Records Found Additional Source Comments INFORMATION SOURCE (unrecogn ized section and content) DATE CREATED AUTHOR 09/14/2017 [facility] DATE CREATED AUTHOR AUTHOR'S ORGANIZ ATION 06/18/2022 [facility] DATE CREATED AUTHOR AUTHOR'S ORGANIZ ATION 08/25/2022 [facility] DATE CREATED AUTHOR AUTHOR'S ORGANIZ ATION 07/24/2024 [facility] EP[facility] Patient Care team informatio n (unrecognized section and content) External Grinder Relationship Specialty Start Date End Date Trevor Wallace MD [address] [place] [phone] PCP - General Cardiology 07/22/22 External Grinder Relationship Specialty Start Date End Date Trevor Wallace MD [address] [place] [phone] PCP - General Cardiology 07/22/22 External Grinder Relationship Specialty Start Date End Date Trevor Wallace MD [address] [place] [phone] PCP - General Cardiology 07/22/22 External Grinder Relationship Specialty Start Date End Date Trevor Wallace MD [address] [place] [phone] PCP - General Cardiology 07/22/22 External Grinder Relationship Specialty Start Date End Date Trevor Wallace MD [address] [place] [phone] PCP - General Cardiology 07/22/22 External Grinder Relationship Specialty Start Date End Date Trevor Wallace MD [address] [place] [phone] PCP - General Cardiology 07/22/22 External Grinder Relationship Specialty Start Date End Date Trevor Wallace MD [address] [place] [phone] PCP - General Cardiology 07/22/22 External Grinder Relationship Specialty Start Date End Date Trevor Wallace MD [address] [place] [address] PCP - General Cardiology 07/22/22 External Grinder Relationship Specialty Start Date End Date Trevor Wallace MD [address] [place] [address] PCP - General Cardiology 07/22/22 External Grinder Relationship Specialty Start Date End Date Trevor Wallace MD [address] [place] [address] PCP - General Cardiology 07/22/22 External Grinder Relationship Specialty Start Date End Date Trevor Wallace MD [address] [place] [address] PCP - General Cardiology 07/22/22 External Grinder Relationship Specialty Start Date End Date Trevor Wallace MD [address] [place] [address] PCP - General Cardiology 07/22/22 External Grinder Relationship Specialty Start Date End Date Trevor Wallace MD [address] [place] [address] PCP - General Cardiology 07/22/22 Melisa Jo NP [address] [place] [address] PCP - [employer] 05/11/24 External Grinder Relationship Specialty Start Date End Date Trevor Wallace MD [address] [place] [phone] PCP - General Cardiology 07/22/22 Melisa Jo NP [address] [place] [address] PCP - [facility] 05/11/24 External Grinder Relationship Specialty Start Date End Date Trevor Wallace MD [address] [place] [phone] PCP - General Cardiology 07/22/22 External Grinder Relationship Specialty Start Date End Date Trevor Wallace MD [address] [place] [address] PCP - General Cardiology 07/22/22 Reason for [...] 7. Reason Comments Follow-up Tbh f/up pneumonia Reason Comments Follow-up 6m f/up Reason Comments DM Foot Care Pt presents today re questing diabetic foot care, she states the nails are becoming bothersome due to how long they are getting BS: 134 A1C: 7.2LV Dr. Wallace 07-15-2024SS: 7 FOR RECORDS PERTAINING TO PATIENTS WHO ARE [...] BE BASED ON THE PRIMARY CLINICAL RECORDS. [facility] [employer] [facility] provides no warranty or guarantee of the accuracy or completeness of information in this document.
[2024-08-14 11:11] LABS: Basophils Percent Auto 0.7 % (0.2-2.0); Eosinophils Absolute Auto 0.2 10^3/uL (0.0-0.7); Eosinophils Percent Auto 2.9 % (0.9-7.0); Hematocrit 39.8 % (36.0-48.0); Hemoglobin 13.1 g/dL (12.0-16.0); Immature Granulocytes Abs Auto 0.03 10^3/uL (0.00-0.03); Immature Granulocytes Pct Auto 0.5 % (0.0-0.5); Lymphocytes Absolute Auto 1.5 10^3/uL (1.2-3.8); Lymphocytes Percent Auto 25.1 % (20.5-60.0); Mean Corpuscular HGB Conc 32.9 g/dL (29.9-35.2); Mean Corpuscular Hemoglobin 30.4 pg (26.7-34.0); Mean Corpuscular Volume 92.3 fL (81.0-99.0); Mean Platelet Volume 9.7 fL (9.5-13.5); Monocytes Absolute Auto 0.4 10^3/uL (0.3-0.8); Monocytes Percent Auto 7.1 % (1.7-12.0); Neutrophils Absolute Auto 3.7 10^3/uL (1.4-6.5); Neutrophils Percent Auto 63.7 % (43.0-75.0); Platelet Count 219 10^3/uL (150-450); Red Blood Count 4.31 10^6/uL (4.20-5.40); Red Cell Distribution Width 13.1 % (11.0-15.0); White Blood Count 5.8 10^3/uL (4.0-11.0)
[2024-08-14 12:29] LABS: Alanine Aminotransferase 28 U/L (14-59); Albumin Globulin Ratio 1.1; Albumin Level 3.9 g/dL (3.4-5.0); Alkaline Phosphatase 95 U/L (46-116); Anion Gap 15.6; Aspartate Amino Transferase 20 U/L (15-37); Bilirubin Total 0.6 mg/dL (0.2-1.0); Calcium 10.1 mg/dL (8.5-10.1); Carbon Dioxide 27.7 mmol/L (21.0-32.0); Chloride 104 mmol/L (98-107); Estimated GFR (African America >60 (>=60 mL/min/1.73m^2); Estimated GFR (Non-African Ame >60 (>=60 mL/min/1.73m^2); Globulin 3.4 g/dL; Glucose 117 mg/dL (74-106); Potassium 4.3 mmol/L (3.5-5.1); Sodium 143 mmol/L (136-145); Thyroid Stimulating Hormone 1.088 uIU/mL (0.358-3.740); Total Protein 7.3 g/dL (6.4-8.2)
[2024-08-14 13:30] LABS: Free T4 1.13 ng/dL (0.76-1.46)
== END 2024-08-14 10:48 | disposition home or self-care (01) ==
LOC: LAB 10:49
PROVIDERS: PCP Family Medicine; Visit Provider Internal Medicine Interventional Cardiology
DX: R06.09 Other forms of dyspnea (principal)
CPT/HCPCS: 36415; 80053; 83880; 84439; 84443; 85025

== ENCOUNTER 2024-09-16 08:08 | Outpatient (OUT) | payer OTHER, SELFPAY ==
--- NOTE | 2024-09-16 08:00 | CA_ITS ---
Patient Name: ELENI WATKINS MR#: [id number] : 1960 Exam Date: 09/16/2024 Ordering Doctor: DR SHALINI TODD M.D. ECHOCARDIOGRAM REPORT PROCEDURE: CA ECHO DOPPLER COMPLETE INDICATIONS: Dyspnea on exertion, hypertension, diabetes COMPARISON: None. DESCRIPTION: COMPLETE ECHOCARDIOGRAM Real-time transthoracic echocardiography with 2D, M-mode, spectral and color flow Doppler performed. QUALITY: Technical quality was adequate. LEFT VENTRICLE: Normal chamber size. Borderline left ventricular hypertrophy. Normal systolic function. LV EF: Normal left ventricular ejection fraction, (>55%). DIASTOLIC: Normal diastolic function. ATRIAL SEPTUM: LEFT ATRIUM: Normal chamber size. RIGHT ATRIUM: Normal chamber size. RIGHT VENTRICLE: Mildly dilated. Normal right ventricular systolic function. TRICUSPID VALVE: Normal mobility and thickness. No stenosis with mild regurgitation. Doppler studies reveal moderately (45-60) elevated right sided pressures. RVSP 47 mmHg MITRAL VALVE: Normal mobility and thickness. No evidence of mitral valve stenosis. There is no mitral annular calcification. No mitral regurgitation. AORTIC VALVE: Normal trileaflet appearance. No visible sclerosis. Normal leaflet mobility. No evidence of aortic valve stenosis. No aortic regurgitation. AORTIC ROOT: Normal diameter and appearance, measuring 3.3 cm. Ascending aorta is normal in size, measuring 2.8 cm. PULMONIC VALVE: Not well visualized. No stenosis. No regurgitation. PERICARDIUM: No evidence of pericardial effusion. IVC: Not well visualized. PLEURA: CONCLUSION: 1. Left ventricle is normal in size and exhibits normal systolic function. LVEF is estimated at 60%. 2. Mildly dilated right ventricle with normal systolic function. 3. Normal diastolic function. 4. No significant valvular dysfunction. 5. Moderately elevated right-sided pressures. RVSP is 47 mmHg. Adult Echocardiography Procedure Report Left Ventricle LVEDD (3.7 - 5.6 cm): 4.08 cm LVESD (2.2 - 4.0 cm): 2.99 cm LVIVS thickness (0.6 - 1.2 cm): 0.97 cm LVPW thickness (0.5 - 1.0 cm): 1.06 cm e': 0.12 m/s E - e': 7.69 LVOT Max Gradient: 5.16 mm[Hg] LVOT Area (cm2): 1.14 m/s Peak Velocity (LVOT): 1.14 m/s Mean Velocity (LVOT): 0.67 m/s LVOT Diameter 2.14 cm Left Atrium Left Atrium Systolic Dimension: 3.89 cm Mitral Valve MV E to A Ratio: 1.45 Mitral Valve A-Wave Peak Velocity: 0.62 m/s Mitral Valve E-Wave Peak Velocity: 0.90 m/s Right Ventricle Aorta AO Root Diam: 3.29 cm Ascending Ao Diam: 2.76 cm Aortic Valve AoV Area (Peak Abhilash): 3.06 cm2, 3.06 cm2 AoV Area (VTI): 2.88 cm2, 2.88 cm2 Peak Velocity(Antegrade Flow): 1.33 m/s Peak Gradient(Antegrade Flow): 7.11 mm[Hg] Mean Velocity(Antegrade Flow): 0.88 m/s Mean Gradient(Antegrade Flow): 3.75 mm[Hg] Velocity Time Integral: 29.51 cm Tricuspid Valve Peak Velocity (Regurgitant Flow): 3.31 m/s Pulmonic Valve Peak Velocity: 0.90 m/s Peak Gradient: 3.21 mm[Hg] Right Atrium Right Atrium Systolic Pressure: 29.20 ml, 29.20 ml Dictated by: Olegario Sellers M.D. on 09/16/2024 at 19:55 Approved by: Olegario Sellers M.D. on 09/16/2024 at 20:00
== END 2024-09-16 08:09 | disposition home or self-care (01) ==
LOC: CARD 08:09
PROVIDERS: PCP Family Medicine; Visit Provider Internal Medicine Interventional Cardiology
DX: R06.09 Other forms of dyspnea (principal)
CPT/HCPCS: 93306